=== PATIENT | female | born 1960 | race Caucasian/White ===

== ENCOUNTER 2017-08-11 12:32 | Inpatient (IN) | payer MEDICARE ==
[2017-08-11] MEDS ORDERED: SODIUM CHLORIDE 0.9% 1,000 ML BAG ONE (13:00)
[2017-08-11 13:13] LABS: Glucose,Whole Blood 128 mg/dL (75-99)
[2017-08-11 14:04] LABS: Basophils % (A) 0 %; Eosinophils # (A) 0.2 k/uL (0-0.7); Eosinophils % (A) 2 %; HCT 43.5 % (34.0-46.0); HGB 14.5 gm/dL (11.4-16.0); Lymphocytes # (A) 1.1 k/uL (1.0-4.8); Lymphocytes % (A) 13 %; MCH 31.1 pg (25.0-35.0); MCHC 33.4 g/dL (31.0-37.0); Mean Platelet Volume 7.4; Monocytes # (A) 0.5 k/uL (0-1.0); Monocytes % (A) 6 %; Neutrophils # (A) 6.8 k/uL (1.3-7.7); Neutrophils % (A) 78 %; Platelet Count 267 k/uL (150-450); RBC 4.67 m/uL (3.80-5.40); RDW 12.7 % (11.5-15.5); WBC 8.7 k/uL (3.8-10.6)
[2017-08-11 14:07] LABS: Appearance,Urine Clear (Clear); Bilirubin,Urine Negative (Negative); Blood,Urine Negative (Negative); Color,Urine Yellow; Glucose,Urine (UA) Negative (Negative); Ketones,Urine 2+ (Negative); Leukocyte Esterase,Urine Negative (Negative); Nitrite,Urine Negative (Negative); PH, Urine 5.5 (5.0-8.0); Protein,Urine Trace (Negative); Specific Gravity,Urine 1.015 (1.001-1.035); Urobilinogen,Urine <2.0 mg/dL (<2.0)
[2017-08-11 14:15] LABS: INR 1.1 (<1.2); Partial Thromboplastin Time 22.2 sec (22.0-30.0)
[2017-08-11 14:17] LABS: Lactic Acid, Venous 1.8 mmol/L (0.7-2.0)
[2017-08-11 14:18] LABS: Amphetamine Screen,Urine Not Detected (NotDetected); Barbiturate Screen,Urine Not Detected (NotDetected); Benzodiazepines Screen,Urine Detected (NotDetected); Cocaine Screen,Urine Detected (NotDetected); Methadone Screen, Urine Not Detected (NotDetected); Opiate Screen,Urine Not Detected (NotDetected); Oxycodone Screen, Urine Not Detected (NotDetected); Phencyclidine Screen,Urine Not Detected (NotDetected); Tricyclic Antidepressant,Urine Not Detected (NotDetected); Urn Cannabinoid Scrn Not Detected (NotDetected)
[2017-08-11 14:20] LABS: Acetaminophen <10.0 ug/mL; Albumin 3.8 g/dL (3.5-5.0); Alcohol <10 mg/dL; Amylase 57 U/L (30-110); Anion Gap 14 mmol/L; Carbon Dioxide 24 mmol/L (22-30); Chloride 105 mmol/L (98-107); Glucose 112 mg/dL (74-99); Lipase 44 U/L (23-300); Salicylate <1.0 mg/dL; Sodium 143 mmol/L (137-145); Total Bilirubin 0.9 mg/dL (0.2-1.3); Total Protein 6.2 g/dL (6.3-8.2)
[2017-08-11 14:29] LABS: ALT 31 U/L (9-52); AST 47 U/L (14-36); Alkaline Phosphatase 59 U/L (38-126); Blood Urea Nitrogen 11 mg/dL (7-17); Magnesium 1.9 mg/dL (1.6-2.3); Potassium 4.6 mmol/L (3.5-5.1)
[2017-08-11 14:36] LABS: D-Dimer 2.25 mg/L FEU (<0.60)
[2017-08-11 14:45] LABS: Creatine Kinase 785 U/L (30-135)
[2017-08-11 14:49] LABS: Troponin I <0.012 ng/mL (0.000-0.034)
[2017-08-11 15:00] LABS: Creatine Kinase MB 5.6 ng/mL (0.0-2.4)
--- NOTE | 2017-08-11 15:32 | XR ---
EXAMINATION TYPE: XR chest 2V DATE OF EXAM: 08/11/2017 COMPARISON: Prior chest 06/16/[address] same date HISTORY: Medication reaction TECHNIQUE: Frontal and lateral views of the chest are obtained. FINDINGS: There is no focal air space opacity, pleural effusion, or pneumothorax seen. The cardiac silhouette size is within normal limits. Patchy basilar density is noted. There are overlying cardiac leads. The osseous structures are intact. IMPRESSION: Basilar atelectasis
--- NOTE | 2017-08-11 15:38 | CT ---
EXAMINATION TYPE: CT angio chest DATE OF EXAM: 08/11/2017 3:15 PM COMPARISON: 06/20/2015 HISTORY: Possible over dose, elevated d-dimer CT DLP: 787 mGycm Automated exposure control for dose reduction was used. CONTRAST: CTA scan of the thorax is performed with IV Contrast, patient injected with 100, wasted 16 mL of Isov ue 370, pulmonary embolism protocol. . FINDINGS: LUNGS: There are groundglass changes and subsegmental consolidation bilaterally. This is new from the previous CT scan. No pneumothorax. MEDIASTINUM: The main pulmonary arteries enhance normally. There is suboptimal enhancement is seconda ry and distal branches bilaterally. Assessment of pulmonary embolism in these regions is limited. The heart is enlarged. Aorta of normal caliber. No pathologic adenopathy. OTHER: Postcholecystectomy changes are seen with intrahepatic biliary dilation compatible with previ ous cholecystectomy. Hypertrophic and degenerative change of the spine noted. IMPRESSION: NO CENTRAL PULMONARY EMBOLUS. SECONDARY AND DISTAL BRANCHES ARE LIMITED IN ASSESSMENT DUE TO ARTIFACT AND SUBOPTIMAL ENHANCEMENT. CORRELATE WITH V/Q SCAN CLINICALLY WARRANTED. THERE IS A BILATERAL GROUNDGLASS CHANGES AND SUBSEGMENTAL CONSOLIDATION. CORRELATE FOR INFILTRATE. I NTERSTITIAL PNEUMONITIS OR VENOUS CONGESTION IN THE DIFFERENTIAL DIAGNOSIS. ATYPICAL PNEUMONIA WOULD BE A CONSIDERATION..
--- NOTE | 2017-08-11 22:59 | P.HPIM ---
History of Present Illness H&P Date: 08/11/17 Chief Complaint: Possible overdose Patient is a 56-year-old female with a known history of IBS, short-term memory problems and depression came to ER for possible overdose. Patient is a poor historian otherwise. Currently patient does not know why she is now hospital. She also says that she wanted to come and suicide and she thinks she took more pills. Denied any fever or chills. No complaints of chest pain or shortness of breath. Patient seems very anxious and unable to provide any history at this time. Chest x-ray showed basilar atelectasis D-dimer elevated. CT angiogram of the chest showed there is a bilateral groundglass changes and subsegmental consolidation correlate for infiltrate. Interstitial pneumonitis versus venous congestion in the differential. Atypical pneumonia would be a consideration No central pulmonary embolus. Secondary and distal branches are limited in assessment. UDS positive for cocaine and benzodiazepines. Urine analysis is negative for infection Review of Systems Complete review of systems could not be obtained from the patient Past Medical History Past Medical History: Memory Impairment Additional Past Medical History / Comment(s): IBS pt stated"i have 6-7 loose bms daily for past 15 years", hernia repair, chronic uticaria. short term memory problems, bruises esily, depression. History of Any Multi-Drug Resistant Organisms: None Reported Past Surgical History: Adenoidectomy, Appendectomy, Cholecystectomy, Hysterectomy, Orthopedic Surgery, Tonsillectomy Additional Past Surgical History / Comment(s): left knee ligaments fixed, colonoscopy Past Anesthesia/Blood Transfusion Reactions: Motion Sickness Additional Past Anesthesia/Blood Transfusion Reaction / Comment(s): clausterphobia. 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 Medications and Allergies Home Medications Medication Instructions Recorded Confirmed Type Butalb/Acetaminophen/Caffeine 325 mg PO BID PRN 09/24/13 08/11/17 History [Fioricet 50-325-40 mg Tablet] Lisinopril [Zestril] 20 mg PO DAILY 05/21/15 08/11/17 History Promethazine [Phenergan] 25 mg PO Q6HR PRN 05/21/15 08/11/17 History Venlafaxine HCl ER [Effexor XR] 150 mg PO DAILY 05/21/15 08/11/17 History ALPRAZolam [Xanax] 1 mg PO QID 08/11/17 08/11/17 History Acetaminophen-Codeine 300-30mg 1 tab PO Q6H 08/11/17 08/11/17 History [Tylenol w/codeine #3] Albuterol Inhaler [Ventolin Hfa 1 - 2 puff INHALATION RT-Q6H PRN 08/11/17 History Inhaler] Cyclobenzaprine [Flexeril] 10 mg PO TID 08/11/17 08/11/17 History Dicyclomine [Bentyl] 20 mg PO QID 08/11/17 08/11/17 History Diphenox-Atrop 2.5-0.025 mg 2 tab PO TID 08/11/17 08/11/17 History [Lomotil] EPINEPHrine (Auto Inject) [Epipen] 0.3 mg IM ONCE PRN 08/11/17 08/11/17 History Fluticasone Nasal [place] [Flonase 1 spray EA NOSTRIL DAILY 08/11/17 08/11/17 History Nasal [place]] Allergies Allergy/AdvReac Type Severity Reaction Status Date / Time cefaclor [From [facility]] Allergy Unknown Rash/Hives Verified 06/28/15 18:18 shellfish derived Allergy Unknown Rash/Hives Verified 06/28/15 18:18 Physical Exam Vitals: Vital Signs Temp Pulse Pulse Resp BP BP Pulse Ox 08/11/17 20:00 98.0 F 100 16 128/58 95 08/11/17 18:48 97.9 F 95 18 111/54 96 08/11/17 12:35 99.5 F 109 H 16 90/60 94 L Intake and Output 08/11/17 08/11/17 08/11/17 06:59 14:59 22:59 Other: Voiding Method Bedpan Weight 88.451 kg PHYSICAL EXAMINATION: Patient is lying in the bed comfortably, mild distress, awake alert and oriented. Patient seems very anxious.. HEENT: Normocephalic. Neck is supple. Pupils reactive. Nostrils clear. Oral cavity is moist. Ears reveal no drainage. Neck reveals no JVD, carotid bruits, or thyromegaly. CHEST EXAMINATION: Trachea is central. Symmetrical expansion. Bibasilar diminished air entry. Otherwise Lung dominguez clear to auscultation and percussion. CARDIAC: Normal S1, S2 with no gallops. No murmurs ABDOMEN: Soft. Bowel sounds normal. No organomegaly. No abdominal bruits. Extremities: reveal no edema. No clubbing or cyanosis Neurologically awake, alert, oriented x2 with well-coordinated movements. No focal deficits noted Skin: No rash or skin lesions. Psychiatric: Noncooperative. Could not be assessed completely Musculoskeletal: No joint swelling or deformity. Normal range of motion. Results CBC & Chem 7: 08/11/17 13:00 08/11/17 13:00 Labs: Abnormal Lab Results - Last 24 Hours (Table) 08/11/17 08/11/17 08/11/17 Range/Units 12:52 13:00 13:00 D-Dimer (<0.60) mg/L FEU Glucose 112 H (74-99) mg/dL POC Glucose (mg/dL) 128 H (75-99) mg/dL AST 47 H (14-36) U/L Total Creatine Kinase 785 H (30-135) U/L CK-MB (CK-2) 5.6 H* (0.0-2.4) ng/mL C-Reactive Protein 147.0 H (<10.0) mg/L Total Protein 6.2 L (6.3-8.2) g/dL Urine Protein (Negative) Urine Ketones (Negative) U Benzodiazepines Scrn (NotDetected) Urine Cocaine Screen (NotDetected) 08/11/17 08/11/17 Range/Units 13:00 13:00 D-Dimer 2.25 H (<0.60) mg/L FEU Glucose (74-99) mg/dL POC Glucose (mg/dL) (75-99) mg/dL AST (14-36) U/L Total Creatine Kinase (30-135) U/L CK-MB (CK-2) (0.0-2.4) ng/mL C-Reactive Protein (<10.0) mg/L Total Protein (6.3-8.2) g/dL Urine Protein Trace H (Negative) Urine Ketones 2+ H (Negative) U Benzodiazepines Scrn Detected H (NotDetected) Urine Cocaine Screen Detected H (NotDetected) Thrombosis Risk Factor Assmnt - DVT/VTE Prophylaxis DVT/VTE Prophylaxis: Pharmacologic Prophylaxis ordered - Choose All That Apply Each Factor Represents 1 point: Obesity (BMI >25) Thrombosis Risk Factor Assessment Total Risk Factor Score: 1 Thrombosis Risk Factor Assessment Level: Low Risk Assessment and Plan Assessment: Drug overdose with possible suicide attempt UDS positive for cocaine and benzodiazepines Bibasilar atelectasis. Unlikely pneumonia Elevated CRP Elevated d-dimer. CTA chest negative for any central pulmonary embolus Chronic pain issues. Short-term memory problems IBS Claustrophobia DVT prophylaxis Plan: Patient will be continued on IV fluids and supportive management. Psychiatric be consulted. We will hold narcotic pain medications and follow up closely. Further recommendations based on the clinical course. Prognosis is guarded. Time with Patient: Greater than 30
[2017-08-11] MEDS: SODIUM CHLORIDE 0.9% 1,000 ML IV SCH (23:16)
[2017-08-11] MEDS: HEPARIN SODIUM,PORCINE 5,000 UNIT/ML 1 ML VIAL SQ SCH (23:16)
[2017-08-12] MEDS ORDERED: VANCOMYCIN IV PER PHARMACY 1 EACH MISC MISCELLANE PRN (06:31)
[2017-08-12] MEDS: HEPARIN SODIUM,PORCINE 5,000 UNIT/ML 1 ML VIAL SQ SCH ×3 (09:18→23:52)
[2017-08-12] MEDS: VANCOMYCIN 1,500 MG in SODIUM CHLORIDE 0.9% 250 ML IVPB SCH ×2 (09:20→21:37)
[2017-08-12] MEDS: DICYCLOMINE 20 MG TAB PO SCH (21:35)
[2017-08-12] MEDS: VENLAFAXINE HCL ER 150 MG CAP PO SCH (21:36)
[2017-08-12] MEDS: SODIUM CHLORIDE 0.9% 1,000 ML IV SCH (21:46)
--- NOTE | 2017-08-12 22:51 | P.PN ---
Subjective Progress Note Date: 08/12/17 Principal diagnosis: Drug overdose Patient is a 56-year-old female with a known history of IBS, short-term memory problems and depression came to ER for possible overdose. Patient is a poor historian otherwise. Currently patient does not know why she is now hospital. She also says that she wanted to come and suicide and she thinks she took more pills. Denied any fever or chills. No complaints of chest pain or shortness of breath. Patient seems very anxious and unable to provide any history at this time. Chest x-ray showed basilar atelectasis D-dimer elevated. CT angiogram of the chest showed there is a bilateral groundglass changes and subsegmental consolidation correlate for infiltrate. Interstitial pneumonitis versus venous congestion in the differential. Atypical pneumonia would be a consideration No central pulmonary embolus. Secondary and distal branches are limited in assessment. UDS positive for cocaine and benzodiazepines. Urine analysis is negative for infection 08/12/2017 Patient is more awake and oriented today. Denied any social ideation. Patient wants to start back on her home medications for her IBS. No fever no chills. Psychiatry evaluation is pending. Patient is with sitter at bedside now. No complaints of chest pain or shortness of breath. No nausea vomiting or abdominal pain. Tolerating oral diet. All other review of systems negative except the above Current medications reviewed Objective - Vital Signs Vital signs: Vital Signs Temp 97.7 F 08/12/17 08:00 Pulse 96 08/12/17 16:00 Resp 16 08/12/17 16:00 BP 152/64 08/12/17 16:00 Pulse Ox 95 08/12/17 16:00 Intake & Output 08/12/17 08/12/17 08/13/17 06:59 18:59 06:59 Intake Total 225 Balance 225 Weight 91.5 kg Intake: Intake, IV Titration 225 Amount Sodium Chloride 0.9% 1, 225 000 ml @ 75 mls/hr IV . [id number] [facility] Rx#:[id number] Other: Voiding Method Bedpan Bedpan # Voids 1 - Exam PHYSICAL EXAMINATION: Patient is lying in the bed comfortably, no acute distress, awake alert and oriented.. HEENT: Normocephalic. Neck is supple. Pupils reactive. Nostrils clear. Oral cavity is moist. Ears reveal no drainage. Neck reveals no JVD, carotid bruits, or thyromegaly. CHEST EXAMINATION: Trachea is central. Symmetrical expansion. Lung dominguez clear to auscultation and percussion. CARDIAC: Normal S1, S2 with no gallops. No murmurs ABDOMEN: Soft. Bowel sounds normal. No organomegaly. No abdominal bruits. Extremities: reveal no edema. No clubbing or cyanosis Neurologically awake, alert, oriented x3 with well-coordinated movements. No focal deficits noted Skin: No rash or skin lesions. Psychiatric: Coperative. Nonsuicidal Musculoskeletal: No joint swelling or deformity. Normal range of motion. - Labs CBC & Chem 7: 08/11/17 13:00 08/11/17 13:00 Labs: Microbiology - Last 24 Hours (Table) 08/11/17 13:00 Blood Culture Gram Stain - Preliminary Blood 08/11/17 13:00 Blood Culture - Final Blood Assessment and Plan Assessment: Drug overdose with possible suicide attempt UDS positive for cocaine and benzodiazepines Bibasilar atelectasis. Unlikely pneumonia Elevated CRP Elevated d-dimer. CTA chest negative for any central pulmonary embolus Chronic pain issues. Short-term memory problems IBS Claustrophobia DVT prophylaxis Plan: Patient will be continued on IV fluids and supportive management. Psychiatriy was consulted. We will hold narcotic pain medications and follow up closely. Further recommendations based on the clinical course. Prognosis is guarded.
[2017-08-13] MEDS: SODIUM CHLORIDE 0.9% 1,000 ML IV SCH ×2 (02:52→19:46)
[2017-08-13 06:16] LABS: Basophils % (A) 0 %; Eosinophils # (A) 0.2 k/uL (0-0.7); Eosinophils % (A) 4 %; HCT 35.7 % (34.0-46.0); HGB 12.2 gm/dL (11.4-16.0); Lymphocytes # (A) 1.2 k/uL (1.0-4.8); Lymphocytes % (A) 27 %; MCV 91.1 fL (80.0-100.0); Mean Platelet Volume 6.5; Monocytes # (A) 0.2 k/uL (0-1.0); Monocytes % (A) 5 %; Neutrophils # (A) 2.8 k/uL (1.3-7.7); Neutrophils % (A) 63 %; Platelet Count 234 k/uL (150-450); RBC 3.92 m/uL (3.80-5.40); RDW 12.9 % (11.5-15.5); WBC 4.4 k/uL (3.8-10.6)
[2017-08-13 06:48] LABS: Anion Gap 13 mmol/L; Blood Urea Nitrogen 5 mg/dL (7-17); Calcium 8.1 mg/dL (8.4-10.2); Carbon Dioxide 20 mmol/L (22-30); Chloride 109 mmol/L (98-107); Glucose 73 mg/dL (74-99); Potassium 3.5 mmol/L (3.5-5.1); Sodium 142 mmol/L (137-145)
[2017-08-13] MEDS: HEPARIN SODIUM,PORCINE 5,000 UNIT/ML 1 ML VIAL SQ SCH ×3 (09:10→22:54)
[2017-08-13] MEDS: VENLAFAXINE HCL ER 150 MG CAP PO SCH (09:10)
[2017-08-13] MEDS: DICYCLOMINE 20 MG TAB PO SCH ×4 (09:10→19:41)
[2017-08-13] MEDS: VANCOMYCIN 1,500 MG in SODIUM CHLORIDE 0.9% 250 ML IVPB SCH ×2 (09:13→19:41)
--- NOTE | 2017-08-13 14:31 | P.CN ---
Psychiatric Consult - . Consult date: 08/13/17 Consult:: Reason for psychiatric consult: The patient is a 56-year-old female who is a long history of psychiatric illness. [facility] an intentional overdose of multiple medications. The hospitalist consult to psychiatry to evaluate need for additional psychiatric services. Psychiatric history: I reviewed the medical records and interviewed the patient. She was difficult to interview because she was circumstantial and her answers to questions were tangential. She stated that she definitely overdose on her medications. In a very circumstantial manner she talked about obtaining a prescription for Xanax, insufflating $200 worth of cocaine and taken various other medications at her disposal. She locked herself in her bedroom and did not notify friends or family of her intent or action. Her brother came to her home to take her to a medical appointment. When she did not answer the door she called her son and they were able to break into her room. She remembers their arrival and described their attempts to enter her bedroom. She was unable to explain the reason for overdosing. She talked about her work history, her interpersonal history, her marriage, her multiple doctor visits, her multiple medical problems and her overall poor functioning. The impression from her discussion was that she felt overwhelmed with her multiple medical problems and felt that she was a burden on her family. She expressed feelings of sadness, hopelessness and helplessness. She has thoughts of suicide but denied that which she wishes she were or had thoughts of ending her life. She was very somatically preoccupied and complained of gastrointestinal, respiratory and general somatic symptoms. She has history of psychiatric treatment with multiple psychiatrist in the [place] area and most recently was a private psychiatrist in [facility]. She believes that she has been admitted to [facility] times. According to our medical record she was last admitted in September 2013 following a suicide attempt. She was discharged with a diagnosis of major depressive disorder recurrent and borderline personality disorder. Mental status exam she presented as a slightly disheveled appearing morbidly obese 56-year-old female who is laying comfortably in bed. She made eye contact and appeared to attend to the examination. She was missing her front teeth but otherwise had no prominent physical abnormalities. She had a blunted and distressed facial expression. She cried intermittently during the interview. She was alert and oriented to person, place and time. Showed psychomotor retardation but no abnormal movements. Her speech was spontaneous, circumstantial and tangential. She had no articulation difficulties. Her affect was dysphoric. She denied current suicidal ideation or wishes. She denied homicidal ideation. She expressed depressive cognitions including hopelessness, helplessness and worthlessness. She ruminated about her past social, occupational personal and medical problems. She did not express ideas reference, paranoid ideation or delusions. Her thinking was concrete and associations at times did not appear fully coherent or logical. She denied hallucinations and did not appear to be responding to internal stimuli. Global impression of intellect is average. Impression: She is a 56-year-old woman with multiple medical problems and an extensive psychiatric history. She [facility] following an intentional overdose of benzodiazepines and other drugs. She has a history of suicide attempts requiring inpatient psychiatric treatment. She denied that she had contemplated suicide but description of her actions clearly indicated suicide intent and action. Suicide attempt by overdose of multiple drugs, cocaine use, history of major depressive disorder. Recommendation: Transferred to the psychiatric unit when she is medically stable. 08/13/17 14:19
[2017-08-13] MEDS: LISINOPRIL 20 MG TAB PO SCH (16:20)
[2017-08-13] MEDS ORDERED: Magnesium Replacement Protocol 1 EACH MISC MISCELLANE PRN (16:57)
[2017-08-13] MEDS ORDERED: Potassium Replacement Protocol 1 EACH MISC MISCELLANE PRN (16:57)
--- NOTE | 2017-08-13 17:03 | P.PN ---
Subjective Progress Note Date: 08/13/17 Progress note being dictated for Dr. Colvin. Drug overdose Patient is a 56-year-old female with a known history of IBS, short-term memory problems and depression came to ER for possible overdose. Patient is a poor historian otherwise. Currently patient does not know why she is now hospital. She also says that she wanted to come and suicide and she thinks she took more pills. Denied any fever or chills. No complaints of chest pain or shortness of breath. Patient seems very anxious and unable to provide any history at this time. Chest x-ray showed basilar atelectasis D-dimer elevated. CT angiogram of the chest showed there is a bilateral groundglass changes and subsegmental consolidation correlate for infiltrate. Interstitial pneumonitis versus venous congestion in the differential. Atypical pneumonia would be a consideration No central pulmonary embolus. Secondary and distal branches are limited in assessment. UDS positive for cocaine and benzodiazepines. Urine analysis is negative for infection 08/12/2017 Patient is more awake and oriented today. Denied any social ideation. Patient wants to start back on her home medications for her IBS. No fever no chills. Psychiatry evaluation is pending. Patient is with sitter at bedside now. No complaints of chest pain or shortness of breath. No nausea vomiting or abdominal pain. Tolerating oral diet. All other review of systems negative except the above Current medications reviewed 08/13/17 son at bedside, waiting to talk to social security benefits interviewer. Sitter/suicide precautions maintained. Evaluated by psychiatry with recommendations noted.Denies chest pain, palpitations or increasing shortness of breath. Good diet intake. No nausea vomiting or diarrhea. Objective - Vital Signs Vital signs: Vital Signs Temp 97.2 F L 08/13/17 08:00 Pulse 95 08/13/17 12:00 Resp 16 08/13/17 15:37 BP 166/93 08/13/17 12:00 Pulse Ox 96 08/13/17 08:00 Intake & Output 08/12/17 08/13/17 08/13/17 18:59 06:59 18:59 Intake Total 880 330 Balance 880 330 Weight 93 kg Intake: IV 30 30 Invasive Line 1 30 30 Intake, IV Titration 850 Amount Sodium Chloride 0.9% 1, 600 000 ml @ 75 mls/hr IV . [id number] [facility] Rx#:[id number] Vancomycin 1,500 mg In 250 Sodium Chloride 0.9% 250 ml @ 125 mls/hr IVPB Q12H [facility] Rx#:[id number] Oral 300 Other: Voiding Method Bedpan Toilet Toilet - Exam Patient is lying in the bed comfortably, no acute distress, awake alert and oriented.. HEENT: Normocephalic. Neck is supple. Pupils reactive. Nostrils clear. Oral cavity is moist. Ears reveal no drainage. Neck reveals no JVD, carotid bruits, or thyromegaly. CHEST EXAMINATION: Trachea is central. Symmetrical expansion. Lung dominguez clear to auscultation and percussion. CARDIAC: Normal S1, S2 with no gallops. No murmurs ABDOMEN: Soft. Bowel sounds normal. No organomegaly. No abdominal bruits. Extremities: reveal no edema. No clubbing or cyanosis Neurologically awake, alert, oriented x3 with well-coordinated movements. No focal deficits noted Skin: No rash or skin lesions. Psychiatric: Coperative. Nonsuicidal Musculoskeletal: No joint swelling or deformity. Normal range of motion. - Labs CBC & Chem 7: 08/13/17 05:52 08/13/17 05:52 Labs: Abnormal Lab Results - Last 24 Hours (Table) 08/13/17 Range/Units 05:52 Chloride 109 H (98-107) mmol/L Carbon Dioxide 20 L (22-30) mmol/L BUN 5 L (7-17) mg/dL Creatinine 0.49 L (0.52-1.04) mg/dL Glucose 73 L (74-99) mg/dL Calcium 8.1 L (8.4-10.2) mg/dL Assessment and Plan Assessment: Drug overdose with possible suicide attempt UDS positive for cocaine and benzodiazepines Bibasilar atelectasis. Unlikely pneumonia Elevated CRP Elevated d-dimer. CTA chest negative for any central pulmonary embolus Chronic pain issues. Short-term memory problems IBS Claustrophobia DVT prophylaxis Plan: Continue on current medication regime ,monitoring and symptomatic treatment.maintain suicide precautions, IV fluid hydration. Psychiatriy recently evaluated, with transfer to psychiatry unit once medically stable recommended. Son at bedside, leading to speak with social security benefits interviewer regarding advanced directives, durable power of divorce attorney. Continuing holding narcotic pain medications. Further recommendations to follow The impression and plan of care has been dictated as directed. : I performed a history and examination of this patient, discussed the same with the dictator. I agree with the dictator's note ,documented as a scribe. Any additional findings or plans will be noted.
[2017-08-14] MEDS: SODIUM CHLORIDE 0.9% 1,000 ML IV SCH (04:23)
[2017-08-14 06:04] LABS: Basophils % (A) 0 %; Eosinophils # (A) 0.1 k/uL (0-0.7); Eosinophils % (A) 2 %; Lymphocytes # (A) 1.1 k/uL (1.0-4.8); Lymphocytes % (A) 22 %; MCH 30.6 pg (25.0-35.0); MCHC 34.3 g/dL (31.0-37.0); MCV 89.1 fL (80.0-100.0); Mean Platelet Volume 6.6; Monocytes # (A) 0.4 k/uL (0-1.0); Monocytes % (A) 9 %; Neutrophils # (A) 3.1 k/uL (1.3-7.7); Neutrophils % (A) 65 %; Platelet Count 263 k/uL (150-450); RBC 4.26 m/uL (3.80-5.40); RDW 12.5 % (11.5-15.5); WBC 4.8 k/uL (3.8-10.6)
[2017-08-14 06:16] LABS: Anion Gap 13 mmol/L; Blood Urea Nitrogen 2 mg/dL (7-17); Calcium 8.9 mg/dL (8.4-10.2); Carbon Dioxide 21 mmol/L (22-30); Chloride 109 mmol/L (98-107); Glucose 93 mg/dL (74-99); Magnesium 1.9 mg/dL (1.6-2.3); Potassium 3.7 mmol/L (3.5-5.1); Sodium 143 mmol/L (137-145)
[2017-08-14] MEDS ORDERED: VANCOMYCIN TROUGH DUE 1 EACH MISC MISCELLANE ONE (07:00)
[2017-08-14] MEDS: VENLAFAXINE HCL ER 150 MG CAP PO SCH (09:26)
[2017-08-14] MEDS: DICYCLOMINE 20 MG TAB PO SCH ×2 (09:26→12:37)
[2017-08-14] MEDS: LISINOPRIL 20 MG TAB PO SCH (09:26)
[2017-08-14] MEDS: HEPARIN SODIUM,PORCINE 5,000 UNIT/ML 1 ML VIAL SQ SCH (09:26)
[2017-08-14] MEDS: VANCOMYCIN 1,500 MG in SODIUM CHLORIDE 0.9% 250 ML IVPB SCH (12:37)
[2017-08-14 12:42] VITALS: TEMP 98
--- NOTE | 2017-08-14 13:04 | P.DS ---
Providers Date of admission: 08/11/17 16:30 Expected date of discharge: 08/14/17 Attending physician: Tommy Staton Consults: 08/12/17 14:39 Consult Physician Stat Consulting Provider: Patrice Martinez Consult Reason/Comments: suicidal idealtion Do you want consulting provider notified?: Yes Placement Type Exists?: Yes Primary care physician: Tommy Stokes Hospital Course: Final Diagnoses: Drug overdose with possible suicide attempt UDS positive for cocaine and benzodiazepines Bibasilar atelectasis. Unlikely pneumonia Elevated CRP Elevated d-dimer. CTA chest negative for any central pulmonary embolus Chronic pain issues. Short-term memory problems IBS [facility]:Drug overdose Patient is a 56-year-old female with a known history of IBS, short-term memory problems and depression came to ER for possible overdose. Patient is a poor historian otherwise. Currently patient does not know why she is now hospital. She also says that she wanted to come and suicide and she thinks she took more pills. Denied any fever or chills. No complaints of chest pain or shortness of breath. Patient seems very anxious and unable to provide any history at this time. Chest x-ray showed basilar atelectasis D-dimer elevated. CT angiogram of the chest showed there is a bilateral groundglass changes and subsegmental consolidation correlate for infiltrate. Interstitial pneumonitis versus venous congestion in the differential. Atypical pneumonia would be a consideration No central pulmonary embolus. Secondary and distal branches are limited in assessment. UDS positive for cocaine and benzodiazepines. Urine analysis is negative for infection Blood culture reporting ALpha Hemolytic Streptococcus/COagulase Negative Staph. Vancomycin has been discontinued.Repeat Blood culture Pending.No antibiotics recommended at discharge as patient has no signs or symtoms of infection, afebrile, normal WBC,UA negative. Suicide precautions maintained.Evaluated by psychiatry with recommendations of patient to be transferred to psychiatry unit. Received gentle IV fluid hydration.Significant clinical improvement.Patient has been medically cleared for discharge to mental health unit, in a stable condition with guarded prognosis. Exam Patient is sitting up in bed, no acute distress, awake alert and oriented.. CHEST EXAMINATION: Trachea is central. Symmetrical expansion. Lung dominguez clear to auscultation and percussion. CARDIAC: Normal S1, S2 with no gallops. No murmurs ABDOMEN: Soft. Bowel sounds normal. No organomegaly. No abdominal bruits. NEURO : No focal deficits noted Psychiatric: Coperative.Suicide precautions maintained The impression and plan of care has been dictated as directed. : I performed a history and examination of this patient, discussed the same with the dictator. I agree with the dictator's note ,documented as a scribe. Any additional findings or plans will be noted. TIme taken:35 min Patient Condition at Discharge: Stable Plan - Discharge Summary Discharge Rx Participant: Yes New Discharge Prescriptions: Continue Lisinopril [Zestril] 20 mg PO DAILY Venlafaxine HCl ER [Effexor XR] 150 mg PO DAILY Albuterol Inhaler [Ventolin Hfa Inhaler] 1 - 2 puff INHALATION RT-Q6H PRN PRN Reason: Shortness Of Breath Fluticasone Nasal [place] [Flonase Nasal [place]] 1 spray EA NOSTRIL DAILY Dicyclomine [Bentyl] 20 mg PO QID Discontinued Butalb/Acetaminophen/Caffeine [Fioricet 50-325-40 mg Tablet] 325 mg PO BID PRN PRN Reason: Migraine Headache Promethazine [Phenergan] 25 mg PO Q6HR PRN PRN Reason: Nausea EPINEPHrine (Auto Inject) [Epipen] 0.3 mg IM ONCE PRN PRN Reason: Anaphylaxis Diphenox-Atrop 2.5-0.025 mg [Lomotil] 2 tab PO TID Cyclobenzaprine [Flexeril] 10 mg PO TID ALPRAZolam [Xanax] 1 mg PO QID Acetaminophen-Codeine 300-30mg [Tylenol w/codeine #3] 1 tab PO Q6H Discharge Medication List Lisinopril [Zestril] 20 mg PO DAILY 05/21/15 [History] Venlafaxine HCl ER [Effexor XR] 150 mg PO DAILY 05/21/15 [History] Albuterol Inhaler [Ventolin Hfa Inhaler] 1 - 2 puff INHALATION RT-Q6H PRN [History] Dicyclomine [Bentyl] 20 mg PO QID 08/11/17 [History] Fluticasone Nasal [place] [Flonase Nasal [place]] 1 spray EA NOSTRIL DAILY 08/11/17 [History] Follow up Appointment(s)/Referral(s): Tommy Stokes MD [Primary Care Provider] - 3 Days (after dc from Psych.) Patrice Martinez MD [STAFF PHYSICIAN] - 08/14/17 Activity/Diet/Wound Care/Special Instructions: cbc,bmp tomorrow repeat BC pending. Discharge Disposition: TRANSFER TO PSYCH HOSP/UNIT
[2017-08-14 17:26] VITALS: BP 167/83; PULSE 98; RESP 17
== END 2017-08-14 17:12 | DRG 918 ==
LOC: EC 12:32 → 6SEL 16:30 → EC 18:10
PROVIDERS: ADMIT Family Medicine; ATTEND Family Medicine
DX: T40.5X2A Poisoning by cocaine, intentional self-harm, initial encounter (principal); T42.4X2A Poisoning by benzodiazepines, intentional self-harm, initial encounter; K58.0 Irritable bowel syndrome with diarrhea; F32.9 Major depressive disorder, single episode, unspecified; R79.1 Abnormal coagulation profile; F40.240 Claustrophobia; G89.29 Other chronic pain; R41.3 Other amnesia; Z90.49 Acquired absence of other specified parts of digestive tract; Z90.710 Acquired absence of both cervix and uterus; Z87.891 Personal history of nicotine dependence; Z79.51 Long term (current) use of inhaled steroids; Z79.899 Other long term (current) drug therapy; Z88.1 Allergy status to other antibiotic agents; Z91.013 Allergy to seafood; Z80.1 Family history of malignant neoplasm of trachea, bronchus and lung
CPT/HCPCS: 36415; 71046; 71275; 80048; 80053; 80202; 80306; 80320; 81003; 82140; 82150; 82550; 82553; 83520; 83605; 83690; 83735; 84484; 85025; 85379; 85610; 85652; 85730; 86140; 87040; 93005; 96360; 99285

== ENCOUNTER 2017-08-14 16:22 | Inpatient (IN) | payer MEDICARE ==
[2017-08-14 18:11] VITALS: RESP 20; BMI 34.2
[2017-08-14] MEDS ORDERED: MAG HYDROX/AL HYDROX/SIMETH 30 ML CUP PO PRN (18:28)
[2017-08-14] MEDS ORDERED: ACETAMINOPHEN TAB 325 MG TAB PO PRN (18:28)
[2017-08-14] MEDS ORDERED: MAGNESIUM HYDROXIDE 2,400 MG/10 ML CUP PO PRN (18:28)
[2017-08-14] MEDS ORDERED: ALBUTEROL INHALER 60 PUFF/8 GM INHALER INHALATION PRN (18:30)
[2017-08-14] MEDS ORDERED: LORazepam 2 MG/ML INJ IM ONE (20:35)
--- NOTE | 2017-08-14 21:33 | CT ---
EXAMINATION TYPE: CT brain [facility] DATE OF EXAM: 08/14/2017 COMPARISON: CT brain 02/08/2012 HISTORY: Fall. CT DLP: 1357.1 mGycm Automated exposure control for dose reduction was used. TECHNIQUE: CT scan of the head and cervical spine are performed without contrast. FINDINGS: Ventricles and sulci appear normal for age. There is no mass effect nor midline shift. Th ere is no sign of intracranial hemorrhage. There is right-sided periorbital soft tissue swelling. The calvarium is intact. Cervical vertebra have fairly normal alignment. There is mild narrowing of the C5-6 disc space. There is no compression fracture. Facet joints appear normal. The skull base appears intact. IMPRESSION: Right periorbital soft tissue swelling. No intracranial abnormality. Minor degenerative disc changes in the cervical spine. No fracture.
[2017-08-14] MEDS ORDERED: DICYCLOMINE 20 MG TAB PO SCH (22:00)
[2017-08-14 22:44] VITALS: BP 174/79; PULSE 88
[2017-08-15] MEDS ORDERED: VENLAFAXINE HCL ER 150 MG CAP PO SCH (09:00)
[2017-08-15] MEDS ORDERED: LISINOPRIL 20 MG TAB PO SCH (09:00)
[2017-08-15] MEDS ORDERED: FLUTICASONE 50MCG/SPRAY NASAL 16GM EA NOSTRIL SCH (09:00)
== END 2017-08-14 21:04 | disposition short-term general hospital (02) | DRG 881 ==
LOC: 3MHU 17:05
PROVIDERS: ADMIT Psychiatry & Neurology Psychiatry; ATTEND Psychiatry & Neurology Psychiatry
DX: F32.9 Major depressive disorder, single episode, unspecified (principal); Z91.5 Personal history of self-harm; E66.01 Morbid (severe) obesity due to excess calories; Z68.34 Body mass index [BMI] 34.0-34.9, adult
CPT/HCPCS: 70450; 72125

== ENCOUNTER 2017-08-14 21:10 | Inpatient (IN) | payer MEDICARE ==
[2017-08-14 22:46] VITALS: BMI 34.3
[2017-08-14] MEDS ORDERED: ALBUTEROL NEBULIZED 2.5 MG/3 ML INHALATION PRN (23:36)
[2017-08-14 23:57] LABS: Basophils % (A) 0 %; Eosinophils % (A) 0 %; HGB 14.6 gm/dL (11.4-16.0); Lymphocytes # (A) 0.7 k/uL (1.0-4.8); Lymphocytes % (A) 7 %; MCH 30.6 pg (25.0-35.0); Mean Platelet Volume 6.5; Monocytes # (A) 0.6 k/uL (0-1.0); Monocytes % (A) 6 %; Neutrophils # (A) 9.4 k/uL (1.3-7.7); Neutrophils % (A) 86 %; Platelet Count 298 k/uL (150-450); RBC 4.77 m/uL (3.80-5.40); RDW 12.5 % (11.5-15.5); WBC 10.9 k/uL (3.8-10.6)
[2017-08-15 00:08] LABS: Anion Gap 16 mmol/L; Blood Urea Nitrogen 3 mg/dL (7-17); Calcium 9.5 mg/dL (8.4-10.2); Carbon Dioxide 18 mmol/L (22-30); Chloride 103 mmol/L (98-107); Glucose 122 mg/dL (74-99); Potassium 3.8 mmol/L (3.5-5.1); Sodium 137 mmol/L (137-145)
[2017-08-15] MEDS: HYDROcodone/APAP 5-325MG 1 EACH TAB PO PRN ×4 (00:54→19:56)
[2017-08-15] MEDS: ONDANSETRON 4 MG/2 ML VIAL IVP PRN ×4 (00:54→19:56)
[2017-08-15] MEDS: SODIUM CHLORIDE 0.9% 1,000 ML IV SCH ×2 (00:56→13:43)
[2017-08-15] MEDS: LISINOPRIL 20 MG TAB PO SCH (08:11)
[2017-08-15] MEDS: DICYCLOMINE 20 MG TAB PO SCH ×3 (13:38→21:57)
--- NOTE | 2017-08-15 15:37 | P.HPIM ---
History of Present Illness H&P Date: 08/15/17 Chief Complaint: Status post fall Patient is a 56-year-old female with a known history of IBS, short-term memory problems and depression came to ER for possible overdose on 08/11/2017 initially. Patient is a poor historian otherwise. She also says that she wanted to come and suicide and she thinks she took more pills. Denied any fever or chills. No complaints of chest pain or shortness of breath. Initial workup below was essentially negative. Chest x-ray showed basilar atelectasis D-dimer elevated. CT angiogram of the chest showed there is a bilateral groundglass changes and subsegmental consolidation correlate for infiltrate. Interstitial pneumonitis versus venous congestion in the differential. Atypical pneumonia would be a consideration No central pulmonary embolus. Secondary and distal branches are limited in assessment. UDS positive for cocaine and benzodiazepines. Urine analysis is negative for infection Patient was continued to monitor in the telemetry unit and psychiatric has seen the patient. Patient did improve clinically and was cleared to be transferred to inpatient psychiatric unit as per recommendations. Up on reaching the psychiatric unit., Patient became more anxious and felt like an anxiety attack as per patient and fell down. Patient says that she had some shaking movement as well. Patient woke up of her she had CT of head and neck. Denied any weakness, bladder or bowel incontinence. CT head showed soft tissue swelling. Patient had right eyelid swelling and redness and also injection of the eyes. Denied any pain with movement of eyes. otherwise patient is not able to open her right eye completely due to swelling. No fever no chills currently. Neurology was consulted for further evaluation. Currently patient is more awake and alert and oriented. Able to provide history. Review of Systems Constitutional: Patient denies any fever or chills . No generalized weakness or weight loss. Abdomen: Patient denied nausea vomiting and diarrhea and abdominal pain. Cardiovascular: Patient denies any chest pain or short of breath no palpitations. Respiratory: patient denied any cough is from production. No shortness of breath Neurologic: Patient denied any numbness or tingling headache. Musculoskeletal: Patient denies any complaints of joint swelling or deformity. Patient does have right eyebrow/lids swelling and redness Skin: Negative Psychiatric: Negative Endocrine: No heat or cold intolerance. No recent weight gain. Genitourinary: No dysuria or hematuria. All other 14 point ROS negative except the above Past Medical History Past Medical History: Memory Impairment Additional Past Medical History / Comment(s): IBS pt stated"i have 6-7 loose bms daily for past 15 years", hernia repair, chronic uticaria. short term memory problems, bruises easily, depression. History of Any Multi-Drug Resistant Organisms: None Reported Past Surgical History: Adenoidectomy, Appendectomy, Cholecystectomy, Hysterectomy, Orthopedic Surgery, Tonsillectomy Additional Past Surgical History / Comment(s): left knee ligaments fixed, colonoscopy Past Anesthesia/Blood Transfusion Reactions: Motion Sickness Additional Past Anesthesia/Blood Transfusion Reaction / Comment(s): clausterphobia. past blood transfusion-no reaction Past Psychological History: Anxiety, Depression, Panic Disorder Smoking Status: Current every day smoker Past Alcohol Use History: Occasional Additional Past Alcohol Use History / Comment(s): started smoking at age 14 smokes 1/2 ppd; started smioking a full pack 3 years ago Past Drug Use History: Cocaine Additional Drug Use History / Comment(s): pt stated no past drug use when younger but a month ago started to use cocaine occ. last used few days ago. 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 Medications and Allergies Home Medications Medication Instructions Recorded Confirmed Type Lisinopril [Zestril] 20 mg PO DAILY 05/21/15 08/14/17 History Venlafaxine HCl ER [Effexor XR] 150 mg PO DAILY 05/21/15 08/14/17 History Albuterol Inhaler [Ventolin Hfa 1 - 2 puff INHALATION RT-Q6H PRN 08/11/17 History Inhaler] Dicyclomine [Bentyl] 20 mg PO QID 08/11/17 08/14/17 History Fluticasone Nasal [place] [Flonase 1 spray EA NOSTRIL DAILY 08/11/17 08/14/17 History Nasal [place]] Allergies Allergy/AdvReac Type Severity Reaction Status Date / Time cefaclor [From Ceclor] Allergy Unknown Rash/Hives Verified 08/14/17 19:16 shellfish derived Allergy Unknown Rash/Hives Verified 08/14/17 19:16 latex Allergy Rash/Hives Verified 08/14/17 19:16 Physical Exam Vitals: Vital Signs Temp Pulse Resp BP BP Pulse Ox 08/15/17 08:00 99.0 F 94 18 146/83 99 08/15/17 04:00 98 F 93 16 158/93 96 08/15/17 00:00 97.6 F 96 16 136/65 100 Intake and Output 08/14/17 08/15/17 08/15/17 22:59 06:59 14:59 Intake Total 118 Balance 118 Intake: Oral 118 Other: # Voids 2 1 Weight 90.718 kg 90 kg PHYSICAL EXAMINATION: Patient is lying in the bed comfortably, no acute distress, awake alert and oriented.. HEENT: Normocephalic. Neck is supple. Pupils reactive. Nostrils clear. Oral cavity is moist. Ears reveal no drainage. Right eyelid is swollen and black eye with conjunctival injection. tender to palpation. Neck reveals no JVD, carotid bruits, or thyromegaly. CHEST EXAMINATION: Trachea is central. Symmetrical expansion. Lung dominguez clear to auscultation and percussion. CARDIAC: Normal S1, S2 with no gallops. No murmurs ABDOMEN: Soft. Bowel sounds normal. No organomegaly. No abdominal bruits. Extremities: reveal no edema. No clubbing or cyanosis Neurologically awake, alert, oriented x3 with well-coordinated movements. No focal deficits noted Skin: No rash or skin lesions. Psychiatric: Coperative. Denied any suicidal ideation currently. Musculoskeletal: No joint swelling or deformity. Normal range of motion. Results CBC & Chem 7: 08/14/17 23:51 08/14/17 23:51 Labs: Abnormal Lab Results - Last 24 Hours (Table) 08/14/17 08/14/17 Range/Units 23:51 23:51 WBC 10.9 H (3.8-10.6) k/uL Neutrophils # 9.4 H (1.3-7.7) k/uL Lymphocytes # 0.7 L (1.0-4.8) k/uL Carbon Dioxide 18 L (22-30) mmol/L BUN 3 L (7-17) mg/dL Creatinine 0.40 L (0.52-1.04) mg/dL Glucose 122 H (74-99) mg/dL Thrombosis Risk Factor Assmnt - DVT/VTE Prophylaxis DVT/VTE Prophylaxis: Pharmacologic Prophylaxis ordered - Choose All That Apply Any of the Below Risk Factors Present?: Yes Each Factor Represents 1 point: Age 41-60 years, Obesity (BMI >25) Thrombosis Risk Factor Assessment Total Risk Factor Score: 2 Thrombosis Risk Factor Assessment Level: Low Risk Assessment and Plan Assessment: Status post fall and right black eye with conjunctival injection. Suspected anxiety attack versus possibility of seizures cannot be excluded. Acute Drug overdose with suicide attempt on admission UDS positive for cocaine and benzodiazepines Bibasilar atelectasis. Unlikely pneumonia Elevated CRP Elevated d-dimer. CTA chest negative for any central pulmonary embolus Chronic pain issues. Short-term memory problems IBS Claustrophobia DVT prophylaxis Plan: Continue on current medication regime ,monitoring and symptomatic treatment.maintain suicide precautions and fall precautions, IV fluid hydration. CT head and CT neck was done. CT neck showed mild degenerative disc disease. Patient is currently awake alert oriented 3 and will be continued on pain management with [place] 5. Will follow closely. Neurology was consulted. Ordered EEG and further recommendations based on the clinical course. Prognosis is guarded. Social work has seen the patient for guardianship/DURABLE POWER OF CUSTOMER SOLUTIONS ARCHITECT. Continued with sitter at bedside. Time with Patient: Greater than 30
[2017-08-16] MEDS: SODIUM CHLORIDE 0.9% 1,000 ML IV SCH ×2 (04:20→16:00)
[2017-08-16] MEDS: FLUTICASONE 50MCG/SPRAY NASAL 16GM EA NOSTRIL SCH (08:36)
[2017-08-16] MEDS: LISINOPRIL 20 MG TAB PO SCH (08:36)
[2017-08-16] MEDS: VENLAFAXINE HCL ER 150 MG CAP PO SCH (08:36)
[2017-08-16] MEDS: DICYCLOMINE 20 MG TAB PO SCH ×4 (08:36→22:51)
[2017-08-16] MEDS: HYDROcodone/APAP 5-325MG 1 EACH TAB PO PRN ×3 (09:38→22:51)
--- NOTE | 2017-08-16 14:54 | P.CONS ---
History of Present Illness - Reason for Consult Consult date: 08/16/17 Possible seizure - Chief Complaint Syncopal episode - History of Present Illness Is a 56-year-old female being evaluated by the neurology service for possible seizure activity. She came to the [facility] emergency room with an overdose on 08/11/2017. She says she took heroin and some pills. Her most recent UDS was positive for cocaine and benzodiazepines. She was admitted to psychiatric unit and was improving clinically when she started to become anxious and thought she was having an anxiety attack and subsequently fell. She sustained a contusion to the right face. CT of the head showed only soft tissue swelling. There was no seizure activity reported. There was no sphincter incontinence. She says she has no history of seizure disorder but has migraines with [place]. Since this episode she has had no witnessed seizure activity, and she denies any seizure activity or loss of consciousness since. At this time my exam she is resting comfortably in bed in no acute distress with the sitter. Obvious bruising to the right face. An EEG has been ordered. Review of Systems All systems: negative Constitutional: Reports as per HPI Past Medical History Past Medical History: Memory Impairment Additional Past Medical History / Comment(s): IBS pt stated"i have 6-7 loose bms daily for past 15 years", hernia repair, chronic uticaria. short term memory problems, bruises easily, depression. History of Any Multi-Drug Resistant Organisms: None Reported Past Surgical History: Adenoidectomy, Appendectomy, Cholecystectomy, Hysterectomy, Orthopedic Surgery, Tonsillectomy Additional Past Surgical History / Comment(s): left knee ligaments fixed, colonoscopy Past Anesthesia/Blood Transfusion Reactions: Motion Sickness Additional Past Anesthesia/Blood Transfusion Reaction / Comm: clausterphobia. past blood transfusion-no reaction Past Psychological History: Anxiety, Depression, Panic Disorder Smoking Status: Current every day smoker Past Alcohol Use History: Occasional Additional Past Alcohol Use History / Comment(s): started smoking at age 14 smokes 1/2 ppd; started smioking a full pack 3 years ago Past Drug Use History: Cocaine Additional Drug Use History / Comment(s): pt stated no past drug use when younger but a month ago started to use cocaine occ. last used few days ago. 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 Medications and Allergies Home Medications Medication Instructions Recorded Confirmed Type Lisinopril [Zestril] 20 mg PO DAILY 05/21/15 08/14/17 History Venlafaxine HCl ER [Effexor XR] 150 mg PO DAILY 05/21/15 08/14/17 History Albuterol Inhaler [Ventolin Hfa 1 - 2 puff INHALATION RT-Q6H PRN 08/11/17 History Inhaler] Dicyclomine [Bentyl] 20 mg PO QID 08/11/17 08/14/17 History Fluticasone Nasal [place] [Flonase 1 spray EA NOSTRIL DAILY 08/11/17 08/14/17 History Nasal [place]] Allergies Allergy/AdvReac Type Severity Reaction Status Date / Time cefaclor [From [facility]] Allergy Unknown Rash/Hives Verified 08/14/17 19:16 shellfish derived Allergy Unknown Rash/Hives Verified 08/14/17 19:16 latex Allergy Rash/Hives Verified 08/14/17 19:16 Physical Exam Vitals: Vital Signs Temp Pulse Resp BP BP Pulse Ox 08/16/17 12:10 98 F 88 18 144/81 94 L 08/16/17 08:30 98.7 F 94 18 145/70 95 08/16/17 03:58 98.1 F 99 16 110/51 95 08/16/17 00:00 98.2 F 83 16 163/70 98 08/15/17 20:00 97.7 F 84 16 179/79 96 08/15/17 15:50 99.7 F H 100 18 149/78 96 Intake and Output 08/15/17 08/16/17 08/16/17 22:59 06:59 14:59 Intake Total 240 Balance 240 Intake: Oral 240 Other: # Voids 1 1 2 Weight 88.5 kg - Constitutional General appearance: cooperative, no acute distress - EENT Eyes: no abnormal pupil, EOMI, PERRLA, no ptosis ENT: hearing grossly normal - Neck Neck: normal ROM, no rigidity - Respiratory Respiratory: negative: prolonged expiration, prolonged inspiration - Cardiovascular Rhythm: regular - Gastrointestinal General gastrointestinal: no distended - Neurologic The patient is alert awake and oriented 3. Speech and language are normal. There is no facial asymmetry. Strength is 5 out of 5 in bilateral upper and lower extremities. There is no sensory deficit. No tremors or seizures are seen. Cranial nerves II through XII are intact globally. She has contusion and ecchymosis to the right side of her face. She had some right subconjunctival hemorrhage. Her vision is intact. Results CBC & Chem 7: 08/14/17 23:51 08/14/17 23:51 Assessment and Plan (1) Syncope and collapse Current Visit: Yes Status: Acute Code(s): R55 - SYNCOPE AND COLLAPSE SNOMED Code(s): 303140302 (2) Overdose Current Visit: No Status: Acute Code(s): T50.901A - POISONING BY UNSP DRUG/ MEDS/BIOL SUBST, ACCIDENTAL, INIT SNOMED Code(s): 08602729 (3) Suicidal ideation Current Visit: No Status: Acute Code(s): R45.851 - SUICIDAL IDEATIONS SNOMED Code(s): 1761390 (4) Cocaine use disorder Current Visit: Yes Status: Chronic Code(s): F14.10 - COCAINE ABUSE, UNCOMPLICATED SNOMED Code(s): 684711362 Plan: This patient with a long history of psychiatric problems has had a possible syncopal episode without witnessed seizure. She has no focal neurological symptoms and has not had no seizure activity witnessed. An EEG has been ordered. Continue the rest your workup. We'll make recommendations based on the above study. Be on that no further neurological workup is needed. I have performed a history and physical on the above patient. I have reviewed the above note, and agree.
--- NOTE | 2017-08-16 23:10 | P.PN ---
Subjective Progress Note Date: 08/16/17 Principal diagnosis: Syncope Patient is a 56-year-old female with a known history of IBS, short-term memory problems and depression came to ER for possible overdose on 08/11/2017 initially. Patient is a poor historian otherwise. She also says that she wanted to come and suicide and she thinks she took more pills. Denied any fever or chills. No complaints of chest pain or shortness of breath. Initial workup below was essentially negative. Chest x-ray showed basilar atelectasis D-dimer elevated. CT angiogram of the chest showed there is a bilateral groundglass changes and subsegmental consolidation correlate for infiltrate. Interstitial pneumonitis versus venous congestion in the differential. Atypical pneumonia would be a consideration No central pulmonary embolus. Secondary and distal branches are limited in assessment. UDS positive for cocaine and benzodiazepines. Urine analysis is negative for infection Patient was continued to monitor in the telemetry unit and psychiatric has seen the patient. Patient did improve clinically and was cleared to be transferred to inpatient psychiatric unit as per recommendations. Up on reaching the psychiatric unit., Patient became more anxious and felt like an anxiety attack as per patient and fell down. Patient says that she had some shaking movement as well. Patient woke up of her she had CT of head and neck. Denied any weakness, bladder or bowel incontinence. CT head showed soft tissue swelling. Patient had right eyelid swelling and redness and also injection of the eyes. Denied any pain with movement of eyes. otherwise patient is not able to open her right eye completely due to swelling. No fever no chills currently. Neurology was consulted for further evaluation. Currently patient is more awake and alert and oriented. Able to provide history. 08/16/2017 Patient denied any headache or dizziness. No chest pain or shortness of breath. Right eye swelling is improving. Patient was seen by neurology. EEG is pending. Otherwise patient is hemodynamically stable. No acute overnight issues. Continued with sitter. All other review of systems negative except the above Current medications reviewed Objective - Vital Signs Vital signs: Vital Signs Temp 98.7 F 08/16/17 08:30 Pulse 94 08/16/17 08:30 Resp 18 08/16/17 08:30 BP 145/70 08/16/17 08:30 Pulse Ox 95 08/16/17 08:30 Intake & Output 08/15/17 08/16/17 08/16/17 18:59 06:59 18:59 Intake Total 1436 240 Balance 1436 240 Weight 88.5 kg Intake: Intake, IV Titration 600 Amount Sodium Chloride 0.9% 1, 600 000 ml @ 75 mls/hr IV . [id number] JENNIFER Rx#:[id number] Oral 836 240 Other: # Voids 1 2 - Exam PHYSICAL EXAMINATION: Patient is lying in the bed comfortably, no acute distress, awake alert and oriented.. HEENT: Normocephalic. Neck is supple. Pupils reactive. Nostrils clear. Oral cavity is moist. Ears reveal no drainage. Right eyelid is swollen and black eye with conjunctival injection. tender to palpation. Neck reveals no JVD, carotid bruits, or thyromegaly. CHEST EXAMINATION: Trachea is central. Symmetrical expansion. Lung dominguez clear to auscultation and percussion. CARDIAC: Normal S1, S2 with no gallops. No murmurs ABDOMEN: Soft. Bowel sounds normal. No organomegaly. No abdominal bruits. Extremities: reveal no edema. No clubbing or cyanosis Neurologically awake, alert, oriented x3 with well-coordinated movements. No focal deficits noted Skin: No rash or skin lesions. Psychiatric: Coperative. Denied any suicidal ideation currently. Musculoskeletal: No joint swelling or deformity. Normal range of motion. - Labs CBC & Chem 7: 08/14/17 23:51 08/14/17 23:51 Assessment and Plan Assessment: Syncope and collapse with right black eye with conjunctival injection. Swelling is improving now. Suspected anxiety attack versus possibility of seizures cannot be excluded. Acute Drug overdose with suicide attempt on admission UDS positive for cocaine and benzodiazepines Bibasilar atelectasis. Unlikely pneumonia Elevated CRP Elevated d-dimer. CTA chest negative for any central pulmonary embolus Chronic pain issues. Short-term memory problems IBS Claustrophobia DVT prophylaxis Plan: Continue on current medication regime ,monitoring and symptomatic treatment.maintain suicide precautions and fall precautions, IV fluid hydration. CT head and CT neck was done. CT neck showed mild degenerative disc disease. Patient is currently awake alert oriented 3 and will be continued on pain management with [place] 5. Will follow closely. Neurology was consulted. Ordered EEG and further recommendations based on the clinical course. Prognosis is guarded. 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 Continued with sitter at bedside. Time with Patient: Greater than 30
[2017-08-17] MEDS: HYDROcodone/APAP 5-325MG 1 EACH TAB PO PRN ×3 (03:52→22:21)
[2017-08-17] MEDS: SODIUM CHLORIDE 0.9% 1,000 ML IV SCH ×2 (05:55→16:00)
[2017-08-17] MEDS: FLUTICASONE 50MCG/SPRAY NASAL 16GM EA NOSTRIL SCH (08:59)
[2017-08-17] MEDS: LISINOPRIL 20 MG TAB PO SCH (09:00)
[2017-08-17] MEDS: VENLAFAXINE HCL ER 150 MG CAP PO SCH (09:00)
[2017-08-17] MEDS: DICYCLOMINE 20 MG TAB PO SCH ×4 (09:00→22:26)
[2017-08-17] MEDS: ONDANSETRON 4 MG/2 ML VIAL IVP PRN ×3 (09:04→22:21)
--- NOTE | 2017-08-17 14:50 | P.PN ---
Subjective Progress Note Date: 08/17/17 Progress note being dictated for Dr. Colvin Syncope Patient is a 56-year-old female with a known history of IBS, short-term memory problems and depression came to ER for possible overdose on 08/11/2017 initially. Patient is a poor historian otherwise. She also says that she wanted to come and suicide and she thinks she took more pills. Denied any fever or chills. No complaints of chest pain or shortness of breath. Initial workup below was essentially negative. Chest x-ray showed basilar atelectasis D-dimer elevated. CT angiogram of the chest showed there is a bilateral groundglass changes and subsegmental consolidation correlate for infiltrate. Interstitial pneumonitis versus venous congestion in the differential. Atypical pneumonia would be a consideration No central pulmonary embolus. Secondary and distal branches are limited in assessment. UDS positive for cocaine and benzodiazepines. Urine analysis is negative for infection Patient was continued to monitor in the telemetry unit and psychiatric has seen the patient. Patient did improve clinically and was cleared to be transferred to inpatient psychiatric unit as per recommendations. Up on reaching the psychiatric unit., Patient became more anxious and felt like an anxiety attack as per patient and fell down. Patient says that she had some shaking movement as well. Patient woke up of her she had CT of head and neck. Denied any weakness, bladder or bowel incontinence. CT head showed soft tissue swelling. Patient had right eyelid swelling and redness and also injection of the eyes. Denied any pain with movement of eyes. otherwise patient is not able to open her right eye completely due to swelling. No fever no chills currently. Neurology was consulted for further evaluation. Currently patient is more awake and alert and oriented. Able to provide history. 08/16/2017 Patient denied any headache or dizziness. No chest pain or shortness of breath. Right eye swelling is improving. Patient was seen by neurology. EEG is pending. Otherwise patient is hemodynamically stable. No acute overnight issues. Continued with sitter. All other review of systems negative except the above Current medications reviewed 08/17/2017 no overnight events. Seizure precautions maintained with no further seizure activity reported. Scheduled for EEG this morning. Sitter at bedside. Objective - Vital Signs Vital signs: Vital Signs Temp 98.7 F 08/17/17 08:00 Pulse 85 08/17/17 08:00 Resp 18 08/17/17 08:00 BP 147/80 08/17/17 08:00 Pulse Ox 97 08/17/17 08:00 Intake & Output 08/16/17 08/17/17 08/17/17 18:59 06:59 18:59 Intake Total 1417 150 240 Output Total 800 Balance 1417 150 -560 Weight 89.7 kg Intake: Intake, IV Titration 150 Amount Sodium Chloride 0.9% 1, 150 000 ml @ 75 mls/hr IV . [id number] [facility] Rx#:[id number] Oral 1417 240 Output: Urine 800 Other: Voiding Method Toilet Toilet # Voids 2 - Exam Patient is lying in the bed comfortably, no acute distress, awake alert and oriented.. HEENT: Normocephalic. Neck is supple. Pupils reactive. Nostrils clear. Oral cavity is moist. Ears reveal no drainage. Right eyelid is swollen and black eye with conjunctival injection. tender to palpation. Neck reveals no JVD, carotid bruits, or thyromegaly. CHEST EXAMINATION: Trachea is central. Symmetrical expansion. Lung dominguez clear to auscultation and percussion. CARDIAC: Normal S1, S2 with no gallops. No murmurs ABDOMEN: Soft. Bowel sounds normal. No organomegaly. No abdominal bruits. Extremities: reveal no edema. No clubbing or cyanosis Neurologically awake, alert, oriented x3 with well-coordinated movements. No focal deficits noted Skin: No rash or skin lesions. Psychiatric: Coperative. Denied any suicidal ideation currently. Musculoskeletal: No joint swelling or deformity. Normal range of motion. - Labs CBC & Chem 7: 08/14/17 23:51 08/14/17 23:51 Assessment and Plan Assessment: Syncope and collapse with right black eye with conjunctival injection. Swelling improving Suspected anxiety attack versus possibility of seizures cannot be excluded. Acute Drug overdose with suicide attempt on admission UDS positive for cocaine and benzodiazepines Bibasilar atelectasis. Unlikely pneumonia Elevated CRP Elevated d-dimer. CTA chest negative for any central pulmonary embolus Chronic pain issues. Short-term memory problems IBS Claustrophobia DVT prophylaxis Plan: Continue on current medication regime ,monitoring and symptomatic treatment.maintain suicide precautions/sitter and fall precautions, IV fluid hydration. Pain management with [place] 5. Discharge to psychiatry unit once cleared by Neurology. The impression and plan of care has been dictated as directed. : I performed a history and examination of this patient, discussed the same with the dictator. I agree with the dictator's note ,documented as a scribe. Any additional findings or plans will be noted.
--- NOTE | 2017-08-17 16:03 | P.PN ---
Subjective Progress Note Date: 08/17/17 Principal diagnosis: Syncopal episode This 56-year-old female being evaluated by the neurology service for possible seizure. Recall that her admission was for overdose. While in the psychiatric unit she had an episode of a fall. We are not sure that there was any loss of consciousness. There was no witnessed seizure activity. There was no sphincter incontinence. There was no significant postictal state. Since my last exam have been no reported seizure activity. An EEG has been performed. At the time of my exam she is sitting up comfortably in her bed in no acute distress except for obvious recovering facial trauma. Objective - Vital Signs Vital signs: Vital Signs Temp 98.7 F 08/17/17 12:00 Pulse 99 08/17/17 12:00 Resp 18 08/17/17 12:00 BP 152/83 08/17/17 12:00 Pulse Ox 93 L 08/17/17 12:00 Intake & Output 08/16/17 08/17/17 08/17/17 18:59 06:59 18:59 Intake Total 1417 150 462 Output Total 800 Balance 1417 150 -338 Weight 89.7 kg Intake: Intake, IV Titration 150 Amount Sodium Chloride 0.9% 1, 150 000 ml @ 75 mls/hr IV . [id number] [facility] Rx#:[id number] Oral 1417 462 Output: Urine 800 Other: Voiding Method Toilet Toilet # Voids 2 - Constitutional General appearance: Present: average body habitus, cooperative, no acute distress - EENT Eyes: Present: PERRLA. Absent: abnormal pupil, ptosis ENT: Present: hearing grossly normal - Neck Neck: Present: normal ROM. Absent: rigidity - Respiratory Respiratory: negative: prolonged expiration, prolonged inspiration - Cardiovascular Rhythm: regular - Gastrointestinal General gastrointestinal: Absent: distended - Neurologic Neurologic Comment(s): She is awake alert and oriented 3. Speech and language are normal. There is no facial asymmetry. Strength is 5 out of 5 bilateral upper lower extremities. Seizure-like activities are seen. She has contusions with ecchymosis on the right side of the face. Right subconjunctival hemorrhage is seen. No visual deficits. - Labs CBC & Chem 7: 08/14/17 23:51 08/14/17 23:51 Assessment and Plan (1) Syncope and collapse Current Visit: Yes Status: Acute Code(s): R55 - SYNCOPE AND COLLAPSE SNOMED Code(s): 008435121 (2) Overdose Current Visit: No Status: Acute Code(s): T50.901A - POISONING BY UNSP DRUG/ MEDS/BIOL SUBST, ACCIDENTAL, INIT SNOMED Code(s): 13443302 (3) Suicidal ideation Current Visit: No Status: Acute Code(s): R45.851 - SUICIDAL IDEATIONS SNOMED Code(s): 6028537 (4) Cocaine use disorder Current Visit: Yes Status: Chronic Code(s): F14.10 - COCAINE ABUSE, UNCOMPLICATED SNOMED Code(s): 620004905 Plan: This patient with a long history of psychiatric problems has had a possible syncopal episode without witnessed seizure. She has no focal neurological symptoms and has not had no seizure activity witnessed. An EEG has been ordered. Continue the rest your workup. Barring any unforeseen abnormalities on her EEG she would be cleared from a neurological standpoint I have performed a history and physical on the above patient. I have reviewed the above note, and agree.
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
[2017-08-18] MEDS: HYDROcodone/APAP 5-325MG 1 EACH TAB PO PRN ×2 (08:04→15:53)
[2017-08-18] MEDS: ONDANSETRON 4 MG/2 ML VIAL IVP PRN (08:04)
[2017-08-18] MEDS: VENLAFAXINE HCL ER 150 MG CAP PO SCH (08:20)
[2017-08-18] MEDS: DICYCLOMINE 20 MG TAB PO SCH ×2 (08:21→14:26)
[2017-08-18] MEDS: LISINOPRIL 20 MG TAB PO SCH (08:21)
[2017-08-18] MEDS: FLUTICASONE 50MCG/SPRAY NASAL 16GM EA NOSTRIL SCH (08:24)
[2017-08-18 09:20] LABS: Basophils % (A) 0 %; Eosinophils # (A) 0.1 k/uL (0-0.7); Eosinophils % (A) 1 %; HCT 38.9 % (34.0-46.0); HGB 13.5 gm/dL (11.4-16.0); Lymphocytes % (A) 15 %; MCH 31.3 pg (25.0-35.0); MCHC 34.8 g/dL (31.0-37.0); Mean Platelet Volume 6.8; Monocytes # (A) 0.4 k/uL (0-1.0); Monocytes % (A) 6 %; Neutrophils # (A) 4.8 k/uL (1.3-7.7); Neutrophils % (A) 75 %; Platelet Count 308 k/uL (150-450); RBC 4.32 m/uL (3.80-5.40); RDW 12.6 % (11.5-15.5); WBC 6.5 k/uL (3.8-10.6)
[2017-08-18 09:37] LABS: Anion Gap 10 mmol/L; Blood Urea Nitrogen 2 mg/dL (7-17); Calcium 8.7 mg/dL (8.4-10.2); Carbon Dioxide 28 mmol/L (22-30); Chloride 103 mmol/L (98-107); Glucose 164 mg/dL (74-99); Potassium 3.1 mmol/L (3.5-5.1); Sodium 141 mmol/L (137-145)
--- NOTE | 2017-08-18 14:34 | P.DS ---
Providers Date of admission: 08/14/17 21:10 Expected date of discharge: 08/18/17 Attending physician: Jaxson Colvin Consults: 08/14/17 23:31 Consult Physician Routine Consulting Provider: Amado Garcia Consult Reason/Comments: Seizure activity Do you want consulting provider notified?: Yes, Notify in am Placement Type Exists?: Yes 08/17/17 03:25 Consult Physician Routine Consulting Provider: Adelaida Dove Consult Reason/Comments: Intentional Overdose Do you want consulting provider notified?: Yes, Notify in am Primary care physician: Stated None Dr. Stokes Hospital Course: Final Diagnoses: Syncope and collapse with right black eye with conjunctival injection. Swelling improving Suspected anxiety attack versus possibility of seizures cannot be excluded. EEG results pending. Acute Drug overdose with suicide attempt on admission UDS positive for cocaine and benzodiazepines Bibasilar atelectasis. Unlikely pneumonia Elevated CRP Elevated d-dimer. CTA chest negative for any central pulmonary embolus Chronic pain issues. Short-term memory problems IBS Claustrophobia DVT prophylaxis Hypokalemia Hospital course: Patient is a 56-year-old female with a known history of IBS, short-term memory problems and depression came to ER for possible overdose on 08/11/2017 initially. Patient is a poor historian otherwise. She also says that she wanted to come and suicide and she thinks she took more pills. Denied any fever or chills. No complaints of chest pain or shortness of breath. Initial workup below was essentially negative. Chest x-ray showed basilar atelectasis D-dimer elevated. CT angiogram of the chest showed there is a bilateral groundglass changes and subsegmental consolidation correlate for infiltrate. Interstitial pneumonitis versus venous congestion in the differential. Atypical pneumonia would be a consideration No central pulmonary embolus. Secondary and distal branches are limited in assessment. UDS positive for cocaine and benzodiazepines. Urine analysis is negative for infection Patient was continued to monitor in the telemetry unit and psychiatric has seen the patient. Patient did improve clinically and was cleared to be transferred to inpatient psychiatric unit as per recommendations. Up on reaching the psychiatric unit., Patient became more anxious and felt like an anxiety attack as per patient and fell down. Patient says that she had some shaking movement as well. Patient woke up of her she had CT of head and neck. Denied any weakness, bladder or bowel incontinence. CT head showed soft tissue swelling. Patient had right eyelid swelling and redness and also injection of the eyes. Denied any pain with movement of eyes. otherwise patient is not able to open her right eye completely due to swelling. No fever no chills currently. Neurology was consulted for further evaluation. Currently patient is more awake and alert and oriented. Able to provide history. Evaluated by neurology, EEG completed with results pending. Right eye swelling improving. Evaluated by psychiatry with recommendations of discharge to psychiatry unit. Cleared by all consults for discharge. Significant clinical improvement. Patient is being discharged to mental health unit in a stable condition with guarded prognosis. Exam GENERAL:Patient is lying in the bed comfortably, no acute distress, awake alert and oriented.. HEENT: Normocephalic. Neck is supple. Pupils reactive. Nostrils clear. Oral cavity is moist. Ears reveal no drainage. Right eyelid is swollen and black eye with conjunctival injection. tender to palpation. Neck reveals no JVD, carotid bruits, or thyromegaly. CHEST EXAMINATION: Trachea is central. Symmetrical expansion. Lung dominguez clear to auscultation and percussion. CARDIAC: Normal S1, S2 with no gallops. No murmurs ABDOMEN: Soft. Bowel sounds normal. No organomegaly. No abdominal bruits. Neurologically awake, alert, oriented x3 with well-coordinated movements. No focal deficits noted The impression and plan of care has been dictated as directed. : I performed a history and examination of this patient, discussed the same with the dictator. I agree with the dictator's note ,documented as a scribe. Any additional findings or plans will be noted. Time taken: 35 minutes Patient Condition at Discharge: Stable Plan - Discharge Summary Discharge Rx Participant: No New Discharge Prescriptions: New HYDROcodone/APAP 5-325MG [[place] 5-325] 1 each PO Q6HR PRN tab PRN Reason: Pain Potassium Chloride ER [K-Dur 20] 40 meq PO Q2HR #2 tab.er.prt Continue Lisinopril [Zestril] 20 mg PO DAILY Venlafaxine HCl ER [Effexor XR] 150 mg PO DAILY Fluticasone Nasal [place] [Flonase Nasal [place]] 1 spray EA NOSTRIL DAILY Dicyclomine [Bentyl] 20 mg PO QID Changed Albuterol Inhaler [Ventolin Hfa Inhaler] 2 puff INHALATION QID PRN #0 PRN Reason: Shortness Of Breath Discharge Medication List Lisinopril [Zestril] 20 mg PO DAILY 05/21/15 [History] Venlafaxine HCl ER [Effexor XR] 150 mg PO DAILY 05/21/15 [History] Dicyclomine [Bentyl] 20 mg PO QID 08/11/17 [History] Fluticasone Nasal [place] [Flonase Nasal [place]] 1 spray EA NOSTRIL DAILY 08/11/17 [History] Albuterol Inhaler [Ventolin Hfa Inhaler] 2 puff INHALATION QID PRN #0 08/18/17 [ Rx] HYDROcodone/APAP 5-325MG [[place] 5-325] 1 each PO Q6HR PRN tab 08/18/17 [Rx] Potassium Chloride ER [K-Dur 20] 40 meq PO Q2HR #2 tab.er.prt 08/18/17 [Rx] Follow up Appointment(s)/Referral(s): Tommy Stokes MD [STAFF PHYSICIAN] - 3 Days Patient Instructions/Handouts: Depression (DC), Epilepsy (DC) Activity/Diet/Wound Care/Special Instructions: NO smoking, cessation information provided. Activity as tolerated. Take meds as prescribed. No illegal drug use. Discharge Disposition: TRANSFER TO PSYCH HOSP/UNIT
[2017-08-18 14:51] VITALS: BP 144/81; PULSE 85; RESP 16; TEMP 98.1
[2017-08-18] MEDS: POTASSIUM CHLORIDE ER 20 MEQ TAB.ER PO SCH ×2 (14:57→15:53)
[2017-08-18] MEDS ORDERED: POTASSIUM CHLORIDE ER 20 MEQ TAB.ER PO SCH (16:00)
[2017-08-18 21:03] LABS: Hemoglobin A1C 4.5 % (4.0-6.0)
== END 2017-08-18 16:24 | DRG 312 ==
LOC: 6SEL 21:10 → 4MS4W 08-17 21:11
PROVIDERS: ADMIT Internal Medicine; ATTEND Internal Medicine
DX: R55 Syncope and collapse (principal); F33.1 Major depressive disorder, recurrent, moderate; J98.11 Atelectasis; R56.9 Unspecified convulsions; S00.11XA Contusion of right eyelid and periocular area, initial encounter; F41.0 Panic disorder [episodic paroxysmal anxiety]; E87.6 Hypokalemia; F41.1 Generalized anxiety disorder; F40.240 Claustrophobia; M50.30 Other cervical disc degeneration, unspecified cervical region; G89.29 Other chronic pain; I10 Essential (primary) hypertension; G43.109 Migraine with aura, not intractable, without status migrainosus; F14.10 Cocaine abuse, uncomplicated; K58.9 Irritable bowel syndrome, unspecified; F17.210 Nicotine dependence, cigarettes, uncomplicated; Z71.6 Tobacco abuse counseling; Z79.51 Long term (current) use of inhaled steroids; Z79.899 Other long term (current) drug therapy; Z91.5 Personal history of self-harm; Z90.710 Acquired absence of both cervix and uterus; Z90.49 Acquired absence of other specified parts of digestive tract; Z88.1 Allergy status to other antibiotic agents; Z91.040 Latex allergy status; Z91.013 Allergy to seafood; Z80.1 Family history of malignant neoplasm of trachea, bronchus and lung; Z81.2 Family history of tobacco abuse and dependence; W19.XXXA Unspecified fall, initial encounter
CPT/HCPCS: 80048; 83036; 83735; 85025; 95819

== ENCOUNTER 2017-08-18 13:45 | Inpatient (IN) | payer MEDICARE ==
[2017-08-18] MEDS ORDERED: MAGNESIUM HYDROXIDE 2,400 MG/10 ML CUP PO PRN (14:21)
[2017-08-18] MEDS ORDERED: MAG HYDROX/AL HYDROX/SIMETH 30 ML CUP PO PRN (14:21)
[2017-08-18] MEDS ORDERED: ACETAMINOPHEN TAB 325 MG TAB PO PRN (14:21)
[2017-08-18] MEDS ORDERED: ALBUTEROL INHALER 60 PUFF/8 GM INHALER INHALATION PRN (14:22)
[2017-08-18] MEDS: DICYCLOMINE 20 MG TAB PO SCH ×2 (19:03→21:10)
[2017-08-18] MEDS: HYDROcodone/APAP 5-325MG 1 EACH TAB PO PRN (19:07)
[2017-08-18 22:19] LABS: Cholesterol 151 mg/dL (<200); HDL Cholesterol 40 mg/dL (40-60); LDL Cholesterol,Calculated 82 mg/dL (0-99); Triglycerides 145 mg/dL (<150)
[2017-08-19] MEDS: FLUTICASONE 50MCG/SPRAY NASAL 16GM EA NOSTRIL SCH (08:21)
[2017-08-19] MEDS: LISINOPRIL 20 MG TAB PO SCH (08:22)
[2017-08-19] MEDS: VENLAFAXINE HCL ER 150 MG CAP PO SCH (08:22)
[2017-08-19] MEDS: HYDROcodone/APAP 5-325MG 1 EACH TAB PO PRN (08:22)
[2017-08-19] MEDS: DICYCLOMINE 20 MG TAB PO SCH ×4 (08:22→20:55)
[2017-08-19] MEDS: FLUoxetine HCL 10 MG CAP PO SCH (09:22)
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
[2017-08-19] MEDS: HYDROcodone/APAP 5-325MG 1 EACH TAB PO SCH ×2 (15:32→20:55)
--- NOTE | 2017-08-20 00:16 | P.MDCNMH ---
History of Present Illness H&P Date: 08/20/17 Chief Complaint: Suicidal ideation Patient is a 56-year-old female with a known history of IBS, short-term memory problems and depression came to ER for possible overdose on 08/11/2017 initially. She also says that she wanted to come and suicide and she thinks she took more pills. Denied any fever or chills. No complaints of chest pain or shortness of breath. Initial workup below was essentially negative. Chest x-ray showed basilar atelectasis D-dimer elevated. CT angiogram of the chest showed there is a bilateral groundglass changes and subsegmental consolidation correlate for infiltrate. Interstitial pneumonitis versus venous congestion in the differential. Atypical pneumonia would be a consideration No central pulmonary embolus. Secondary and distal branches are limited in assessment. UDS positive for cocaine and benzodiazepines. Urine analysis is negative for infection Patient was continued to monitor in the telemetry unit and psychiatric has seen the patient. Patient did improve clinically and was cleared to be transferred to inpatient psychiatric unit as per recommendations. Up on reaching the psychiatric unit., Patient became more anxious and felt like an anxiety attack as per patient and fell down. Patient says that she had some shaking movement as well. Patient woke up of her she had CT of head and neck. Denied any weakness, bladder or bowel incontinence. CT head showed soft tissue swelling. Patient had right eyelid swelling and redness and also injection of the eyes. Denied any pain with movement of eyes. No fever no chills currently. Neurology was consulted for further evaluation. Currently patient is more awake and alert and oriented. Patient was seen by neurology. EEG was done but results are pending at this time. Right eye swelling improving. Evaluated by psychiatry with recommendations of discharge to psychiatry unit. Currently patient is in the psychiatric unit.. Denied any complaints of right eye pain. No headache or dizziness or tiredness. No chest shortness breath. Patient says that she does have some floaters sometimes in the right eye. Otherwise no complaints of pain with movement. No fever no chills. Review of Systems Constitutional: Patient denies any fever or chills . No generalized weakness or weight loss. Abdomen: Patient denied nausea vomiting and diarrhea and abdominal pain. Cardiovascular: Patient denies any chest pain or short of breath no palpitations. Respiratory: patient denied any cough is from production. No shortness of breath Neurologic: Patient denied any numbness or tingling headache. Musculoskeletal: Patient denies any complaints of joint swelling or deformity. Skin: Negative Psychiatric: Negative Endocrine: No heat or cold intolerance. No recent weight gain. Genitourinary: No dysuria or hematuria. All other 14 point ROS negative except the above Past Medical History Past Medical History: Memory Impairment Additional Past Medical History / Comment(s): IBS pt stated"i have 6-7 loose bms daily for past 15 years", hernia repair, chronic uticaria. short term memory problems, bruises easily, depression.fall(has mulitple bruises) History of Any Multi-Drug Resistant Organisms: None Reported Past Surgical History: Adenoidectomy, Appendectomy, Cholecystectomy, Hysterectomy, Orthopedic Surgery, Tonsillectomy Additional Past Surgical History / Comment(s): left knee ligaments fixed, colonoscopy Past Anesthesia/Blood Transfusion Reactions: Motion Sickness Additional Past Anesthesia/Blood Transfusion Reaction / Comment(s): clausterphobia. past blood transfusion-no reaction Past Psychological History: Anxiety, Depression, Panic Disorder Smoking Status: Current every day smoker Past Alcohol Use History: Occasional Additional Past Alcohol Use History / Comment(s): started smoking at age 14 smokes 1/2 ppd; started smioking a full pack 3 years ago Past Drug Use History: Cocaine Additional Drug Use History / Comment(s): pt stated no past drug use when younger but a month ago started to use cocaine occ. last used few days ago. 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 Medications and Allergies Home Medications Medication Instructions Recorded Confirmed Type Lisinopril [Zestril] 20 mg PO DAILY 05/21/15 08/18/17 History Venlafaxine HCl ER [Effexor XR] 150 mg PO DAILY 05/21/15 08/18/17 History Dicyclomine [Bentyl] 20 mg PO QID 08/11/17 08/18/17 History Fluticasone Nasal [place] [Flonase 1 spray EA NOSTRIL DAILY 08/11/17 08/18/17 History Nasal [place]] Albuterol Inhaler [Ventolin Hfa 2 puff INHALATION QID PRN #0 08/18/17 08/18/17 Rx Inhaler] HYDROcodone/APAP 5-325MG [[place] 1 each PO Q6HR PRN tab 08/18/17 08/18/17 Rx 5-325] Potassium Chloride ER [K-Dur 20] 40 meq PO Q2HR #2 tab.er.prt 08/18/17 Rx Allergies Allergy/AdvReac Type Severity Reaction Status Date / Time cefaclor [From [facility]] Allergy Unknown Rash/Hives Verified 08/14/17 19:16 shellfish derived Allergy Unknown Rash/Hives Verified 08/14/17 19:16 latex Allergy Rash/Hives Verified 08/14/17 19:16 Physical Exam Vitals: Vital Signs Temp Pulse Pulse Resp BP 08/19/17 20:55 95 159/67 08/19/17 08:36 107 H 20 148/81 08/19/17 06:37 98.6 F 107 H 18 178/94 PHYSICAL EXAMINATION: Patient is lying in the bed comfortably, no acute distress, awake alert and oriented.. HEENT: Normocephalic. Neck is supple. Pupils reactive. Nostrils clear. Oral cavity is moist. Ears reveal no drainage. Right eye with conjunctival injection and minimal swelling with hematoma around the orbit. Neck reveals no JVD, carotid bruits, or thyromegaly. CHEST EXAMINATION: Trachea is central. Symmetrical expansion. Lung dominguez clear to auscultation and percussion. CARDIAC: Normal S1, S2 with no gallops. No murmurs ABDOMEN: Soft. Bowel sounds normal. No organomegaly. No abdominal bruits. Extremities: reveal no edema. No clubbing or cyanosis Neurologically awake, alert, oriented x3 with well-coordinated movements. No focal deficits noted Skin: No rash or skin lesions. Psychiatric: Coperative. Denied any suicidal ideation Musculoskeletal: No joint swelling or deformity. Normal range of motion. Cranial Nerve Examination - Cranial Nerves Cranial Nerve I- Olfactory: Intact Cranial Nerve II- Optic: Intact Cranial Nerve III- Oculomotor: Intact Cranial Nerve IV- Trochlear: Intact Cranial Nerve V- Trigeminal: Intact Cranial Nerve - Abducens: Intact Cranial Nerve VII- Facial: Intact Cranial Nerve VIII- Auditory: Intact Cranial Nerve IX- Glossopharyngeal: Intact Cranial Nerve X- Vagus: Intact Cranial Nerve XI- Accessory: Intact Cranial Nerve XII- Hypoglossal: Intact Assessment and Plan Assessment: Major depression with suicidal ideation. Currently being managed by psychiatric and the unit. Syncope and collapse with right black eye with conjunctival injection. Swelling and redness improving. Will follow up EEG results. Acute Drug overdose with suicide attempt on initial admission UDS positive for cocaine and benzodiazepines Bibasilar atelectasis. Elevated CRP Elevated d-dimer. CTA chest negative for any central pulmonary embolus Chronic pain issues. Short-term memory problems IBS Claustrophobia DVT prophylaxis. Patient is ambulating well. Hypokalemia. Replaced Plan: Patient will be continued on dicyclomine and Lomotil when necessary for IBS symptoms. Continue with current psychiatric management. Continue with lisinopril 20 mg daily and can add Norvasc 5 mg daily. Blood pressure is not well controlled. Pain management with Tylenol. will try to avoid narcotic pain medications. Patient was recommended to follow with ophthalmology as an outpatient. Otherwise we'll continue the current management and further recommendations based on the clinical course. Thank you for your consult Time with Patient: Greater than 30
[2017-08-20] MEDS: HYDROcodone/APAP 5-325MG 1 EACH TAB PO SCH (08:22)
[2017-08-20] MEDS: DICYCLOMINE 20 MG TAB PO SCH ×4 (08:23→20:51)
[2017-08-20] MEDS: VENLAFAXINE HCL ER 150 MG CAP PO SCH (08:23)
[2017-08-20] MEDS: FLUoxetine HCL 10 MG CAP PO SCH (08:23)
[2017-08-20] MEDS: LISINOPRIL 20 MG TAB PO SCH (08:23)
[2017-08-20] MEDS: FLUTICASONE 50MCG/SPRAY NASAL 16GM EA NOSTRIL SCH (08:57)
--- NOTE | 2017-08-20 12:49 | P.PN ---
Progress Note - Text Progress Note Date: 08/20/17 Interval History: Patient is a 56-year-old female who was seen today. Patient reported that she had some pain around her right eye last night and it did keep her from sleeping through the night without getting up. She states that this morning it is doing much better. She reports that she's not had any symptoms of irritable bowel and states that she's not had any panic attacks and is not feeling especially anxious. She reports that she is tolerating the Prozac well and has no complaints of side effects. Patient reports that she's been attending groups and activities and finds them helpful. She states that the ice that she's been using on her right eye has been beneficial. Mental Status: Appearance/Attitude: Patient is dressed in a hospital gown, there is a ecchymosis around her right eye, she makes good eye contact and is cooperative Behavior: Patient does not display any psychomotor agitation or retardation Speech/Language: Patient's speech is spontaneous and normal volume and rhythm and she is coherent. Thought Process: Patient is goal-directed there is no evidence of loose association or flight of ideas. Thought Content: Patient denies any auditory or visual hallucinations and no delusions or paranoid ideation were elicited. Patient states that her appetite is good and that she slept 6 hours last night but it was restless sleep because she had some pain and discomfort in her right eye. Patient states that she has not had any panic attacks and is not feeling especially anxious on the unit. She states that she is not having any side effects from the beginning of the Prozac. Suicidal/Homicidal Ideation: Patient denies any current suicidal or homicidal ideation Sensorium/Cognition: Patient is alert and oriented to person, place, and time and her recent and remote memory are grossly intact Mood/Affect: Patient's mood remains slightly depressed and her affect is appropriate Insight/Judgment: Patient's insight and judgment are fair Assessment: Patient reports that she has not had any symptoms of anxiety or panic attacks while on the unit, she states that she did have some discomfort last night and her right eye that did keep her from sleeping through the night. She states that her appetite is good. She reports that she is not having any suicidal ideation. Patient states that she is comfortable with the idea of not returning to the benzodiazepines. Patient has been attending groups and activities. She reports no side effects from the start of Prozac. Plan: Patient continue on Prozac 10 mg in the morning and her Effexor will be decreased to 75 mg of extended release tomorrow morning. We will continue to titrate her Effexor and eventually discontinue and titrate the Prozac to 20 mg. Patient and I discussed using the [place] less frequently and she will be taking it on a every 8 hours when necessary basis. Patient continues to require hospitalization to further stabilize her mood.
[2017-08-20] MEDS: HYDROcodone/APAP 5-325MG 1 EACH TAB PO PRN (20:04)
[2017-08-21] MEDS: DICYCLOMINE 20 MG TAB PO SCH ×4 (07:46→21:33)
[2017-08-21] MEDS: LISINOPRIL 20 MG TAB PO SCH (09:20)
[2017-08-21] MEDS: VENLAFAXINE HCL ER 75 MG CAP PO SCH (09:20)
[2017-08-21] MEDS: HYDROcodone/APAP 5-325MG 1 EACH TAB PO PRN ×2 (09:20→23:39)
[2017-08-21] MEDS: FLUoxetine HCL 10 MG CAP PO SCH (09:20)
[2017-08-21] MEDS: FLUTICASONE 50MCG/SPRAY NASAL 16GM EA NOSTRIL SCH (09:26)
--- NOTE | 2017-08-21 14:32 | P.PN ---
Progress Note - Text Progress Note Date: 08/21/17 Interval History: Patient is a 56-year-old female who was seen today and she reports that she continues to improve. Patient reports that she slept for 7 hours last night but still has some pain and discomfort from the injury to her right I am side effects. Patient states that she has not had any panic attacks and has not had any OCD symptoms. She states that she's not feeling depressed and has had no suicidal thoughts. She states that she tried to use the Nazlini only twice yesterday to control the pain. Patient states that her sleep was still restless due to the pain from the injury. Patient reports no side effects from the change in her medications. She reports her thinking is clearer off the benzodiazepines. Mental Status: Appearance/Attitude: Patient is dressed in a hospital gown, is a large ecchymosis around the right I am down the right side of the face she makes good eye contact and is cooperative. Behavior: She does not exhibit any psychomotor agitation or retardation Speech/Language: Patient's speech is spontaneous of normal volume and rhythm and she is coherent. Thought Process: patient is goal-directed there is no evidence of loose association or flight of ideas Thought Content: Patient denies any auditory or visual hallucinations and no delusions or paranoid ideation were elicited. Patient states that she slept for about 7 hours last night but it was restless due to the pain from her injury. She states that her thinking is much clearer and she has not had any panic attacks and has not had any OCD symptoms. Suicidal/Homicidal Ideation: Patient denies any current suicidal or homicidal ideation Sensorium/Cognition: Patient is alert and oriented to person, place, and time and recent and remote memory are grossly intact Mood/Affect: Patient's mood is pleasant and her affect is appropriate Insight/Judgment: Patient's insight and judgment are fair Assessment: Patient reports no side effects from the taper of her Effexor in the beginning of Prozac and states that her thinking is much clearer off the benzodiazepines. She reports no anxiety or OCD symptoms and states her depression is improving and has no further suicidal ideation. Patient states that her sleep remains disrupted due to the pain from the injury. Patient states that she tried using Nazlini only twice yesterday with fair relief. Patient states that she is feeling better on the change in her medication. Patient has been attending groups and activities. Plan: Patient will continue on Effexor 75 mg extended release and on Thursday morning will decrease to 37.5 mg and then discontinue. Patient's Prozac is a 10 mg and will be increased to 20 mg on Thursday morning to target her anxiety, OCD and depression. Patient was also placed on melatonin 3 mg at bedtime to assist with her sleep. Patient and I discussed good sleep hygiene as well as the use of relaxation techniques especially deep breathing and the patient was encouraged to practice this. Patient continues to require hospitalization to further titrate her medications and stabilize her mood.
[2017-08-21] MEDS: MELATONIN 3 MG TABLET PO SCH (21:33)
[2017-08-22] MEDS: DICYCLOMINE 20 MG TAB PO SCH ×4 (08:32→20:58)
[2017-08-22] MEDS: LISINOPRIL 20 MG TAB PO SCH (08:32)
[2017-08-22] MEDS: FLUTICASONE 50MCG/SPRAY NASAL 16GM EA NOSTRIL SCH (08:32)
[2017-08-22] MEDS: FLUoxetine HCL 10 MG CAP PO SCH (08:32)
[2017-08-22] MEDS: VENLAFAXINE HCL ER 75 MG CAP PO SCH (08:32)
--- NOTE | 2017-08-22 14:38 | P.PN ---
Progress Note - Text Progress Note Date: 08/22/17 Interval history: Patient reports that her mood is doing better. She seems to be doing well with the medication transition from Effexor to Prozac. She does not voice any adverse psychotropic medication side effects. Mental status exam: She is alert and cooperative with the interview. Speech is fluent, not rapid or pressured. Thought processes are organized. Her mood is improved. She denies any thoughts of harm to self or others. No evidence of psychosis or agitation. Plan: Patient will be maintained on current psychotropic medication regimen. She is in the process of tapering off of Effexor and has been started on Prozac. To monitor for any medication side effects. We'll continue to cover this patient through the weekend.
[2017-08-22] MEDS: HYDROcodone/APAP 5-325MG 1 EACH TAB PO PRN (17:03)
[2017-08-22] MEDS: MELATONIN 3 MG TABLET PO SCH (20:58)
[2017-08-23] MEDS: DICYCLOMINE 20 MG TAB PO SCH ×4 (08:43→21:30)
[2017-08-23] MEDS: LISINOPRIL 20 MG TAB PO SCH (08:44)
[2017-08-23] MEDS: FLUoxetine HCL 20 MG CAP PO SCH (08:44)
[2017-08-23] MEDS ORDERED: VENLAFAXINE HCL ER 37.5 MG CAP PO SCH (09:00)
[2017-08-23] MEDS: FLUTICASONE 50MCG/SPRAY NASAL 16GM EA NOSTRIL SCH (11:40)
--- NOTE | 2017-08-23 16:58 | P.PN ---
Progress Note - Text Progress Note Date: 08/23/17 Interval history: Patient reports that her mood is happy. She does not voice any adverse psychotropic medication side effects. She seen in cross coverage today. She talks about discharge planning for Thursday. She is not feeling any significant anxiety. Mental status exam: She is alert and cooperative. Her speech is fluent, not rapid or pressured. Thought processes organized. Her mood she describes as happy. She does not voice any thoughts of harm to self or others. There is no evidence of psychosis or agitation. Plan: Patient will be maintained on current psychotropic medication regimen. We 'll continue to monitor for any medication side effects. She reports improved status.
[2017-08-23] MEDS: HYDROcodone/APAP 5-325MG 1 EACH TAB PO PRN (17:09)
[2017-08-23] MEDS ORDERED: diphenhydrAMINE 25 MG CAP PO STA (21:22)
[2017-08-23] MEDS: MELATONIN 3 MG TABLET PO SCH (21:30)
[2017-08-24] MEDS: DICYCLOMINE 20 MG TAB PO SCH ×4 (07:54→21:16)
[2017-08-24] MEDS: LISINOPRIL 20 MG TAB PO SCH (08:32)
[2017-08-24] MEDS: FLUTICASONE 50MCG/SPRAY NASAL 16GM EA NOSTRIL SCH (08:32)
[2017-08-24] MEDS: FLUoxetine HCL 20 MG CAP PO SCH (08:32)
[2017-08-24] MEDS ORDERED: DICYCLOMINE 20 MG TAB PO SCH (12:00)
[2017-08-24] MEDS: HYDROcodone/APAP 5-325MG 1 EACH TAB PO PRN ×2 (13:54→21:18)
[2017-08-24] MEDS: diphenhydrAMINE 25 MG CAP PO PRN (13:55)
--- NOTE | 2017-08-24 14:22 | P.PN ---
Progress Note - Text Progress Note Date: 08/24/17 Interval History: Patient is a 56-year-old female who was seen today and she reports that she continues to improve. She states that she was sleeping better over the weekend and that her thinking is much clearer off the benzodiazepines. She reports that she has not had any OCD symptoms and states that she has not been feeling anxious and has not had any panic attacks. She reports that her mood is improved and she is not having any suicidal ideation. Patient states that the melatonin has been beneficial and she slept for 7 hours last night. Patient has been attending groups and activities and states that her son who visited feels that she is doing much better. Mental Status: Appearance/Attitude: Patient is dressed in a hospital gown, continues to have a resolving ecchymosis around her right eye, she makes good eye contact and is cooperative Behavior: Patient does not exhibit any psychomotor agitation or retardation Speech/Language: Patient's speech is spontaneous of normal volume and rhythm and she is coherent Thought Process: Patient is goal-directed and there is no evidence of loose association or flight of ideas Thought Content: Patient denies any auditory or visual hallucinations no delusions or paranoid ideation or elicited. Patient states that she's not had any OCD symptoms and reports that she has not had any panic attacks. She states that her sleep has improved and she feels rested and her appetite is good. Patient states that she is no longer feeling hopeless and feels that her thinking has improved Suicidal/Homicidal Ideation: Patient denies any current suicidal or homicidal ideation Sensorium/Cognition: Patient is alert and oriented to person, place, and time and her recent and remote memory are grossly intact. Patient states that her thinking is much clearer off the benzodiazepines. Mood/Affect: Patient's mood is pleasant and her affect is appropriate Insight/Judgment: Patient's insight and judgment are intact Assessment: Patient reports that she is improving and no panic attacks, no complaints of anxiety and OCD symptoms. She states her sleep has improved and she is not having any suicidal ideation. Patient reports that she is not having any side effects from the Prozac and states that the melatonin did help with her sleep. Patient is attending groups and activities and finds that they have been helpful. Patient reports that her thinking is much clearer off the benzodiazepines. Plan: Patient continue on Prozac 20 mg of melatonin 3 mg at bedtime. Patient uses [place] only once a day over the weekend and was encouraged to discontinue this prior to her discharge. Patient received Effexor yesterday and her last dose and today is on Prozac only for the first time. Patient continues to show improvement and is no longer reporting feeling suicidal, no complaints of depression or anxiety. Patient and I discussed discharge tomorrow and she was agreeable with this plan. Patient was encouraged to try not using [place] today and only using Tylenol for her pain.
[2017-08-24] MEDS: MELATONIN 3 MG TABLET PO SCH (21:16)
[2017-08-25 06:42] VITALS: RESP 18; TEMP 98.1
[2017-08-25] MEDS: DICYCLOMINE 20 MG TAB PO SCH ×2 (06:42→12:10)
[2017-08-25] MEDS: diphenhydrAMINE 25 MG CAP PO PRN (06:43)
[2017-08-25] MEDS: FLUTICASONE 50MCG/SPRAY NASAL 16GM EA NOSTRIL SCH (08:48)
[2017-08-25] MEDS: HYDROcodone/APAP 5-325MG 1 EACH TAB PO PRN (08:49)
[2017-08-25] MEDS: LISINOPRIL 20 MG TAB PO SCH (08:50)
[2017-08-25] MEDS: FLUoxetine HCL 20 MG CAP PO SCH (08:50)
[2017-08-25 10:00] VITALS: BP 107/55; PULSE 107
--- NOTE | 2017-08-25 11:54 | P.DS ---
Providers Date of admission: 08/18/17 16:29 Expected date of discharge: 08/25/17 Attending physician: Adelaida Dove MD Consults: 08/18/17 14:21 Consult Physician Routine Consulting Provider: Dilcia Colvin Consult Reason/Comments: Follow up H & P Do you want consulting provider notified?: Yes Primary care physician: Stated None Hospital Course: Discharge Diagnosis: Major depressive disorder, recurrent, moderate severity; anxiety disorder not otherwise specified Reason for Admission: Patient is a 56-year-old female who was admitted to the medical floor after taking an overdose transferred to the psychiatric unit had a fall and was transferred back to the medical floor and now returns to the psychiatric unit. Patient states that she took an overdose of alcohol and cocaine as well as Xanax and other medications because she had become increasingly depressed after her primary care physician had sent her a letter stating that her urine drug screen showed that she was using cocaine. Patient states that she had not been sleeping at home had been feeling increased increasingly anxious and depressed. Patient states that her sleep has been a lifelong issue. Patient states that she had been in treatment with a Dr. Morris and was taking Effexor extended release 187.5 mg a day as well as using Xanax 1 mg 4 times a day. Patient had been on Ativan 1 mg 4 times a day but it lost her prescription down the toilet and he replaced it with Xanax. Patient reports that she does not feel the Effexor has been beneficial for her depression and she has been on the medication for the last 12 years. She reports she was first treated 12 years ago for an episode of depression when she was having an episode of irritable bowel as well as having fractured her leg. She states at that time she became increasingly depressed and has had 3-4 suicide attempts in the past all with overdoses the last one being 4 years prior to this current one at the time of her divorce. She is been hospitalized after each of those suicide attempts. She states that in the past she did overuse pain medications. Patient states that 6 years ago she also received electroconvulsive therapy here with little effect on her complaints of depression and anxiety. Patient also endorses a history of obsessive- compulsive symptoms of making lists counting and states that it is not been disruptive to her activities of daily living. Patient reports no recent panic attacks and states that her overdose attempt was precipitated by the letter from the PCP. She states that her son came to her house to check on her because she had not been answering the phone and he hadn't heard from her for several days. She states that this was their arrangement. Patient does not endorse any manic symptoms or psychotic symptoms. Mental status on Admission: Appearance/Attitude: Patient is dressed in a hospital gown, is a large ecchymosis around her right eye from her fall, makes good eye contact and is cooperative Behavior: Patient does not exhibit any psychomotor agitation or retardation Speech/Language: Patient's speech is spontaneous of normal volume and rhythm and she is coherent Thought Process: Patient is goal-directed there is no evidence of loose association or flight of ideas Thought Content: Patient denies any auditory or visual hallucinations no delusions or paranoid ideation or elicited. Patient states that she has not been sleeping well, has been feeling anxious and was becoming depressed due to being told that she was using cocaine. Suicidal/Homicidal Ideation: Patient reports no current suicidal or homicidal ideation Sensorium/Cognition: Patient is alert and oriented to person, place, and time and her recent and remote memory are grossly intact however patient had some difficulty organizing her thoughts but she states that this is improved since her admission Mood/Affect: Patient's mood remains depressed and anxious and her affect is appropriate Insight/Judgment: Patient's insight and judgment are fair Hospital Course: Patient was admitted on a voluntary basis, placed on routine observation in group and activity therapy were ordered. Patient was also followed by the medical equipment repair technician, a TSH and a lipid panel were obtained. Patient was transferred from the medical floor back to the psychiatric unit for continued treatment of her depression. Patient and I had a long discussion regarding her prior use of benzodiazepines to target her anxiety as well as the fact that her only antidepressant treatment for the last 12 years is been Effexor. Patient and I discussed not restarting the benzodiazepines. We also discussed a trial of a different antidepressant and she was tapered off of her Effexor and begun on Prozac taper to a total dose of 20 mg. Patient also reported difficulty sleeping and was begun on melatonin 3 mg at bedtime. Patient reported that her thinking had improved and was much clearer off the benzodiazepines, she continued to have some discomfort from her face where she had fallen and was continued on [place] on a when necessary basis. Patient was encouraged to try Tylenol and was using [place] only once a day and Tylenol for the pain. Patient reported that her depression had improved, she was not having any anxiety symptoms and denied having any OCD symptoms. Patient states that she was no longer having any suicidal thoughts and her mood had stabilized. She thought that her thinking had improved greatly off the benzodiazepines. Patient was attending groups and activities and had been finding them quite helpful. Patient reported that her IBS is under control, she continued on her blood pressure medication lisinopril. Patient and I discussed discharge plans and she was agreeable that she was ready for discharge , she was encouraged to avoid restarting any benzodiazepine or opiate pain medication on discharge. Allergies cefaclor [From Ceclor] Allergy (Unknown, Verified 08/14/17 19:16) Rash/Hives shellfish derived Allergy (Unknown, Verified 08/14/17 19:16) Rash/Hives latex Allergy (Verified 08/14/17 19:16) Rash/Hives Laboratory Last Values Triglycerides 145 mg/dL (<150) 08/18/17 08:28 Cholesterol 151 mg/dL (<200) 08/18/17 08:28 LDL Cholesterol, Calc 82 mg/dL (0-99) 08/18/17 08:28 HDL Cholesterol 40 mg/dL (40-60) 08/18/17 08:28 TSH 0.944 mIU/L (0.465-4.680) 08/18/17 08:28 Discharge Mental Status: Appearance/Attitude: Patient was casually dressed, made good eye contact and was cooperative Behavior: Patient did not exhibit any psychomotor agitation or retardation Speech/Language: Speech was spontaneous of normal volume and rhythm and she was coherent Thought Process: Was goal-directed there is no evidence of loose association or flight of ideas Thought Content: Patient denied any auditory or visual hallucinations and there is no evidence of any delusions or paranoid ideation. She reported that her thinking was much clearer she denied that she had had any anxiety symptoms and stated that her sleep had improved and her appetite was good. Patient stated she was no longer feeling hopeless or helpless Suicidal/Homicidal Ideation: She reported no current suicidal or homicidal ideation Sensorium/Cognition: Patient was alert and oriented to person, place, time and her recent and remote memory were grossly intact and the patient thought her thinking was much clearer. Mood/Affect: Patient's mood was euthymic and her affect was appropriate Insight/Judgment: Patient's insight and judgment were intact Risk Assessment: Patient's risk for self harm is low should patient avoid the use of benzodiazepines, opiate pain medication Discharge Plan: Patient will return home to live on her own, she will continue on Prozac 20 mg in the morning and melatonin 3 mg at bedtime as well as her Bentyl, Flonase nasal spray, lisinopril and will follow-up with her primary care physician in several weeks. Patient will be given prescriptions for the above medications. Patient will also follow-up at [facility] and was encouraged to be compliant with medication and her follow-up appointments. Patient and I had a long discussion about not restarting any of the benzodiazepines or opiate pain medication and also getting rid of prescriptions at home for these medications. Patient Condition at Discharge: Stable Plan - Discharge Summary Discharge Rx Participant: No New Discharge Prescriptions: New Acetaminophen Tab [Tylenol] 650 mg PO Q4HR PRN tab PRN Reason: Pain/Discomfort diphenhydrAMINE [Benadryl] 25 mg PO TID PRN cap PRN Reason: Itching FLUoxetine HCL [PROzac] 20 mg PO DAILY #14 cap Melatonin 3 mg PO HS #28 tablet Continue Albuterol Inhaler [Ventolin Hfa Inhaler] 2 puff INHALATION QID PRN #1 puff PRN Reason: Shortness Of Breath Dicyclomine [Bentyl] 20 mg PO QID #112 tab Fluticasone Nasal [place] [Flonase Nasal [place]] 1 spray EA NOSTRIL DAILY #1 spr Lisinopril [Zestril] 20 mg PO DAILY #28 tab Discontinued Venlafaxine HCl ER [Effexor XR] 150 mg PO DAILY HYDROcodone/APAP 5-325MG [[place] 5-325] 1 each PO Q6HR PRN tab PRN Reason: Pain Potassium Chloride ER [K-Dur 20] 40 meq PO Q2HR #2 tab.er.prt Discharge Medication List Acetaminophen Tab [Tylenol] 650 mg PO Q4HR PRN tab 08/25/17 [Rx] Albuterol Inhaler [Ventolin Hfa Inhaler] 2 puff INHALATION QID PRN #1 puff 08/25 [Rx] Dicyclomine [Bentyl] 20 mg PO QID #112 tab 08/25/17 [Rx] FLUoxetine HCL [PROzac] 20 mg PO DAILY #14 cap 08/25/17 [Rx] Fluticasone Nasal [place] [Flonase Nasal [place]] 1 spray EA NOSTRIL DAILY #1 spr [Rx] Lisinopril [Zestril] 20 mg PO DAILY #28 tab 08/25/17 [Rx] Melatonin 3 mg PO HS #28 tablet 08/25/17 [Rx] diphenhydrAMINE [Benadryl] 25 mg PO TID PRN cap 08/25/17 [Rx] Follow up Appointment(s)/Referral(s): [facility] [Outside] - 09/02/17 10:30 am (w/ Grisel Henao) Activity/Diet/Wound Care/Special Instructions: Follow up with an opthamology upon discharge. Discharge Disposition: HOME SELF-CARE
== END 2017-08-25 12:30 | disposition home or self-care (01) | DRG 885 ==
LOC: 3MHU 16:29
PROVIDERS: ADMIT Psychiatry & Neurology Psychiatry; ATTEND Psychiatry & Neurology Psychiatry
DX: F33.1 Major depressive disorder, recurrent, moderate (principal); F14.90 Cocaine use, unspecified, uncomplicated; F41.9 Anxiety disorder, unspecified; F42.9 Obsessive-compulsive disorder, unspecified; I10 Essential (primary) hypertension; K58.9 Irritable bowel syndrome, unspecified; S00.11XA Contusion of right eyelid and periocular area, initial encounter; W19.XXXA Unspecified fall, initial encounter; Z81.8 Family history of other mental and behavioral disorders; Z91.5 Personal history of self-harm; Z88.1 Allergy status to other antibiotic agents; Z91.040 Latex allergy status; Z91.013 Allergy to seafood; Z90.49 Acquired absence of other specified parts of digestive tract
CPT/HCPCS: 80061; 84443

== ENCOUNTER 2019-08-10 05:16 | Inpatient (IN) | payer MEDICARE ==
[2019-08-10] MEDS ORDERED: SODIUM CHLORIDE 0.9% 1,000 ML IV STA (05:21)
[2019-08-10] MEDS ORDERED: LORazepam 2 MG/ML INJ IV STA (05:21)
[2019-08-10] MEDS ORDERED: ONDANSETRON 4 MG/2 ML VIAL IVP STA (05:21)
[2019-08-10] MEDS ORDERED: PANTOPRAZOLE 40 MG/10 ML VIAL IVP STA (05:21)
[2019-08-10] MEDS ORDERED: HYDROmorphone 1 MG/ML 1 ML SYRINGE IVP STA ×3 (05:21→08:34)
--- NOTE | 2019-08-10 05:28 | ED ---
Nausea/Vomiting/Diarrhea HPI - General Stated complaint: Abdominal pain Time Seen by Provider: 08/10/19 05:21 Source: RN notes reviewed, old records reviewed Limitations: no limitations - History of Present Illness Initial comments: This is a 58-year-old female DF for evaluation patient has severe abdominal pain. Patient has history of abdominal surgeries, coming with persistent nausea vomiting no fevers gallbladder is been removed. No recent travel history or sick contacts currently. No modifying factors for symptoms at home progressively worsening left-sided and progressively worsening over sent MD complaint: nausea, vomiting, abdominal pain -: hour(s) Description of Vomiting: food contents Description of Diarrhea: other (None) Associated Abdominal Pain: Yes Location: diffuse Severity: moderate Severity scale (1-10): 5 Quality: cramping, aching Consistency: intermittent, colicky Improves with: none Worsens with: none Context: history of abdominal surgery Associated Symptoms: loss of appetite, nausea/vomiting - Related Data Home Medications Medication Instructions Recorded Confirmed Albuterol Sulfate [Albuterol 2 puff INHALATION RT-Q4H PRN 08/10/19 08/20/19 Sulfate Hfa] Diphenoxylate HCl/Atropine 1 tab PO DAILY 08/10/19 08/20/19 [Lomotil 2.5-0.025 mg Tablet] EPINEPHrine (Auto Inject) [Epipen] 0.3 mg IM ONCE PRN 08/10/19 08/20/19 Promethazine [Phenergan] 25 mg PO TID 08/10/19 08/20/19 Acetaminophen-Codeine 300-30mg 1 tab PO Q6H PRN 08/20/19 08/20/19 [Tylenol w/codeine #3] Dicyclomine [Bentyl] 20 mg PO BID 08/20/19 08/20/19 Diphenoxylate HCl/Atropine 1 tab PO HS PRN 08/20/19 08/20/19 [Lomotil 2.5-0.025 mg Tablet] Fluticasone Nasal [place] [Flonase 2 spray EA NOSTRIL DAILY 08/20/19 08/20/19 Nasal [place]] Levofloxacin [Levaquin] 500 mg PO DAILY 08/20/19 08/20/19 Lisinopril [Zestril] 10 mg PO HS 08/20/19 08/20/19 Metoprolol Tartrate [Lopressor] 12.5 mg PO BID 08/20/19 08/20/19 Previous Rx's Medication Instructions Recorded FLUoxetine HCL [PROzac] 20 mg PO DAILY #14 cap 08/25/17 Atorvastatin [Lipitor] 10 mg PO HS 30 Days #30 tab 08/16/19 HYDROcodone/APAP 7.5-325MG [Geff 1 tab PO Q6HR PRN 3 Days #12 tab 08/16/19 7.5-325] Ondansetron Odt [Zofran Odt] 4 mg PO Q8HR PRN #12 tab 08/16/19 Pantoprazole Sodium [Protonix] 40 mg PO DAILY 30 Days #30 08/16/19 tablet. Allergies Allergy/AdvReac Type Severity Reaction Status Date / Time cefaclor [From Ceclor] Allergy Unknown Rash/Hives Verified 08/20/19 17:05 shellfish derived Allergy Unknown Rash/Hives Verified 08/20/19 17:05 amoxicillin [From Augmentin] AdvReac Nausea & Verified 08/20/19 17:05 Vomiting & Diarrhea clavulanic acid AdvReac Nausea & Verified 08/20/19 17:05 [From Augmentin] Vomiting & Diarrhea COMPAZINE IV AdvReac ANXIETY Uncoded 08/20/19 14:17 Review of Systems ROS Statement: Those systems with pertinent positive or pertinent negative responses have been documented in the HPI. ROS Other: All systems not noted in ROS Statement are negative. Past Medical History Past Medical History: Memory Impairment Additional Past Medical History / Comment(s): IBS pt stated"i have 6-7 loose bms daily for past 15 years", hernia repair, chronic uticaria. short term memory problems, bruises easily, depression.fall(has mulitple bruises) History of Any Multi-Drug Resistant Organisms: None Reported Past Surgical History: Adenoidectomy, Appendectomy, Cholecystectomy, Hysterectomy, Orthopedic Surgery, Tonsillectomy Additional Past Surgical History / Comment(s): left knee ligaments fixed, colonoscopy Past Anesthesia/Blood Transfusion Reactions: Motion Sickness Additional Past Anesthesia/Blood Transfusion Reaction / Comment(s): clausterphobia. 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 Absent: scleral icterus, conjunctival injection, periorbital swelling ENT exam: Present: normal exam, mucous membranes moist Neck exam: Present: normal inspection. Absent: tenderness, meningismus, lymphadenopathy Respiratory exam: Present: normal lung sounds bilaterally. Absent: respiratory distress, wheezes, rales, rhonchi, stridor Cardiovascular Exam: Present: regular rate, normal rhythm, tachycardia, normal heart sounds. Absent: systolic murmur, diastolic murmur, rubs, gallop, clicks GI/Abdominal exam: Present: distended, tenderness, normal bowel sounds. Absent: guarding, rebound, rigid Extremities exam: Present: normal inspection, full ROM, normal capillary refill. Absent: tenderness, pedal edema, joint swelling, calf tenderness Back exam: Present: normal inspection Neurological exam: Present: alert, oriented X3, CN II-XII intact Psychiatric exam: Present: normal affect, normal mood Skin exam: Present: warm, dry, intact, normal color. Absent: rash Course Vital Signs 08/10/19 08/10/19 08/10/19 05:17 05:30 06:00 Temperature 98.4 F Pulse Rate 112 H 101 H 98 Respiratory 20 18 18 Rate Blood Pressure 174/111 180/97 179/89 O2 Sat by Pulse 95 96 96 Oximetry 08/10/19 08/10/19 08/10/19 06:55 07:26 13:26 Temperature 98.0 F Pulse Rate 105 H 105 H 96 Respiratory 18 18 18 Rate Blood Pressure 119/77 144/71 123/70 O2 Sat by Pulse 95 93 L 93 L Oximetry - Reevaluation(s) Reevaluation #1: Medical records reviewed Patient is improved symptoms and pain management Patient informed of results, questions answered Medical Decision Making - Medical Decision Making 58 female severe abdominal pain patient has severe abdominal pain ileus and bowel obstruction. Will admit for surgical evaluation management - Lab Data Result diagrams: 08/13/19 07:51 08/16/19 07:38 Lab Results 08/10/19 08/10/19 08/10/19 Range/Units 05:32 05:32 05:32 WBC 11.9 H (3.8-10.6) k/uL RBC 5.37 (3.80-5.40) m/uL Hgb 16.9 H (11.4-16.0) gm/dL Hct 48.2 H (34.0-46.0) % MCV 89.9 (80.0-100.0) fL MCH 31.4 (25.0-35.0) pg MCHC 35.0 (31.0-37.0) g/dL RDW 12.1 (11.5-15.5) % Plt Count 328 (150-450) k/uL Neutrophils % 72 % Lymphocytes % 21 % Monocytes % 4 % Eosinophils % 2 % Basophils % 0 % Neutrophils # 8.6 H (1.3-7.7) k/uL Lymphocytes # 2.5 (1.0-4.8) k/uL Monocytes # 0.5 (0-1.0) k/uL Eosinophils # 0.2 (0-0.7) k/uL Basophils # 0.0 (0-0.2) k/uL PT 10.1 (9.0-12.0) sec INR 1.0 (<1.2) APTT 22.5 (22.0-30.0) sec Sodium 137 (137-145) mmol/L Potassium 3.4 L (3.5-5.1) mmol/L Chloride 104 (98-107) mmol/L Carbon Dioxide 21 L (22-30) mmol/L Anion Gap 12 mmol/L BUN 7 (7-17) mg/dL Creatinine 0.66 (0.52-1.04) mg/dL Est GFR (CKD-EPI)AfAm >90 (>60 ml/min/1.73 sqM) Est GFR (CKD-EPI)NonAf >90 (>60 ml/min/1.73 sqM) Glucose 206 H (74-99) mg/dL Plasma Lactic Acid Adan (0.7-2.0) mmol/L Calcium 10.3 H (8.4-10.2) mg/dL Phosphorus 3.8 (2.5-4.5) mg/dL Magnesium 1.9 (1.6-2.3) mg/dL Total Bilirubin 0.9 (0.2-1.3) mg/dL AST 23 (14-36) U/L ALT 25 (4-34) U/L Alkaline Phosphatase 95 (38-126) U/L Troponin I (0.000-0.034) ng/mL Total Protein 7.4 (6.3-8.2) g/dL Albumin 4.4 (3.5-5.0) g/dL 08/10/19 08/10/19 Range/Units 05:32 05:32 WBC (3.8-10.6) k/uL RBC (3.80-5.40) m/uL Hgb (11.4-16.0) gm/dL Hct (34.0-46.0) % MCV (80.0-100.0) fL MCH (25.0-35.0) pg MCHC (31.0-37.0) g/dL RDW (11.5-15.5) % Plt Count (150-450) k/uL Neutrophils % % Lymphocytes % % Monocytes % % Eosinophils % % Basophils % % Neutrophils # (1.3-7.7) k/uL Lymphocytes # (1.0-4.8) k/uL Monocytes # (0-1.0) k/uL Eosinophils # (0-0.7) k/uL Basophils # (0-0.2) k/uL PT (9.0-12.0) sec INR (<1.2) APTT (22.0-30.0) sec Sodium (137-145) mmol/L Potassium (3.5-5.1) mmol/L Chloride (98-107) mmol/L Carbon Dioxide (22-30) mmol/L Anion Gap mmol/L BUN (7-17) mg/dL Creatinine (0.52-1.04) mg/dL Est GFR (CKD-EPI)AfAm (>60 ml/min/1.73 sqM) Est GFR (CKD-EPI)NonAf (>60 ml/min/1.73 sqM) Glucose (74-99) mg/dL Plasma Lactic Acid Adan 1.7 (0.7-2.0) mmol/L Calcium (8.4-10.2) mg/dL Phosphorus (2.5-4.5) mg/dL Magnesium (1.6-2.3) mg/dL Total Bilirubin (0.2-1.3) mg/dL AST (14-36) U/L ALT (4-34) U/L Alkaline Phosphatase (38-126) U/L Troponin I <0.012 (0.000-0.034) ng/mL Total Protein (6.3-8.2) g/dL Albumin (3.5-5.0) g/dL - EKG Data -: EKG Interpreted by Me (EKG is sinus rhythm 9I NE 132 is a 2 QTC 462) - Radiology Data Radiology results: report reviewed (CT of pelvis positive or small bowel obstruction), image reviewed Disposition Clinical Impression: Abdominal pain, Small bowel obstruction Disposition: ADMITTED IP TO THIS [facility] Condition: Good Is patient prescribed a controlled substance at d/c from ED?: No
[2019-08-10 05:41] LABS: Basophils % (A) 0 %; Eosinophils # (A) 0.2 k/uL (0-0.7); Eosinophils % (A) 2 %; HCT 48.2 % (34.0-46.0); HGB 16.9 gm/dL (11.4-16.0); Lymphocytes # (A) 2.5 k/uL (1.0-4.8); Lymphocytes % (A) 21 %; MCH 31.4 pg (25.0-35.0); MCV 89.9 fL (80.0-100.0); Mean Platelet Volume 7.3; Monocytes # (A) 0.5 k/uL (0-1.0); Monocytes % (A) 4 %; Neutrophils # (A) 8.6 k/uL (1.3-7.7); Neutrophils % (A) 72 %; Platelet Count 328 k/uL (150-450); RBC 5.37 m/uL (3.80-5.40); RDW 12.1 % (11.5-15.5); WBC 11.9 k/uL (3.8-10.6)
[2019-08-10 05:51] LABS: ALT 25 U/L (4-34); AST 23 U/L (14-36); African American GFR (CKD) >90 (>60 ml/min/1.73 sqM); Albumin 4.4 g/dL (3.5-5.0); Alkaline Phosphatase 95 U/L (38-126); Anion Gap 12 mmol/L; Blood Urea Nitrogen 7 mg/dL (7-17); Calcium 10.3 mg/dL (8.4-10.2); Carbon Dioxide 21 mmol/L (22-30); Chloride 104 mmol/L (98-107); Glucose 206 mg/dL (74-99); Magnesium 1.9 mg/dL (1.6-2.3); Non-African American GFR(CKD) >90 (>60 ml/min/1.73 sqM); Phosphorus 3.8 mg/dL (2.5-4.5); Potassium 3.4 mmol/L (3.5-5.1); Sodium 137 mmol/L (137-145); Total Bilirubin 0.9 mg/dL (0.2-1.3); Total Protein 7.4 g/dL (6.3-8.2)
[2019-08-10 05:57] LABS: Partial Thromboplastin Time 22.5 sec (22.0-30.0); Prothrombin Time 10.1 sec (9.0-12.0)
[2019-08-10] MEDS ORDERED: SODIUM CHLORIDE 0.9% 1,000 ML IV ONE (07:08)
--- NOTE | 2019-08-10 07:28 | CT ---
EXAM: CT Abdomen and Pelvis With Intravenous Contrast CLINICAL HISTORY: ITS.REASON CT Reason: pain TECHNIQUE: Axial computed tomography images of the abdomen and pelvis with intravenous contrast. CTDI is 41.4 mGy and DLP is 1754 mGy-cm. This CT exam was performed using one or more of the following dose reduction techniques: automated exposure control, adjustment of the mA and/or kV according to patient size, and/or use of iterative reconstruction technique. Delayed imaging was performed. Coronal and sagittal reformatted images were created and reviewed. COMPARISON: CT Abdomen and Pelvis dated 01/02/15 and ultrasound dated 06/28/15 FINDINGS: Lung bases: Unremarkable. No mass. No consolidation. ABDOMEN: Liver: See below. No mass. Gallbladder and bile ducts: Cholecystectomy. There is once again intrahepatic and extra hepatic biliary ductal dilatation. Common bile duct measures up to 16.3 mm, not significant changed. Pancreas: Fatty replacement of the pancreas. No ductal dilation. Spleen: Splenic granuloma. Adrenals: Unremarkable. No mass. Kidneys and ureters: Unremarkable. No solid mass. No hydronephrosis. Stomach and bowel: There is dilatation of small bowel loops with a transition point in the pelvis suggestive small bowel obstruction. At the transition point, there is small bowel thickening and a more distal focal sharp turn. A 11.9 mm spiculated mesenteric nodule is seen adjacent to the transition point, question malignancy such as carcinoid. This previously measured 8 mm. Scattered colonic diverticula without diverticulitis. PELVIS: Appendix: Appendix not well visualized. Bladder: Unremarkable. No mass. Reproductive: The uterus is absent. ABDOMEN and PELVIS: Intraperitoneal space: Unremarkable. No free air. No significant fluid collection. Bones/joints: Degenerative changes of the spine. No acute fracture. No dislocation. Soft tissues: Multiple ventral fat-containing hernias. Vasculature: Unremarkable. No abdominal aortic aneurysm. Lymph nodes: Unremarkable. No enlarged lymph nodes. IMPRESSION: 1. There is dilatation of small bowel loops with a transition point in the pelvis suggestive small bowel obstruction. At the transition point, there is small bowel thickening and a more distal focal sharp turn. A 11. 9 mm spiculated mesenteric nodule is seen adjacent to the transition point, question malignancy such as carcinoid. This previously measured 8 mm. 2. Cholecystectomy. There is once again intrahepatic and extra hepatic biliary ductal dilatation. Common bile duct measures up to 16.3 mm, not significant changed. 3. Multiple ventral fat-containing hernias. 4. Scattered colonic diverticula without diverticulitis.
[2019-08-10] MEDS: ONDANSETRON 4 MG/2 ML VIAL IVP PRN ×3 (08:16→21:10)
[2019-08-10] MEDS ORDERED: HYDROmorphone 0.5 MG/0.5 ML SYRINGE IVP STA (08:30)
--- NOTE | 2019-08-10 09:32 | P.GSCN ---
History of Present Illness Consult date: 08/10/19 Reason for Consult: Small bowel obstruction History of present illness: This a 58-year-old female admitted to the hospital with complaints of small obstruction. Patient has dilated small bowel with a transition point she has some complaints of nausea vomiting abdominal pain Past Medical History Past Medical History: Memory Impairment Additional Past Medical History / Comment(s): IBS pt stated"i have 6-7 loose bms daily for past 15 years", hernia repair, chronic uticaria. short term memory problems, bruises easily, depression.fall(has mulitple bruises) History of Any Multi-Drug Resistant Organisms: None Reported Past Surgical History: Adenoidectomy, Appendectomy, Cholecystectomy, Hysterectomy, Orthopedic Surgery, Tonsillectomy Additional Past Surgical History / Comment(s): left knee ligaments fixed, colonoscopy Past Anesthesia/Blood Transfusion Reactions: Motion Sickness Additional Past Anesthesia/Blood Transfusion Reaction / Comm: clausterphobia. 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 Medications and Allergies Home Medications Medication Instructions Recorded Confirmed Type FLUoxetine HCL [PROzac] 20 mg PO DAILY #14 cap 08/25/17 08/10/19 Rx Fluticasone Nasal [place] [Flonase 1 spray EA NOSTRIL DAILY #1 spr 08/25/17 08/10/19 Rx Nasal [place]] Lisinopril [Zestril] 20 mg PO DAILY #28 tab 08/25/17 08/10/19 Rx Albuterol Sulfate [Albuterol 2 puff PO Q4H PRN 08/10/19 08/10/19 History Sulfate Hfa] Dicyclomine [Bentyl] 20 mg PO QID 08/10/19 08/10/19 History Diphenoxylate HCl/Atropine 1 tab PO Q4H PRN 08/10/19 08/10/19 History [Lomotil 2.5-0.025 mg Tablet] EPINEPHrine (Auto Inject) [Epipen] 0.3 mg IM ONCE PRN 08/10/19 08/10/19 History Promethazine [Phenergan] 25 mg PO TID 08/10/19 08/10/19 History Allergies Allergy/AdvReac Type Severity Reaction Status Date / Time cefaclor [From [facility]] Allergy Unknown Rash/Hives Verified 08/10/19 07:49 shellfish derived Allergy Unknown Rash/Hives Verified 08/10/19 07:49 latex Allergy Rash/Hives Verified 08/10/19 07:49 tramadol AdvReac stomach Verified 08/10/19 07:49 pain COMPAZINE IV AdvReac ANXIETY Uncoded 08/10/19 07:54 Surgical - Exam Vital Signs Temp Pulse Resp BP Pulse Ox 98.4 F 112 H 20 174/111 95 08/10/19 05:17 08/10/19 05:17 08/10/19 05:17 08/10/19 05:17 08/10/19 05:17 - General well developed, no distress - Eyes PERRL - ENT normal pinna - Neck no masses - Respiratory normal expansion - Cardiovascular Rhythm: regular - Abdomen Mild tenderness. Mild distention Abdomen: soft Results - Labs 08/10/19 05:32 08/10/19 05:32 Abnormal Lab Results - Last 24 Hours (Table) 08/10/19 08/10/19 Range/Units 05:32 05:32 WBC 11.9 H (3.8-10.6) k/uL Hgb 16.9 H (11.4-16.0) gm/dL Hct 48.2 H (34.0-46.0) % Neutrophils # 8.6 H (1.3-7.7) k/uL Potassium 3.4 L (3.5-5.1) mmol/L Carbon Dioxide 21 L (22-30) mmol/L Glucose 206 H (74-99) mg/dL Calcium 10.3 H (8.4-10.2) mg/dL Diabetes panel 08/10/19 Range/Units 05:32 Sodium 137 (137-145) mmol/L Potassium 3.4 L (3.5-5.1) mmol/L Chloride 104 (98-107) mmol/L Carbon Dioxide 21 L (22-30) mmol/L BUN 7 (7-17) mg/dL Creatinine 0.66 (0.52-1.04) mg/dL Glucose 206 H (74-99) mg/dL Calcium 10.3 H (8.4-10.2) mg/dL AST 23 (14-36) U/L ALT 25 (4-34) U/L Alkaline Phosphatase 95 (38-126) U/L Total Protein 7.4 (6.3-8.2) g/dL Albumin 4.4 (3.5-5.0) g/dL Calcium panel 08/10/19 Range/Units 05:32 Calcium 10.3 H (8.4-10.2) mg/dL Phosphorus 3.8 (2.5-4.5) mg/dL Albumin 4.4 (3.5-5.0) g/dL Pituitary panel 08/10/19 Range/Units 05:32 Sodium 137 (137-145) mmol/L Potassium 3.4 L (3.5-5.1) mmol/L Chloride 104 (98-107) mmol/L Carbon Dioxide 21 L (22-30) mmol/L BUN 7 (7-17) mg/dL Creatinine 0.66 (0.52-1.04) mg/dL Glucose 206 H (74-99) mg/dL Calcium 10.3 H (8.4-10.2) mg/dL Adrenal panel 08/10/19 Range/Units 05:32 Sodium 137 (137-145) mmol/L Potassium 3.4 L (3.5-5.1) mmol/L Chloride 104 (98-107) mmol/L Carbon Dioxide 21 L (22-30) mmol/L BUN 7 (7-17) mg/dL Creatinine 0.66 (0.52-1.04) mg/dL Glucose 206 H (74-99) mg/dL Calcium 10.3 H (8.4-10.2) mg/dL Total Bilirubin 0.9 (0.2-1.3) mg/dL AST 23 (14-36) U/L ALT 25 (4-34) U/L Alkaline Phosphatase 95 (38-126) U/L Total Protein 7.4 (6.3-8.2) g/dL Albumin 4.4 (3.5-5.0) g/dL Assessment and Plan Plan: Spell obstruction. Patient will remain nothing by mouth with NG tube she may require exploratory laparotomy.
[2019-08-10] MEDS: KETOROLAC 30 MG/ML 1 ML VIAL IVP PRN ×2 (10:48→21:10)
[2019-08-10] MEDS: FLUoxetine HCL 20 MG CAP PO SCH (10:49)
[2019-08-10] MEDS: FLUTICASONE 50MCG/SPRAY NASAL 16GM EA NOSTRIL SCH (11:57)
[2019-08-10] MEDS ORDERED: ALBUTEROL NEBULIZED 2.5 MG/3 ML INHALATION PRN (12:55)
--- NOTE | 2019-08-10 12:57 | P.HPIM ---
History of Present Illness Patient 58-year-old female has multiple complaints including severe abdominal pain diffuse. As better has symptoms of pain are have been going on for about the a week but patient didn't come in because the cocid 19. Patient was having nausea vomiting multiple episodes denied any nausea vomiting yesterday today. Patient was having on and off diarrhea and constipation. Patient had a CT of the abdomen showed dilated small bowel loops with a transition point in the pelvis and the small bowel and there is thickening of the small bowel and has a mesenteric nodule. The multiple ventral hernias as well. Review of Systems REVIEW OF SYSTEMS: CONSTITUTIONAL: No fever, no malaise, no fatigue. HEENT: No recent visual problems or hearing problems. Denied any sore throat. CARDIOVASCULAR: No chest pain, orthopnea, PND, no palpitations, no syncope. PULMONARY: No shortness of breath, no cough, no hemoptysis. GASTROINTESTINAL: As mentioned in HPI NEUROLOGICAL: No headaches, no weakness, no numbness. HEMATOLOGICAL: Denies any bleeding or petechiae. GENITOURINARY: Denies any burning micturition, frequency, or urgency. MUSCULOSKELETAL/RHEUMATOLOGICAL: Denies any joint pain, swelling, or any muscle pain. ENDOCRINE: Denies any polyuria or polydipsia. The rest of the 14-point review of systems is negative. Past Medical History Past Medical History: GERD/Reflux, Memory Impairment, Osteoarthritis (OA), Seizure Disorder Additional Past Medical History / Comment(s): IBS-pt states she has 6-7 loose BM's daily for many years, diverticular disease, benign colon polyps, past stomach ulcer, hemorrhoids, chronic back pain, past migraines, chronic urticaria/hives, past anemia, bronchitis, sinus problems, varicosities, UTI, se izure once in 2018 History of Any Multi-Drug Resistant Organisms: None Reported Past Surgical History: Adenoidectomy, Appendectomy, Cholecystectomy, H ysterectomy, Orthopedic Surgery, Tonsillectomy Additional Past Surgical History / Comment(s): left knee ligaments/meniscus, ORIF R ankle with screws/pins, colonoscopy/benign polypectomy, EGD, R inguinal hernia, partial hysterectomy then another surgery for bilateral salpingo ophorectomy/repair of abdominal muscles with mesh, bilateral cataract removal/lens implants. Past Anesthesia/Blood Transfusion Reactions: Motion Sickness, Postoperative Nausea & Vomiting (PONV) Additional Past Anesthesia/Blood Transfusion Reaction / Comment(s): clausterphobia. 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 Medications and Allergies Home Medications Medication Instructions Recorded Confirmed Type FLUoxetine HCL [PROzac] 20 mg PO DAILY #14 cap 08/25/17 08/10/19 Rx Fluticasone Nasal [place] [Flonase 1 spray EA NOSTRIL DAILY #1 spr 08/25/17 08/10/19 Rx Nasal [place]] Lisinopril [Zestril] 20 mg PO DAILY #28 tab 08/25/17 08/10/19 Rx Albuterol Sulfate [Albuterol 2 puff PO Q4H PRN 08/10/19 08/10/19 History Sulfate Hfa] Dicyclomine [Bentyl] 20 mg PO QID 08/10/19 08/10/19 History Diphenoxylate HCl/Atropine 1 tab PO Q4H PRN 08/10/19 08/10/19 History [Lomotil 2.5-0.025 mg Tablet] EPINEPHrine (Auto Inject) [Epipen] 0.3 mg IM ONCE PRN 08/10/19 08/10/19 History Promethazine [Phenergan] 25 mg PO TID 08/10/19 08/10/19 History Allergies Allergy/AdvReac Type Severity Reaction Status Date / Time cefaclor [From [facility]] Allergy Unknown Rash/Hives Verified 08/10/19 07:49 shellfish derived Allergy Unknown Rash/Hives Verified 08/10/19 07:49 latex Allergy Rash/Hives Verified 08/10/19 07:49 tramadol AdvReac stomach Verified 08/10/19 07:49 pain COMPAZINE IV AdvReac ANXIETY Uncoded 08/10/19 07:54 Physical Exam Vitals: Vital Signs Temp Pulse Resp BP Pulse Ox 08/10/19 07:26 105 H 18 144/71 93 L 08/10/19 06:55 105 H 18 119/77 95 08/10/19 06:00 98 18 179/89 96 08/10/19 05:30 101 H 18 180/97 96 07/01/20 05:17 98.4 F 112 H 20 174/111 95 Intake and Output 08/09/19 08/10/19 08/10/19 22:59 06:59 14:59 Other: Weight 90.718 kg 90.718 kg PHYSICAL EXAMINATION: GENERAL: The patient is alert and oriented x3, not in any acute distress. Well developed, well nourished. HEENT: Pupils are round and equally reacting to light. EOMI. No scleral icterus. No conjunctival pallor. Normocephalic, atraumatic. No pharyngeal erythema. No thyromegaly. CARDIOVASCULAR: S1 and S2 present. No murmurs, rubs, or gallops. PULMONARY: Chest is clear to auscultation, no wheezing or crackles. ABDOMEN: Soft, mild tenderness, nondistended, normoactive bowel sounds. No palpable organomegaly. MUSCULOSKELETAL: No joint swelling or deformity. EXTREMITIES: No cyanosis, clubbing, or pedal edema. NEUROLOGICAL: Gross neurological examination did not reveal any focal deficits. SKIN: No rashes. Results CBC & Chem 7: 08/10/19 05:32 08/10/19 05:32 Labs: Abnormal Lab Results - Last 24 Hours (Table) 08/10/19 08/10/19 Range/Units 05:32 05:32 WBC 11.9 H (3.8-10.6) k/uL Hgb 16.9 H (11.4-16.0) gm/dL Hct 48.2 H (34.0-46.0) % Neutrophils # 8.6 H (1.3-7.7) k/uL Potassium 3.4 L (3.5-5.1) mmol/L Carbon Dioxide 21 L (22-30) mmol/L Glucose 206 H (74-99) mg/dL Calcium 10.3 H (8.4-10.2) mg/dL Thrombosis Risk Factor Assmnt - Choose All That Apply Any of the Below Risk Factors Present?: Yes Each Factor Represents 1 point: Age 41-60 years, Obesity (BMI >25), Varicose veins Other Risk Factors: No Other congenital or acquired thrombophilia - If yes, enter type in comment: No Thrombosis Risk Factor Assessment Total Risk Factor Score: 3 Thrombosis Risk Factor Assessment Level: Moderate Risk Assessment and Plan Plan: Possible small bowel obstruction: Patient is an NG tube no drainage at this time. Patient also also sluggish. Just surgery evaluated the patient and the Aspergillus surgery patient may need laparotomy. Continue with IV fluids -Gastroesophageal reflux disease -Leukocytosis reactive secondary to assessment #1 Seizure disorder -Depression -Hypokalemia secondary to nausea vomiting this will be replaced -Tachycardia secondary to pain -Hypertension:
--- NOTE | 2019-08-10 13:03 | XR ---
EXAMINATION TYPE: XR chest 1V DATE OF EXAM: 08/10/2019 COMPARISON: 08/10/2019 HISTORY: NG tube placement TECHNIQUE: Single frontal view of the chest is obtained. FINDINGS: NG tube is seen extending the left upper quadrant. Likely within the gastric body. Heart s ize normal. No overt failure. Biapical pleural thickening. Subsegmental changes left lung base. IMPRESSION: Left basilar atelectasis favored over pneumonia.
[2019-08-10] MEDS: HYDROmorphone 1 MG/ML 1 ML SYRINGE IVP PRN ×2 (13:26→19:03)
[2019-08-10] MEDS: SODIUM CHLORIDE 0.9% 1,000 ML IV SCH (15:08)
[2019-08-11] MEDS: HYDROmorphone 1 MG/ML 1 ML SYRINGE IVP PRN ×2 (00:34→04:21)
[2019-08-11] MEDS: SODIUM CHLORIDE 0.9% 1,000 ML IV SCH ×3 (00:35→13:16)
[2019-08-11] MEDS: ONDANSETRON 4 MG/2 ML VIAL IVP PRN ×2 (04:21→22:08)
[2019-08-11] MEDS: FLUTICASONE 50MCG/SPRAY NASAL 16GM EA NOSTRIL SCH (07:41)
[2019-08-11] MEDS: PANTOPRAZOLE 40 MG/10 ML VIAL IVP SCH (07:41)
[2019-08-11] MEDS: ENOXAPARIN 40 MG/0.4 ML SYRINGE SQ SCH (07:41)
[2019-08-11] MEDS: FLUoxetine HCL 20 MG CAP PO SCH (07:41)
[2019-08-11] MEDS ORDERED: LACTATED RINGERS 1,000 ML IV ONE ×3 (08:11→10:35)
[2019-08-11 08:14] LABS: African American GFR (CKD) >90 (>60 ml/min/1.73 sqM); Anion Gap 6 mmol/L; Blood Urea Nitrogen 9 mg/dL (7-17); Calcium 8.5 mg/dL (8.4-10.2); Carbon Dioxide 26 mmol/L (22-30); Chloride 109 mmol/L (98-107); Glucose 120 mg/dL (74-99); Non-African American GFR(CKD) >90 (>60 ml/min/1.73 sqM); Potassium 4.1 mmol/L (3.5-5.1); Sodium 141 mmol/L (137-145)
[2019-08-11] MEDS ORDERED: ONDANSETRON 4 MG/2 ML VIAL ONE (08:17)
--- NOTE | 2019-08-11 08:18 | P.PN ---
Progress Note - Text Progress Note Date: 08/11/19 persistent small bowel obstruction with pain. patient to undergo lysis of adhesions today.
[2019-08-11] MEDS ORDERED: MIDAZOLAM 2 MG/2 ML VIAL IV ONE (08:20)
[2019-08-11] MEDS ORDERED: fentaNYL (PF) 50 MCG/ML 2 ML AMP IV ONE (08:28)
[2019-08-11] MEDS ORDERED: ONDANSETRON 4 MG/2 ML VIAL IVP ONE (08:30)
[2019-08-11] MEDS ORDERED: SCOPOLAMINE 1.5MG/72HR PATCH TRANSDERM ONE (08:30)
[2019-08-11] MEDS ORDERED: DEXAMETHASONE SOD PHOSPHATE 10 MG/ML 1 ML VIAL IV ONE (08:30)
[2019-08-11] MEDS ORDERED: ROCURONIUM BROMIDE 10 MG/ML 5 ML VIAL IV ONE (08:54)
[2019-08-11] MEDS ORDERED: SUCCINYLCHOLINE CHLORIDE 100 MG/5 ML SYR IV ONE (08:54)
[2019-08-11] MEDS ORDERED: MIDAZOLAM 2 MG/2 ML VIAL ONE (08:54)
[2019-08-11] MEDS ORDERED: PHENYLEPHRINE-0.9% NACL SYG 1 MG/10 ML SYRINGE ONE (08:54)
[2019-08-11] MEDS ORDERED: fentaNYL (PF) 50 MCG/ML 2 ML AMP ONE (08:54)
[2019-08-11] MEDS ORDERED: HEPARIN SODIUM,PORCINE 5,000 UNIT/ML 1 ML VIAL ONE (08:54)
[2019-08-11] MEDS ORDERED: GLYCOPYRROLATE 0.2 MG/ML 2 ML VIAL ONE (08:54)
[2019-08-11] MEDS ORDERED: PROPOFOL 10 MG/ML 20 ML VIAL IV ONE (08:54)
[2019-08-11] MEDS ORDERED: LIDOCAINE 1% INJ 10MG/ML (20 ML MDV) ONE (08:54)
[2019-08-11] MEDS ORDERED: NEOSTIGMINE 1 MG/ML 10 ML VIAL ONE (08:54)
[2019-08-11] MEDS ORDERED: SODIUM CHLORIDE 0.9% 50 ML with CLINDAMYCIN 600 MG IV ONE ×2 (09:20)
[2019-08-11] MEDS ORDERED: ROPIVACAINE 500 MG, HYDROMORPHONE (PF) 5 MG in SODIUM CHLORIDE 0.9% 150 ML EPIDURAL PRN (09:44)
[2019-08-11] MEDS ORDERED: NALOXONE 0.4 MG/ML 1 ML VIAL IV PRN ×2 (09:44→10:35)
--- NOTE | 2019-08-11 09:48 | P.ANPRN ---
Procedure Note - Anesthesia - Epidural/Spinal Epidural Continuous Time Out Performed: Yes Date of Procedure: 08/11/19 Procedure Start Time: 08:26 Procedure Stop Time: 08:40 Location of Patient: PreOp Indication: Acute Post-Operative Pain Sedation Type: Sedate with meaningful contact maintained Preparation: Sterile Dressing Position: Sitting Catheter Depth at Skin (cm): 13 Catheter: Indwelling Needle Guage: 18 Injectate: Test Dose Lidocaine1.5% w/1:200,000 epi Blood Aspirated: No Pain Paresthesia on Injection Noted: No Events: Uneventful and Well Tolerated
--- NOTE | 2019-08-11 10:35 | P.OP ---
Date of Procedure: 08/11/19 Preoperative Diagnosis: Small bowel obstruction Postoperative Diagnosis: Small bowel obstruction secondary adhesions Incisional hernia Procedure(s) Performed: Exploratory laparotomy Lysis of adhesion Small bowel resection Repair of incisional hernia Anesthesia: CLAIR Surgeon: Erik Romero Estimated Blood Loss (ml): 200 Pathology: other (Small bowel) Condition: stable Disposition: floor Description of Procedure: The patient's placed the operative table in supine position. She received general anesthesia. Her abdomen was prepped and draped usual sterile fashion. The skin was incised through the low midline scar. Oozing blunt and sharp dissection with cautery the fascia was divided in the abdomen was entered. There were adhesions to the anterior abdominal wall these lysed with sharp dissection. The small bowel appeared dilated. The small bowel was traced down to the right pelvis and appeared to be significant adhesions causing small bowel obstruction. At this point approximately 35 minutes operative time used to lyse adhesions. The adhesions were quite dense. There was some bleeding from the adhesion lysis. The small bowel was finally freed from the pelvis and it was decided to perform a limited small bowel resection. The terminal ileum was transected proximal 6 inches from the cecal valve and then the proximal small bowel was transected with a GI stapler. Using insulin device the mesentery the bowel was divided. The specimen sent to pathology. A [id number] functional end-to-end staple anastomosis was created using the ASAD and TA stapler. A 3-0 silk sutures using a crotch stitch. The right pelvis was examined. There is some minimal bleeding which was controlled with a large cautery. No further bleeding was seen. The abdomen was irrigated resolving seen. The fascia was closed with looped #1 PDS suture. During fascial closure of the small bowel to the hernia was repaired. Skin was closed nicho. Patient top she will was sent to recovery room stable condition.
[2019-08-11] MEDS ORDERED: BUPIVACAINE (PF) 0.25% 30 ML VIAL EPIDURAL ONE (11:10)
[2019-08-11 11:19] VITALS: BMI 36.6
[2019-08-11] MEDS ORDERED: PHENYLEPHRINE 10 MG/ML VIAL IV ONE ×2 (11:46)
[2019-08-11] MEDS: PHENYLEPHRINE 10 MG/ML VIAL IV ONE ×2 (11:51→12:10)
--- NOTE | 2019-08-11 12:09 | P.PN ---
Subjective Progress Note Date: 08/11/19 Principal diagnosis: Patient 58-year-old female has multiple complaints including severe abdominal pain diffuse. As better has symptoms of pain are have been going on for about the a week but patient didn't come in because the covid 19. Patient was having nausea vomiting multiple episodes denied any nausea vomiting yesterday today. Patient was having on and off diarrhea and constipation. Patient had a CT of the abdomen showed dilated small bowel loops with a transition point in the pelvis and the small bowel and there is thickening of the small bowel and has a mesenteric nodule. multiple ventral hernias as well. 08/11/2019 Patient is seen and evaluated in follow-up status post exploratory laparotomy with lysis of adhesions, bowel resection, and hernia repair this morning with surgery. Patient was recently admitted with small bowel obstruction and being monitored closely. Patient currently remains nothing by mouth and has an epidural pump for pain management. Blood pressures are running low and will hold antihypertensives at this time and continue to monitor closely. Objective - Vital Signs Vital signs: Vital Signs Temp 98.4 F 08/11/19 10:25 Pulse 73 08/11/19 11:45 Resp 16 08/11/19 11:45 BP 76/42 08/11/19 11:45 Pulse Ox 90 L 08/11/19 11:45 Intake & Output 08/10/19 08/11/19 08/11/19 18:59 06:59 18:59 Intake Total 1200 1254 Output Total 75 450 Balance -75 1200 804 Weight 90.718 kg 90.718 kg Intake: IV 1254 Intake, IV Titration 1200 Amount Sodium Chloride 0.9% 1, 1200 000 ml @ 100 mls/hr IV . Q10H [facility] Rx#:[id number] Oral 0 Output: Gastric Drainage 75 Urine 250 Estimated Blood Loss 200 Other: Voiding Method Toilet # Voids 2 - Exam GENERAL: The patient is alert and oriented x3, lethargic status post surgery. W ell developed, well nourished. HEENT: Pupils are round and equally reacting to light. EOMI. No scleral icterus. No conjunctival pallor. Normocephalic, atraumatic. No pharyngeal erythema. No thyromegaly. CARDIOVASCULAR: S1 and S2 present. No murmurs, rubs, or gallops. PULMONARY: Chest is clear to auscultation, no wheezing or crackles. ABDOMEN: Soft, mild tenderness, nondistended, normoactive bowel sounds. No palpable organomegaly. MUSCULOSKELETAL: No joint swelling or deformity. EXTREMITIES: No cyanosis, clubbing, or pedal edema. NEUROLOGICAL: Gross neurological examination did not reveal any focal deficits. SKIN: No rashes. - Labs CBC & Chem 7: 08/10/19 05:32 08/11/19 07:26 Labs: Abnormal Lab Results - Last 24 Hours (Table) 08/11/19 Range/Units 07:26 Chloride 109 H (98-107) mmol/L Glucose 120 H (74-99) mg/dL Assessment and Plan Assessment: -Possible small bowel obstruction: Surgery following and patient underwent exploratory laparotomy with lysis of adhesions, small bowel resection, and repair of incisional hernia this morning. -Gastroesophageal reflux disease -Leukocytosis reactive secondary to assessment #1 -Seizure disorder -Depression -Hypokalemia secondary to nausea vomiting, improved, current potassium is 4.1 -Tachycardia secondary to pain -Hypertension: Will hold antihypertensives due to postoperative hypotension and monitor vital signs closely. Plan: Continue with current medications, management, and symptomatic treatment. Pain management with an epidural pump and anesthesia and surgery are following closely. Will continue to monitor closely. We'll continue to hold antihypertensives at this time and monitor vitals closely. Further recommendations to follow.
[2019-08-11] MEDS: HEPARIN SODIUM,PORCINE 5,000 UNIT/ML 1 ML VIAL SQ SCH (21:53)
[2019-08-11] MEDS: HYDROmorphone 0.5 MG/0.5 ML SYRINGE IVP PRN (23:05)
[2019-08-12] MEDS: SODIUM CHLORIDE 0.9% 1,000 ML IV SCH ×2 (04:59→16:31)
[2019-08-12] MEDS: PANTOPRAZOLE 40 MG/10 ML VIAL IVP SCH (07:29)
[2019-08-12] MEDS: FLUTICASONE 50MCG/SPRAY NASAL 16GM EA NOSTRIL SCH (07:30)
[2019-08-12] MEDS: ENOXAPARIN 40 MG/0.4 ML SYRINGE SQ SCH (07:30)
[2019-08-12] MEDS: HEPARIN SODIUM,PORCINE 5,000 UNIT/ML 1 ML VIAL SQ SCH (07:30)
[2019-08-12] MEDS: FLUoxetine HCL 20 MG CAP PO SCH (07:30)
[2019-08-12 10:22] LABS: Basophils % (A) 0 %; Eosinophils % (A) 0 %; HCT 31.9 % (34.0-46.0); Lymphocytes # (A) 1.2 k/uL (1.0-4.8); Lymphocytes % (A) 14 %; MCH 30.8 pg (25.0-35.0); MCHC 32.3 g/dL (31.0-37.0); Mean Platelet Volume 7.6; Monocytes # (A) 0.6 k/uL (0-1.0); Monocytes % (A) 7 %; Neutrophils # (A) 6.6 k/uL (1.3-7.7); Neutrophils % (A) 77 %; Platelet Count 194 k/uL (150-450); RBC 3.36 m/uL (3.80-5.40); RDW 12.1 % (11.5-15.5); WBC 8.6 k/uL (3.8-10.6)
[2019-08-12 10:34] LABS: HGB 10.3 gm/dL (11.4-16.0); MCV 95.2 fL (80.0-100.0)
--- NOTE | 2019-08-12 10:37 | P.PN ---
Progress Note - Text Date: [id number]: 07:46 The patient is status post, exploratory laparotomy, postoperative day number 1 The patient has no complaints of nausea vomiting or headache. The patient does not complain of any lower extremity numbness or weakness. VAS 010. The epidural is running at 8 mL per hour. The epidural will be maintained and adjusted as needed.
[2019-08-12 10:39] LABS: ALT 52 U/L (4-34); AST 36 U/L (14-36); African American GFR (CKD) >90 (>60 ml/min/1.73 sqM); Albumin 2.5 g/dL (3.5-5.0); Alkaline Phosphatase 63 U/L (38-126); Anion Gap 6 mmol/L; Blood Urea Nitrogen 12 mg/dL (7-17); Calcium 7.8 mg/dL (8.4-10.2); Carbon Dioxide 22 mmol/L (22-30); Chloride 108 mmol/L (98-107); Glucose 102 mg/dL (74-99); Non-African American GFR(CKD) >90 (>60 ml/min/1.73 sqM); Potassium 3.7 mmol/L (3.5-5.1); Sodium 136 mmol/L (137-145); Total Bilirubin 0.8 mg/dL (0.2-1.3); Total Protein 4.5 g/dL (6.3-8.2)
[2019-08-12] MEDS: ONDANSETRON 4 MG/2 ML VIAL IVP PRN ×2 (10:45→17:15)
--- NOTE | 2019-08-12 11:44 | XR ---
EXAMINATION TYPE: XR chest 1V portable DATE OF EXAM: 08/12/2019 COMPARISON: 08/10/2019 HISTORY: Cough TECHNIQUE: Single frontal view of the chest is obtained. FINDINGS: NG tube noted. Surgical clips right upper quadrant. Bilateral lower lobe subsegmental cons olidation. No overt failure. Biapical pleural thickening. Heart size is normal. IMPRESSION: Bilateral lower lobe atelectasis or infiltrate correlate clinically.
--- NOTE | 2019-08-12 12:51 | P.PN ---
Subjective Progress Note Date: 08/12/19 CHIEF COMPLAINT: Small bowel obstruction HISTORY OF PRESENT ILLNESS: The patient is a 58-year-old female status post lysis of adhesions 08/11/2019 for small bowel obstruction. She is postop day 1. She has many questions regarding her surgery. Separately she complains of hunger. She has not eaten in more than 3+ days. No reports of flatus. No bowel movements. Patient played record conversation with surgeon regarding hernias. ROS: No reports of nausea and vomiting. No bowel movements. PHYSICAL EXAM: VITAL SIGNS: Reviewed. T-max 100.3. CONSTITUTIONAL: Well developed and in no acute distress. EYES: Conjuctivae without sclera icterus. Extraocular movements grossly intact. HEAD, EARS, NOSE, THROAT: Moist buccal mucosa. Head is atraumatic, normocephalic. Hears conversational speech. No nasal drainage. Nasogastric tube bilious NECK: Supple. No thyroidomegaly. RESPIRATORY: Non-labored respirations and equal bilateral excursions. CARDIOVASCULAR: Tachycardic ABDOMEN: Dressings intact. No peritonitis. MUSCULOSKELETAL: No gross deformity of the lower extremities noted. No clubbing. No cyanosis. SKIN: Good skin turgor. Well perfused. NEUROLOGIC: Cranial nerves II through XII grossly intact. No focal or lateralizing signs. PSYCH: Appropriate affect. Alert and oriented to person, place and time. CLINICAL LABS: White blood cell count normal improved from 11,900 2 8600. Hemoglobin down from 16.9-10.3. STUDIES: CT of the abdomen and pelvis independent reviewed demonstrating features consistent with small bowel obstruction including incarcerated incisional fat containing hernia. ASSESSMENT: 1. Small bowel obstruction due to adhesions PLAN: 1. She has prolonged nothing by mouth status recommend starting TPN. 2. IV fluid hydration. 3. Strict nothing by mouth status secondary to recent lysis of adhesions and bowel obstruction 4. Disposition described to patient of at least 7-10 days pending bowel function and nutritional status Objective - Vital Signs Vital signs: Vital Signs Temp 98.1 F 08/12/19 07:00 Pulse 106 H 08/12/19 07:00 Resp 16 08/12/19 07:00 BP 100/67 08/12/19 07:00 Pulse Ox 94 L 08/12/19 07:00 Intake & Output 08/11/19 08/12/19 08/12/19 18:59 06:59 18:59 Intake Total 2354 Output Total 600 1000 Balance 1754 -1000 Weight 90.718 kg 90.718 kg Intake: IV 2354 Output: Gastric Drainage 150 300 Urine 250 700 Estimated Blood Loss 200 Other: Voiding Method Indwelling Catheter Indwelling Catheter - Labs CBC & Chem 7: 08/12/19 09:33 08/12/19 09:33 Labs: Abnormal Lab Results - Last 24 Hours (Table) 08/12/19 08/12/19 08/12/19 Range/Units 09:33 09:33 09:33 RBC 3.36 L (3.80-5.40) m/uL Hgb 10.3 L D (11.4-16.0) gm/dL Hct 31.9 L (34.0-46.0) % Sodium 136 L (137-145) mmol/L Chloride 108 H (98-107) mmol/L Glucose 102 H (74-99) mg/dL Calcium 7.8 L (8.4-10.2) mg/dL ALT 52 H (4-34) U/L Troponin I 0.360 H* (0.000-0.034) ng/mL Total Protein 4.5 L (6.3-8.2) g/dL Albumin 2.5 L (3.5-5.0) g/dL Assessment and Plan (1) Incisional hernia Current Visit: Yes Status: Acute Code(s): K43.2 - INCISIONAL HERNIA WITHOUT OBSTRUCTION OR GANGRENE SNOMED Code(s): 471630533 (2) Abdominal pain Current Visit: Yes Status: Acute Code(s): R10.9 - UNSPECIFIED ABDOMINAL PAIN SNOMED Code(s): 25732086 (3) Small bowel obstruction Current Visit: Yes Status: Acute Code(s): K56.609 - UNSP INTESTNL OBST, UNSP TO PARTIAL VERSUS COMPLETE OBST SNOMED Code(s): 420153190 (4) Morbid obesity due to excess calories Current Visit: Yes Status: Acute Code(s): E66.01 - MORBID (SEVERE) OBESITY DUE TO EXCESS CALORIES SNOMED Code(s): 295652770 (5) Inadequate dietary intake of protein Current Visit: Yes Status: Acute Code(s): E63.9 - NUTRITIONAL DEFICIENCY, UNSPECIFIED SNOMED Code(s): 172163878
--- NOTE | 2019-08-12 13:46 | P.CRDCN ---
History of Present Illness Consult date: 08/12/19 History of present illness: This is a 58-year-old female with history of seizure disorder, intermittent about disease who was admitted to the hospital with abdominal pain and evidence of small bowel obstruction. Patient underwent exploratory laparotomy and lysis of adhesions and hernia repair. Postoperatively, patient apparently developed hypoxia and confusional state last night. Dr. Burton ordered EKG and troponin values this morning. One of the components was elevated at 0.038. Patient did not recall having any chest pain or shortness of breath. No history of previous myocardial infarction. No history of diabetes or hypertension. Patient is quite comfortable at the time of my examination. Her EKG showed sinus rhythm. Patient is going to continue to be monitored. We'll get 2 more troponin values at 6 hour interval. We'll also get an echocardiogram. Further recommendations depend upon the clinical course. Review of Systems As per the chart Past Medical History Past Medical History: GERD/Reflux, Memory Impairment, Osteoarthritis (OA), Seizure Disorder Additional Past Medical History / Comment(s): IBS-pt states she has 6-7 loose BM's daily for many years, diverticular disease, benign colon polyps, past stomach ulcer, hemorrhoids, chronic back pain, past migraines, chronic urticaria/hives, past anemia, bronchitis, sinus problems, varicosities, UTI, seizure once in 2018 History of Any Multi-Drug Resistant Organisms: None Reported Past Surgical History: Adenoidectomy, Appendectomy, Cholecystectomy, Hysterectomy, Orthopedic Surgery, Tonsillectomy Additional Past Surgical History / Comment(s): left knee ligaments/meniscus, ORIF R ankle with screws/pins, colonoscopy/benign polypectomy, EGD, R inguinal hernia, partial hysterectomy then another surgery for bilateral sonya pingoophorectomy/repair of abdominal muscles with mesh, bilateral cataract removal/lens implants. Past Anesthesia/Blood Transfusion Reactions: Motion Sickness, Postoperative N ausea & Vomiting (PONV) Additional Past Anesthesia/Blood Transfusion Reaction / Comment(s): clausterphobia. 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 Medications and Allergies Home Medications Medication Instructions Recorded Confirmed Type FLUoxetine HCL [PROzac] 20 mg PO DAILY #14 cap 08/25/17 08/10/19 Rx Fluticasone Nasal [place] [Flonase 1 spray EA NOSTRIL DAILY #1 spr 08/25/17 08/10/19 Rx Nasal [place]] Lisinopril [Zestril] 20 mg PO DAILY #28 tab 08/25/17 08/10/19 Rx Albuterol Sulfate [Albuterol 2 puff PO Q4H PRN 08/10/19 08/10/19 History Sulfate Hfa] Dicyclomine [Bentyl] 20 mg PO QID 08/10/19 08/10/19 History Diphenoxylate HCl/Atropine 1 tab PO Q4H PRN 08/10/19 08/10/19 History [Lomotil 2.5-0.025 mg Tablet] EPINEPHrine (Auto Inject) [Epipen] 0.3 mg IM ONCE PRN 08/10/19 08/10/19 History Promethazine [Phenergan] 25 mg PO TID 08/10/19 08/10/19 History Allergies Allergy/AdvReac Type Severity Reaction Status Date / Time cefaclor [From [facility]] Allergy Unknown Rash/Hives Verified 08/10/19 07:49 shellfish derived Allergy Unknown Rash/Hives Verified 08/10/19 07:49 latex Allergy Rash/Hives Verified 08/10/19 07:49 tramadol AdvReac stomach Verified 08/10/19 07:49 pain COMPAZINE IV AdvReac ANXIETY Uncoded 08/10/19 07:54 Physical Exam Vitals: Vital Signs Temp Pulse Resp BP Pulse Ox 08/12/19 07:00 98.1 F 106 H 16 100/67 94 L 08/12/19 03:38 98.2 F 112 H 18 111/62 90 L 08/12/19 02:00 100.3 F H 92/47 08/11/19 23:08 100/62 08/11/19 21:56 119/62 08/11/19 20:06 86/48 08/11/19 19:25 99.8 F H 112 H 16 82/50 93 L 08/11/19 17:30 112 H 80/47 90 L 08/11/19 17:15 112 H 185/131 90 L 08/11/19 17:00 114 H 89/47 92 L 08/11/19 16:45 110 H 97/58 91 L 08/11/19 16:30 109 H 97/46 90 L 08/11/19 16:15 109 H 93/63 93 L 08/11/19 16:00 114 H 82/39 92 L 08/11/19 15:45 111 H 96/62 90 L 08/11/19 15:30 103 H 102/63 92 L 08/11/19 15:15 104 H 99/42 94 L 08/11/19 15:00 99.4 F 104 H 17 82/40 92 L 08/11/19 14:30 102 H 78/73 93 L 08/11/19 14:20 100 73/43 93 L 08/11/19 14:15 99 58/41 90 L 08/11/19 14:00 96 72/33 90 L Intake and Output 08/11/19 08/12/19 08/12/19 22:59 06:59 14:59 Output Total 700 300 Balance -700 -300 Output: Gastric Drainage 300 Urine 700 Other: Voiding Method Indwelling Catheter Indwelling Catheter Weight 90.718 kg GENERAL EXAM: Patient is alert and oriented and doesn't appear to be in any acute distress HEENT: Normocephalic. Normal reaction of pupils, equal size, normal range of extraocular motion. No erythema or exudates in the throat. NECK: No masses, no nuchal rigidity. CHEST: No chest wall deformity. LUNGS: Equal air entry with no crackles or wheeze. HEART: S1 and S2 normal with no audible mumurs or gallops. Regular rhythm, femorals equal on both sides.. ABDOMEN: Postsurgical SKIN: No rashes CENTRAL NERVOUS SYSTEM: No focal deficits. EXTREMITIES: No cyanosis, clubbing or edema. Results 08/12/19 09:33 08/12/19 09:33 Cardiac Enzymes 08/12/19 08/12/19 Range/Units 09:33 09:33 AST 36 (14-36) U/L Troponin I 0.360 H* (0.000-0.034) ng/mL CBC 08/12/19 Range/Units 09:33 WBC 8.6 (3.8-10.6) k/uL RBC 3.36 L (3.80-5.40) m/uL Hgb 10.3 L D (11.4-16.0) gm/dL Hct 31.9 L (34.0-46.0) % Plt Count 194 (150-450) k/uL Comprehensive Metabolic Panel 08/12/19 Range/Units 09:33 Sodium 136 L (137-145) mmol/L Potassium 3.7 (3.5-5.1) mmol/L Chloride 108 H (98-107) mmol/L Carbon Dioxide 22 (22-30) mmol/L BUN 12 (7-17) mg/dL Creatinine 0.61 (0.52-1.04) mg/dL Glucose 102 H (74-99) mg/dL Calcium 7.8 L (8.4-10.2) mg/dL AST 36 (14-36) U/L ALT 52 H (4-34) U/L Alkaline Phosphatase 63 (38-126) U/L Total Protein 4.5 L (6.3-8.2) g/dL Albumin 2.5 L (3.5-5.0) g/dL Current Medications Generic Name Dose Route Start Last Admin Trade Name Freq PRN Reason Stop Dose Admin Albuterol Sulfate 2.5 mg 08/10/19 12:55 Ventolin Nebulized INHALATION RT-Q4H PRN Shortness Of Breath Enoxaparin Sodium 40 mg 08/11/19 09:00 08/12/19 07:30 Lovenox SQ 40 mg DAILY [facility]ENN[facility]ER Administration Fluoxetine HCl 20 mg 08/10/19 09:00 08/12/19 07:30 Prozac PO 20 mg DAILY JENN[facility]ER Administration Fluticasone Propionate 1 spray 08/10/19 09:00 08/12/19 07:30 Flonase Nasal [place] EA NOSTRIL Not Given DAILY [facility]ENN[facility]ER Heparin Sodium (Porcine) 5,000 unit 08/11/19 21:00 08/12/19 07:30 Heparin SQ Not Given Q12HR JENN[facility]ER Hydromorphone HCl 1 mg 08/10/19 07:08 08/11/19 04:21 Dilaudid IVP 1 mg Q4HR PRN Administration Pain Hydromorphone HCl 0.5 mg 08/11/19 10:35 08/11/19 23:05 Dilaudid IVP 0.5 mg Q3HR PRN Administration Moderate to Severe Pain Sodium Chloride 1,000 mls @ 100 mls/hr 08/10/19 13:00 08/12/19 04:59 Saline 0.9% IV 100 mls/hr .Q10H JENN[facility]ER Administration Ropivacaine 500 mg/ 250 mls @ 0 mls/hr 08/11/19 09:44 08/11/19 10:51 Hydromorphone HCl 5 mg/ Sodium EPIDURAL 0 mls Chloride .Q0M PRN Administration Pain Control Protocol Per Protocol Ketorolac Tromethamine 15 mg 08/10/19 10:35 08/10/19 21:10 Toradol IVP 08/15/19 10:36 15 mg Q6HR PRN Administration Pain Naloxone HCl 0.2 mg 08/11/19 09:44 Narcan IV Q2M PRN Opioid Reversal Naloxone HCl 0.2 mg 08/11/19 10:35 Narcan IV Q2M PRN Opioid Reversal Ondansetron HCl 4 mg 08/10/19 07:08 08/12/19 10:45 Zofran IVP 4 mg Q6HR PRN Administration Nausea And Vomiting Pantoprazole Sodium 40 mg 08/11/19 09:00 08/12/19 07:29 Protonix IVP 40 mg DAILY JENNIFER Administration Intake and Output 08/11/19 08/12/19 08/12/19 22:59 06:59 14:59 Output Total 700 300 Balance -700 -300 Output: Gastric Drainage 300 Urine 700 Other: Voiding Method Indwelling Catheter Indwelling Catheter Weight 90.718 kg Patient Weight 08/13/19 06:59 Weight 90.718 kg 08/12/19 09:33 08/12/19 09:33 EKG Interpretations (text) Sinus rhythm Assessment and Plan (1) Elevated troponin Current Visit: Yes Status: Acute Code(s): R79.89 - OTHER SPECIFIED ABNORMAL FINDINGS OF BLOOD CHEMISTRY SNOMED Code(s): 794477852 (2) Small bowel obstruction Current Visit: Yes Status: Acute Code(s): K56.609 - UNSP INTESTNL OBST, UNSP TO PARTIAL VERSUS COMPLETE OBST SNOMED Code(s): 156863887 Plan: Patient apparently had an episode of drop in oxygen saturation associated with some confusion last night. No complaints of any chest pain. EKG is normal. Troponin is mildly elevated. We'll going to follow troponin trend and also get an echocardiogram. Patient is critically stable at this time. Chest x-ray is being obtained. Further recommendations depend upon the clinical course
--- NOTE | 2019-08-12 14:03 | ECHOF ---
Referral Reason:elevated troponin MEASUREMENTS -------- HEIGHT: 157.5 cm WEIGHT: 90.7 kg BP: 100/67 RVIDd: 3.4 cm (< 3.3) IVSd: 1.6 cm (0.6 - 1.1) LVIDd: 4.1 cm (3.9 - 5.3) LVPWd: 1.5 cm (0.6 - 1.1) IVSs: 1.6 cm LVIDs: 3.0 cm LVPWs: 1.6 cm LAESV Index (A-L): 34.46 ml/m Ao Diam: 3.1 cm (2.0 - 3.7) AV Cusp: 1.9 cm (1.5 - 2.6) MV EXCURSION: 16.963 mm (> 18.000) MV EF SLOPE: 88 mm/s (70 - 150) EPSS: 0.2 cm MV E Fab: 1.37 m/s MV DecT: 162 ms MV A Fab: 0.92 m/s MV E/A Ratio: 1.50 RAP: 5.00 mmHg RVSP: 33.91 mmHg FINDINGS -------- Sinus rhythm. This was a technically adequate study. The left ventricular size is normal. There is moderate concentric left ventricular hypertrophy. O verall left ventricular systolic function is normal with, an EF between 55 - 60 %. The diastolic fi lling pattern is normal for the age of the patient 18.45. The right ventricle is mildly enlarged. LA is moderately dilated 34-39 ml/m2 The right atrial size is normal. Interatrial and interventricular septum intact. The aortic valve is trileaflet and appears structurally normal. There is no evidence of aortic regu rgitation. There is no evidence of aortic stenosis. Mild mitral regurgitation is present. Mild tricuspid regurgitation present. There is borderline pulmonary hypertension. The right ventr icular systolic pressure, as measured by Doppler, is 33.91mmHg. There is no pulmonic regurgitation present. The aortic root size is normal. IVC Not well visulized. There is no pericardial effusion. CONCLUSIONS -------- 1. Sinus rhythm. 2. This was a technically adequate study. 3. The left ventricular size is normal. 4. There is moderate concentric left ventricular hypertrophy. 5. Overall left ventricular systolic function is normal with, an EF between 55 - 60 %. 6. The diastolic filling pattern is normal for the age of the patient 18.45 7. The right ventricle is mildly enlarged. 8. LA is moderately dilated 34-39 ml/m2 9. The right atrial size is normal. 10. Interatrial and interventricular septum intact. 11. The aortic valve is trileaflet and appears structurally normal. 12. There is no evidence of aortic regurgitation. 13. There is no evidence of aortic stenosis. 14. Mild mitral regurgitation is present. 15. Mild tricuspid regurgitation present. 16. There is borderline pulmonary hypertension. 17. The right ventricular systolic pressure, as measured by Doppler, is 33.91mmHg. 18. There is no pulmonic regurgitation present. 19. The aortic root size is normal. 20. IVC Not well visulized. 21. There is no pericardial effusion. STUDENT LIFE COORDINATOR: Puja Granados RDCS
--- NOTE | 2019-08-12 14:07 | P.PN ---
Subjective Progress Note Date: 08/12/19 Principal diagnosis: Patient 58-year-old female has multiple complaints including severe abdominal pain diffuse. As better has symptoms of pain are have been going on for about the a week but patient didn't come in because the covid 19. Patient was having nausea vomiting multiple episodes denied any nausea vomiting yesterday today. Patient was having on and off diarrhea and constipation. Patient had a CT of the abdomen showed dilated small bowel loops with a transition point in the pelvis and the small bowel and there is thickening of the small bowel and has a mesenteric nodule. multiple ventral hernias as well. 08/11/2019 Patient is seen and evaluated in follow-up status post exploratory laparotomy with lysis of adhesions, bowel resection, and hernia repair this morning with surgery. Patient was recently admitted with small bowel obstruction and being monitored closely. Patient currently remains nothing by mouth and has an epidural pump for pain management. Blood pressures are running low and will hold antihypertensives at this time and continue to monitor closely. 08/12/2019 Patient is seen and evaluated in follow-up postop day #2 status post exploratory laparotomy with lysis of adhesions, bowel resection, and hernia repair. Surgery is closely following. Patient had a brief period of hypoxia after being found by nursing staff with her oxygen not an last night and continued low blood pressures. Patient denies any chest pain or shortness of breath but continues to have moderate to severe abdominal discomfort. Patient has an NG tube and is currently nothing by mouth with continuous drainage noted in the suction canister. Patient does have an epidural pump and states that her pain is being properly managed at this time. Patient is working with physical therapy. Patient instructed to continue using incentive spirometer at least 10 times every hour while awake. Patient may also require PPN as she will remain nothing by mouth at this time. Patient denies passing any gas or having bowel movements at this time. Patient had an EKG and troponin which was elevated at 0.360 and cardiology was consulted. An echo was also ordered and is pending at this time. Patient's hemoglobin was found to be 10.3 today as well with no active bleeding noted. Will monitor vital signs and labs closely. Review of systems: Constitutional: Reports generalized fatigue, no reports of fevers or chills Cardiovascular: No reports of chest pain or palpitations Respiratory: No reports of shortness of breath or cough GI: No reports of nausea, vomiting, or diarrhea : No reports of dysuria or retention Neurovascular: Reports generalized weakness, no reports of numbness Active Medications Albuterol Sulfate (Ventolin Nebulized) 2.5 mg INHALATION RT-Q4H PRN PRN Reason: Shortness Of Breath Enoxaparin Sodium (Lovenox) 40 mg SQ DAILY [facility] Last Admin: 08/12/19 07:30 Dose: 40 mg Documented by: Fluoxetine HCl (Prozac) 20 mg PO DAILY [facility] Last Admin: 08/12/19 07:30 Dose: 20 mg Documented by: Fluticasone Propionate (Flonase Nasal [place]) 1 spray EA NOSTRIL DAILY [facility] Last Admin: 08/12/19 07:30 Dose: Not Given Documented by: Heparin Sodium (Porcine) (Heparin) 5,000 unit SQ Q12HR [facility] Last Admin: 08/12/19 07:30 Dose: Not Given Documented by: Hydromorphone HCl (Dilaudid) 1 mg IVP Q4HR PRN PRN Reason: Pain Last Admin: 08/11/19 04:21 Dose: 1 mg Documented by: Hydromorphone HCl (Dilaudid) 0.5 mg IVP Q3HR PRN PRN Reason: Moderate to Severe Pain Last Admin: 08/11/19 23:05 Dose: 0.5 mg Documented by: Sodium Chloride (Saline 0.9%) 1,000 mls @ 100 mls/hr IV .Q10H [facility] Last Admin: 08/12/19 04:59 Dose: 100 mls/hr Documented by: Ropivacaine 500 mg/Hydromorphone HCl 5 mg/ Sodium Chloride 250 mls @ 0 mls/hr EPIDURAL .Q0M PRN; Protocol PRN Reason: Pain Control Last Admin: 08/11/19 10:51 Dose: 0 mls Documented by: Ketorolac Tromethamine (Toradol) 15 mg IVP Q6HR PRN PRN Reason: Pain Stop: 08/15/19 10:36 Last Admin: 08/10/19 21:10 Dose: 15 mg Documented by: Naloxone HCl (Narcan) 0.2 mg IV Q2M PRN PRN Reason: Opioid Reversal Naloxone HCl (Narcan) 0.2 mg IV Q2M PRN PRN Reason: Opioid Reversal Ondansetron HCl (Zofran) 4 mg IVP Q6HR PRN PRN Reason: Nausea And Vomiting Last Admin: 08/12/19 10:45 Dose: 4 mg Documented by: Pantoprazole Sodium (Protonix) 40 mg IVP DAILY [facility] Last Admin: 08/12/19 07:29 Dose: 40 mg Documented by: Objective - Vital Signs Vital signs: Vital Signs Temp 98.1 F 08/12/19 07:00 Pulse 106 H 08/12/19 07:00 Resp 16 08/12/19 07:00 BP 100/67 08/12/19 07:00 Pulse Ox 94 L 08/12/19 07:00 Intake & Output 08/11/19 08/12/19 08/12/19 18:59 06:59 18:59 Intake Total 2354 Output Total 600 1000 Balance 1754 -1000 Weight 90.718 kg 90.718 kg Intake: IV 2354 Output: Gastric Drainage 150 300 Urine 250 700 Estimated Blood Loss 200 Other: Voiding Method Indwelling Catheter Indwelling Catheter - Exam GENERAL: The patient is alert and oriented x3. Well developed, well nourished. Temp is 98.1F, pulse is 106, respirations are 16, blood pressure is 100/67, oxygen saturation is 94% on 3 L via nasal cannula HEENT: Pupils are round and equally reacting to light. EOMI. No scleral icterus. No conjunctival pallor. Normocephalic, atraumatic. No pharyngeal erythema. No thyromegaly. NG tube noted CARDIOVASCULAR: S1 and S2 present. No murmurs, rubs, or gallops. PULMONARY: Diminished breath sounds bilaterally with no wheezing or crackles. Scattered rhonchi noted on exam ABDOMEN: Soft, mild tenderness, nondistended, sluggish bowel sounds. No palpable organomegaly. MUSCULOSKELETAL: No joint swelling or deformity. EXTREMITIES: No cyanosis, clubbing, or pedal edema. NEUROLOGICAL: Gross neurological examination did not reveal any focal deficits. SKIN: No rashes. - Labs CBC & Chem 7: 08/12/19 09:33 08/12/19 09:33 Labs: Abnormal Lab Results - Last 24 Hours (Table) 08/12/19 08/12/19 08/12/19 Range/Units 09:33 09:33 09:33 RBC 3.36 L (3.80-5.40) m/uL Hgb 10.3 L D (11.4-16.0) gm/dL Hct 31.9 L (34.0-46.0) % Sodium 136 L (137-145) mmol/L Chloride 108 H (98-107) mmol/L Glucose 102 H (74-99) mg/dL Calcium 7.8 L (8.4-10.2) mg/dL ALT 52 H (4-34) U/L Troponin I 0.360 H* (0.000-0.034) ng/mL Total Protein 4.5 L (6.3-8.2) g/dL Albumin 2.5 L (3.5-5.0) g/dL Assessment and Plan Assessment: -Possible small bowel obstruction -Status post exploratory laparotomy with lysis of adhesions, small bowel resection, and repair of incisional hernia -Elevated troponin, 0.360 -Gastroesophageal reflux disease -Leukocytosis reactive secondary to assessment #1 -Seizure disorder -Depression -Hypokalemia secondary to nausea vomiting, improved, current potassium is 3.7 -Tachycardia secondary to pain -Hypertension: Will hold antihypertensives due to postoperative hypotension and monitor vital signs closely. Plan: Continue with current medications, management, and symptomatic treatment. Pain management with an epidural pump and anesthesia and surgery are following closely. Will continue to monitor closely. We'll continue to hold antihypertensives at this time and monitor vitals closely. Patient had an elevated troponin and cardiology was consulted. Echo was ordered and is pending at this time. Due to multiple complex medical issues, prognosis is guarded. Further recommendations to follow.
[2019-08-12 14:59] LABS: Magnesium 1.5 mg/dL (1.6-2.3); Phosphorus 2.7 mg/dL (2.5-4.5)
[2019-08-12] MEDS ORDERED: MVI, ADULT NO.4 WITH VIT K 10 ML, TRACE (CONC-1ML/DOSE) 1 ML in AMINO ACID 4.25%-D10W+L... IV SCH ×3 (16:00)
[2019-08-12] MEDS: POTASSIUM CHLORIDE 10 MEQ in WATER FOR INJECTION 1 100ML.BAG IVPB SCH ×2 (16:33→18:07)
[2019-08-12] MEDS: MAGNESIUM SULFATE-D5W PMX 1 GM in DEXTROSE/WATER 1 100ML.BAG IVPB SCH ×2 (17:45→18:47)
[2019-08-12] MEDS: HYDROmorphone 1 MG/ML 1 ML SYRINGE IVP PRN (21:20)
[2019-08-12] MEDS: FAT EMULSION 20% 250 ML in EMPTY BAG 1 BAG IV SCH (23:06)
[2019-08-12 23:28] LABS: Glucose,Whole Blood 124 mg/dL (75-99)
[2019-08-13] MEDS: SODIUM CHLORIDE 0.9% 1,000 ML IV SCH ×2 (01:16→11:04)
[2019-08-13] MEDS: PIPERACILLIN-TAZOBACTAM 3.375 GM in SODIUM CHLORIDE 0.9% 100 ML IVPB SCH ×4 (01:16→23:31)
[2019-08-13] MEDS: ONDANSETRON 4 MG/2 ML VIAL IVP PRN ×2 (01:58→19:00)
[2019-08-13] MEDS: HYDROmorphone 1 MG/ML 1 ML SYRINGE IVP PRN ×5 (01:58→23:30)
[2019-08-13] MEDS: FLUoxetine HCL 20 MG CAP PO SCH (07:55)
[2019-08-13] MEDS: ENOXAPARIN 40 MG/0.4 ML SYRINGE SQ SCH (07:55)
[2019-08-13] MEDS: PANTOPRAZOLE 40 MG/10 ML VIAL IVP SCH (07:55)
[2019-08-13] MEDS: 1: MVI, ADULT NO.4 WITH VIT K 10 ML, TRACE (CONC-1ML/DOSE) 1 ML in AMINO ACID 4.25%-D10W IV SCH ×3 (08:08)
[2019-08-13] MEDS: FLUTICASONE 50MCG/SPRAY NASAL 16GM EA NOSTRIL SCH (08:09)
[2019-08-13 08:18] LABS: Ionized Calcium 4.9 mg/dL (4.5-5.3)
[2019-08-13 08:20] LABS: Basophils % (A) 0 %; Eosinophils # (A) 0.1 k/uL (0-0.7); Eosinophils % (A) 1 %; HGB 10.5 gm/dL (11.4-16.0); Lymphocytes # (A) 0.8 k/uL (1.0-4.8); Lymphocytes % (A) 8 %; MCH 31.8 pg (25.0-35.0); MCV 93.5 fL (80.0-100.0); Mean Platelet Volume 7.6; Monocytes # (A) 0.4 k/uL (0-1.0); Monocytes % (A) 4 %; Neutrophils # (A) 8.5 k/uL (1.3-7.7); Neutrophils % (A) 85 %; Platelet Count 184 k/uL (150-450); RBC 3.32 m/uL (3.80-5.40); RDW 12.2 % (11.5-15.5); WBC 9.9 k/uL (3.8-10.6)
[2019-08-13 08:28] LABS: African American GFR (CKD) >90 (>60 ml/min/1.73 sqM); Anion Gap 3 mmol/L; Blood Urea Nitrogen 9 mg/dL (7-17); Calcium 7.7 mg/dL (8.4-10.2); Carbon Dioxide 27 mmol/L (22-30); Chloride 105 mmol/L (98-107); Glucose 138 mg/dL (74-99); Non-African American GFR(CKD) >90 (>60 ml/min/1.73 sqM); Phosphorus 1.8 mg/dL (2.5-4.5); Potassium 3.9 mmol/L (3.5-5.1); Sodium 135 mmol/L (137-145)
--- NOTE | 2019-08-13 10:05 | P.PN ---
Subjective Progress Note Date: 08/13/19 Principal diagnosis: SBO s/p hernia repair POD #2 / Elevated Troponin / Hypoxia / Low HGB PROGRESS NOTE Patient observed lying in bed this a.m. status post SBO/hernia repair postop day 2. patient noted to be in mild distress and complains of having her IV damaged this morning. Patient is very tearful. Patient states she feels like she is having a panic attack. Patient states she had extreme abdominal pain times one week with her known IBS. States she did not want to come to the hospital due to COVID 19. This a.m. vital signs are stable, afebrile. Patient did have a hypoxic episode in the nighttime hours and is currently on 3 L of O2 at 93%. Patient has had significant hemoglobin drop from 16.9-10.3. Patient currently has NG tube, is nothing by mouth and receiving nutrition via IV. Patient remains sinus rhythm / sinus tach, heart rate 84. VSS. 93% saturation on 3 L of O2. Afebrile. DX of chest shows atelectasis. Patient has not followed with cardiology in the past. Abdominal incision clean dry and intact, bowel sounds present. Patient also states she can feel her belly rumbling. Troponin level trend 0.360, 0.117. PHYSICAL EXAMINATION: HEENT: Head is atraumatic, normocephalic. Pupils are equal, round. Sclerae anicteric. Conjunctivae are clear. Mucous membranes of the mouth are moist. Neck is supple. There is no jugular venous distention. No carotid bruit is heard. No thyromegaly. LUNGS: Clear to auscultation no wheezes, rales or rhonchi. No chest wall tenderness is noted on palpation or with deep breathing. HEART: Regular rate and rhythm without murmurs, rubs or gallops. S1 and S2 heard. ABDOMEN: Abdominal exam revealed normal bowel sounds. The abdomen was soft, tender with new midline incision, and without masses, organomegaly, or appreciable enlargement of the abdominal aorta. EXTREMITIES: Examination of the extremities revealed easily palpable radial, femoral and pedal pulses. There was no cyanosis, clubbing or edema. No calf tenderness noted. VASCULAR: Radial and dorsalis pedis pulses palpated, no evidence of clubbing. NEUROLOGIC: Patient is awake, alert and oriented x3. Tearful. There were no obvious focal neurologic abnormalities. LAB DATA: WBC 8.6, Hgb 10.3, HCT 31.9. Platelets 194. Potassium 3.7. Sodium 136. Chloride 108. CR 12, BUN 0.61. FINAL IMPRESSION: 1. SBO/hernia repair postop day 2 2. hypoxia, resolved with supplemental O2 3. low hemoglobin, significant drop from 16.9 to 10.3, continue to monitor. 4. troponin elevation, secondary to low hgb/hypoxia episode. Now trending down. 5. Anxiety PLAN: No acute cardiology process. Troponin elevation probably secondary to blood loss / hypoxia. Continue with current medical/medication regime. Will continue to monitor troponin trend. Continue with O2 supplementation and IV nutrition. Encourage ambulation and deep breathing exercises a few times daily. Pt to follow-up with Dr. Tesfaye/Cardiology 3 weeks after discharge for full cardiac work-up. Will continue to follow along. Objective - Vital Signs Vital signs: Vital Signs Temp 98.2 F 08/13/19 07:00 Pulse 93 08/13/19 07:00 Resp 17 08/13/19 07:00 BP 118/68 08/13/19 07:00 Pulse Ox 93 L 08/13/19 07:00 Intake & Output 08/12/19 08/13/19 08/13/19 18:59 06:59 18:59 Output Total 1050 1750 Balance -1050 -1750 Weight 90.718 kg Output: Gastric Drainage 350 Urine 700 1750 Uretheral (Gonzalez) 900 Other: Voiding Method Indwelling Catheter Indwelling Catheter # Voids 1 - Labs CBC & Chem 7: 08/13/19 07:51 08/13/19 07:51 Labs: Abnormal Lab Results - Last 24 Hours (Table) 08/12/19 08/12/19 08/12/19 Range/Units 09:33 09:33 09:33 RBC 3.36 L (3.80-5.40) m/uL Hgb 10.3 L D (11.4-16.0) gm/dL Hct 31.9 L (34.0-46.0) % Neutrophils # (1.3-7.7) k/uL Lymphocytes # (1.0-4.8) k/uL Sodium 136 L (137-145) mmol/L Chloride 108 H (98-107) mmol/L Creatinine (0.52-1.04) mg/dL Glucose 102 H (74-99) mg/dL POC Glucose (mg/dL) (75-99) mg/dL Calcium 7.8 L (8.4-10.2) mg/dL Phosphorus (2.5-4.5) mg/dL Magnesium (1.6-2.3) mg/dL ALT 52 H (4-34) U/L Troponin I 0.360 H* (0.000-0.034) ng/mL Total Protein 4.5 L (6.3-8.2) g/dL Albumin 2.5 L (3.5-5.0) g/dL 08/12/19 08/12/19 08/13/19 Range/Units 09:33 23:26 07:51 RBC 3.32 L (3.80-5.40) m/uL Hgb 10.5 L (11.4-16.0) gm/dL Hct 31.0 L (34.0-46.0) % Neutrophils # 8.5 H (1.3-7.7) k/uL Lymphocytes # 0.8 L (1.0-4.8) k/uL Sodium (137-145) mmol/L Chloride (98-107) mmol/L Creatinine (0.52-1.04) mg/dL Glucose (74-99) mg/dL POC Glucose (mg/dL) 124 H (75-99) mg/dL Calcium (8.4-10.2) mg/dL Phosphorus (2.5-4.5) mg/dL Magnesium 1.5 L (1.6-2.3) mg/dL ALT (4-34) U/L Troponin I (0.000-0.034) ng/mL Total Protein (6.3-8.2) g/dL Albumin (3.5-5.0) g/dL 08/13/19 08/13/19 Range/Units 07:51 07:51 RBC (3.80-5.40) m/uL Hgb (11.4-16.0) gm/dL Hct (34.0-46.0) % Neutrophils # (1.3-7.7) k/uL Lymphocytes # (1.0-4.8) k/uL Sodium 135 L (137-145) mmol/L Chloride (98-107) mmol/L Creatinine 0.43 L (0.52-1.04) mg/dL Glucose 138 H (74-99) mg/dL POC Glucose (mg/dL) (75-99) mg/dL Calcium 7.7 L (8.4-10.2) mg/dL Phosphorus 1.8 L (2.5-4.5) mg/dL Magnesium (1.6-2.3) mg/dL ALT (4-34) U/L Troponin I 0.117 H* (0.000-0.034) ng/mL Total Protein (6.3-8.2) g/dL Albumin (3.5-5.0) g/dL
--- NOTE | 2019-08-13 10:45 | P.PN ---
Subjective Progress Note Date: 08/13/19 CHIEF COMPLAINT: Small bowel obstruction HISTORY OF PRESENT ILLNESS: The patient is a 58-year-old female status post lysis of adhesions 08/11/2019 for small bowel obstruction. She is postop day 2. She reports feeling gas disturbance. No flatus. No bowel months. "I feel I might have a bowel movement today." TPN has been started yesterday due to prolonged nothing by mouth status. Pain is controlled. Yesterday, patient had acute event of elevated troponins. Cardiology following. ROS: No reports of nausea and vomiting. No bowel movements. Nasogastric tube present PHYSICAL EXAM: VITAL SIGNS: Reviewed. T-max 101.9 CONSTITUTIONAL: Well developed and in no acute distress. EYES: Conjuctivae without sclera icterus. Extraocular movements grossly intact. HEAD, EARS, NOSE, THROAT: Moist buccal mucosa. Head is atraumatic, normocephalic. Hears conversational speech. No nasal drainage. Nasogastric tube bilious NECK: Supple. No thyroidomegaly. RESPIRATORY: Non-labored respirations and equal bilateral excursions. CARDIOVASCULAR: Regular rate regular rhythm ABDOMEN: Dressings intact. No peritonitis. Serosanguineous shadowing along the inferior portion of Optifoam dressing. MUSCULOSKELETAL: No gross deformity of the lower extremities noted. No clubbing. No cyanosis. SKIN: Good skin turgor. Well perfused. NEUROLOGIC: Cranial nerves II through XII grossly intact. No focal or lateralizing signs. PSYCH: Appropriate affect. Alert and oriented to person, place and time. CLINICAL LABS: White blood cell count normal at 9.9. Hemoglobin down from 16.9- 10.3, now 10.5. Troponin peaked at 0.360 ECHO: Reviewed with ejection fraction 55% to 60%. No global hypokinesis along the ventricles. Left ventricle within normal size. ASSESSMENT: 1. Small bowel obstruction due to adhesions 2. Elevated troponins PLAN: 1. At this time, patient is wanting her food however nasogastric tube still bilious. 2. Await bowel function with flatus and bowel movements prior to start of diet. 3. Patient has intermittent fevers and currently placed on antibiotics. We'll monitor. Objective - Vital Signs Vital signs: Vital Signs Temp 98.2 F 08/13/19 07:00 Pulse 93 08/13/19 07:00 Resp 17 08/13/19 07:00 BP 118/68 08/13/19 07:00 Pulse Ox 93 L 08/13/19 07:00 Intake & Output 08/12/19 08/13/19 08/13/19 18:59 06:59 18:59 Intake Total 968 Output Total 1050 1750 Balance -1050 -1750 968 Weight 90.718 kg Intake: IV 968 Amino Acid 4.25%-D10w+ 600 Lytes*E* 1,000 ml @ 75 mls/hr IV .BY DURATION JENNIFER Rx#:[id number] Fat Emulsion 20% 250 ml 168 In Empty Bag 1 bag @ 21 mls/hr IV DAILY@1800 [facility] Rx#:[id number] Piperacillin-Tazobactam 3 200 .375 gm In Sodium Chloride 0.9% 100 ml @ 25 mls/hr IVPB Q8HR [facility] Rx# :[id number] Output: Gastric Drainage 350 Urine 700 1750 Uretheral (Gonzalez) 900 Other: Voiding Method Indwelling Catheter Indwelling Catheter Indwelling Catheter # Voids 1 - Labs CBC & Chem 7: 08/13/19 07:51 08/13/19 07:51 Labs: Abnormal Lab Results - Last 24 Hours (Table) 08/12/19 08/12/19 08/12/19 Range/Units 09:33 09:33 09:33 RBC (3.80-5.40) m/uL Hgb (11.4-16.0) gm/dL Hct (34.0-46.0) % Neutrophils # (1.3-7.7) k/uL Lymphocytes # (1.0-4.8) k/uL Sodium 136 L (137-145) mmol/L Chloride 108 H (98-107) mmol/L Creatinine (0.52-1.04) mg/dL Glucose 102 H (74-99) mg/dL POC Glucose (mg/dL) (75-99) mg/dL Calcium 7.8 L (8.4-10.2) mg/dL Phosphorus (2.5-4.5) mg/dL Magnesium 1.5 L (1.6-2.3) mg/dL ALT 52 H (4-34) U/L Troponin I 0.360 H* (0.000-0.034) ng/mL Total Protein 4.5 L (6.3-8.2) g/dL Albumin 2.5 L (3.5-5.0) g/dL 08/12/19 08/13/19 08/13/19 Range/Units 23:26 07:51 07:51 RBC 3.32 L (3.80-5.40) m/uL Hgb 10.5 L (11.4-16.0) gm/dL Hct 31.0 L (34.0-46.0) % Neutrophils # 8.5 H (1.3-7.7) k/uL Lymphocytes # 0.8 L (1.0-4.8) k/uL Sodium 135 L (137-145) mmol/L Chloride (98-107) mmol/L Creatinine 0.43 L (0.52-1.04) mg/dL Glucose 138 H (74-99) mg/dL POC Glucose (mg/dL) 124 H (75-99) mg/dL Calcium 7.7 L (8.4-10.2) mg/dL Phosphorus 1.8 L (2.5-4.5) mg/dL Magnesium (1.6-2.3) mg/dL ALT (4-34) U/L Troponin I (0.000-0.034) ng/mL Total Protein (6.3-8.2) g/dL Albumin (3.5-5.0) g/dL 08/13/19 Range/Units 07:51 RBC (3.80-5.40) m/uL Hgb (11.4-16.0) gm/dL Hct (34.0-46.0) % Neutrophils # (1.3-7.7) k/uL Lymphocytes # (1.0-4.8) k/uL Sodium (137-145) mmol/L Chloride (98-107) mmol/L Creatinine (0.52-1.04) mg/dL Glucose (74-99) mg/dL POC Glucose (mg/dL) (75-99) mg/dL Calcium (8.4-10.2) mg/dL Phosphorus (2.5-4.5) mg/dL Magnesium (1.6-2.3) mg/dL ALT (4-34) U/L Troponin I 0.117 H* (0.000-0.034) ng/mL Total Protein (6.3-8.2) g/dL Albumin (3.5-5.0) g/dL Assessment and Plan (1) Incisional hernia Current Visit: Yes Status: Acute Code(s): K43.2 - INCISIONAL HERNIA WITHOUT OBSTRUCTION OR GANGRENE SNOMED Code(s): 963087171 (2) Abdominal pain Current Visit: Yes Status: Acute Code(s): R10.9 - UNSPECIFIED ABDOMINAL PAIN SNOMED Code(s): 13918259 (3) Small bowel obstruction Current Visit: Yes Status: Acute Code(s): K56.609 - UNSP INTESTNL OBST, UNSP TO PARTIAL VERSUS COMPLETE OBST SNOMED Code(s): 019333261 (4) Morbid obesity due to excess calories Current Visit: Yes Status: Acute Code(s): E66.01 - MORBID (SEVERE) OBESITY DUE TO EXCESS CALORIES SNOMED Code(s): 472882529 (5) Inadequate dietary intake of protein Current Visit: Yes Status: Acute Code(s): E63.9 - NUTRITIONAL DEFICIENCY, UNSPECIFIED SNOMED Code(s): 372331928 (6) Elevated troponin Current Visit: Yes Status: Acute Code(s): R79.89 - OTHER SPECIFIED ABNORMAL FINDINGS OF BLOOD CHEMISTRY SNOMED Code(s): 422359222
[2019-08-13] MEDS: SODIUM PHOSPHATE 10 MMOL in SODIUM CHLORIDE 0.9% 250 ML IVPB SCH ×2 (11:04→12:49)
[2019-08-13 11:31] LABS: Glucose,Whole Blood 173 mg/dL (75-99)
[2019-08-13 16:27] LABS: Glucose,Whole Blood 148 mg/dL (75-99)
[2019-08-13] MEDS: FAT EMULSION 20% 250 ML in EMPTY BAG 1 BAG IV SCH (16:43)
--- NOTE | 2019-08-13 20:51 | PN ---
PROGRESS NOTE DATE OF SERVICE: 08/13/2019 This is a 58-year-old woman who was admitted after small bowel obstruction is being closely monitored at this time. The patient also had an episode of hypotension and troponins are elevated up to 0.360. Cardiology is following the patient closely. A 2D echo with Doppler is showing ejection fraction 50-60 percent and no evidence of any significant valvular lesions or wall motion abnormalities. Patient is being closely monitored. PAST MEDICAL HISTORY: Reviewed. REVIEW OF SYSTEMS: CARDIOVASCULAR: No angina or palpitations. RESPIRATORY: As mentioned earlier. GI: No nausea, vomiting, or diarrhea. : No dysuria or hematuria. NERVOUS: No numbness or weakness. CURRENT MEDICATIONS: 1. Ventolin p.r.n. 2. Xanax 0.5 t.i.d. 3. Lovenox 40 mg subcu daily. 4. Flonase. 5. Dilaudid. 6. Toradol. 7. Narcan. 8. Zofran. 9. Protonix. PHYSICAL EXAM: Patient is alert, oriented x3. Pulse 89, blood pressure 116/70, respiration 18, temperature 98.4, pulse ox 95 percent on 3 L. HEENT: Conjunctivae normal. NECK: No jugular venous distention. CARDIOVASCULAR: S1, S2, muffled. RESPIRATORY: Diminished breath sounds at the bases. A few scattered rhonchi and crackles. ABDOMEN: Soft, nontender. No masses palpable. LEGS: No edema, no swelling. NERVOUS SYSTEM: No focal deficits. LAB STUDIES: WBC 9.2, hemoglobin 10.9 sodium 135, otherwise glucose 178. Troponins are noted. Phosphorous is 1.8. Magnesium ( ). ASSESSMENT: 1. Possible small bowel obstruction status post exploratory laparotomy, lysis of adhesions, small bowel resection, repair of incisional hernia. 2. Transient hypotension postoperatively. 3. Elevated troponin up to 0.360, possible acute [id number]-elevation myocardial infarction. 4. Gastroesophageal reflux disease. 5. Leukocytosis, reactive. 6. Seizure disorder. 7. History of depression. 8. Hypokalemia. 9. History of sinus tachycardia. 10.Hypertension history. 11.Anemia, normocytic anemia of chronic disease. RECOMMENDATIONS AND DISCUSSION: This 58-year-old woman who presented with multiple complex medical issues, we will monitor the patient closely. Continue the current medications, continue symptomatic treatment. Otherwise at this time I would recommend to continue with DVT prophylaxis. We will continue to monitor and once the blood pressure is stabilized, we will add beta blockers and I would also add a small dose of Lipitor. We will check fasting lipid panel also. Further recommendations to follow. Closely follow with Cardiology. MARI / NATALIA: [id number] /
[2019-08-13] MEDS: ATORVASTATIN 10 MG TAB PO SCH (20:54)
[2019-08-14 00:04] LABS: Glucose,Whole Blood 141 mg/dL (75-99)
[2019-08-14] MEDS: HYDROmorphone 1 MG/ML 1 ML SYRINGE IVP PRN ×3 (04:27→21:44)
[2019-08-14 06:14] LABS: Glucose,Whole Blood 163 mg/dL (75-99)
[2019-08-14] MEDS: ONDANSETRON 4 MG/2 ML VIAL IVP PRN (07:19)
[2019-08-14] MEDS: 1: MVI, ADULT NO.4 WITH VIT K 10 ML, TRACE (CONC-1ML/DOSE) 1 ML in AMINO ACID 4.25%-D10W IV SCH ×3 (07:20)
[2019-08-14 08:24] LABS: African American GFR (CKD) >90 (>60 ml/min/1.73 sqM); Anion Gap 3 mmol/L; Blood Urea Nitrogen 8 mg/dL (7-17); Calcium 7.9 mg/dL (8.4-10.2); Carbon Dioxide 29 mmol/L (22-30); Chloride 101 mmol/L (98-107); Cholesterol 146 mg/dL (<200); Glucose 133 mg/dL (74-99); HDL Cholesterol 28 mg/dL (40-60); LDL Cholesterol,Calculated 82 mg/dL (0-99); Non-African American GFR(CKD) >90 (>60 ml/min/1.73 sqM); Phosphorus 2.1 mg/dL (2.5-4.5); Potassium 3.7 mmol/L (3.5-5.1); Sodium 133 mmol/L (137-145); Triglycerides 180 mg/dL (<150)
[2019-08-14] MEDS: PANTOPRAZOLE 40 MG/10 ML VIAL IVP SCH (08:25)
[2019-08-14] MEDS: FLUoxetine HCL 20 MG CAP PO SCH (08:25)
[2019-08-14] MEDS: PIPERACILLIN-TAZOBACTAM 3.375 GM in SODIUM CHLORIDE 0.9% 100 ML IVPB SCH ×2 (08:25→16:34)
[2019-08-14] MEDS: ENOXAPARIN 40 MG/0.4 ML SYRINGE SQ SCH (08:25)
[2019-08-14] MEDS: FLUTICASONE 50MCG/SPRAY NASAL 16GM EA NOSTRIL SCH (08:25)
[2019-08-14 11:53] LABS: Glucose,Whole Blood 170 mg/dL (75-99)
--- NOTE | 2019-08-14 12:00 | P.PN ---
Subjective Progress Note Date: 08/14/19 CHIEF COMPLAINT: Small bowel obstruction HISTORY OF PRESENT ILLNESS: The patient is a 58-year-old female status post lysis of adhesions 08/11/2019 for small bowel obstruction. She is postop day 3. She is passing moderate flatus. Decreased output from nasogastric tube. She feels tired. No chest pain. Less bilious output from NG tube. ROS: No reports of vomiting. No bowel movements. Nasogastric tube present PHYSICAL EXAM: VITAL SIGNS: Reviewed. T-max 101.9 CONSTITUTIONAL: Well developed and in no acute distress. EYES: Conjuctivae without sclera icterus. Extraocular movements grossly intact. HEAD, EARS, NOSE, THROAT: Moist buccal mucosa. Head is atraumatic, normocephalic. Hears conversational speech. No nasal drainage. NECK: Supple. No thyroidomegaly. RESPIRATORY: Non-labored respirations and equal bilateral excursions. CARDIOVASCULAR: Regular rate regular rhythm ABDOMEN: Dressings intact. No peritonitis. . MUSCULOSKELETAL: No gross deformity of the lower extremities noted. No clubbing. No cyanosis. SKIN: Good skin turgor. Well perfused. NEUROLOGIC: Cranial nerves II through XII grossly intact. No focal or lateralizing signs. PSYCH: Appropriate affect. Alert and oriented to person, place and time. CLINICAL LABS: White blood cell count normal from yesterday. ASSESSMENT: 1. Small bowel obstruction due to adhesions 2. Elevated troponins PLAN: 1. Remove sharp catheter as epidural out 2. Remove NG tube 3. Start clears. Objective - Vital Signs Vital signs: Vital Signs Temp 97.8 F 08/14/19 07:00 Pulse 84 08/14/19 07:00 Resp 18 08/14/19 07:00 BP 135/78 08/14/19 07:00 Pulse Ox 96 08/14/19 07:00 Intake & Output 08/13/19 08/14/19 08/14/19 18:59 06:59 18:59 Intake Total 968 450 Output Total 700 Balance 268 450 Weight 90.718 kg Intake: IV 968 450 Amino Acid 4.25%-D10w+ 600 450 Lytes*E* 1,000 ml @ 75 mls/hr IV .BY DURATION JENNIFER Rx#:[id number] Fat Emulsion 20% 250 ml 168 In Empty Bag 1 bag @ 21 mls/hr IV DAILY@1800 JENN[facility] Rx#:[id number] Piperacillin-Tazobactam 3 200 .375 gm In Sodium Chloride 0.9% 100 ml @ 25 mls/hr IVPB Q8HR [facility] Rx# :[id number] Output: Urine 700 Other: Voiding Method Indwelling Catheter Indwelling Catheter Indwelling Catheter # Voids 1 - Labs CBC & Chem 7: 08/13/19 07:51 08/14/19 07:21 Labs: Abnormal Lab Results - Last 24 Hours (Table) 08/13/19 08/14/19 08/14/19 Range/Units 16:26 00:02 06:11 Sodium (137-145) mmol/L Creatinine (0.52-1.04) mg/dL Glucose (74-99) mg/dL POC Glucose (mg/dL) 148 H 141 H 163 H (75-99) mg/dL Calcium (8.4-10.2) mg/dL Phosphorus (2.5-4.5) mg/dL Triglycerides (<150) mg/dL HDL Cholesterol (40-60) mg/dL 08/14/19 08/14/19 Range/Units 07:21 11:51 Sodium 133 L (137-145) mmol/L Creatinine 0.39 L (0.52-1.04) mg/dL Glucose 133 H (74-99) mg/dL POC Glucose (mg/dL) 170 H (75-99) mg/dL Calcium 7.9 L (8.4-10.2) mg/dL Phosphorus 2.1 L (2.5-4.5) mg/dL Triglycerides 180 H (<150) mg/dL HDL Cholesterol 28 L (40-60) mg/dL Microbiology - Last 24 Hours (Table) 08/12/19 21:35 Blood Culture - Preliminary Blood No Growth after 24 hours Assessment and Plan (1) Incisional hernia Current Visit: Yes Status: Acute Code(s): K43.2 - INCISIONAL HERNIA WITHOUT OBSTRUCTION OR GANGRENE SNOMED Code(s): 378033973 (2) Abdominal pain Current Visit: Yes Status: Acute Code(s): R10.9 - UNSPECIFIED ABDOMINAL PAIN SNOMED Code(s): 78788244 (3) Small bowel obstruction Current Visit: Yes Status: Acute Code(s): K56.609 - UNSP INTESTNL OBST, UNSP TO PARTIAL VERSUS COMPLETE OBST SNOMED Code(s): 045012424 (4) Morbid obesity due to excess calories Current Visit: Yes Status: Acute Code(s): E66.01 - MORBID (SEVERE) OBESITY DUE TO EXCESS CALORIES SNOMED Code(s): 246987791 (5) Inadequate dietary intake of protein Current Visit: Yes Status: Acute Code(s): E63.9 - NUTRITIONAL DEFICIENCY, UNSPECIFIED SNOMED Code(s): 075011233 (6) Elevated troponin Current Visit: Yes Status: Acute Code(s): R79.89 - OTHER SPECIFIED ABNORMAL FINDINGS OF BLOOD CHEMISTRY SNOMED Code(s): 323146132
[2019-08-14] MEDS: DEXAMETHASONE SOD PHOSPHATE 4 MG/ML 1 ML VIAL IV SCH ×2 (13:06→17:49)
[2019-08-14] MEDS: HYDROmorphone 0.5 MG/0.5 ML SYRINGE IVP PRN ×2 (13:06→17:48)
[2019-08-14] MEDS ORDERED: POTASSIUM PHOSPHATE 10 MMOL in SODIUM CHLORIDE 0.9% 250 ML IV ONE (14:00)
[2019-08-14] MEDS: FAT EMULSION 20% 250 ML in EMPTY BAG 1 BAG IV SCH (17:48)
[2019-08-14 18:12] LABS: Glucose,Whole Blood 193 mg/dL (75-99)
[2019-08-14] MEDS: ATORVASTATIN 10 MG TAB PO SCH (21:45)
[2019-08-14] MEDS: METOPROLOL TARTRATE 12.5 MG TAB PO SCH (21:45)
[2019-08-14] MEDS: ALPRAZolam 0.25 MG TAB PO PRN (23:36)
[2019-08-15] MEDS: 1: MVI, ADULT NO.4 WITH VIT K 10 ML, TRACE (CONC-1ML/DOSE) 1 ML in AMINO ACID 4.25%-D10W IV SCH ×3 (00:01)
[2019-08-15] MEDS: DEXAMETHASONE SOD PHOSPHATE 4 MG/ML 1 ML VIAL IV SCH ×5 (00:20→23:10)
[2019-08-15] MEDS: PIPERACILLIN-TAZOBACTAM 3.375 GM in SODIUM CHLORIDE 0.9% 100 ML IVPB SCH ×4 (00:21→23:10)
[2019-08-15 00:29] LABS: Glucose,Whole Blood 138 mg/dL (75-99)
--- NOTE | 2019-08-15 00:33 | PN ---
PROGRESS NOTE DATE OF SERVICE: 08/14/2019 This 58-year-old woman who was admitted with small-bowel obstruction also had fluctuation in the blood. The patient also had surgery and elevated troponin indicating possible acute [id number]-elevation myocardial infarction. A 2D echo with Doppler was done. Cardiology following the patient closely as well as Surgery. A 2D echo showed ejection fraction about 55% to 60% and minimal valvular abnormalities. PAST MEDICAL HISTORY: Reviewed. REVIEW OF SYSTEMS: CARDIOVASCULAR SYSTEM: No angina. RESPIRATORY SYSTEM: As mentioned earlier. GI: As mentioned earlier : No dysuria. NERVOUS SYSTEM: No numbness or weakness. CURRENT MEDICATIONS: Current medications are reviewed and include: 1. Ventolin. 2. Xanax. 3. Lipitor. 4. Lovenox. 5. TPN. 6. Dilaudid. 7. Toradol. 8. Narcan. 9. Zofran. 10.Protonix. 11.Amino acids. Doses are reviewed. PHYSICAL EXAMINATION: Patient is alert and oriented x3. Pulse 89, blood pressure 143/80, respirations 17, temperature 98.1, pulse ox 94% on room air. HEENT: Conjunctivae normal. NECK: No jugular venous distention. CARDIOVASCULAR: S1, S2 muffled. RESPIRATORY: Breath sounds diminished at the bases. A few scattered rhonchi. ABDOMEN: Soft, status post surgery. LEGS: No edema. No swelling. NERVOUS SYSTEM: No focal deficits. LABS: Sodium 133, phosphorus 2.1, hemoglobin 10.5. ASSESSMENT: 1. Small-bowel obstruction, status post exploratory laparotomy, lysis of adhesions, small bowel resection and repair of incisional hernia. 2. Transient hypotension postoperatively. 3. Elevated troponin up to 0.360 possible acute alv-JQ-yjxwkjt-elevation myocardial infarction. 4. Gastroesophageal reflux disease. 5. Leukocytosis, reactive. 6. Seizure disorder. 7. History of depression. 8. Hypokalemia. 9. History of sinus tachycardia. 10.Hypertension history. 11.Anemia, normocytic anemia of chronic disease. RECOMMENDATIONS AND DISCUSSION: Recommend to continue current medications, continue symptomatic treatment. I would recommend small dose of beta blockers and continue to monitor, antiplatelet agents and Lipitor once the patient is p.o. DVT prophylaxis. Further recommendations to follow. MMODL / IJN: [id number] / [facility]
[2019-08-15] MEDS: HYDROmorphone 1 MG/ML 1 ML SYRINGE IVP PRN ×5 (02:22→23:10)
[2019-08-15 06:11] LABS: Glucose,Whole Blood 199 mg/dL (75-99)
[2019-08-15] MEDS: HYDROmorphone 0.5 MG/0.5 ML SYRINGE IVP PRN (06:16)
[2019-08-15] MEDS: ENOXAPARIN 40 MG/0.4 ML SYRINGE SQ SCH (08:18)
[2019-08-15] MEDS: PANTOPRAZOLE 40 MG/10 ML VIAL IVP SCH (08:18)
[2019-08-15] MEDS: FLUoxetine HCL 20 MG CAP PO SCH (08:18)
[2019-08-15] MEDS: FLUTICASONE 50MCG/SPRAY NASAL 16GM EA NOSTRIL SCH (08:21)
[2019-08-15] MEDS: METOPROLOL TARTRATE 12.5 MG TAB PO SCH ×2 (08:24→20:29)
[2019-08-15] MEDS: ONDANSETRON 4 MG/2 ML VIAL IVP PRN (08:29)
[2019-08-15 11:17] LABS: African American GFR (CKD) >90 (>60 ml/min/1.73 sqM); Anion Gap 8 mmol/L; Blood Urea Nitrogen 13 mg/dL (7-17); Calcium 8.9 mg/dL (8.4-10.2); Carbon Dioxide 26 mmol/L (22-30); Chloride 101 mmol/L (98-107); Glucose 164 mg/dL (74-99); Magnesium 2.3 mg/dL (1.6-2.3); Non-African American GFR(CKD) >90 (>60 ml/min/1.73 sqM); Phosphorus 2.7 mg/dL (2.5-4.5); Potassium 4.3 mmol/L (3.5-5.1); Sodium 135 mmol/L (137-145)
--- NOTE | 2019-08-15 11:26 | P.PN ---
Progress Note - Text Progress Note Date: 08/15/19 The patient had a bowel movement today. On exam vessels are stable. Abdomen soft. Incision sites clean dry intact. Status post small bowel resection for small bowel obstruction. Patient will have her diet advanced. We discussed with discharge home tomorrow.
[2019-08-15 12:14] LABS: Glucose,Whole Blood 167 mg/dL (75-99)
[2019-08-15] MEDS: ALPRAZolam 0.25 MG TAB PO PRN (15:09)
--- NOTE | 2019-08-15 15:50 | P.PN ---
Subjective Progress Note Date: 08/15/19 Principal diagnosis: This is a 58-year-old female who was recently admitted with small bowel obstruction and underwent surgery and is being closely monitored. Patient also had an elevated troponin indicating possible acute non-ST segment elevation myocardial infarction. Cardiology following. Patient will likely need close monitoring and further workup in the outpatient setting. PT/OT following as patient continues to have gait dysfunction and is weak. Patient is currently maintained on IV antibiotics in the form of Zosyn and will continue at this time. Patient presently on clear liquids and tolerating and will be advanced to full liquids. He should continues on TPN and will wean at this time. Patient is having gas and reports to having a bowel movement with no reports of nausea, vomiting, or diarrhea noted. Patient denies any chest pain, shortness of breath, or palpitations. Patient is afebrile. Case management and social work following for possible ECF rehab placement. Objective - Vital Signs Vital signs: Vital Signs Temp 97.8 F 08/15/19 07:00 Pulse 74 08/15/19 07:00 Resp 18 08/15/19 07:00 BP 115/64 08/15/19 07:00 Pulse Ox 92 L 08/15/19 07:00 Intake & Output 08/14/19 08/15/19 08/15/19 18:59 06:59 18:59 Intake Total 1000 968 Output Total 1050 Balance -1050 1000 968 Weight 90.718 kg Intake: IV 968 Amino Acid 4.25%-D10w+ 600 Lytes*E* 1,000 ml @ 75 mls/hr IV .BY DURATION JENNIFER Rx#:[id number] Fat Emulsion 20% 250 ml 168 In Empty Bag 1 bag @ 21 mls/hr IV DAILY@1800 JENNIFER Rx#:[id number] Piperacillin-Tazobactam 3 200 .375 gm In Sodium Chloride 0.9% 100 ml @ 25 mls/hr IVPB Q8HR JENNIFER Rx# :[id number] Intake, IV Titration 1000 Amount Amino Acid 4.25%-D10w+ 1000 Lytes*E* 1,000 ml @ 75 mls/hr IV .BY DURATION JENNIFER Rx#:[id number] Output: Gastric Drainage 50 Urine 1000 Other: Voiding Method Bedside Commode Bedside Commode # Voids 2 # Bowel Movements 1 - Exam GENERAL: The patient is alert and oriented x3. Well developed, well nourished. Temp is 98.1F, pulse is 106, respirations are 16, blood pressure is 100/67, oxygen saturation is 94% on 3 L via nasal cannula HEENT: Pupils are round and equally reacting to light. EOMI. No scleral icterus. No conjunctival pallor. Normocephalic, atraumatic. No pharyngeal erythema. No thyromegaly. CARDIOVASCULAR: S1 and S2 muffled. No murmurs, rubs, or gallops. PULMONARY: Diminished breath sounds bilaterally with no wheezing or crackles. ABDOMEN: Soft, mild tenderness, nondistended, positive bowel sounds. No palpable organomegaly. MUSCULOSKELETAL: No joint swelling or deformity. EXTREMITIES: No cyanosis, clubbing, or pedal edema. NEUROLOGICAL: Gross neurological examination did not reveal any focal deficits. SKIN: No rashes. - Labs CBC & Chem 7: 08/13/19 07:51 08/15/19 10:17 Labs: Abnormal Lab Results - Last 24 Hours (Table) 08/14/19 08/15/19 08/15/19 Range/Units 18:10 00:27 06:10 Sodium (137-145) mmol/L Creatinine (0.52-1.04) mg/dL Glucose (74-99) mg/dL POC Glucose (mg/dL) 193 H 138 H 199 H (75-99) mg/dL 08/15/19 08/15/19 Range/Units 10:17 12:11 Sodium 135 L (137-145) mmol/L Creatinine 0.40 L (0.52-1.04) mg/dL Glucose 164 H (74-99) mg/dL POC Glucose (mg/dL) 167 H (75-99) mg/dL Microbiology - Last 24 Hours (Table) 08/12/19 21:35 Blood Culture - Preliminary Blood No Growth after 48 hours Assessment and Plan Assessment: -small bowel obstruction, status post exploratory laparotomy, lysis of adhesions, small bowel resection, and repair of incisional hernia -Transient hypotension postoperatively -Elevated troponin, 0.360, possible acute non-ST segment elevation myocardial infarction -Gastroesophageal reflux disease -Leukocytosis reactive -Seizure disorder -History of Depression -Hypokalemia -History of Tachycardia -Hypertension history -Anemia, normocytic anemia of chronic disease Plan: Continue with current medications, management, and symptomatic treatment. Multiple medical consultations following. Will continue to monitor closely. PT/OT following. Due to multiple complex medical issues, prognosis is guarded. Further recommendations to follow. geophysical laboratory supervisor and social work following for possible placement in ECF rehab. Patient to wean off TPN as patient is tolerating diet and being advanced today. Possible discharge in 24-48 hours.
[2019-08-15 17:01] LABS: Glucose,Whole Blood 157 mg/dL (75-99)
[2019-08-15] MEDS: ATORVASTATIN 10 MG TAB PO SCH (20:29)
[2019-08-16 00:48] LABS: Glucose,Whole Blood 137 mg/dL (75-99)
[2019-08-16] MEDS: DEXAMETHASONE SOD PHOSPHATE 4 MG/ML 1 ML VIAL IV SCH ×2 (05:57→11:34)
[2019-08-16 06:38] LABS: Glucose,Whole Blood 128 mg/dL (75-99)
[2019-08-16 07:07] VITALS: RESP 16
[2019-08-16] MEDS: PIPERACILLIN-TAZOBACTAM 3.375 GM in SODIUM CHLORIDE 0.9% 100 ML IVPB SCH (07:38)
[2019-08-16] MEDS: METOPROLOL TARTRATE 12.5 MG TAB PO SCH (07:39)
[2019-08-16] MEDS: ENOXAPARIN 40 MG/0.4 ML SYRINGE SQ SCH (07:39)
[2019-08-16] MEDS: FLUoxetine HCL 20 MG CAP PO SCH (07:39)
[2019-08-16] MEDS: PANTOPRAZOLE 40 MG/10 ML VIAL IVP SCH (07:39)
[2019-08-16] MEDS: ONDANSETRON 4 MG/2 ML VIAL IVP PRN (07:40)
[2019-08-16] MEDS: FLUTICASONE 50MCG/SPRAY NASAL 16GM EA NOSTRIL SCH (07:40)
[2019-08-16] MEDS: HYDROmorphone 1 MG/ML 1 ML SYRINGE IVP PRN (07:40)
[2019-08-16 08:18] LABS: African American GFR (CKD) >90 (>60 ml/min/1.73 sqM); Anion Gap 7 mmol/L; Blood Urea Nitrogen 14 mg/dL (7-17); Calcium 8.9 mg/dL (8.4-10.2); Carbon Dioxide 23 mmol/L (22-30); Chloride 105 mmol/L (98-107); Glucose 139 mg/dL (74-99); Magnesium 2.2 mg/dL (1.6-2.3); Non-African American GFR(CKD) >90 (>60 ml/min/1.73 sqM); Phosphorus 3.5 mg/dL (2.5-4.5); Sodium 135 mmol/L (137-145)
[2019-08-16 08:19] LABS: Potassium 4.7 mmol/L (3.5-5.1)
--- NOTE | 2019-08-16 11:36 | P.DS ---
Providers Date of admission: 08/10/19 07:08 Expected date of discharge: 08/16/19 Attending physician: Verna Burton Consults: 08/10/19 07:08 Consult Physician Routine Consulting Provider: Erik Romero Consult Reason/Comments: pain Do you want consulting provider notified?: Yes 08/12/19 12:15 Consult Physician Urgent Consulting Provider: Dali Robles Consult Reason/Comments: elevated troponin Do you want consulting provider notified?: Yes Primary care physician: Tommy Stokes Hospital Course: This a 4-year-old female was admitted hospital for small bowel obstruction. Patient underwent emergent laparotomy lysis of adhesion and small bowel resection. Patient did well postoperative. Please hospital chart for details. Procedures: Exploratory laparotomy, small bowel resection, lysis of adhesions Patient Condition at Discharge: Good Plan - Discharge Summary Discharge Rx Participant: No New Discharge Prescriptions: No Action FLUoxetine HCL [PROzac] 20 mg PO DAILY #14 cap Fluticasone Nasal [place] [Flonase Nasal [place]] 1 spray EA NOSTRIL DAILY #1 spr Lisinopril [Zestril] 20 mg PO DAILY #28 tab Dicyclomine [Bentyl] 20 mg PO QID Albuterol Sulfate [Albuterol Sulfate Hfa] 2 puff PO Q4H PRN PRN Reason: Shortness Of Breath EPINEPHrine (Auto Inject) [Epipen] 0.3 mg IM ONCE PRN PRN Reason: Anaphylaxis Diphenoxylate HCl/Atropine [Lomotil 2.5-0.025 mg Tablet] 1 tab PO Q4H PRN PRN Reason: BEFORE EATING Promethazine [Phenergan] 25 mg PO TID Discharge Medication List FLUoxetine HCL [PROzac] 20 mg PO DAILY #14 cap 08/25/17 [Rx] Fluticasone Nasal [place] [Flonase Nasal [place]] 1 spray EA NOSTRIL DAILY #1 spr 08/25/17 [Rx] Lisinopril [Zestril] 20 mg PO DAILY #28 tab 08/25/17 [Rx] Albuterol Sulfate [Albuterol Sulfate Hfa] 2 puff PO Q4H PRN 08/10/19 [History] Dicyclomine [Bentyl] 20 mg PO QID 08/10/19 [History] Diphenoxylate HCl/Atropine [Lomotil 2.5-0.025 mg Tablet] 1 tab PO Q4H PRN 08/10/19 [History] EPINEPHrine (Auto Inject) [Epipen] 0.3 mg IM ONCE PRN 08/10/19 [History] Promethazine [Phenergan] 25 mg PO TID 08/10/19 [History] Follow up Appointment(s)/Referral(s): Tommy Stokes MD [Primary Care Provider] - 1-2 days Erik Romero MD [STAFF PHYSICIAN] - 1 Week Patient Instructions/Handouts: *Surgery [facility] - Scopalamine Patch Instructions Discharge Disposition: HOME SELF-CARE
[2019-08-16] MEDS: ALPRAZolam 0.25 MG TAB PO PRN (11:38)
[2019-08-16 11:45] LABS: Glucose,Whole Blood 130 mg/dL (75-99)
[2019-08-16] MEDS: HYDROmorphone 0.5 MG/0.5 ML SYRINGE IVP PRN (13:08)
--- NOTE | 2019-08-16 15:09 | P.DS ---
Providers Date of admission: 08/10/19 07:08 Expected date of discharge: 08/16/19 Attending physician: Verna Burton Consults: 08/10/19 07:08 Consult Physician Routine Consulting Provider: Erik Romero Consult Reason/Comments: pain Do you want consulting provider notified?: Yes 08/12/19 12:15 Consult Physician Urgent Consulting Provider: Dali Robles Consult Reason/Comments: elevated troponin Do you want consulting provider notified?: Yes Primary care physician: Tommy Stokes Hospital Course: Final diagnosis -small bowel obstruction, status post exploratory laparotomy, lysis of adhesions, small bowel resection, and repair of incisional hernia -Transient hypotension postoperatively -Elevated troponin, 0.360, possible acute non-ST segment elevation myocardial infarction -Gastroesophageal reflux disease -Leukocytosis reactive -Seizure disorder -History of Depression -Hypokalemia -History of Tachycardia -Hypertension history -Anemia, normocytic anemia of chronic disease Discharge disposition Patient is being discharged in a stable condition with guarded prognosis to home. Patient will continue with home care. Patient will follow-up with Dr. Stokes upon discharge. Patient will also follow-up with surgery and cardiology in the outpatient setting . Patient will continue on oral antibiotics in the form of Augmentin twice daily for the next 5 days. Total time taken is 35 minutes. History of present illness This is an 58-year-old female who was recently admitted with small bowel obstruction and was being closely monitored. Patient underwent surgery for small bowel obstruction with lysis of adhesions along with resection and was being closely monitored by surgery. Patient will follow-up with surgery in the outpatient setting upon discharge. Patient also had an elevated troponin indicating a possible acute non-ST segment elevation myocardial infarction and was evaluated by cardiology. Patient will follow-up with cardiology in the out patient setting in 2-3 weeks for a complete cardiac workup. Status post surgery patient was having some gait dysfunction and felt quite weak and was evaluated by physical therapy and will be going home with home care in the outpatient setting. Patient will continue on oral antibiotics in the form of Augmentin twice daily for the next 5 days to complete the course. Currently no reports of chest pain, shortness of breath, or palpitations. Patient is afebrile. No reports of nausea or vomiting and patient is tolerating diet. On exam vital signs are stable. Temp is 98.2F, pulse is 81, respirations are 16, blood pressure is 144/83, oxygen saturation is 97 % on room air. Cardio S1, S2 are present. Respiratory system shows clear to auscultation. Abdomen is soft and nontender. Nervous system shows no focal deficits. Please refer to medication reconciliation sheet for a list of medications. Patient Condition at Discharge: Good Plan - Discharge Summary Discharge Rx Participant: No New Discharge Prescriptions: New Amoxic-Pot Clav 875-125Mg [Augmentin 875-125] 1 tab PO BID 5 Days #10 tab Atorvastatin [Lipitor] 10 mg PO HS 30 Days #30 tab Metoprolol Tartrate [Lopressor] 12.5 mg PO BID 30 Days #60 tab HYDROcodone/APAP 7.5-325MG [[place] 7.5-325] 1 tab PO Q6HR PRN 3 Days #12 tab PRN Reason: Pain Pantoprazole Sodium [Protonix] 40 mg PO DAILY 30 Days #30 tablet. ALPRAZolam [Xanax] 0.25 mg PO TID PRN #9 tab PRN Reason: Anxiety Ondansetron Odt [Zofran Odt] 4 mg PO Q8HR PRN #12 tab PRN Reason: Nausea Continue FLUoxetine HCL [PROzac] 20 mg PO DAILY #14 cap Fluticasone Nasal [place] [Flonase Nasal [place]] 1 spray EA NOSTRIL DAILY #1 spr Albuterol Sulfate [Albuterol Sulfate Hfa] 2 puff PO Q4H PRN PRN Reason: Shortness Of Breath EPINEPHrine (Auto Inject) [Epipen] 0.3 mg IM ONCE PRN PRN Reason: Anaphylaxis Diphenoxylate HCl/Atropine [Lomotil 2.5-0.025 mg Tablet] 1 tab PO Q4H PRN PRN Reason: BEFORE EATING Promethazine [Phenergan] 25 mg PO TID Discontinued Lisinopril [Zestril] 20 mg PO DAILY #28 tab Dicyclomine [Bentyl] 20 mg PO QID Discharge Medication List FLUoxetine HCL [PROzac] 20 mg PO DAILY #14 cap 08/25/17 [Rx] Fluticasone Nasal [place] [Flonase Nasal [place]] 1 spray EA NOSTRIL DAILY #1 spr 08/25/17 [Rx] Albuterol Sulfate [Albuterol Sulfate Hfa] 2 puff PO Q4H PRN 08/10/19 [History] Diphenoxylate HCl/Atropine [Lomotil 2.5-0.025 mg Tablet] 1 tab PO Q4H PRN 08/10/19 [History] EPINEPHrine (Auto Inject) [Epipen] 0.3 mg IM ONCE PRN 08/10/19 [History] Promethazine [Phenergan] 25 mg PO TID 08/10/19 [History] ALPRAZolam [Xanax] 0.25 mg PO TID PRN #9 tab 08/16/19 [Rx] Amoxic-Pot Clav 875-125Mg [Augmentin 875-125] 1 tab PO BID 5 Days #10 tab 08/16/19 [Rx] Atorvastatin [Lipitor] 10 mg PO HS 30 Days #30 tab 08/16/19 [Rx] HYDROcodone/APAP 7.5-325MG [[place] 7.5-325] 1 tab PO Q6HR PRN 3 Days #12 tab 08/16/19 [Rx] Metoprolol Tartrate [Lopressor] 12.5 mg PO BID 30 Days #60 tab 08/16/19 [Rx] Ondansetron Odt [Zofran Odt] 4 mg PO Q8HR PRN #12 tab 08/16/19 [Rx] Pantoprazole Sodium [Protonix] 40 mg PO DAILY 30 Days #30 tablet. 08/16/19 [Rx] Follow up Appointment(s)/Referral(s): Tommy Stokes MD [Primary Care Provider] - 08/19/19 2:00 pm Dali Robles MD [STAFF PHYSICIAN] - 3 Weeks (office will call with appointment time) [facility]iting Nurse, [NON-STAFF] - Erik Romero MD [STAFF PHYSICIAN] - 08/23/19 2:30 pm Patient Instructions/Handouts: *Surgery [facility] - Scopalamine Patch Instructions, Bowel Resection (DC) Activity/Diet/Wound Care/Special Instructions: Activity Limited until follow-up Continue current diet and advance slowly Continue antibiotics until finished Follow up with primary care provider upon discharge Follow-up with cardiology in the outpatient setting as discussed in 2-3 weeks for full workup Follow-up with surgery in the outpatient setting [facility] [phone] [facility] [address] Discharge Disposition: HOME SELF-CARE
[2019-08-16 15:57] VITALS: BP 159/81; PULSE 72; TEMP 98.5
--- NOTE | 2019-08-18 01:53 | CDI ---
Documentation Clarification Form Date: 08/18/2019 From: Brenton Francisco Phone: If you have a question about this query, please contact Geraldine Blanco Social Security Benefits Interviewer at [phone] between 8am and 5pm. Admit Date: 08/10/2019 Discharge Date: 08/16/2019 Patient Name: Donita Hubbard Visit Number: [id number] ATTENTION: The Clinical Documentation Specialists (CDI) and [facility] Coding Staff appreciate your assistance in clarifying documentation. Please respond to the clarification below the line at the bottom and electronically sign. The CDI & [facility] Coding staff will review the response and follow-up if needed. Please note: Queries are made part of the Legal Health Record. If you have any questions, please contact the author of this message via ITS. Dear Jaxson Stewart., The final diagnosis of the pathology report states: SMALL BOWEL, SEGMENTAL RESECTION: Well differentiated neuroendocrine tumor (carcinoid tumor), invading the serosa and involving the radial/mesenteric margin.Two of fourteen mesenteric lymph nodes positive for metastasis. Documentation states: small bowel obstruction, status post exploratory laparotomy, lysis of adhesions, small bowel resection, and repair of incisional hernia Patient history/risk factors: Small bowel obstruction, GERD Treatment:Small bowel resection , Repair of incisional hernia In your professional opinion, do you agree with the pathology report specifying Small bowel thickening as NEUROENDOCRINE TUMOR and Two of fourteen mesenteric lymph nodes positive for metastasis.? Yes No Other (please specify) Unable to determine Unable to determine MTDD
--- NOTE | 2019-08-22 21:59 | CDI ---
Documentation Clarification Form Date: 08/23/2019 From: Brenton Francisco Phone: If you have a question about this query, please contact Geraldine Blanco, Mailroom Manager at [phone] between 8am and 5pm. Admit Date: 08/10/2019 Discharge Date: 08/16/2019 Patient Name: Donita Hubbard Visit Number: [id number] ATTENTION: The Clinical Documentation Specialists (CDI) and [facility] Coding Staff appreciate your assistance in clarifying documentation. Please respond to the clarification below the line at the bottom and electronically sign. The CDI & [facility] Coding staff will review the response and follow-up if needed. Please note: Queries are made part of the Legal Health Record. If you have any questions, please contact the author of this message via ITS. Dear Dr Nick Valencia., The final diagnosis of the pathology report states: SMALL BOWEL, SEGMENTAL RESECTION: Well differentiated neuroendocrine tumor (carcinoid tumor), invading the serosa and involving the radial/mesenteric margin.Two of fourteen mesenteric lymph nodes positive for metastasis. Documentation states: small bowel obstruction, status post exploratory laparotomy, lysis of adhesions, small bowel resection, and repair of incisional hernia Patient history/risk factors: Small bowel obstruction, GERD Treatment:Small bowel resection , Repair of incisional hernia In your professional opinion, do you agree with the pathology report specifying Small bowel thickening as NEUROENDOCRINE TUMOR and Two of fourteen mesenteric lymph nodes positive for metastasis.? Yes No Other (please specify) Unable to determine I am not a pathologist. I don't know why you're asking me this? CARMELAD
--- NOTE | 2019-08-29 16:11 | CDI ---
Documentation Clarification Form Date: 08/29/19 From: Brenton Francisco/Reginald Phone: If you have a question about this query, please contact Geraldine Blanco Loss Prevention Consultant at [phone] between 8am and 5pm. Admit Date: 08/10/2019 Discharge Date: 08/16/2019 Patient Name: Donita Hubbard Visit Number: [id number] ATTENTION: The Clinical Documentation Specialists (CDI) and [facility] Coding Staff appreciate your assistance in clarifying documentation. Please respond to the clarification below the line at the bottom and electronically sign. The CDI & [facility] Coding staff will review the response and follow-up if needed. Please note: Queries are made part of the Legal Health Record. If you have any questions, please contact the author of this message via ITS. Dear Dr Nick Valencia., The final diagnosis of the pathology report states: SMALL BOWEL, SEGMENTAL RESECTION: Well differentiated neuroendocrine tumor (carcinoid tumor), invading the serosa and involving the radial/mesenteric margin.Two of fourteen mesenteric lymph nodes positive for metastasis. Your Documentation states: small bowel obstruction, status post exploratory laparotomy, lysis of adhesions, small bowel resection, and repair of incisional hernia Patient history/risk factors: Small bowel obstruction, GERD Treatment:Small bowel resection , Repair of incisional hernia As attending surgeon, coding is required to confirm that you acknowledge the pathology report diagnosis -Small bowel thickening as NEUROENDOCRINE TUMOR and Two of fourteen mesenteric lymph nodes positive for metastasis for accuracy of reporting of patient's final diagnosis. We are not allowed to code diagnoses from the Path Report without confirming them with the Attending Surgeon (when post op dx by surgeon does not include the pathological diagnoses). Do you acknowledge the above pathological diagnosis for this patient? Yes No Other (please specify) Unable to determine Yes MTDD
== END 2019-08-16 16:12 | disposition home or self-care (01) | DRG 826 ==
LOC: EC 05:16 → 4SSUR 07:08
PROVIDERS: ADMIT Hospitalist; ATTEND Hospitalist
PROC: 0DT80ZZ Resection of Small Intestine, Open Approach (ICD-10-PCS; principal; 2019-08-11 08:30)
PROC: 0DN80ZZ Release Small Intestine, Open Approach (ICD-10-PCS; principal; 2019-08-11 08:30)
PROC: 0DJD0ZZ Inspection of Lower Intestinal Tract, Open Approach (ICD-10-PCS; principal; 2019-08-11 08:30)
PROC: 0WQF0ZZ Repair Abdominal Wall, Open Approach (ICD-10-PCS; principal; 2019-08-11 08:30)
DX: C7A.8 Other malignant neuroendocrine tumors (principal); I21.4 Non-ST elevation (NSTEMI) myocardial infarction; K56.50 Intestinal adhesions [bands], unspecified as to partial versus complete obstruction; F32.9 Major depressive disorder, single episode, unspecified; M19.90 Unspecified osteoarthritis, unspecified site; K21.9 Gastro-esophageal reflux disease without esophagitis; Z96.1 Presence of intraocular lens; C79.89 Secondary malignant neoplasm of other specified sites; I10 Essential (primary) hypertension; G40.909 Epilepsy, unspecified, not intractable, without status epilepticus; E87.6 Hypokalemia; R00.0 Tachycardia, unspecified; E66.01 Morbid (severe) obesity due to excess calories; K43.2 Incisional hernia without obstruction or gangrene; D63.8 Anemia in other chronic diseases classified elsewhere; I95.9 Hypotension, unspecified; E63.9 Nutritional deficiency, unspecified; F17.200 Nicotine dependence, unspecified, uncomplicated; Z11.59 Encounter for screening for other viral diseases; Z90.49 Acquired absence of other specified parts of digestive tract; Z90.89 Acquired absence of other organs; Z98.890 Other specified postprocedural states; Z80.1 Family history of malignant neoplasm of trachea, bronchus and lung; Z84.1 Family history of disorders of kidney and ureter; Z79.899 Other long term (current) drug therapy; Z88.1 Allergy status to other antibiotic agents; Z91.040 Latex allergy status; Z91.013 Allergy to seafood; Z87.11 Personal history of peptic ulcer disease; Z90.711 Acquired absence of uterus with remaining cervical stump; Z98.42 Cataract extraction status, left eye; Z98.41 Cataract extraction status, right eye; Z87.19 Personal history of other diseases of the digestive system; Z87.440 Personal history of urinary (tract) infections; Z88.5 Allergy status to narcotic agent; Z88.8 Allergy status to other drugs, medicaments and biological substances; Z68.36 Body mass index [BMI] 36.0-36.9, adult
CPT/HCPCS: 36415; 71045; 74177; 80048; 80053; 80061; 82330; 83605; 83735; 84100; 84478; 84484; 85025; 85610; 85730; 87040; 88309; 88341; 88342; 93005; 93306; 96361; 96374; 96375; 96376; 99285

== ENCOUNTER 2019-08-20 14:11 | Inpatient (IN) | payer MEDICARE ==
[2019-08-20] MEDS ORDERED: SODIUM CHLORIDE 0.9% 500 ML 500 ML IV ONE (14:39)
[2019-08-20] MEDS ORDERED: SODIUM CHLORIDE 0.9% 1,000 ML IV ONE (14:39)
[2019-08-20 15:21] LABS: Basophils % (A) 0 %; Eosinophils # (A) 0.5 k/uL (0-0.7); Eosinophils % (A) 4 %; HCT 38.3 % (34.0-46.0); HGB 12.5 gm/dL (11.4-16.0); Lymphocytes # (A) 1.5 k/uL (1.0-4.8); Lymphocytes % (A) 11 %; MCH 29.5 pg (25.0-35.0); MCHC 32.6 g/dL (31.0-37.0); MCV 90.4 fL (80.0-100.0); Mean Platelet Volume 7.3; Monocytes # (A) 0.7 k/uL (0-1.0); Monocytes % (A) 5 %; Neutrophils % (A) 78 %; RBC 4.23 m/uL (3.80-5.40); RDW 12.2 % (11.5-15.5); WBC 12.9 k/uL (3.8-10.6)
[2019-08-20 15:26] LABS: Platelet Count 421 k/uL (150-450)
[2019-08-20 15:27] LABS: Albumin 3.5 g/dL (3.5-5.0); Total Bilirubin 0.9 mg/dL (0.2-1.3); Total Protein 6.2 g/dL (6.3-8.2)
[2019-08-20 15:30] LABS: Potassium 4.1 mmol/L (3.5-5.1)
[2019-08-20] MEDS: HYDROmorphone 0.5 MG/0.5 ML SYRINGE IVP PRN ×3 (16:14→23:21)
[2019-08-20] MEDS ORDERED: ONDANSETRON 4 MG/2 ML VIAL IVP STA (16:20)
--- NOTE | 2019-08-20 16:27 | CT ---
EXAMINATION TYPE: CT abdomen pelvis w con DATE OF EXAM: 08/20/2019 COMPARISON: 08/10/2019 HISTORY: Incision infection CT DLP: 1588.1 mGycm Automated exposure control for dose reduction was used. CONTRAST: Performed with IV Contrast, patient injected with 100 mL of Isovue 300. Lung bases are clear. There is no pleural effusion. Heart size is fairly normal. There is no pericard ial effusion. There are clips from cholecystectomy. There is dilated common bile duct that measures 1 .7 cm. There is mild ectasia of the intrahepatic bile ducts. The spleen appears normal. There is no p ancreatic mass. Stomach is intact. There is no adrenal mass. Kidneys show satisfactory contrast opacification. There is no hydronephrosi s. There are skin nicho in the midline abdomen. There is complex density with air and fluid within the anterior abdominal wall extending to the umbilicus. This measures 5 x 3 cm in the transverse dime nsion. The length of involvement is overall 20 cm. There is intestinal surgery with clips in the lowe r midline abdomen. I see no sign of free air. There is no bowel obstruction. There is a 7 x 4 cm fluid collection with a few air bubbles in the pelvis on the right side above the urinary bladder and extending up to the cecum consistent with an abscess. There is no adrenal mass. Kidneys show satisfactory contrast opacification. There is no hydronephrosi s. There is no retroperitoneal adenopathy. Delayed images show normal renal excretion. There is no as cites. Bladder distends smoothly. There is no inguinal hernia. The lumbar vertebra have normal alignment. There is no compression fracture. There is narrowing of L5 -S1 disc space. I see no dilated bowel to suggest a bowel obstruction. IMPRESSION: Complex density within the longitudinal anterior abdominal wall consistent with phlegmon and small ab scess. This is a change compared to preoperative exam of 08/10/2019. There is clearing of the dilated s mall bowel and apparent small bowel obstruction compared to old exam. There is a 7 x 4 cm fluid collection inferior to the cecum and in contact with the urinary bladder co nsistent with abscess. There is a few air bubbles. This is a change compared to old exam. There is chronically dilated biliary tree that suggests the possibility of a stricture or partial obs truction of the distal common bile duct. Bile ducts appear increased slightly compared to old exam of 08/11/2017.
[2019-08-20] MEDS ORDERED: PIPERACILLIN-TAZOBACTAM 3.375 GM in SODIUM CHLORIDE 0.9% 100 ML IVPB STA (16:33)
--- NOTE | 2019-08-20 16:34 | ED ---
Wound/Laceration HPI - General Chief Complaint: Wound/Laceration Stated Complaint: Post Op Incision Infection Time Seen by Provider: 08/20/19 14:22 Source: patient Mode of arrival: wheelchair Limitations: no limitations - History of Present Illness Initial Comments: 58-year-old female who had a bowel resection secondary to infection on August 10 presenting to the emergency department for chief complaint of increasing abdominal pain redness and drainage from the surgical site. Patient denies a fever she admits to general malaise denies chills. Patient states that she knows increasing drainage pain and redness at the site of the nicho. Patient states that she was concerned there she was dropping infection present to the emergency department after contacting the on-call number for her surgeon speaking with Dr. Huston who is aware patient is coming to the ER patient has no additional complaints. denies CP, SOB, or leg swelling. - Related Data Home Medications Medication Instructions Recorded Confirmed Albuterol Sulfate [Albuterol 2 puff INHALATION RT-Q4H PRN 08/10/19 08/20/19 Sulfate Hfa] Diphenoxylate HCl/Atropine 1 tab PO DAILY 08/10/19 08/20/19 [Lomotil 2.5-0.025 mg Tablet] EPINEPHrine (Auto Inject) [Epipen] 0.3 mg IM ONCE PRN 08/10/19 08/20/19 Promethazine [Phenergan] 25 mg PO TID 08/10/19 08/20/19 Acetaminophen-Codeine 300-30mg 1 tab PO Q6H PRN 08/20/19 08/20/19 [Tylenol w/codeine #3] Dicyclomine [Bentyl] 20 mg PO BID 08/20/19 08/20/19 Diphenoxylate HCl/Atropine 1 tab PO HS PRN 08/20/19 08/20/19 [Lomotil 2.5-0.025 mg Tablet] Fluticasone Nasal [place] [Flonase 2 spray EA NOSTRIL DAILY 08/20/19 08/20/19 Nasal [place]] Levofloxacin [Levaquin] 500 mg PO DAILY 08/20/19 08/20/19 Lisinopril [Zestril] 10 mg PO HS 08/20/19 08/20/19 Metoprolol Tartrate [Lopressor] 12.5 mg PO BID 08/20/19 08/20/19 Previous Rx's Medication Instructions Recorded FLUoxetine HCL [PROzac] 20 mg PO DAILY #14 cap 08/25/17 Atorvastatin [Lipitor] 10 mg PO HS 30 Days #30 tab 08/16/19 HYDROcodone/APAP 7.5-325MG [[place] 1 tab PO Q6HR PRN 3 Days #12 tab 08/16/19 7.5-325] Ondansetron Odt [Zofran Odt] 4 mg PO Q8HR PRN #12 tab 08/16/19 Pantoprazole Sodium [Protonix] 40 mg PO DAILY 30 Days #30 08/16/19 tablet. Allergies Allergy/AdvReac Type Severity Reaction Status Date / Time cefaclor [From Ceclor] Allergy Unknown Rash/Hives Verified 08/20/19 17:05 shellfish derived Allergy Unknown Rash/Hives Verified 08/20/19 17:05 amoxicillin [From Augmentin] AdvReac Nausea & Verified 08/20/19 17:05 Vomiting & Diarrhea clavulanic acid AdvReac Nausea & Verified 08/20/19 17:05 [From Augmentin] Vomiting & Diarrhea COMPAZINE IV AdvReac ANXIETY Uncoded 08/20/19 14:17 Review of Systems ROS Statement: Those systems with pertinent positive or pertinent negative responses have been documented in the HPI. ROS Other: All systems not noted in ROS Statement are negative. Past Medical History Past Medical History: GERD/Reflux, Memory Impairment, Osteoarthritis (OA), Seiz ure Disorder Additional Past Medical History / Comment(s): IBS-pt states she has 6-7 loose BM's daily for many years, diverticular disease, benign colon polyps, past stomach ulcer, hemorrhoids, chronic back pain, past migraines, chronic urticaria/hives, past anemia, bronchitis, sinus problems, varicosities, UTI, seizure once in 2018 History of Any Multi-Drug Resistant Organisms: None Reported Past Surgical History: Adenoidectomy, Appendectomy, Cholecystectomy, Hysterectomy, Orthopedic Surgery, Tonsillectomy Additional Past Surgical History / Comment(s): left knee ligaments/meniscus, ORIF R ankle with screws/pins, colonoscopy/benign polypectomy, EGD, R inguinal hernia, partial hysterectomy then another surgery for bilateral salpingoophorectomy/repair of abdominal muscles with mesh, bilateral cataract removal/lens implants. Past Anesthesia/Blood Transfusion Reactions: Motion Sickness, Postoperative Nausea & Vomiting (PONV) Additional Past Anesthesia/Blood Transfusion Reaction / Comment(s): clausterphobia. 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 No nystagmus. There is normal conjunctiva bilaterally. No signs of icterus. Ears, nose, mouth and throat: There are moist mucous membranes and no oral lesions. Neck: The neck is supple, there is no tenderness or JVD. Cardiovascular: There is a regular rate and rhythm. No murmur, rub or gallop is appreciated. Respiratory: Lungs are clear to auscultation, respirations are non-labored, breath sounds are equal. No wheezes, stridor, rales, or rhonchi. Gastrointestinal: Soft, non-distended, diffusely tender abdomen, increased tenderness at the surgical site, abdomen without masses or organomegaly noted. There is no rebound or guarding present. Incision 14inches central abdomen, nicho in place-some surrounding redness and drainage, particularly at the inferior aspect of incision. Musculoskeletal: Normal ROM, no tenderness. Strength 5/5. Sensation intact. Radial pulses equal bilaterally 2+. Neurological: A&O x 3. CN II-XII intact grossly, There are no obvious motor or sensory deficits. Coordination appears grossly intact. Speech is normal. Skin: Skin is warm and dry and no rashes or lesions are noted. Psychiatric: Cooperative, appropriate mood & affect, normal judgment. Limitations: no limitations Course Vital Signs 08/20/19 08/20/19 08/20/19 14:12 16:31 17:49 Temperature 98.5 F Pulse Rate 73 87 91 Pulse Rate [ Pulse Oximetery ] Respiratory 18 18 18 Rate Blood Pressure 99/56 122/63 130/70 Blood Pressure [Left Arm] O2 Sat by Pulse 97 98 99 Oximetry 08/20/19 18:05 Temperature 98.9 F Pulse Rate Pulse Rate [ 96 Pulse Oximetery ] Respiratory 16 Rate Blood Pressure Blood Pressure 139/79 [Left Arm] O2 Sat by Pulse 96 Oximetry Medical Decision Making - Medical Decision Making 58yo female presenting for drainage from wound site. Infection on CT both of soft tissues and intraabdominally. Patient started on zosyn. Surgery-Dr. Huston consulted who is covering for [facility]. Patient appears nontoxic. Given IVF, antiemetics and analgesics. Patient will be be admitted for further treatment/patient is agreeable to admission. Dr. Gao spoke wtih Dr. Huston and is agreeable to care plan and admission. - Lab Data Result diagrams: 08/21/19 06:43 08/21/19 06:43 Lab Results 08/20/19 08/20/19 08/20/19 Range/Units 15:04 15:04 15:04 WBC 12.9 H (3.8-10.6) k/uL RBC 4.23 (3.80-5.40) m/uL Hgb 12.5 (11.4-16.0) gm/dL Hct 38.3 (34.0-46.0) % MCV 90.4 (80.0-100.0) fL MCH 29.5 (25.0-35.0) pg MCHC 32.6 (31.0-37.0) g/dL RDW 12.2 (11.5-15.5) % Plt Count 421 D (150-450) k/uL Neutrophils % 78 % Lymphocytes % 11 % Monocytes % 5 % Eosinophils % 4 % Basophils % 0 % Neutrophils # 10.0 H (1.3-7.7) k/uL Lymphocytes # 1.5 (1.0-4.8) k/uL Monocytes # 0.7 (0-1.0) k/uL Eosinophils # 0.5 (0-0.7) k/uL Basophils # 0.0 (0-0.2) k/uL Sodium 136 L (137-145) mmol/L Potassium 4.1 (3.5-5.1) mmol/L Chloride 105 (98-107) mmol/L Carbon Dioxide 21 L (22-30) mmol/L Anion Gap 10 mmol/L BUN 6 L (7-17) mg/dL Creatinine 0.83 (0.52-1.04) mg/dL Est GFR (CKD-EPI)AfAm 89 (>60 ml/min/1.73 sqM) Est GFR (CKD-EPI)NonAf 77 (>60 ml/min/1.73 sqM) Glucose 130 H (74-99) mg/dL Plasma Lactic Acid Adan 1.2 (0.7-2.0) mmol/L Calcium 9.0 (8.4-10.2) mg/dL Total Bilirubin 0.9 (0.2-1.3) mg/dL AST 31 (14-36) U/L ALT 18 (4-34) U/L Alkaline Phosphatase 73 (38-126) U/L Total Protein 6.2 L (6.3-8.2) g/dL Albumin 3.5 (3.5-5.0) g/dL Disposition Clinical Impression: Post-operative infection, Abdominal wall abscess at site of surgical wound, Intra-abdominal abscess Disposition: ADMITTED IP TO THIS [facility] Condition: Stable Is patient prescribed a controlled substance at d/c from ED?: No Time of Disposition: 16:47 Decision to Admit Reason: Admit from EC Decision Date: 08/20/19 Decision Time: 16:47
[2019-08-20] MEDS ORDERED: NALOXONE 0.4 MG/ML 1 ML VIAL IV PRN (16:44)
[2019-08-20] MEDS: SODIUM CHLORIDE 0.9% 1,000 ML IV SCH ×2 (17:40→22:15)
[2019-08-20] MEDS ORDERED: IPRATROPIUM-ALBUTEROL 3 ML NEB INHALATION PRN (19:54)
[2019-08-20] MEDS: METOPROLOL TARTRATE 12.5 MG TAB PO SCH (20:49)
[2019-08-20] MEDS: DICYCLOMINE 20 MG TAB PO SCH (20:49)
[2019-08-20] MEDS: lisinopriL 10 MG TAB PO SCH (20:49)
[2019-08-20] MEDS: ATORVASTATIN 10 MG TAB PO SCH (20:49)
[2019-08-20] MEDS: ONDANSETRON ODT 4 MG TAB PO PRN (23:24)
[2019-08-21] MEDS: PIPERACILLIN-TAZOBACTAM 3.375 GM in SODIUM CHLORIDE 0.9% 100 ML IVPB SCH ×3 (01:52→17:19)
[2019-08-21] MEDS: HYDROmorphone 0.5 MG/0.5 ML SYRINGE IVP PRN ×3 (03:27→12:02)
[2019-08-21] MEDS: SODIUM CHLORIDE 0.9% 1,000 ML IV SCH ×2 (05:30→15:03)
[2019-08-21 07:34] LABS: Basophils % (A) 0 %; Eosinophils # (A) 0.4 k/uL (0-0.7); Eosinophils % (A) 5 %; HGB 10.9 gm/dL (11.4-16.0); Hypochromasia Slight; Lymphocytes # (A) 1.1 k/uL (1.0-4.8); Lymphocytes % (A) 14 %; MCH 30.9 pg (25.0-35.0); MCHC 33.9 g/dL (31.0-37.0); MCV 91.3 fL (80.0-100.0); Mean Platelet Volume 7.2; Monocytes # (A) 0.6 k/uL (0-1.0); Monocytes % (A) 8 %; Neutrophils # (A) 5.7 k/uL (1.3-7.7); Neutrophils % (A) 72 %; Platelet Count 318 k/uL (150-450); RBC 3.51 m/uL (3.80-5.40); RDW 12.1 % (11.5-15.5); WBC 7.9 k/uL (3.8-10.6)
[2019-08-21 07:43] LABS: African American GFR (CKD) >90 (>60 ml/min/1.73 sqM); Anion Gap 5 mmol/L; Blood Urea Nitrogen <2 mg/dL (7-17); Calcium 7.8 mg/dL (8.4-10.2); Carbon Dioxide 27 mmol/L (22-30); Chloride 107 mmol/L (98-107); Glucose 97 mg/dL (74-99); Non-African American GFR(CKD) >90 (>60 ml/min/1.73 sqM); Potassium 3.4 mmol/L (3.5-5.1); Sodium 139 mmol/L (137-145)
[2019-08-21] MEDS: FLUoxetine HCL 20 MG CAP PO SCH (08:34)
[2019-08-21] MEDS: DICYCLOMINE 20 MG TAB PO SCH ×2 (08:34→21:02)
[2019-08-21] MEDS: PANTOPRAZOLE 40 MG TABLET PO SCH (08:34)
[2019-08-21] MEDS: METOPROLOL TARTRATE 12.5 MG TAB PO SCH ×2 (08:34→21:02)
[2019-08-21] MEDS: FLUTICASONE 50MCG/SPRAY NASAL 16GM EA NOSTRIL SCH (08:37)
[2019-08-21] MEDS: ONDANSETRON ODT 4 MG TAB PO PRN (08:40)
[2019-08-21] MEDS ORDERED: HYDROmorphone 1 MG/ML 1 ML SYRINGE IVP STA (08:51)
[2019-08-21] MEDS: KETOROLAC 30 MG/ML 1 ML VIAL IVP SCH ×3 (08:58→21:03)
[2019-08-21] MEDS ORDERED: Potassium Replacement Protocol 1 EACH MISC MISCELLANE PRN (10:09)
--- NOTE | 2019-08-21 10:46 | P.GSHP ---
History of Present Illness H&P Date: 08/21/19 Chief Complaint: Abdominal pain Patient contacted me yesterday by phone. She was complaining of increased redness along her incision. Was having mild increased abdominal pain. Still having frequent loose stools. Described low-grade fevers. In the ER the patient underwent CAT scan abdomen and pelvis. CAT scan showed a fluid collection in the right hemipelvis. Concern for possible abscess. Patient was admitted, placed on broad-spectrum antibiotics, infectious disease was consulted. Overnight the patient had increased pain in the right back region. She says this is new. Still having frequent loose stools. Low-grade fevers. White blood cell count normal today however. - Review of Systems Comment: The patient denies any acute changes in vision or hearing, no dysphagia or odynophagia, no chest pain or shortness of breath, no dysuria or hematuria, no headache, no runny nose, no rectal bleeding or melena, no unexplained weight loss Past Medical History Past Medical History: GERD/Reflux, Memory Impairment, Osteoarthritis (OA), Seizure Disorder Additional Past Medical History / Comment(s): IBS-pt states she has 6-7 loose BM's daily for many years, diverticular disease, benign colon polyps, past stomach ulcer, hemorrhoids, chronic back pain, past migraines, chronic urticaria/hives, past anemia, bronchitis, sinus problems, varicosities, UTI, sei zure once in 2018 History of Any Multi-Drug Resistant Organisms: None Reported Past Surgical History: Adenoidectomy, Appendectomy, Cholecystectomy, Hy sterectomy, Orthopedic Surgery, Tonsillectomy Additional Past Surgical History / Comment(s): left knee ligaments/meniscus, ORIF R ankle with screws/pins, colonoscopy/benign polypectomy, EGD, R inguinal hernia, partial hysterectomy then another surgery for bilateral salpingoo phorectomy/repair of abdominal muscles with mesh, bilateral cataract removal/lens implants. Past Anesthesia/Blood Transfusion Reactions: Motion Sickness, Postoperative Nausea & Vomiting (PONV) Additional Past Anesthesia/Blood Transfusion Reaction / Comment(s): clausterphobia. 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 Medications and Allergies Home Medications Medication Instructions Recorded Confirmed Type FLUoxetine HCL [PROzac] 20 mg PO DAILY #14 cap 08/25/17 08/20/19 Rx Albuterol Sulfate [Albuterol 2 puff INHALATION RT-Q4H PRN 08/10/19 08/20/19 History Sulfate Hfa] Diphenoxylate HCl/Atropine 1 tab PO DAILY 08/10/19 08/20/19 History [Lomotil 2.5-0.025 mg Tablet] EPINEPHrine (Auto Inject) [Epipen] 0.3 mg IM ONCE PRN 08/10/19 08/20/19 History Promethazine [Phenergan] 25 mg PO TID 08/10/19 08/20/19 History Atorvastatin [Lipitor] 10 mg PO HS 30 Days #30 tab 08/16/19 08/20/19 Rx HYDROcodone/APAP 7.5-325MG [[place] 1 tab PO Q6HR PRN 3 Days #12 tab 08/16/19 08/20/19 Rx 7.5-325] Ondansetron Odt [Zofran Odt] 4 mg PO Q8HR PRN #12 tab 08/16/19 08/20/19 Rx Pantoprazole Sodium [Protonix] 40 mg PO DAILY 30 Days #30 08/16/19 08/20/19 Rx tablet. Acetaminophen-Codeine 300-30mg 1 tab PO Q6H PRN 08/20/19 08/20/19 History [Tylenol w/codeine #3] Dicyclomine [Bentyl] 20 mg PO BID 08/20/19 08/20/19 History Diphenoxylate HCl/Atropine 1 tab PO HS PRN 08/20/19 08/20/19 History [Lomotil 2.5-0.025 mg Tablet] Fluticasone Nasal [place] [Flonase 2 spray EA NOSTRIL DAILY 08/20/19 08/20/19 History Nasal [place]] Levofloxacin [Levaquin] 500 mg PO DAILY 08/20/19 08/20/19 History Lisinopril [Zestril] 10 mg PO HS 08/20/19 08/20/19 History Metoprolol Tartrate [Lopressor] 12.5 mg PO BID 08/20/19 08/20/19 History Allergies Allergy/AdvReac Type Severity Reaction Status Date / Time cefaclor [From Ceclor] Allergy Unknown Rash/Hives Verified 08/20/19 17:05 shellfish derived Allergy Unknown Rash/Hives Verified 08/20/19 17:05 amoxicillin [From Augmentin] AdvReac Nausea & Verified 08/20/19 17:05 Vomiting & Diarrhea clavulanic acid AdvReac Nausea & Verified 08/20/19 17:05 [From Augmentin] Vomiting & Diarrhea COMPAZINE IV AdvReac ANXIETY Uncoded 08/20/19 14:17 Surgical - Exam Vital Signs Temp Pulse Resp BP Pulse Ox 98.5 F 73 18 99/56 97 08/20/19 14:12 08/20/19 14:12 08/20/19 14:12 08/20/19 14:12 08/20/19 14:12 Physical exam: General: Well-developed, well-nourished HEENT: Normocephalic, sclerae nonicteric Abdomen: Mild distention, midline incision with small amount of erythema, small amount of serous drainage inferiorly, tenderness right mid abdomen Extremities: No edema Neuro: Alert and oriented Results - Labs 08/21/19 06:43 08/21/19 06:43 Abnormal Lab Results - Last 24 Hours (Table) 08/20/19 08/20/19 08/21/19 Range/Units 15:04 15:04 06:43 WBC 12.9 H (3.8-10.6) k/uL RBC 3.51 L (3.80-5.40) m/uL Hgb 10.9 L (11.4-16.0) gm/dL Hct 32.0 L (34.0-46.0) % Neutrophils # 10.0 H (1.3-7.7) k/uL Sodium 136 L (137-145) mmol/L Potassium (3.5-5.1) mmol/L Carbon Dioxide 21 L (22-30) mmol/L BUN 6 L (7-17) mg/dL Glucose 130 H (74-99) mg/dL Calcium (8.4-10.2) mg/dL Total Protein 6.2 L (6.3-8.2) g/dL 08/21/19 Range/Units 06:43 WBC (3.8-10.6) k/uL RBC (3.80-5.40) m/uL Hgb (11.4-16.0) gm/dL Hct (34.0-46.0) % Neutrophils # (1.3-7.7) k/uL Sodium (137-145) mmol/L Potassium 3.4 L (3.5-5.1) mmol/L Carbon Dioxide (22-30) mmol/L BUN <2 L (7-17) mg/dL Glucose (74-99) mg/dL Calcium 7.8 L (8.4-10.2) mg/dL Total Protein (6.3-8.2) g/dL Microbiology - Last 24 Hours (Table) 08/20/19 15:06 Gram Stain - Preliminary Abdomen Wound Culture - Preliminary Diabetes panel 08/20/19 08/21/19 Range/Units 15:04 06:43 Sodium 136 L 139 (137-145) mmol/L Potassium 4.1 3.4 L (3.5-5.1) mmol/L Chloride 105 107 (98-107) mmol/L Carbon Dioxide 21 L 27 (22-30) mmol/L BUN 6 L <2 L (7-17) mg/dL Creatinine 0.83 0.57 (0.52-1.04) mg/dL Glucose 130 H 97 (74-99) mg/dL Calcium 9.0 7.8 L (8.4-10.2) mg/dL AST 31 (14-36) U/L ALT 18 (4-34) U/L Alkaline Phosphatase 73 (38-126) U/L Total Protein 6.2 L (6.3-8.2) g/dL Albumin 3.5 (3.5-5.0) g/dL Calcium panel 08/20/19 08/21/19 Range/Units 15:04 06:43 Calcium 9.0 7.8 L (8.4-10.2) mg/dL Albumin 3.5 (3.5-5.0) g/dL Pituitary panel 08/20/19 08/21/19 Range/Units 15:04 06:43 Sodium 136 L 139 (137-145) mmol/L Potassium 4.1 3.4 L (3.5-5.1) mmol/L Chloride 105 107 (98-107) mmol/L Carbon Dioxide 21 L 27 (22-30) mmol/L BUN 6 L <2 L (7-17) mg/dL Creatinine 0.83 0.57 (0.52-1.04) mg/dL Glucose 130 H 97 (74-99) mg/dL Calcium 9.0 7.8 L (8.4-10.2) mg/dL Adrenal panel 08/20/19 08/21/19 Range/Units 15:04 06:43 Sodium 136 L 139 (137-145) mmol/L Potassium 4.1 3.4 L (3.5-5.1) mmol/L Chloride 105 107 (98-107) mmol/L Carbon Dioxide 21 L 27 (22-30) mmol/L BUN 6 L <2 L (7-17) mg/dL Creatinine 0.83 0.57 (0.52-1.04) mg/dL Glucose 130 H 97 (74-99) mg/dL Calcium 9.0 7.8 L (8.4-10.2) mg/dL Total Bilirubin 0.9 (0.2-1.3) mg/dL AST 31 (14-36) U/L ALT 18 (4-34) U/L Alkaline Phosphatase 73 (38-126) U/L Total Protein 6.2 L (6.3-8.2) g/dL Albumin 3.5 (3.5-5.0) g/dL Assessment and Plan (1) Post-operative infection Narrative/Plan: CT reviewed. This was not a well-defined collection at this time. Patient with new pain overnight. We'll repeat CT abdomen and pelvis with contrast tomorrow. Possible interventional radiology drainage procedure tomorrow. Continue broad- spectrum antibiotics. Check stool for C. diff. Current Visit: Yes Status: Acute Code(s): T81.40XA - INFECTION FOLLOWING A PROCEDURE, UNSPECIFIED, INIT SNOMED Code(s): 30958144
[2019-08-21] MEDS ORDERED: LORazepam 0.5 MG TAB PO PRN (11:09)
[2019-08-21] MEDS: POTASSIUM CHLORIDE ER 20 MEQ TAB.ER PO SCH ×2 (12:26→14:17)
[2019-08-21] MEDS: HYDROmorphone 1 MG/ML 1 ML SYRINGE IVP PRN ×2 (14:17→17:23)
[2019-08-21] MEDS: metroNIDAZOLE-NS PMX 500 MG in SALINE 1 100ML.BAG IVPB SCH (16:06)
[2019-08-21] MEDS: HEPARIN SODIUM,PORCINE 5,000 UNIT/ML 1 ML VIAL SQ SCH (16:06)
[2019-08-21] MEDS: ATORVASTATIN 10 MG TAB PO SCH (21:02)
[2019-08-21] MEDS: lisinopriL 10 MG TAB PO SCH (21:02)
--- NOTE | 2019-08-21 22:43 | P.CONS ---
History of Present Illness - Reason for Consult Consult date: 08/21/19 Medical Management - Chief Complaint abd. pain - History of Present Illness Patient is a 58-year-old female with a known history of IBS, diverticular disease, multiple abdominal surgeries, chronic back pain and migraine headaches presents to ER with the complaints of increasing abdominal pain, redness and drainage from the surgical site. Patient had recent abdominal surgery on August and was discharged to home with oral antibiotics on August 16, 2019. Patient states that she could not finish her antibiotic course. Presents to ER with increasing drainage from the surgical site and pain and redness at the site of the nicho. Patient was concerned about infection and presents to ER after contacting Dr. Huston. Patient otherwise denied any complaints of chest pain or shortness of breath. No fever no chills. No nausea vomiting. Patient does have chronic diarrhea secondary to IBS. No headache or dizziness or lightheadedness. CT of the abdomen pelvis showed complex density within the longitudinal anterior abdominal wall consistent with phlegmon and small abscess. There is a 7 x 4 cm fluid collection anterior to the sacrum and in contact with the urinary bladder consistent with abscess. There is few air bubbles. There is chronically dilated biliary tree that suggest the possibility of a stricture or partial obstruction of the distal common bile duct. Bile ducts appear increased slightly compared to old exam. Laboratory data showed WBC 12.9, hemoglobin 12.5 and platelets 421 neutrophils 10 Sodium 136, potassium 4.1 and BUN 16 creatinine 0.83 Lactic acid 1.2 COVID negative C. difficile negative. Patient contacted me yesterday by phone. She was complaining of increased redness along her incision. Was having mild increased abdominal pain. Still having frequent loose stools. Described low-grade fevers. In the ER the patient underwent CAT scan abdomen and pelvis. CAT scan showed a fluid collection in the right hemipelvis. Concern for possible abscess. Patient was admitted, placed on broad-spectrum antibiotics, infectious disease was consulted. Overnight the patient had increased pain in the right back region. She says this is new. Still having frequent loose stools. Low-grade fevers. White blood cell count normal today however. - Review of Systems Comment: The patient denies any acute changes in vision or hearing, no dysphagia or odynophagia, no chest pain or shortness of breath, no dysuria or hematuria, no headache, no runny nose, no rectal bleeding or melena, no unexplained weight loss Past Medical History Past Medical History: GERD/Reflux, Memory Impairment, Osteoarthritis (OA), Seizure Disorder Additional Past Medical History / Comment(s): IBS-pt states she has 6-7 loose BM's daily for many years, diverticular disease, benign colon polyps, past stomach ulcer, hemorrhoids, chronic back pain, past migraines, chronic urticaria/hives, past anemia, bronchitis, sinus problems, varicosities, UTI, seizure once in 2018 History of Any Multi-Drug Resistant Organisms: None Reported Past Surgical History: Adenoidectomy, Appendectomy, Cholecystectomy, Hyst erectomy, Orthopedic Surgery, Tonsillectomy Additional Past Surgical History / Comment(s): left knee ligaments/meniscus, ORIF R ankle with screws/pins, colonoscopy/benign polypectomy, EGD, R inguinal hernia, partial hysterectomy then another surgery for bilateral salpingooph orectomy/repair of abdominal muscles with mesh, bilateral cataract removal/lens implants. Past Anesthesia/Blood Transfusion Reactions: Motion Sickness, Postoperative Nausea & Vomiting (PONV) Additional Past Anesthesia/Blood Transfusion Reaction / Comment(s): clausterphobia. past blood transfusion-no reaction Past Psychological History: Anxiety, Depression, Panic Disorder Smoking Status: Current every day smoker 58-year-old female who had a bowel resection secondary to infection on August 10 presenting to the emergency department for chief complaint of increasing abdominal pain redness and drainage from the surgical site. Patient denies a fever she admits to general malaise denies chills. Patient states that she knows increasing drainage pain and redness at the site of the nicho. Patient states that she was concerned there she was dropping infection present to the emergency department after contacting the on-call number for her surgeon speaking with Dr. Huston who is aware patient is coming to the ER patient has no additional complaints. denies CP, SOB, or leg swelling. Review of Systems Constitutional: Patient denies any fever or chills . No generalized weakness or weight loss. Abdomen: Patient denied nausea vomiting . Patient does have abdominal pain and diarrhea. Cardiovascular: Patient denies any chest pain or short of breath no palpitations. Respiratory: patient denied any cough is from production. No shortness of breath Neurologic: Patient denied any numbness or tingling headache. Musculoskeletal: Patient denies any complaints of joint swelling or deformity. Skin: Negative Psychiatric: Negative Endocrine: No heat or cold intolerance. No recent weight gain. Genitourinary: No dysuria or hematuria. All other 14 point ROS negative except the above Past Medical History Past Medical History: GERD/Reflux, Memory Impairment, Osteoarthritis (OA), Seizure Disorder Additional Past Medical History / Comment(s): IBS-pt states she has 6-7 loose BM's daily for many years, diverticular disease, benign colon polyps, past stomach ulcer, hemorrhoids, chronic back pain, past migraines, chronic urticaria/hives, past anemia, bronchitis, sinus problems, varicosities, UTI, seizure once in 2018 History of Any Multi-Drug Resistant Organisms: None Reported Past Surgical History: Adenoidectomy, Appendectomy, Cholecystectomy, Hysterectomy, Orthopedic Surgery, Tonsillectomy Additional Past Surgical History / Comment(s): left knee ligaments/meniscus, ORIF R ankle with screws/pins, colonoscopy/benign polypectomy, EGD, R inguinal hernia, partial hysterectomy then another surgery for bilateral salpingoophorectomy/repair of abdominal muscles with mesh, bilateral cataract removal/lens implants. Past Anesthesia/Blood Transfusion Reactions: Motion Sickness, Postoperative Nausea & Vomiting (PONV) Additional Past Anesthesia/Blood Transfusion Reaction / Comm: clausterphobia. past blood transfusion-no reaction Past Psychological History: Anxiety, Depression, Panic Disorder Additional Psychological History / Comment(s): Pt resides alone. She uses no assistive device. She does not have a car, she uses a taxi. Smoking Status: Former smoker Past Alcohol Use History: Occasional Additional Past Alcohol Use History / Comment(s): started smoking at age 14 smoked 1/2 ppd; started smioking a full pack 3 years ago5 Past Drug Use History: Cocaine Additional Drug Use History / Comment(s): Pt states she used cocaine twice in 2018. 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 Medications and Allergies Home Medications Medication Instructions Recorded Confirmed Type FLUoxetine HCL [PROzac] 20 mg PO DAILY #14 cap 08/25/18 08/20/19 Rx Albuterol Sulfate [Albuterol 2 puff INHALATION RT-Q4H PRN 08/10/19 08/20/19 Hist ory Sulfate Hfa] Diphenoxylate HCl/Atropine 1 tab PO DAILY 08/10/19 08/20/19 History [Lomotil 2.5-0.025 mg Tablet] EPINEPHrine (Auto Inject) [Epipen] 0.3 mg IM ONCE PRN 08/10/19 08/20/19 History Promethazine [Phenergan] 25 mg PO TID 08/10/19 08/20/19 History Atorvastatin [Lipitor] 10 mg PO HS 30 Days #30 tab 08/16/19 08/20/19 Rx HYDROcodone/APAP 7.5-325MG [[place] 1 tab PO Q6HR PRN 3 Days #12 tab 08/16/19 08/20/19 Rx 7.5-325] Ondansetron Odt [Zofran Odt] 4 mg PO Q8HR PRN #12 tab 08/16/19 08/20/19 Rx Pantoprazole Sodium [Protonix] 40 mg PO DAILY 30 Days #30 08/16/19 08/20/19 Rx tablet. Acetaminophen-Codeine 300-30mg 1 tab PO Q6H PRN 08/20/19 08/20/19 History [Tylenol w/codeine #3] Dicyclomine [Bentyl] 20 mg PO BID 08/20/19 08/20/19 History Diphenoxylate HCl/Atropine 1 tab PO HS PRN 08/20/19 08/20/19 History [Lomotil 2.5-0.025 mg Tablet] Fluticasone Nasal [place] [Flonase 2 spray EA NOSTRIL DAILY 08/20/19 08/20/19 History Nasal Strum] Levofloxacin [Levaquin] 500 mg PO DAILY 08/20/19 08/20/19 History Lisinopril [Zestril] 10 mg PO HS 08/20/19 08/20/19 History Metoprolol Tartrate [Lopressor] 12.5 mg PO BID 08/20/19 08/20/19 History Allergies Allergy/AdvReac Type Severity Reaction Status Date / Time cefaclor [From Ceclor] Allergy Unknown Rash/Hives Verified 08/20/19 17:05 shellfish derived Allergy Unknown Rash/Hives Verified 08/20/19 17:05 amoxicillin [From Augmentin] AdvReac Nausea & Verified 08/20/19 17:05 Vomiting & Diarrhea clavulanic acid AdvReac Nausea & Verified 08/20/19 17:05 [From Augmentin] Vomiting & Diarrhea COMPAZINE IV AdvReac ANXIETY Uncoded 08/20/19 14:17 Physical Exam Vitals: Vital Signs Temp Pulse Pulse Resp BP BP Pulse Ox 08/21/19 07:38 99.4 F 90 17 142/70 90 L 08/21/19 00:07 99.6 F 84 18 120/65 95 08/20/19 18:45 97.9 F 85 18 127/56 98 08/20/19 18:05 98.9 F 96 16 139/79 96 08/20/19 17:49 91 18 130/70 99 08/20/19 16:31 87 18 122/63 98 08/20/19 14:12 98.5 F 73 18 99/56 97 Intake and Output 08/20/19 08/21/19 08/21/19 22:59 06:59 14:59 Other: Voiding Method Toilet Weight 83.915 kg PHYSICAL EXAMINATION: Patient is lying in the bed comfortably, no acute distress, awake alert and oriented.. HEENT: Normocephalic. Neck is supple. Pupils reactive. Nostrils clear. Oral cavity is moist. Ears reveal no drainage. Neck reveals no JVD, carotid bruits, or thyromegaly. CHEST EXAMINATION: Trachea is central. Symmetrical expansion. Lung dominguez clear to auscultation and percussion. CARDIAC: Normal S1, S2 with no gallops. No murmurs ABDOMEN: Soft. Redness of the surgical site with mild tenderness. No purulent drainage noted. Bowel sounds normal. No organomegaly. No abdominal bruits. Extremities: reveal no edema. No clubbing or cyanosis Neurologically awake, alert, oriented x3 with well-coordinated movements. No focal deficits noted Skin: No rash or skin lesions. Psychiatric: Coperative. Nonsuicidal Musculoskeletal: No joint swelling or deformity. Normal range of motion. Results CBC & Chem 7: 08/21/19 06:43 08/21/19 06:43 Labs: Abnormal Lab Results - Last 24 Hours (Table) 08/20/19 08/20/19 08/21/19 Range/Units 15:04 15:04 06:43 WBC 12.9 H (3.8-10.6) k/uL RBC 3.51 L (3.80-5.40) m/uL Hgb 10.9 L (11.4-16.0) gm/dL Hct 32.0 L (34.0-46.0) % Neutrophils # 10.0 H (1.3-7.7) k/uL Sodium 136 L (137-145) mmol/L Potassium (3.5-5.1) mmol/L Carbon Dioxide 21 L (22-30) mmol/L BUN 6 L (7-17) mg/dL Glucose 130 H (74-99) mg/dL Calcium (8.4-10.2) mg/dL Total Protein 6.2 L (6.3-8.2) g/dL 08/21/19 Range/Units 06:43 WBC (3.8-10.6) k/uL RBC (3.80-5.40) m/uL Hgb (11.4-16.0) gm/dL Hct (34.0-46.0) % Neutrophils # (1.3-7.7) k/uL Sodium (137-145) mmol/L Potassium 3.4 L (3.5-5.1) mmol/L Carbon Dioxide (22-30) mmol/L BUN <2 L (7-17) mg/dL Glucose (74-99) mg/dL Calcium 7.8 L (8.4-10.2) mg/dL Total Protein (6.3-8.2) g/dL Microbiology - Last 24 Hours (Table) 08/20/19 15:06 Gram Stain - Preliminary Abdomen Wound Culture - Preliminary Assessment and Plan Assessment: Intra-abdominal abscess 7 x 4 cm in size. Right hemipelvis. Postoperative with surgery on 08/11/2019 Chronic diarrhea due to IBS. C. difficile negative. GERD History of diverticular disease History of multiple abdominal surgeries History of migraine headaches Anxiety/depression and panic disorder Ongoing nicotine addiction History of hypertension controlled after losing weight. Morbid obesity with BMI 38.5 DVT prophylaxis Plan: Patient will be continued on antibiotics in the form of Zosyn and metronidazole. Follow-up blood cultures. Continue with home medications and pain management. Patient had acute anxiety attack this morning and Ativan will be ordered as needed x1. Continue to monitor closely. ID was consulted. General surgery is planning for repeat CAT scan tomorrow. Further recommendations based on the clinical course. We will continue to follow with you. Thank you for your consult. Time with Patient: Greater than 30
--- NOTE | 2019-08-22 00:07 | P.CONS ---
History of Present Illness - Reason for Consult Consult date: 08/21/19 Postoperative infection abdominal abscess Requesting physician: Guillermo Huston - Chief Complaint Abdominal pain and drainage x few days - History of Present Illness Patient is 58-year-old female who was recently admitted at [facility] from August 09 to 08/16/2019 patient was admitted with abdominal pain she was diagnosed with a small bowel obstruction the patient is status post laparotomy with lysis of induration repair of incisional hernia and resection of portion of small bowel patient discharged home on 08/16/2019 on oral Augmentin patient now presented back to the hospital yesterday with chief complaints of more abdominal pain swelling and redness and drainage from the upper as well as lower end of the incision the patient describes the pain to be more pigmented aching to sharp, 7-8 out of 10 and no radiation, with associated swelling redness on the incision and drainage but no significant foul-smelling patient did have a fever at home with the symptoms the patient was evaluated by the ER physician on the Famvir patient did have a low-grade fever did have white count 4000 and she did have a CT of abdominal pelvis which shows a collection along the anterior abdominal wall as well as a deep to the cecum with some air bubbles patient has been admitted to the hospital Gen. surgery has evaluated the patient interventional radiology has been consulted for CT-guided drainage of this collection she was started on Zosyn and Flagyl. Infectious disease was consulted for further management of antibiotic therapy Review of Systems Positive point has been mentioned in the HPI rest of the systems are negative Past Medical History Past Medical History: GERD/Reflux, Memory Impairment, Osteoarthritis (OA), Seizure Disorder Additional Past Medical History / Comment(s): IBS-pt states she has 6-7 loose BM's daily for many years, diverticular disease, benign colon polyps, past stomach ulcer, hemorrhoids, chronic back pain, past migraines, chronic urticaria/hives, past anemia, bronchitis, sinus problems, varicosities, UTI, seizure once in 2018 History of Any Multi-Drug Resistant Organisms: None Reported Past Surgical History: Adenoidectomy, Appendectomy, Cholecystectomy, Hysterectomy, Orthopedic Surgery, Tonsillectomy Additional Past Surgical History / Comment(s): left knee ligaments/meniscus, ORIF R ankle with screws/pins, colonoscopy/benign polypectomy, EGD, R inguinal hernia, partial hysterectomy then another surgery for bilateral salpingoophorectomy/repair of abdominal muscles with mesh, bilateral cataract removal/lens implants. Past Anesthesia/Blood Transfusion Reactions: Motion Sickness, Postoperative Nausea & Vomiting (PONV) Additional Past Anesthesia/Blood Transfusion Reaction / Comm: clausterphobia. 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 Medications and Allergies Home Medications Medication Instructions Recorded Confirmed Type FLUoxetine HCL [PROzac] 20 mg PO DAILY #14 cap 08/25/17 08/20/19 Rx Albuterol Sulfate [Albuterol 2 puff INHALATION RT-Q4H PRN 08/10/19 08/20/19 History Sulfate Hfa] Diphenoxylate HCl/Atropine 1 tab PO DAILY 08/10/19 08/20/19 History [Lomotil 2.5-0.025 mg Tablet] EPINEPHrine (Auto Inject) [Epipen] 0.3 mg IM ONCE PRN 08/10/19 08/20/19 History Promethazine [Phenergan] 25 mg PO TID 08/10/19 08/20/19 History Atorvastatin [Lipitor] 10 mg PO HS 30 Days #30 tab 08/16/19 08/20/19 Rx HYDROcodone/APAP 7.5-325MG [[place] 1 tab PO Q6HR PRN 3 Days #12 tab 08/16/19 08/20/19 Rx 7.5-325] Ondansetron Odt [Zofran Odt] 4 mg PO Q8HR PRN #12 tab 08/16/19 08/20/19 Rx Pantoprazole Sodium [Protonix] 40 mg PO DAILY 30 Days #30 08/16/19 08/20/19 Rx tablet. Acetaminophen-Codeine 300-30mg 1 tab PO Q6H PRN 08/20/19 08/20/19 History [Tylenol w/codeine #3] Dicyclomine [Bentyl] 20 mg PO BID 08/20/19 08/20/19 History Diphenoxylate HCl/Atropine 1 tab PO HS PRN 08/20/19 08/20/19 History [Lomotil 2.5-0.025 mg Tablet] Fluticasone Nasal [place] [Flonase 2 spray EA NOSTRIL DAILY 08/20/19 08/20/19 History Nasal [place]] Levofloxacin [Levaquin] 500 mg PO DAILY 08/20/19 08/20/19 History Lisinopril [Zestril] 10 mg PO HS 08/20/19 08/20/19 History Metoprolol Tartrate [Lopressor] 12.5 mg PO BID 08/20/19 08/20/19 History Allergies Allergy/AdvReac Type Severity Reaction Status Date / Time cefaclor [From Ceclor] Allergy Unknown Rash/Hives Verified 08/20/19 17:05 shellfish derived Allergy Unknown Rash/Hives Verified 08/20/19 17:05 amoxicillin [From Augmentin] AdvReac Nausea & Verified 08/20/19 17:05 Vomiting & Diarrhea clavulanic acid AdvReac Nausea & Verified 08/20/19 17:05 [From Augmentin] Vomiting & Diarrhea COMPAZINE IV AdvReac ANXIETY Uncoded 08/20/19 14:17 Physical Exam Vitals: Vital Signs Temp Pulse Pulse Resp BP BP Pulse Ox 08/21/19 14:35 99.6 F 82 18 131/64 96 08/21/19 07:38 99.4 F 90 17 142/70 90 L 08/21/19 00:07 99.6 F 84 18 120/65 95 08/20/19 18:45 97.9 F 85 18 127/56 98 08/20/19 18:05 98.9 F 96 16 139/79 96 08/20/19 17:49 91 18 130/70 99 08/20/19 16:31 87 18 122/63 98 Intake and Output 08/21/19 08/21/19 08/21/19 06:59 14:59 22:59 Other: Voiding Method Toilet # Bowel Movements 3 Weight 95.5 kg GENERAL DESCRIPTION: Middle-aged female lying in bed, no distress. No tachypnea or accessory muscle of respiration use. HEENT: Shows Pallor , no scleral icterus. Oral mucous membrane is dry. No pharyngeal erythema or thrush NECK: Trachea central, no thyromegaly. LUNGS: Unlabored breathing. Clear to auscultation anteriorly. No wheeze or crackle. HEART: S1, S2, regular rate and rhythm. No loud murmur ABDOMEN: Soft, midline incision with minimal drainage at the lower end, minimal surrounding redness no foul-smelling tender to touch EXTREMITIES: No edema of feet. SKIN: No rash, no masses palpable. NEUROLOGICAL: The patient is awake, alert, oriented x3, mood and affect normal. Results CBC & Chem 7: 08/21/19 06:43 08/21/19 06:43 Labs: Abnormal Lab Results - Last 24 Hours (Table) 08/20/19 08/20/19 08/21/19 Range/Units 15:04 15:04 06:43 WBC 12.9 H (3.8-10.6) k/uL RBC 3.51 L (3.80-5.40) m/uL Hgb 10.9 L (11.4-16.0) gm/dL Hct 32.0 L (34.0-46.0) % Neutrophils # 10.0 H (1.3-7.7) k/uL Sodium 136 L (137-145) mmol/L Potassium (3.5-5.1) mmol/L Carbon Dioxide 21 L (22-30) mmol/L BUN 6 L (7-17) mg/dL Glucose 130 H (74-99) mg/dL Calcium (8.4-10.2) mg/dL Total Protein 6.2 L (6.3-8.2) g/dL 08/21/19 Range/Units 06:43 WBC (3.8-10.6) k/uL RBC (3.80-5.40) m/uL Hgb (11.4-16.0) gm/dL Hct (34.0-46.0) % Neutrophils # (1.3-7.7) k/uL Sodium (137-145) mmol/L Potassium 3.4 L (3.5-5.1) mmol/L Carbon Dioxide (22-30) mmol/L BUN <2 L (7-17) mg/dL Glucose (74-99) mg/dL Calcium 7.8 L (8.4-10.2) mg/dL Total Protein (6.3-8.2) g/dL Microbiology - Last 24 Hours (Table) 08/20/19 15:06 Gram Stain - Preliminary Abdomen Wound Culture - Preliminary Assessment and Plan Assessment: 1- patient with recent laparotomy status post lysis of adhesion repair of in cisional hernia and did have a resection of small bowel and anastomosis, the patient is presenting to the hospital with abdominal pain redness from incision and drainage CT has been suspicious for abdominal wall as well as deep Collection concerning for abscess 2- Patient with multiple antibiotic ALLERGIES that would limit the number of antibiotic safe to use, however ALLERGY to Augmentin has been vomiting which is a true ALLERGY and the patient has tolerated Zosyn without any problem (1) Abdominal wall abscess at site of surgical wound Current Visit: Yes Status: Acute Code(s): T81.49XA - INFECTION FOLLOWING A PROCEDURE, OTHER SURGICAL SITE, INIT SNOMED Code(s): 345017442 (2) Intra-abdominal abscess Current Visit: Yes Status: Acute Code(s): K65.1 - PERITONEAL ABSCESS SNOMED Code(s): 81432882 Plan: 1- Zosyn 3.375 g every 8 hours 2-gentle IV fluid 3- await CT-guided drainage and deep culture both aerobic and anaerobic We will follow on clinical condition and cultures to further adjust medication if needed Thank you for this consultation will follow this patient with you Time with Patient: Greater than 30
[2019-08-22] MEDS: HYDROmorphone 1 MG/ML 1 ML SYRINGE IVP PRN ×6 (01:10→23:40)
[2019-08-22] MEDS: HEPARIN SODIUM,PORCINE 5,000 UNIT/ML 1 ML VIAL SQ SCH ×4 (01:10→23:27)
[2019-08-22] MEDS: SODIUM CHLORIDE 0.9% 1,000 ML IV SCH ×4 (01:11→21:22)
[2019-08-22] MEDS: metroNIDAZOLE-NS PMX 500 MG in SALINE 1 100ML.BAG IVPB SCH ×4 (01:11→23:38)
[2019-08-22] MEDS: PIPERACILLIN-TAZOBACTAM 3.375 GM in SODIUM CHLORIDE 0.9% 100 ML IVPB SCH ×3 (02:50→17:17)
[2019-08-22] MEDS: KETOROLAC 30 MG/ML 1 ML VIAL IVP SCH ×4 (02:51→21:20)
[2019-08-22] MEDS: PANTOPRAZOLE 40 MG TABLET PO SCH (08:14)
[2019-08-22] MEDS: ONDANSETRON ODT 4 MG TAB PO PRN (08:14)
[2019-08-22] MEDS: METOPROLOL TARTRATE 12.5 MG TAB PO SCH ×2 (08:15→21:21)
[2019-08-22] MEDS: FLUoxetine HCL 20 MG CAP PO SCH (08:15)
[2019-08-22] MEDS: DICYCLOMINE 20 MG TAB PO SCH ×2 (08:16→21:21)
[2019-08-22] MEDS: FLUTICASONE 50MCG/SPRAY NASAL 16GM EA NOSTRIL SCH (08:23)
[2019-08-22] MEDS: IOPAMIDOL CONTRAST (ORAL USE) VIAL PO PRN ×2 (08:53→10:04)
--- NOTE | 2019-08-22 12:12 | CT ---
EXAMINATION TYPE: CT abdomen pelvis w con DATE OF EXAM: 08/22/2019 COMPARISON: CT 08/20/2019 HISTORY: Follow-up abscess CT DLP: 1771.1 mGycm Automated exposure control for dose reduction was used. TECHNIQUE: Helical acquisition of images from the lung bases through the pelvis have been completed. CONTRAST: Performed with Oral Contrast and with IV Contrast, patient injected with 100 mL of Isovue 300. FINDINGS: Abnormal fluid collection situated at the superior aspect of the urinary bladder and coursi ng towards the right lower quadrant with a small focus of air and well-defined margins extending to t he base of the cecum measures approximately 6.9 x 4.9 x 4.9 cm, similar size to prior exam. Patient's abdominal wound shows at the inferior margin some lucency, may be healing by secondary intention. Sm all amount of air persists along the abdominal wall which may be postoperative. LUNG BASES: No significant abnormality is appreciated. AORTA: No significant abnormality is appreciated. LIVER/GB: No significant interval change is appreciated. PANCREAS: No significant abnormality is seen. SPLEEN: No significant abnormality is seen. ADRENALS: No significant abnormality is seen. KIDNEYS: No significant abnormality is seen. REPRODUCTIVE ORGANS: Not seen BOWEL: Postop changes are seen. There are areas of bowel wall thickening, small amount of fluid atte nuation present along the mesentery in the right lower quadrant. FREE AIR: No Free Air visible. ASCITES: None visible. PELVIC ADENOPATHY: None visualized. RETROPERITONEAL ADENOPATHY: No Retroperitoneal Adenopathy visible. URINARY BLADDER: No significant abnormality is seen. OSSEOUS STRUCTURES: No significant abnormality is seen. IMPRESSION: FINDINGS ARE SIMILAR TO PRIOR EXAM. CORRELATE FOR POSTOPERATIVE FLUID COLLECTION VERSUS ABSCESS.
--- NOTE | 2019-08-22 13:45 | P.PN ---
Progress Note - Text Progress Note Date: 08/22/19 Patient's complaints of incisional pain. She states the lower portion of her incision is hurting. She is scheduled for a computed tomography scan of the abdomen today. On exam vital signs are stable. Abdomen soft. Incision site is clean dry intact. There is some minimal erythema of the lower incision. Patient's lower incision had the nicho removed. There is a small amount of serosanguineous fluid. There is no evidence of any purulent fluid. The wound was packed. Patient's CAT scan shows a fluid collection located in the superior aspect of the urinary bladder coursing towards the right lower quadrant and cecum. The fluid/measures 6.9 x 4.4 0.9 cm. This is unchanged from previous CAT scan. I believe the fluid collection is a hematoma. Patient's white count is normal today. She'll continue IV antibiotics. No surgical intervention is planned at this point.
[2019-08-22] MEDS: ATORVASTATIN 10 MG TAB PO SCH (21:21)
[2019-08-22] MEDS: lisinopriL 10 MG TAB PO SCH (21:21)
--- NOTE | 2019-08-22 22:31 | PN ---
PROGRESS NOTE DATE OF SERVICE: 08/22/2019 REASON FOR FOLLOWUP: Abdominal wall and intraabdominal abscess. INTERVAL HISTORY: The patient is currently afebrile. The patient is breathing comfortably. Denies having any chest pain or shortness of breath or cough. No nausea. No vomiting or any diarrhea. PHYSICAL EXAMINATION: Blood pressure 123/67 with a pulse of 74, temperature 99.2. She is 98% on room air. General description is a middle-aged female lying in bed in no distress. RESPIRATORY SYSTEM: Unlabored breathing. Clear to auscultation anteriorly. HEART: S1, S2. Regular rate and rhythm. ABDOMEN: Soft. No tenderness. LABS: Hemoglobin is 10.9, white count 7.9. Creatinine is 0.57. DIAGNOSTIC IMPRESSION AND PLAN: Patient with abdominal wall and intraabdominal abscess. Plan at this time is to continue Zosyn. Await surgical drainage and deep cultures. Continue with supportive care. MMODL / IJN: [id number] /
--- NOTE | 2019-08-23 00:49 | P.PN ---
Subjective Progress Note Date: 08/22/19 Principal diagnosis: Abdominal Pain Patient is a 58-year-old female with a known history of IBS, diverticular disease, multiple abdominal surgeries, chronic back pain and migraine headaches presents to ER with the complaints of increasing abdominal pain, redness and dr dayanna from the surgical site. Patient had recent abdominal surgery on August 11, 2019 and was discharged to home with oral antibiotics on August 16, 2019. Patient states that she could not finish her antibiotic course. Presents to ER with increasing drainage from the surgical site and pain and redness at the site of the nicho. Patient was concerned about infection and presents to ER after contacting Dr. Huston. Patient otherwise denied any complaints of chest pain or shortness of breath. No fever no chills. No nausea vomiting. Patient does have chronic diarrhea secondary to IBS. No headache or dizziness or lightheadedness. CT of the abdomen pelvis showed complex density within the longitudinal anterior abdominal wall consistent with phlegmon and small abscess. There is a 7 x 4 cm fluid collection anterior to the sacrum and in contact with the urinary bladder consistent with abscess. There is few air bubbles. There is chronically dilated biliary tree that suggest the possibility of a stricture or partial obstruction of the distal common bile duct. Bile ducts appear increased slightly compared to old exam. Laboratory data showed WBC 12.9, hemoglobin 12.5 and platelets 421 neutrophils 10 Sodium 136, potassium 4.1 and BUN 16 creatinine 0.83 Lactic acid 1.2 COVID negative C. difficile negative. 08/22/2019 Patient is still complaining of pain over the incision. Patient has been afebrile. Continued on antibiotic in the form of Zosyn and metronidazole. Patient had repeat CT abdomen pelvis was done today showed findings are similar to prior exam. Correlate for postoperative fluid collection versus abscess. ID and general surgery is on board. Patient denied any complaints of cough or sputum production. No chest pain or shortness of breath. Current medications reviewed. Objective - Vital Signs Vital signs: Vital Signs Temp 98.2 F 08/22/19 07:00 Pulse 75 08/22/19 07:00 Resp 18 08/22/19 07:00 BP 127/85 08/22/19 07:00 Pulse Ox 97 08/22/19 07:00 Intake & Output 08/21/19 08/22/19 08/22/19 18:59 06:59 18:59 Weight 95.5 kg Other: Voiding Method Toilet Toilet # Voids 1 # Bowel Movements 3 1 - Exam PHYSICAL EXAMINATION: Patient is lying in the bed comfortably, no acute distress, awake alert and oriented.. HEENT: Normocephalic. Neck is supple. Pupils reactive. Nostrils clear. Oral cavity is moist. Ears reveal no drainage. Neck reveals no JVD, carotid bruits, or thyromegaly. CHEST EXAMINATION: Trachea is central. Symmetrical expansion. Lung dominguez clear to auscultation and percussion. CARDIAC: Normal S1, S2 with no gallops. No murmurs ABDOMEN: Soft. Redness of the surgical site with mild tenderness. No purulent drainage noted. Bowel sounds normal. No organomegaly. No abdominal bruits. Extremities: reveal no edema. No clubbing or cyanosis Neurologically awake, alert, oriented x3 with well-coordinated movements. No focal deficits noted Skin: No rash or skin lesions. Psychiatric: Coperative. Nonsuicidal Musculoskeletal: No joint swelling or deformity. Normal range of motion. - Labs CBC & Chem 7: 08/21/19 06:43 08/21/19 06:43 Labs: Microbiology - Last 24 Hours (Table) 08/20/19 15:06 Gram Stain - Preliminary Abdomen Wound Culture - Preliminary 08/20/19 15:04 Blood Culture - Preliminary Blood No Growth after 24 hours Assessment and Plan Assessment: Intra-abdominal abscess 7 x 4 cm in size. Right hemipelvis. Postoperative with surgery on 08/11/2019 Chronic diarrhea due to IBS. C. difficile negative. GERD History of diverticular disease History of multiple abdominal surgeries History of migraine headaches Anxiety/depression and panic disorder Ongoing nicotine addiction History of hypertension controlled after losing weight. Morbid obesity with BMI 38.5 DVT prophylaxis Plan: Patient will be continued on antibiotics in the form of Zosyn and metronidazole. Follow-up blood cultures. Continue with home medications and pain management. Patient had acute anxiety attack this morning and Ativan will be ordered as needed x1. Continue to monitor closely. ID was consulted. Repeat CT abdomen pelvis showed no change in fluid status. Most likely hematoma as per general surgery.. Further recommendations based on the clinical course. We will continue to follow with you. Time with Patient: Greater than 30
[2019-08-23] MEDS: PIPERACILLIN-TAZOBACTAM 3.375 GM in SODIUM CHLORIDE 0.9% 100 ML IVPB SCH ×3 (01:50→17:21)
[2019-08-23] MEDS: KETOROLAC 30 MG/ML 1 ML VIAL IVP SCH ×4 (02:14→21:41)
[2019-08-23] MEDS: SODIUM CHLORIDE 0.9% 1,000 ML IV SCH ×3 (05:48→21:50)
[2019-08-23] MEDS: HYDROmorphone 1 MG/ML 1 ML SYRINGE IVP PRN ×4 (07:15→20:21)
[2019-08-23] MEDS: PANTOPRAZOLE 40 MG TABLET PO SCH (07:16)
[2019-08-23] MEDS: FLUoxetine HCL 20 MG CAP PO SCH (07:16)
[2019-08-23] MEDS: DICYCLOMINE 20 MG TAB PO SCH ×2 (07:16→21:41)
[2019-08-23] MEDS: HEPARIN SODIUM,PORCINE 5,000 UNIT/ML 1 ML VIAL SQ SCH ×3 (07:16→23:50)
[2019-08-23] MEDS: METOPROLOL TARTRATE 12.5 MG TAB PO SCH ×2 (07:16→21:42)
[2019-08-23] MEDS: metroNIDAZOLE-NS PMX 500 MG in SALINE 1 100ML.BAG IVPB SCH ×3 (07:17→23:50)
[2019-08-23] MEDS: FLUTICASONE 50MCG/SPRAY NASAL 16GM EA NOSTRIL SCH (07:17)
[2019-08-23] MEDS: ONDANSETRON ODT 4 MG TAB PO PRN ×2 (09:43→21:44)
--- NOTE | 2019-08-23 12:32 | P.PN ---
Progress Note - Text Progress Note Date: 08/23/19 The patient states she feels better today. She describes less crampy pain. On exam vital signs are clear. Abdomen soft. Wound is clean. Patient will continue receive IV antibiotics. She'll be watched closely. I believe that she has a hematoma Not an abscess.
[2019-08-23] MEDS: ATORVASTATIN 10 MG TAB PO SCH (21:41)
[2019-08-23] MEDS: lisinopriL 10 MG TAB PO SCH (21:42)
--- NOTE | 2019-08-23 21:55 | PN ---
PROGRESS NOTE DATE OF SERVICE: 08/23/2019 REASON FOR FOLLOWUP: Abdominal hematoma and a question of abdominal cellulitis. INTERVAL HISTORY: The patient is currently afebrile. The patient is feeling better, breathing comfortably. Her abdominal pain is currently controlled. No chest pain or cough. No diarrhea. PHYSICAL EXAMINATION: Blood pressure is a 122/57 with a pulse of 76, temperature 98.6. She is 97% on room air. General description is a middle-aged female up in the room in no distress. RESPIRATORY SYSTEM: Unlabored breathing. Clear to auscultation anteriorly. HEART: S1, S2. Regular rate and rhythm. ABDOMEN: Soft. No tenderness. LABS: Hemoglobin is 10.9, white count 7.9, BUN of 2, creatinine 0.57. DIAGNOSTIC IMPRESSION AND PLAN: Patient with abdominal pain with concern for possible abdominal or intraabdominal collection and a concern for possible hematoma versus an abscess. Patient with no fever or significant elevated white count; could be more likely a hematoma. Surgery recommended against any surgical drainage. Keep the patient on Zosyn and finish therapy with a short course of oral antibiotic on discharge. Monitor clinical course closely. MMODL / IJN: [id number] /
[2019-08-24] MEDS: KETOROLAC 30 MG/ML 1 ML VIAL IVP SCH ×4 (02:56→20:32)
[2019-08-24] MEDS: HYDROmorphone 1 MG/ML 1 ML SYRINGE IVP PRN ×7 (02:57→23:24)
[2019-08-24] MEDS: PIPERACILLIN-TAZOBACTAM 3.375 GM in SODIUM CHLORIDE 0.9% 100 ML IVPB SCH ×3 (02:57→17:33)
[2019-08-24] MEDS: SODIUM CHLORIDE 0.9% 1,000 ML IV SCH ×3 (06:59→17:26)
[2019-08-24] MEDS: metroNIDAZOLE-NS PMX 500 MG in SALINE 1 100ML.BAG IVPB SCH ×3 (07:43→23:24)
[2019-08-24] MEDS: METOPROLOL TARTRATE 12.5 MG TAB PO SCH ×2 (07:44→20:34)
[2019-08-24] MEDS: DICYCLOMINE 20 MG TAB PO SCH ×2 (07:44→20:32)
[2019-08-24] MEDS: PANTOPRAZOLE 40 MG TABLET PO SCH (07:44)
[2019-08-24] MEDS: FLUoxetine HCL 20 MG CAP PO SCH (07:44)
[2019-08-24] MEDS: FLUTICASONE 50MCG/SPRAY NASAL 16GM EA NOSTRIL SCH (07:45)
[2019-08-24] MEDS: HEPARIN SODIUM,PORCINE 5,000 UNIT/ML 1 ML VIAL SQ SCH ×3 (07:49→23:24)
[2019-08-24] MEDS: ONDANSETRON ODT 4 MG TAB PO PRN (11:48)
--- NOTE | 2019-08-24 13:32 | P.PN ---
Progress Note - Text Progress Note Date: 08/24/19 Patient had some complaints of mild abdominal pain. She is requesting 48. She is hungry. On exam vital signs are still. Abdomen soft. Incision is clean. Wound is clean. Status post small bowel resection with postoperative H peritoneal hematoma. Patient will continue receive IV antibiotics and supportive care.
--- NOTE | 2019-08-24 15:14 | PN ---
PROGRESS NOTE DATE OF SERVICE: 08/24/2019 REASON FOR FOLLOWUP: Intraabdominal hematoma and a question of cellulitis. INTERVAL HISTORY: The patient is currently afebrile. The patient is feeling better, breathing comfortably. Still complaining of significant drainage from the lower part of her incision. No chest pain, shortness of breath or cough or diarrhea. PHYSICAL EXAMINATION: Blood pressure is 118/71 with a pulse of 71, temperature is 95% on room air. General description is a middle-aged female lying in bed in no distress. RESPIRATORY SYSTEM: Unlabored breathing. Clear to auscultation anteriorly. HEART: S1, S2. Regular rate and rhythm. ABDOMEN: Soft. Incision is currently dressed with no drainage on the dressing. LABS: Hemoglobin is 10.9, white count of 7.9. No new labs have been done. Wound culture has been negative. Blood culture has been negative. DIAGNOSTIC IMPRESSION AND PLAN: Patient with dehiscence of an abdominal wound and concern for possible abdominal wall abscess versus hematoma and deep collection. Patient's cultures remain negative. She is covered with Zosyn; to continue and will monitor her clinical course closely, finishing therapy with oral antibiotics. Continue with supportive care. MMODL / IJN: [id number] /
[2019-08-24] MEDS: ATORVASTATIN 10 MG TAB PO SCH (20:32)
[2019-08-24] MEDS: lisinopriL 10 MG TAB PO SCH (20:34)
[2019-08-25] MEDS: PIPERACILLIN-TAZOBACTAM 3.375 GM in SODIUM CHLORIDE 0.9% 100 ML IVPB SCH ×3 (02:27→16:46)
[2019-08-25] MEDS: KETOROLAC 30 MG/ML 1 ML VIAL IVP SCH ×4 (02:28→20:43)
[2019-08-25] MEDS: HYDROmorphone 1 MG/ML 1 ML SYRINGE IVP PRN ×8 (02:28→23:55)
[2019-08-25] MEDS: SODIUM CHLORIDE 0.9% 1,000 ML IV SCH ×3 (02:29→16:46)
[2019-08-25] MEDS: PANTOPRAZOLE 40 MG TABLET PO SCH (08:49)
[2019-08-25] MEDS: metroNIDAZOLE-NS PMX 500 MG in SALINE 1 100ML.BAG IVPB SCH ×3 (08:49→23:55)
[2019-08-25] MEDS: FLUoxetine HCL 20 MG CAP PO SCH (08:49)
[2019-08-25] MEDS: METOPROLOL TARTRATE 12.5 MG TAB PO SCH ×2 (08:49→20:43)
[2019-08-25] MEDS: HEPARIN SODIUM,PORCINE 5,000 UNIT/ML 1 ML VIAL SQ SCH ×3 (08:49→23:56)
[2019-08-25] MEDS: DICYCLOMINE 20 MG TAB PO SCH ×3 (08:49→20:43)
[2019-08-25] MEDS: FLUTICASONE 50MCG/SPRAY NASAL 16GM EA NOSTRIL SCH (08:50)
[2019-08-25] MEDS: ONDANSETRON ODT 4 MG TAB PO PRN (09:01)
[2019-08-25 09:22] LABS: HCT 34.2 % (34.0-46.0); HGB 11.4 gm/dL (11.4-16.0); Hypochromasia Slight; MCH 29.9 pg (25.0-35.0); MCHC 33.2 g/dL (31.0-37.0); MCV 90.2 fL (80.0-100.0); Platelet Count 385 k/uL (150-450); RDW 12.8 % (11.5-15.5); WBC 8.2 k/uL (3.8-10.6)
[2019-08-25 10:17] LABS: African American GFR (CKD) >90 (>60 ml/min/1.73 sqM); Anion Gap 7 mmol/L; Blood Urea Nitrogen <2 mg/dL (7-17); Calcium 8.3 mg/dL (8.4-10.2); Carbon Dioxide 27 mmol/L (22-30); Chloride 106 mmol/L (98-107); Glucose 130 mg/dL (74-99); Non-African American GFR(CKD) >90 (>60 ml/min/1.73 sqM); Potassium 3.2 mmol/L (3.5-5.1); Sodium 140 mmol/L (137-145)
[2019-08-25] MEDS ORDERED: POTASSIUM CHLORIDE 10 MEQ in WATER FOR INJECTION 1 100ML.BAG IVPB SCH (11:00)
--- NOTE | 2019-08-25 11:00 | P.PN ---
Progress Note - Text Progress Note Date: 08/25/19 The patient resting comfortably remainder bed. She has she feels better today. On exam vital signs are stable. Abdomen soft. Wound is clean with healthy granulation tissue within the wound. . Plavix be discontinued. Patient will undergo potassium replacement today her potassium is 3.2. Need to be discharged home the next 24-48 hours
[2019-08-25] MEDS: POTASSIUM CHLORIDE ER 20 MEQ TAB.ER PO SCH ×5 (11:29→20:43)
[2019-08-25] MEDS ORDERED: DIPHENOX-ATROP 2.5-0.025 MG 1 EACH TAB PO PRN (13:34)
[2019-08-25] MEDS: lisinopriL 10 MG TAB PO SCH (20:43)
[2019-08-25] MEDS: ATORVASTATIN 10 MG TAB PO SCH (20:43)
--- NOTE | 2019-08-25 23:29 | PN ---
PROGRESS NOTE DATE OF SERVICE: 08/25/2019 REASON FOR FOLLOWUP: Abdominal wall question of hematoma versus abscess. INTERVAL HISTORY: The patient is currently afebrile. She is breathing comfortably. She has been complaining of multiple loose stools. No chest pain or cough. No worsening abdominal pain. Wants a dose of . PHYSICAL EXAMINATION: Blood pressure 123/76, pulse of 65, temperature 97.6. She is 95% on room air. General description is a middle-aged female lying in bed in no distress. RESPIRATORY SYSTEM: Unlabored breathing. Clear to auscultation anteriorly. HEART: S1, S2. Regular rate and rhythm. ABDOMEN: Soft. No tenderness. LABS: Hemoglobin 11.4, white count 8.2, BUN of 12, creatinine 0.50. Abdominal culture has been negative. Blood culture is negative. DIAGNOSTIC IMPRESSION AND PLAN: Patient with recent abdominal surgery with subsequent admission to hospital with concern for abdominal wall as well as deep collection, possible hematoma. Clinically not behaving as an abscess. The patient developed significant diarrhea and is refusing antibiotics. We will discontinue Zosyn and monitor the patient closely off antibiotic therapy. Continue with supportive care. MMODL / IJN: [id number] /
[2019-08-26] MEDS: HYDROmorphone 1 MG/ML 1 ML SYRINGE IVP PRN ×3 (02:43→09:21)
[2019-08-26] MEDS: KETOROLAC 30 MG/ML 1 ML VIAL IVP SCH ×3 (02:43→09:20)
[2019-08-26] MEDS: ONDANSETRON ODT 4 MG TAB PO PRN (06:04)
[2019-08-26] MEDS: SODIUM CHLORIDE 0.9% 1,000 ML IV SCH ×2 (06:59→22:52)
[2019-08-26 08:28] LABS: African American GFR (CKD) >90 (>60 ml/min/1.73 sqM); Anion Gap 6 mmol/L; Blood Urea Nitrogen <2 mg/dL (7-17); Calcium 7.9 mg/dL (8.4-10.2); Carbon Dioxide 27 mmol/L (22-30); Chloride 106 mmol/L (98-107); Glucose 84 mg/dL (74-99); Non-African American GFR(CKD) >90 (>60 ml/min/1.73 sqM); Potassium 3.2 mmol/L (3.5-5.1); Sodium 139 mmol/L (137-145)
[2019-08-26] MEDS: POTASSIUM CHLORIDE ER 20 MEQ TAB.ER PO SCH ×5 (08:42→23:07)
[2019-08-26] MEDS: METOPROLOL TARTRATE 12.5 MG TAB PO SCH ×3 (08:43→23:06)
[2019-08-26] MEDS: FLUoxetine HCL 20 MG CAP PO SCH ×2 (08:43→09:18)
[2019-08-26] MEDS: DICYCLOMINE 20 MG TAB PO SCH ×4 (08:43→23:07)
[2019-08-26] MEDS: PANTOPRAZOLE 40 MG TABLET PO SCH ×2 (08:43→09:18)
[2019-08-26] MEDS: metroNIDAZOLE-NS PMX 500 MG in SALINE 1 100ML.BAG IVPB SCH ×2 (08:44→09:38)
[2019-08-26] MEDS: FLUTICASONE 50MCG/SPRAY NASAL 16GM EA NOSTRIL SCH (08:44)
[2019-08-26] MEDS: HEPARIN SODIUM,PORCINE 5,000 UNIT/ML 1 ML VIAL SQ SCH ×3 (08:44→17:28)
[2019-08-26] MEDS: HYDROcodone/APAP 5-325MG 1 EACH TAB PO PRN ×3 (09:56→20:15)
--- NOTE | 2019-08-26 10:02 | P.PN ---
Subjective Progress Note Date: 08/23/19 Principal diagnosis: Abdominal Pain Patient is a 58-year-old female with a known history of IBS, diverticular disease, multiple abdominal surgeries, chronic back pain and migraine headaches presents to ER with the complaints of increasing abdominal pain, redness and dr dayanna from the surgical site. Patient had recent abdominal surgery on August 11, 2019 and was discharged to home with oral antibiotics on August 16, 2019. Patient states that she could not finish her antibiotic course. Presents to ER with increasing drainage from the surgical site and pain and redness at the site of the nicho. Patient was concerned about infection and presents to ER after contacting Dr. Huston. Patient otherwise denied any complaints of chest pain or shortness of breath. No fever no chills. No nausea vomiting. Patient does have chronic diarrhea secondary to IBS. No headache or dizziness or lightheadedness. CT of the abdomen pelvis showed complex density within the longitudinal anterior abdominal wall consistent with phlegmon and small abscess. There is a 7 x 4 cm fluid collection anterior to the sacrum and in contact with the urinary bladder consistent with abscess. There is few air bubbles. There is chronically dilated biliary tree that suggest the possibility of a stricture or partial obstruction of the distal common bile duct. Bile ducts appear increased slightly compared to old exam. Laboratory data showed WBC 12.9, hemoglobin 12.5 and platelets 421 neutrophils 10 Sodium 136, potassium 4.1 and BUN 16 creatinine 0.83 Lactic acid 1.2 COVID negative C. difficile negative. 08/22/2019 Patient is still complaining of pain over the incision. Patient has been afebrile. Continued on antibiotic in the form of Zosyn and metronidazole. Patient had repeat CT abdomen pelvis was done today showed findings are similar to prior exam. Correlate for postoperative fluid collection versus abscess. ID and general surgery is on board. Patient denied any complaints of cough or sputum production. No chest pain or shortness of breath. 08/23/2019 Patient is currently sitting the bed still complaining of pain at the incisional site. Patient says that the still having serosanguineous drainage and soaking of the bandages. No fever no chills. Patient is being continued on antibiotics in the form of Zosyn. ID is following. Else's recommends no surgical in tervention at this time. Most likely. Fluid is from hematoma. Patient has been afebrile. No nausea vomiting. Patient is tolerating liquid diet. Current medications reviewed. Objective - Vital Signs Vital signs: Vital Signs Temp 99.1 F 08/23/19 15:00 Pulse 73 08/23/19 15:00 Resp 16 08/23/19 15:00 BP 94/53 08/23/19 15:00 Pulse Ox 95 08/23/19 15:00 Intake & Output 08/23/19 08/23/19 08/24/19 06:59 18:59 06:59 Intake Total 800 Balance 800 Intake: Oral 800 Other: Voiding Method Toilet # Voids 2 3 - Exam PHYSICAL EXAMINATION: Patient is lying in the bed comfortably, no acute distress, awake alert and oriented.. HEENT: Normocephalic. Neck is supple. Pupils reactive. Nostrils clear. Oral cavity is moist. Ears reveal no drainage. Neck reveals no JVD, carotid bruits, or thyromegaly. CHEST EXAMINATION: Trachea is central. Symmetrical expansion. Lung dominguez clear to auscultation and percussion. CARDIAC: Normal S1, S2 with no gallops. No murmurs ABDOMEN: Soft. Redness of the surgical site with mild tenderness. No purulent drainage noted. Bowel sounds normal. No organomegaly. No abdominal bruits. Extremities: reveal no edema. No clubbing or cyanosis Neurologically awake, alert, oriented x3 with well-coordinated movements. No focal deficits noted Skin: No rash or skin lesions. Psychiatric: Coperative. Nonsuicidal Musculoskeletal: No joint swelling or deformity. Normal range of motion. - Labs CBC & Chem 7: 08/25/19 09:10 08/26/19 06:54 Labs: Microbiology - Last 24 Hours (Table) 08/20/19 15:04 Blood Culture - Preliminary Blood No Growth after 72 hours 08/20/19 15:06 Gram Stain - Final Abdomen Wound Culture - Final Assessment and Plan Assessment: Intra-abdominal abscess 7 x 4 cm in size. Right hemipelvis. Postoperative with surgery on 08/11/2019 Chronic diarrhea due to IBS. C. difficile negative. GERD History of diverticular disease History of multiple abdominal surgeries History of migraine headaches Anxiety/depression and panic disorder Ongoing nicotine addiction History of hypertension controlled after losing weight. Morbid obesity with BMI 38.5 DVT prophylaxis Plan: Patient will be continued on antibiotics in the form of Zosyn and metronidazole. Follow-up blood cultures. Continue with home medications and pain management. Patient had acute anxiety attack this morning and Ativan will be ordered as needed x1. Continue to monitor closely. ID was consulted. Repeat CT abdomen pelvis showed no change in fluid status. Most likely hematoma as per general surgery.. Further recommendations based on the clinical course. We will continue to follow with you.
--- NOTE | 2019-08-26 10:03 | P.PN ---
Subjective Progress Note Date: 08/24/19 Principal diagnosis: Abdominal Pain Patient is a 58-year-old female with a known history of IBS, diverticular disease, multiple abdominal surgeries, chronic back pain and migraine headaches presents to ER with the complaints of increasing abdominal pain, redness and dr dayanna from the surgical site. Patient had recent abdominal surgery on August 11, 2019 and was discharged to home with oral antibiotics on August 16, 2019. Patient states that she could not finish her antibiotic course. Presents to ER with increasing drainage from the surgical site and pain and redness at the site of the nicho. Patient was concerned about infection and presents to ER after contacting Dr. Huston. Patient otherwise denied any complaints of chest pain or shortness of breath. No fever no chills. No nausea vomiting. Patient does have chronic diarrhea secondary to IBS. No headache or dizziness or lightheadedness. CT of the abdomen pelvis showed complex density within the longitudinal anterior abdominal wall consistent with phlegmon and small abscess. There is a 7 x 4 cm fluid collection anterior to the sacrum and in contact with the urinary bladder consistent with abscess. There is few air bubbles. There is chronically dilated biliary tree that suggest the possibility of a stricture or partial obstruction of the distal common bile duct. Bile ducts appear increased slightly compared to old exam. Laboratory data showed WBC 12.9, hemoglobin 12.5 and platelets 421 neutrophils 10 Sodium 136, potassium 4.1 and BUN 16 creatinine 0.83 Lactic acid 1.2 COVID negative C. difficile negative. 08/22/2019 Patient is still complaining of pain over the incision. Patient has been afebrile. Continued on antibiotic in the form of Zosyn and metronidazole. Patient had repeat CT abdomen pelvis was done today showed findings are similar to prior exam. Correlate for postoperative fluid collection versus abscess. ID and general surgery is on board. Patient denied any complaints of cough or sputum production. No chest pain or shortness of breath. 08/23/2019 Patient is currently sitting the bed still complaining of pain at the incisional site. Patient says that the still having serosanguineous drainage and soaking of the bandages. No fever no chills. Patient is being continued on antibiotics in the form of Zosyn. ID is following. Else's recommends no surgical in tervention at this time. Most likely. Fluid is from hematoma. Patient has been afebrile. No nausea vomiting. Patient is tolerating liquid diet. 08/24/2019 Patient says that her abdominal pain is better today. No Significant serous drainage from the wound. Patient has been afebrile. Currently being continued on antibiotics. Patient wants to advance diet. No nausea no vomiting. No chest pain or shortness of breath. Current medications reviewed. Objective - Vital Signs Vital signs: Vital Signs Temp 98.9 F 08/24/19 15:00 Pulse 69 08/24/19 15:00 Resp 19 08/24/19 15:00 BP 114/68 08/24/19 15:00 Pulse Ox 96 08/24/19 15:00 Intake & Output 08/23/19 08/24/19 08/24/19 18:59 06:59 18:59 Intake Total 800 800 320 Balance 800 800 320 Intake: Intake, IV Titration 800 Amount Sodium Chloride 0.9% 1, 800 000 ml @ 130 mls/hr IV . [id number] [facility] Rx#:[id number] Oral 800 320 Other: Voiding Method Toilet # Voids 3 1 3 # Bowel Movements 1 - Exam PHYSICAL EXAMINATION: Patient is lying in the bed comfortably, no acute distress, awake alert and oriented.. HEENT: Normocephalic. Neck is supple. Pupils reactive. Nostrils clear. Oral cavity is moist. Ears reveal no drainage. Neck reveals no JVD, carotid bruits, or thyromegaly. CHEST EXAMINATION: Trachea is central. Symmetrical expansion. Lung dominguez clear to auscultation and percussion. CARDIAC: Normal S1, S2 with no gallops. No murmurs ABDOMEN: Soft. Redness of the surgical site with mild tenderness. No purulent drainage noted. Bowel sounds normal. No organomegaly. No abdominal bruits. Extremities: reveal no edema. No clubbing or cyanosis Neurologically awake, alert, oriented x3 with well-coordinated movements. No focal deficits noted Skin: No rash or skin lesions. Psychiatric: Coperative. Nonsuicidal Musculoskeletal: No joint swelling or deformity. Normal range of motion. - Labs CBC & Chem 7: 08/25/19 09:10 08/26/19 06:54 Labs: Microbiology - Last 24 Hours (Table) 08/20/19 15:04 Blood Culture - Preliminary Blood No Growth after 96 hours Assessment and Plan Assessment: Intra-abdominal fluid collection 7 x 4 cm in size. Possible hematoma in the hemipelvis. Postoperative with surgery on 08/11/2019 Chronic diarrhea due to IBS. C. difficile negative. GERD History of diverticular disease History of multiple abdominal surgeries History of migraine headaches Anxiety/depression and panic disorder Ongoing nicotine addiction History of hypertension controlled after losing weight. Morbid obesity with BMI 38.5 DVT prophylaxis Plan: Patient will be continued on antibiotics in the form of Zosyn and metronidazole. Follow-up blood cultures. Continue with home medications and pain management. Continue to monitor closely. ID is following. Repeat CT abdomen pelvis showed no change in fluid status. Most likely hematoma as per general surgery.. Further recommendations based on the clinical course. We will continue to follow with you.
--- NOTE | 2019-08-26 10:07 | P.PN ---
Subjective Progress Note Date: 08/25/19 Principal diagnosis: Abdominal Pain Patient is a 58-year-old female with a known history of IBS, diverticular disease, multiple abdominal surgeries, chronic back pain and migraine headaches presents to ER with the complaints of increasing abdominal pain, redness and dr dayanna from the surgical site. Patient had recent abdominal surgery on August 11, 2019 and was discharged to home with oral antibiotics on August 16, 2019. Patient states that she could not finish her antibiotic course. Presents to ER with increasing drainage from the surgical site and pain and redness at the site of the nicho. Patient was concerned about infection and presents to ER after contacting Dr. Huston. Patient otherwise denied any complaints of chest pain or shortness of breath. No fever no chills. No nausea vomiting. Patient does have chronic diarrhea secondary to IBS. No headache or dizziness or lightheadedness. CT of the abdomen pelvis showed complex density within the longitudinal anterior abdominal wall consistent with phlegmon and small abscess. There is a 7 x 4 cm fluid collection anterior to the sacrum and in contact with the urinary bladder consistent with abscess. There is few air bubbles. There is chronically dilated biliary tree that suggest the possibility of a stricture or partial obstruction of the distal common bile duct. Bile ducts appear increased slightly compared to old exam. Laboratory data showed WBC 12.9, hemoglobin 12.5 and platelets 421 neutrophils 10 Sodium 136, potassium 4.1 and BUN 16 creatinine 0.83 Lactic acid 1.2 COVID negative C. difficile negative. 08/22/2019 Patient is still complaining of pain over the incision. Patient has been afebrile. Continued on antibiotic in the form of Zosyn and metronidazole. Patient had repeat CT abdomen pelvis was done today showed findings are similar to prior exam. Correlate for postoperative fluid collection versus abscess. ID and general surgery is on board. Patient denied any complaints of cough or sputum production. No chest pain or shortness of breath. 08/23/2019 Patient is currently sitting the bed still complaining of pain at the incisional site. Patient says that the still having serosanguineous drainage and soaking of the bandages. No fever no chills. Patient is being continued on antibiotics in the form of Zosyn. ID is following. Else's recommends no surgical in tervention at this time. Most likely. Fluid is from hematoma. Patient has been afebrile. No nausea vomiting. Patient is tolerating liquid diet. 08/24/2019 Patient says that her abdominal pain is better today. No Significant serous drainage from the wound. Patient has been afebrile. Currently being continued on antibiotics. Patient wants to advance diet. No nausea no vomiting. No chest pain or shortness of breath. 08/25/2019 Patient's abdominal pain is much better today. Patient has been afebrile. No leukocytosis. Antibiotics have been discontinued and patient is being monitored without antibiotics. ID is on board. Patient is tolerating full liquid diet. No surgical interest at this time. No chest pain or shortness of breath. Current medications reviewed. Objective - Vital Signs Vital signs: Vital Signs Temp 97.9 F 08/25/19 15:00 Pulse 70 08/25/19 15:00 Resp 16 08/25/19 15:00 BP 100/61 08/25/19 15:00 Pulse Ox 99 08/25/19 15:00 Intake & Output 08/24/19 08/25/19 08/25/19 18:59 06:59 18:59 Intake Total 320 1040 Balance 320 1040 Intake: Intake, IV Titration 1040 Amount Sodium Chloride 0.9% 1, 1040 000 ml @ 100 mls/hr IV . Q10H [facility] Rx#:[id number] Oral 320 Other: Voiding Method Toilet Toilet # Voids 3 1 3 # Bowel Movements 3 - Exam PHYSICAL EXAMINATION: Patient is lying in the bed comfortably, no acute distress, awake alert and oriented.. HEENT: Normocephalic. Neck is supple. Pupils reactive. Nostrils clear. Oral cavity is moist. Ears reveal no drainage. Neck reveals no JVD, carotid bruits, or thyromegaly. CHEST EXAMINATION: Trachea is central. Symmetrical expansion. Lung dominguez clear to auscultation and percussion. CARDIAC: Normal S1, S2 with no gallops. No murmurs ABDOMEN: Soft. mild tenderness at the surgical site. Wound is clean.. No purulent drainage noted. Bowel sounds normal. No organomegaly. No abdominal bruits. Extremities: reveal no edema. No clubbing or cyanosis Neurologically awake, alert, oriented x3 with well-coordinated movements. No focal deficits noted Skin: No rash or skin lesions. Psychiatric: Coperative. Nonsuicidal Musculoskeletal: No joint swelling or deformity. Normal range of motion. - Labs CBC & Chem 7: 08/25/19 09:10 08/26/19 06:54 Labs: Abnormal Lab Results - Last 24 Hours (Table) 08/25/19 Range/Units 09:10 Potassium 3.2 L (3.5-5.1) mmol/L BUN <2 L (7-17) mg/dL Creatinine 0.50 L (0.52-1.04) mg/dL Glucose 130 H (74-99) mg/dL Calcium 8.3 L (8.4-10.2) mg/dL Microbiology - Last 24 Hours (Table) 08/20/19 15:04 Blood Culture - Preliminary Blood No Growth after 96 hours Assessment and Plan Assessment: Intra-abdominal fluid collection 7 x 4 cm in size. Possible hematoma in the hemipelvis. Postoperative with surgery on 08/11/2019 Chronic diarrhea due to IBS. C. difficile negative. GERD History of diverticular disease History of multiple abdominal surgeries History of migraine headaches Anxiety/depression and panic disorder Ongoing nicotine addiction History of hypertension controlled after losing weight. Morbid obesity with BMI 38.5 DVT prophylaxis Plan: Patient was continued on antibiotics in the form of Zosyn and metronidazole. Blood cultures have been negative so far. Patient is being monitored without antibiotics. And bites have been discontinued.. Continue with home medications and pain management. Continue to monitor closely. ID is following. Repeat CT abdomen pelvis showed no change in fluid status. Most likely hematoma as per general surgery.. Further recommendations based on the clinical course. We will continue to follow with you.
[2019-08-26] MEDS: PROMETHAZINE 25 MG TAB PO PRN (10:39)
[2019-08-26 10:54] VITALS: BMI 38.5
[2019-08-26] MEDS ORDERED: Potassium Replacement Protocol 1 EACH MISC MISCELLANE PRN (11:54)
--- NOTE | 2019-08-26 14:06 | P.PN ---
Progress Note - Text Progress Note Date: 08/26/19 Patient feels better she's requesting home. Her potassium is 3.2. On exam vitals are stable. Abdomen soft. Patient will continue receive potassium replacement. We will check her potassium a.m. if it is normal she'll be discharged home.
--- NOTE | 2019-08-26 16:50 | PN ---
PROGRESS NOTE DATE OF SERVICE: 08/26/2019 REASON FOR FOLLOWUP: Abdominal collection, question of hematoma. INTERVAL HISTORY: The patient is currently afebrile. The patient is feeling better, breathing comfortably. The patient has been refusing her Flagyl and she refused Zosyn yesterday. The patient denies having any worsening abdominal pain. Some nausea, no vomiting and no worsening diarrhea. PHYSICAL EXAMINATION: Blood pressure is 132/77 with a pulse of 75, temperature 98.3. She is 94% on room air. General description is a middle-aged female lying in bed in no distress. RESPIRATORY SYSTEM: Unlabored breathing. Clear to auscultation anteriorly. HEART: S1, S2. Regular rate and rhythm. ABDOMEN: Soft. No tenderness. LABS: BUN of 2, creatinine 0.43. Stool for C difficile was negative. DIAGNOSTIC IMPRESSION AND PLAN: Patient presented to hospital with abdominal pain. The CT did show abdominal wall and abdominal collection with concern for possible abscess. Superficial culture came back negative. It was decided not to drain it, as it looks more of a hematoma rather than an abscess. The patient is currently being monitored closely off antibiotic therapy, as she has been refusing most of her antibiotics. MMODL / IJN: [id number] /
[2019-08-26] MEDS: ATORVASTATIN 10 MG TAB PO SCH (23:06)
[2019-08-26] MEDS: lisinopriL 10 MG TAB PO SCH (23:06)
[2019-08-27] MEDS: PROMETHAZINE 25 MG TAB PO PRN (00:37)
[2019-08-27] MEDS: DIPHENOX-ATROP 2.5-0.025 MG 1 EACH TAB PO PRN (00:37)
[2019-08-27] MEDS: HYDROcodone/APAP 5-325MG 1 EACH TAB PO PRN ×6 (00:37→21:32)
[2019-08-27] MEDS: SODIUM CHLORIDE 0.9% 1,000 ML IV SCH ×3 (00:48→20:12)
[2019-08-27] MEDS: HEPARIN SODIUM,PORCINE 5,000 UNIT/ML 1 ML VIAL SQ SCH ×4 (00:48→23:14)
[2019-08-27] MEDS: PANTOPRAZOLE 40 MG TABLET PO SCH (07:20)
[2019-08-27] MEDS: DICYCLOMINE 20 MG TAB PO SCH ×3 (07:20→21:31)
[2019-08-27] MEDS: FLUoxetine HCL 20 MG CAP PO SCH (07:20)
[2019-08-27] MEDS: METOPROLOL TARTRATE 12.5 MG TAB PO SCH ×2 (07:20→21:31)
[2019-08-27] MEDS: POTASSIUM CHLORIDE ER 20 MEQ TAB.ER PO SCH ×4 (07:20→21:31)
[2019-08-27] MEDS ORDERED: Potassium Replacement Protocol 1 EACH MISC MISCELLANE PRN (10:31)
[2019-08-27] MEDS: FLUTICASONE 50MCG/SPRAY NASAL 16GM EA NOSTRIL SCH (10:33)
--- NOTE | 2019-08-27 10:53 | P.PN ---
Progress Note - Text Progress Note Date: 08/27/19 The patient is resting comfortably. She still has complaints of diarrhea. Her potassium 3.2. On exam vital signs are stable. And soft. Patient's discharge be held until her potassium normalizes. She'll Receive oral potassium segmentation today.
[2019-08-27] MEDS: ONDANSETRON ODT 4 MG TAB PO PRN ×2 (12:44→21:31)
[2019-08-27 12:45] LABS: African American GFR (CKD) >90 (>60 ml/min/1.73 sqM); Anion Gap 4 mmol/L; Blood Urea Nitrogen <2 mg/dL (7-17); Calcium 8.8 mg/dL (8.4-10.2); Carbon Dioxide 30 mmol/L (22-30); Chloride 104 mmol/L (98-107); Glucose 105 mg/dL (74-99); Non-African American GFR(CKD) >90 (>60 ml/min/1.73 sqM); Potassium 3.7 mmol/L (3.5-5.1); Sodium 138 mmol/L (137-145)
[2019-08-27] MEDS: lisinopriL 10 MG TAB PO SCH (21:31)
[2019-08-27] MEDS: ATORVASTATIN 10 MG TAB PO SCH (21:31)
[2019-08-28] MEDS: SODIUM CHLORIDE 0.9% 1,000 ML IV SCH ×3 (00:23→22:14)
--- NOTE | 2019-08-28 00:47 | P.PN ---
Subjective Progress Note Date: 08/26/19 Principal diagnosis: Abdominal Pain Patient is a 58-year-old female with a known history of IBS, diverticular disease, multiple abdominal surgeries, chronic back pain and migraine headaches presents to ER with the complaints of increasing abdominal pain, redness and dr dayanna from the surgical site. Patient had recent abdominal surgery on August 11, 2019 and was discharged to home with oral antibiotics on August 16, 2019. Patient states that she could not finish her antibiotic course. Presents to ER with increasing drainage from the surgical site and pain and redness at the site of the nicho. Patient was concerned about infection and presents to ER after contacting Dr. Huston. Patient otherwise denied any complaints of chest pain or shortness of breath. No fever no chills. No nausea vomiting. Patient does have chronic diarrhea secondary to IBS. No headache or dizziness or lightheadedness. CT of the abdomen pelvis showed complex density within the longitudinal anterior abdominal wall consistent with phlegmon and small abscess. There is a 7 x 4 cm fluid collection anterior to the sacrum and in contact with the urinary bladder consistent with abscess. There is few air bubbles. There is chronically dilated biliary tree that suggest the possibility of a stricture or partial obstruction of the distal common bile duct. Bile ducts appear increased slightly compared to old exam. Laboratory data showed WBC 12.9, hemoglobin 12.5 and platelets 421 neutrophils 10 Sodium 136, potassium 4.1 and BUN 16 creatinine 0.83 Lactic acid 1.2 COVID negative C. difficile negative. 08/22/2019 Patient is still complaining of pain over the incision. Patient has been afebrile. Continued on antibiotic in the form of Zosyn and metronidazole. Patient had repeat CT abdomen pelvis was done today showed findings are similar to prior exam. Correlate for postoperative fluid collection versus abscess. ID and general surgery is on board. Patient denied any complaints of cough or sputum production. No chest pain or shortness of breath. 08/23/2019 Patient is currently sitting the bed still complaining of pain at the incisional site. Patient says that the still having serosanguineous drainage and soaking of the bandages. No fever no chills. Patient is being continued on antibiotics in the form of Zosyn. ID is following. Else's recommends no surgical in tervention at this time. Most likely. Fluid is from hematoma. Patient has been afebrile. No nausea vomiting. Patient is tolerating liquid diet. 08/24/2019 Patient says that her abdominal pain is better today. No Significant serous drainage from the wound. Patient has been afebrile. Currently being continued on antibiotics. Patient wants to advance diet. No nausea no vomiting. No chest pain or shortness of breath. 08/25/2019 Patient's abdominal pain is much better today. Patient has been afebrile. No leukocytosis. Antibiotics have been discontinued and patient is being monitored without antibiotics. ID is on board. Patient is tolerating full liquid diet. No surgical interest at this time. No chest pain or shortness of breath. 08/26/2019 Patient states that her abdominal pain is better. Still having diarrhea otherwise. Potassium level is 3.2 which is being replaced. Patient is off antibiotics. Patient has been afebrile. Anticipate discharge in the next 24 to 48 hours with more clinical improvement. Current medications reviewed. Objective - Vital Signs Vital signs: Vital Signs Temp 98.4 F 08/26/19 15:00 Pulse 75 08/26/19 15:00 Resp 18 08/26/19 15:00 BP 109/62 08/26/19 15:00 Pulse Ox 97 08/26/19 15:00 Intake & Output 08/26/19 08/26/19 08/27/19 06:59 18:59 06:59 Intake Total 900 Balance 900 Weight 95.5 kg Intake: Intake, IV Titration 900 Amount Sodium Chloride 0.9% 1, 800 000 ml @ 100 mls/hr IV . Q10H [facility] Rx#:[id number] metroNIDAZOLE-NS PMX 500 100 mg In Saline 1 100ml.bag @ 100 mls/hr IVPB Q8HR [facility] Rx#:[id number] Other: Voiding Method Toilet # Voids 2 3 # Bowel Movements 2 - Exam PHYSICAL EXAMINATION: Patient is lying in the bed comfortably, no acute distress, awake alert and oriented.. HEENT: Normocephalic. Neck is supple. Pupils reactive. Nostrils clear. Oral cavity is moist. Ears reveal no drainage. Neck reveals no JVD, carotid bruits, or thyromegaly. CHEST EXAMINATION: Trachea is central. Symmetrical expansion. Lung dominguez clear to auscultation and percussion. CARDIAC: Normal S1, S2 with no gallops. No murmurs ABDOMEN: Soft. mild tenderness at the surgical site. Wound is clean.. No purulent drainage noted. Bowel sounds normal. No organomegaly. No abdominal bruits. Extremities: reveal no edema. No clubbing or cyanosis Neurologically awake, alert, oriented x3 with well-coordinated movements. No focal deficits noted Skin: No rash or skin lesions. Psychiatric: Coperative. Nonsuicidal Musculoskeletal: No joint swelling or deformity. Normal range of motion. - Labs CBC & Chem 7: 08/25/19 09:10 08/27/19 12:15 Labs: Abnormal Lab Results - Last 24 Hours (Table) 08/26/19 Range/Units 06:54 Potassium 3.2 L (3.5-5.1) mmol/L BUN <2 L (7-17) mg/dL Creatinine 0.43 L (0.52-1.04) mg/dL Calcium 7.9 L (8.4-10.2) mg/dL Microbiology - Last 24 Hours (Table) 08/20/19 15:04 Blood Culture - Final Blood No Growth after 144 hours Assessment and Plan Assessment: Intra-abdominal fluid collection 7 x 4 cm in size. Possible hematoma in the hemipelvis. Postoperative with surgery on 08/11/2019 Hypokalemia Chronic diarrhea due to IBS. C. difficile negative. GERD History of diverticular disease History of multiple abdominal surgeries History of migraine headaches Anxiety/depression and panic disorder Ongoing nicotine addiction History of hypertension controlled after losing weight. Morbid obesity with BMI 38.5 DVT prophylaxis Plan: Patient was continued on antibiotics in the form of Zosyn and metronidazole. Blood cultures have been negative so far. Patient is being monitored without antibiotics. And bites have been discontinued.. Continue with home medications and pain management. Continue to monitor closely. ID is following. Repeat CT abdomen pelvis showed no change in fluid status. Most likely hematoma as per general surgery.. Further recommendations based on the clinical course. We will continue to follow with you. Time with Patient: Greater than 30
--- NOTE | 2019-08-28 00:49 | P.PN ---
Subjective Progress Note Date: 08/27/19 Principal diagnosis: Abdominal Pain Patient is a 58-year-old female with a known history of IBS, diverticular disease, multiple abdominal surgeries, chronic back pain and migraine headaches presents to ER with the complaints of increasing abdominal pain, redness and dr dayanna from the surgical site. Patient had recent abdominal surgery on August 11, 2019 and was discharged to home with oral antibiotics on August 16, 2019. Patient states that she could not finish her antibiotic course. Presents to ER with increasing drainage from the surgical site and pain and redness at the site of the nicho. Patient was concerned about infection and presents to ER after contacting Dr. Huston. Patient otherwise denied any complaints of chest pain or shortness of breath. No fever no chills. No nausea vomiting. Patient does have chronic diarrhea secondary to IBS. No headache or dizziness or lightheadedness. CT of the abdomen pelvis showed complex density within the longitudinal anterior abdominal wall consistent with phlegmon and small abscess. There is a 7 x 4 cm fluid collection anterior to the sacrum and in contact with the urinary bladder consistent with abscess. There is few air bubbles. There is chronically dilated biliary tree that suggest the possibility of a stricture or partial obstruction of the distal common bile duct. Bile ducts appear increased slightly compared to old exam. Laboratory data showed WBC 12.9, hemoglobin 12.5 and platelets 421 neutrophils 10 Sodium 136, potassium 4.1 and BUN 16 creatinine 0.83 Lactic acid 1.2 COVID negative C. difficile negative. 08/22/2019 Patient is still complaining of pain over the incision. Patient has been afebrile. Continued on antibiotic in the form of Zosyn and metronidazole. Patient had repeat CT abdomen pelvis was done today showed findings are similar to prior exam. Correlate for postoperative fluid collection versus abscess. ID and general surgery is on board. Patient denied any complaints of cough or sputum production. No chest pain or shortness of breath. 08/23/2019 Patient is currently sitting the bed still complaining of pain at the incisional site. Patient says that the still having serosanguineous drainage and soaking of the bandages. No fever no chills. Patient is being continued on antibiotics in the form of Zosyn. ID is following. Else's recommends no surgical in tervention at this time. Most likely. Fluid is from hematoma. Patient has been afebrile. No nausea vomiting. Patient is tolerating liquid diet. 08/24/2019 Patient says that her abdominal pain is better today. No Significant serous drainage from the wound. Patient has been afebrile. Currently being continued on antibiotics. Patient wants to advance diet. No nausea no vomiting. No chest pain or shortness of breath. 08/25/2019 Patient's abdominal pain is much better today. Patient has been afebrile. No leukocytosis. Antibiotics have been discontinued and patient is being monitored without antibiotics. ID is on board. Patient is tolerating full liquid diet. No surgical interest at this time. No chest pain or shortness of breath. 08/26/2019 Patient states that her abdominal pain is better. Still having diarrhea otherwise. Potassium level is 3.2 which is being replaced. Patient is off antibiotics. Patient has been afebrile. Anticipate discharge in the next 24 to 48 hours with more clinical improvement. 08/27/2019 Patient is still having diarrhea but with slight improvement. Abdominal pain is better. Patient is off antibiotics. Currently afebrile. Leukocytosis reso lved. Patient is being replaced with potassium chloride due to hypokalemia at 3.2 still. Denied any complaints of chest pain or shortness of breath. No nausea no vomiting. No headache or dizziness or lightheadedness. Current medications reviewed. Objective - Vital Signs Vital signs: Vital Signs Temp 98.3 F 08/27/19 19:35 Pulse 75 08/27/19 19:35 Resp 16 08/27/19 19:35 BP 135/63 08/27/19 19:35 Pulse Ox 97 08/27/19 19:35 Intake & Output 08/27/19 08/27/19 08/28/19 06:59 18:59 06:59 Intake Total 500 Output Total 2 Balance 498 Intake: Oral 500 Output: Urine/Stool Mix 2 Other: Voiding Method Toilet Toilet # Voids 1 3 # Bowel Movements 1 - Exam PHYSICAL EXAMINATION: Patient is lying in the bed comfortably, no acute distress, awake alert and oriented.. HEENT: Normocephalic. Neck is supple. Pupils reactive. Nostrils clear. Oral cavity is moist. Ears reveal no drainage. Neck reveals no JVD, carotid bruits, or thyromegaly. CHEST EXAMINATION: Trachea is central. Symmetrical expansion. Lung dominguez clear to auscultation and percussion. CARDIAC: Normal S1, S2 with no gallops. No murmurs ABDOMEN: Soft. mild tenderness at the surgical site. Wound is clean.. No purulent drainage noted. Bowel sounds normal. No organomegaly. No abdominal bruits. Extremities: reveal no edema. No clubbing or cyanosis Neurologically awake, alert, oriented x3 with well-coordinated movements. No focal deficits noted Skin: No rash or skin lesions. Psychiatric: Coperative. Nonsuicidal Musculoskeletal: No joint swelling or deformity. Normal range of motion. - Labs CBC & Chem 7: 08/25/19 09:10 08/27/19 12:15 Labs: Abnormal Lab Results - Last 24 Hours (Table) 08/27/19 Range/Units 12:15 BUN <2 L (7-17) mg/dL Creatinine 0.49 L (0.52-1.04) mg/dL Glucose 105 H (74-99) mg/dL Assessment and Plan Assessment: Intra-abdominal fluid collection 7 x 4 cm in size. Possible hematoma in the hemipelvis. Postoperative with surgery on 08/11/2019 Hypokalemia Chronic diarrhea due to IBS. C. difficile negative. GERD History of diverticular disease History of multiple abdominal surgeries History of migraine headaches Anxiety/depression and panic disorder Ongoing nicotine addiction History of hypertension controlled after losing weight. Morbid obesity with BMI 38.5 DVT prophylaxis Plan: Patient was continued on antibiotics in the form of Zosyn and metronidazole. Blood cultures have been negative so far. Patient is being monitored without antibiotics. And bites have been discontinued.. Continue with home medications and pain management. Continue to monitor closely. ID is following. Repeat CT abdomen pelvis showed no change in fluid status. Most likely hematoma as per general surgery.. Further recommendations based on the clinical course. We will continue to follow with you. Time with Patient: Greater than 30
[2019-08-28] MEDS: HYDROcodone/APAP 5-325MG 1 EACH TAB PO PRN ×3 (01:21→08:13)
--- NOTE | 2019-08-28 06:32 | PN ---
PROGRESS NOTE DATE OF SERVICE: 08/27/2019 REASON FOR FOLLOWUP: Abdominal hematoma and question of abscess. INTERVAL HISTORY: Patient is currently afebrile. She is breathing comfortably. She did complain of drainage from the incision. No chest pain, shortness of breath or cough or any worsening diarrhea. PHYSICAL EXAMINATION: Blood pressure 135/63 with a pulse of 75, temperature 98.3. She is 97% on room air. General description is a middle-aged female lying in bed in no distress. Respiratory system: Unlabored breathing, clear to auscultation anteriorly. Heart S1, S2. Regular rate and rhythm. The abdominal incision is current with abdominal fluid collection with concern for possible abscess. Today more of a hematoma. Patient with no fever. Culture has been negative. She is currently being monitored closely off antibiotic therapy. Continue supportive care. MMODL / IJN: [id number] /
[2019-08-28] MEDS: ONDANSETRON ODT 4 MG TAB PO PRN (07:56)
[2019-08-28] MEDS: POTASSIUM CHLORIDE ER 20 MEQ TAB.ER PO SCH ×2 (07:57→21:24)
[2019-08-28] MEDS: DICYCLOMINE 20 MG TAB PO SCH ×3 (07:57→21:24)
[2019-08-28] MEDS: FLUoxetine HCL 20 MG CAP PO SCH (07:57)
[2019-08-28] MEDS: DIPHENOX-ATROP 2.5-0.025 MG 1 EACH TAB PO PRN (07:57)
[2019-08-28] MEDS: METOPROLOL TARTRATE 12.5 MG TAB PO SCH ×2 (07:57→21:24)
[2019-08-28] MEDS: FLUTICASONE 50MCG/SPRAY NASAL 16GM EA NOSTRIL SCH (07:58)
[2019-08-28] MEDS: PANTOPRAZOLE 40 MG TABLET PO SCH (07:58)
[2019-08-28] MEDS: HEPARIN SODIUM,PORCINE 5,000 UNIT/ML 1 ML VIAL SQ SCH ×3 (07:58→23:27)
[2019-08-28 10:14] LABS: African American GFR (CKD) >90 (>60 ml/min/1.73 sqM); Anion Gap 7 mmol/L; Blood Urea Nitrogen 3 mg/dL (7-17); Calcium 9.1 mg/dL (8.4-10.2); Carbon Dioxide 27 mmol/L (22-30); Chloride 104 mmol/L (98-107); Glucose 116 mg/dL (74-99); Non-African American GFR(CKD) >90 (>60 ml/min/1.73 sqM); Potassium 4.3 mmol/L (3.5-5.1); Sodium 138 mmol/L (137-145)
[2019-08-28 10:45] LABS: Basophils % (A) 1 %; Eosinophils # (A) 0.4 k/uL (0-0.7); Eosinophils % (A) 5 %; HCT 39.8 % (34.0-46.0); HGB 12.3 gm/dL (11.4-16.0); Hypochromasia Slight; Lymphocytes # (A) 1.5 k/uL (1.0-4.8); Lymphocytes % (A) 19 %; MCH 28.3 pg (25.0-35.0); MCHC 30.9 g/dL (31.0-37.0); MCV 91.8 fL (80.0-100.0); Mean Platelet Volume 7.7; Monocytes # (A) 0.5 k/uL (0-1.0); Monocytes % (A) 6 %; Neutrophils # (A) 5.5 k/uL (1.3-7.7); Neutrophils % (A) 68 %; Platelet Count 378 k/uL (150-450); RBC 4.33 m/uL (3.80-5.40); RDW 13.2 % (11.5-15.5); WBC 8.1 k/uL (3.8-10.6)
--- NOTE | 2019-08-28 11:18 | P.PN ---
Progress Note - Text Progress Note Date: 08/28/19 Patient still has some complaints of crampy abdominal pain. She has had multiple issues with diarrhea. On exam vitals are stable. Abdomen soft. Patient's potassium is 4.3. Patient will trial Lomotil today to help her diarrhea symptoms.
[2019-08-28] MEDS: DIPHENOX-ATROP 2.5-0.025 MG 1 EACH TAB PO SCH ×3 (12:16→21:42)
[2019-08-28] MEDS: LORazepam 0.5 MG TAB PO PRN ×2 (12:16→21:24)
[2019-08-28] MEDS: HYDROcodone/APAP 7.5-325MG 1 EACH TAB PO PRN ×3 (12:16→21:23)
[2019-08-28] MEDS: lisinopriL 10 MG TAB PO SCH (21:24)
[2019-08-28] MEDS: ATORVASTATIN 10 MG TAB PO SCH (21:24)
[2019-08-28] MEDS: CHOLESTYRAMINE (WITH SUGAR) 4 GM PACKET PO SCH (21:42)
--- NOTE | 2019-08-29 00:05 | PN ---
PROGRESS NOTE DATE OF SERVICE: 08/28/2019 REASON FOR FOLLOWUP: 1. Intraabdominal hematoma. 2. Diarrhea. INTERVAL HISTORY: The patient is currently afebrile. The patient has been complaining of significant diarrhea starting last night with multiple episodes of loose stool. No blood or mucus in the stool. No chest pain or shortness of breath or cough. PHYSICAL EXAMINATION: Blood pressure is 136/80 with a pulse of 74, temperature is 98.2. She is 92% on room air. General description is a middle-aged female up in the bed in no distress. RESPIRATORY SYSTEM: Unlabored breathing, clear to auscultation anteriorly. HEART: S1, S2. Regular rate and rhythm. ABDOMEN: Soft, no tenderness. LABS: Hemoglobin is 12.3, white count 8.1. BUN of 3, creatinine 0.57. Abdominal culture has been negative. DIAGNOSTIC IMPRESSION AND PLAN: 1. Patient admitted to the hospital with abdominal pain with abdominal collection. Initial concern for possible abscess though culture has been negative. Patient afebrile. White count normal. She is currently off antibiotic for couple of days now. Will continue to monitor the patient closely off antibiotic therapy. Local care to continue with Aquacel Silver dressing. 2. Diarrhea. Stool for Clostridium difficile was negative. We will add Questran for symptomatic relief. MMODL / IJN: [id number] /
[2019-08-29] MEDS: LORazepam 0.5 MG TAB PO PRN ×3 (01:38→10:13)
[2019-08-29] MEDS: HYDROcodone/APAP 7.5-325MG 1 EACH TAB PO PRN ×3 (01:38→10:13)
[2019-08-29] MEDS: FLUTICASONE 50MCG/SPRAY NASAL 16GM EA NOSTRIL SCH (06:57)
[2019-08-29] MEDS: SODIUM CHLORIDE 0.9% 1,000 ML IV SCH (06:58)
[2019-08-29] MEDS: DICYCLOMINE 20 MG TAB PO SCH (07:50)
[2019-08-29] MEDS: CHOLESTYRAMINE (WITH SUGAR) 4 GM PACKET PO SCH (07:50)
[2019-08-29] MEDS: HEPARIN SODIUM,PORCINE 5,000 UNIT/ML 1 ML VIAL SQ SCH (07:51)
[2019-08-29] MEDS: PANTOPRAZOLE 40 MG TABLET PO SCH (07:51)
[2019-08-29] MEDS: POTASSIUM CHLORIDE ER 20 MEQ TAB.ER PO SCH (07:51)
[2019-08-29] MEDS: METOPROLOL TARTRATE 12.5 MG TAB PO SCH (07:51)
[2019-08-29] MEDS: FLUoxetine HCL 20 MG CAP PO SCH (07:51)
[2019-08-29 08:00] VITALS: BP 119/77; PULSE 83; RESP 19; TEMP 99.4
[2019-08-29] MEDS: DIPHENOX-ATROP 2.5-0.025 MG 1 EACH TAB PO SCH ×2 (08:02→13:11)
--- NOTE | 2019-08-29 12:49 | PN ---
PROGRESS NOTE DATE OF SERVICE: 08/29/2019 REASON FOR FOLLOWUP: 1. Abdominal hematoma and a question of infection. 2. Diarrhea. INTERVAL HISTORY: Patient is currently afebrile. The patient is breathing comfortably/ the patient denies having any chest pain or shortness of breath or cough. Abdominal pain is currently controlled. Slight drainage from it, but no erythema or foul smelling. Diarrhea improved significantly with Questran. PHYSICAL EXAMINATION: Blood pressure 119/77, pulse 83, temperature 99.4. She is 92% on room air. The patient is a middle-aged female up in the room in no distress. Respiratory system: Unlabored breathing, clear to auscultation anteriorly. Heart S1, S2. Regular rate and rhythm. Abdomen with no tenderness. LABS: No new labs have been obtained today. DIAGNOSTIC IMPRESSION AND PLAN: 1. Patient admitted to the hospital with abdominal pain with evidence of abdominal collection, possible hematoma clinically not behaved as an abscess. The patient clinically improved. Not on antibiotic for the last 4 days. Recommend no antibiotic on discharge. 2. Diarrhea clinically responded to the Questran; to continue as needed. Questions and concerns were answered. MMODL / IJN: [id number] /
== END 2019-08-29 13:38 | disposition home health service (06) | DRG 921 ==
LOC: EC 14:11 → 4SSUR 17:24
PROVIDERS: ADMIT Surgery; ATTEND Surgery
DX: K91.870 Postprocedural hematoma of a digestive system organ or structure following a digestive system procedure (principal); K21.9 Gastro-esophageal reflux disease without esophagitis; M19.90 Unspecified osteoarthritis, unspecified site; G40.909 Epilepsy, unspecified, not intractable, without status epilepticus; Z96.1 Presence of intraocular lens; F41.0 Panic disorder [episodic paroxysmal anxiety]; F32.9 Major depressive disorder, single episode, unspecified; E87.6 Hypokalemia; F17.200 Nicotine dependence, unspecified, uncomplicated; I10 Essential (primary) hypertension; Z11.59 Encounter for screening for other viral diseases; K58.0 Irritable bowel syndrome with diarrhea; E66.01 Morbid (severe) obesity due to excess calories; Z79.899 Other long term (current) drug therapy; Z84.1 Family history of disorders of kidney and ureter; Z88.8 Allergy status to other drugs, medicaments and biological substances; Z87.19 Personal history of other diseases of the digestive system; Z87.11 Personal history of peptic ulcer disease; Z90.711 Acquired absence of uterus with remaining cervical stump; Z80.1 Family history of malignant neoplasm of trachea, bronchus and lung; Z87.440 Personal history of urinary (tract) infections; Z90.49 Acquired absence of other specified parts of digestive tract; Z90.89 Acquired absence of other organs; Z98.890 Other specified postprocedural states; Z98.42 Cataract extraction status, left eye; Z98.41 Cataract extraction status, right eye; Z88.1 Allergy status to other antibiotic agents; Z88.0 Allergy status to penicillin; Z91.013 Allergy to seafood; Z68.38 Body mass index [BMI] 38.0-38.9, adult
CPT/HCPCS: 36415; 74177; 80048; 80053; 83605; 85025; 85027; 87040; 87070; 87205; 87324; 96361; 96365; 96375; 99285

== ENCOUNTER → 2020-02-17 | Outpatient (CLI) | payer MEDICARE ==
--- NOTE | 2020-02-17 19:31 | CT ---
EXAMINATION TYPE: CT ChestAbdPelvis w con DATE OF EXAM: 02/17/2020 COMPARISON: 08/22/2019 HISTORY: Follow up for malignant carcinoid tumor of ileum, abdominal pain CT DLP: 1893.7 mGycm Automated exposure control for dose reduction was used. CONTRAST: Performed with IV Contrast, patient injected with 100 mL of Isovue 300. Images were obtained from the thoracic inlet to the floor the pelvis with IV contrast. The lungs are clear of infiltrate. There is no mediastinal adenopathy. There are no hilar masses. Hea rt size is normal. There is no pericardial effusion. Liver and spleen appear intact. There are clips from cholecystectomy. The bile ducts are not dilated. There is no pancreatic mass. Stomach is intact. There is no adrenal mass. Kidneys show satisfactory contrast opacification. There is no hydronephrosi s. Ureters are not dilated. Bladder distends smoothly. There is no inguinal hernia. Delayed images sh ow normal renal excretion. There is broad-based ventral hernia that contains transverse colon and ome ntal fat. There is also small bowel in the hernia. There is no mesenteric edema. There is no ascites or free air. There is no bowel obstruction. Appendi x is not seen. There is no sign of thickened appendix. There is oral contrast in the small bowel and large bowel down to the sigmoid colon. The thoracic and lumbar vertebra appear intact without evidence of compression fracture. There is spu rring of the endplates. Sternum is intact. The bony pelvis is intact. Hip joints are intact. IMPRESSION: There is broad-based ventral hernia that contains bowel which is a change compared to old exam. There is clearing of the postsurgical changes of the anterior abdominal wall compared to old exam. There i s clearing of the 5 cm fluid collection in the pelvis on the right side compared to old exam. No sign of recurrent tumor. There is improvement in the dilated biliary tree compared to old exams.
== END | disposition home or self-care (01) ==
LOC: RADCTMAIN 17:07
PROVIDERS: ATTEND Internal Medicine Hematology & Oncology
DX: C7A.012 Malignant carcinoid tumor of the ileum (principal); K43.9 Ventral hernia without obstruction or gangrene; K83.8 Other specified diseases of biliary tract; Z98.890 Other specified postprocedural states; Z88.0 Allergy status to penicillin; Z91.013 Allergy to seafood; Z88.8 Allergy status to other drugs, medicaments and biological substances
CPT/HCPCS: 71260; 74177; Q9967

== ENCOUNTER 2020-02-23 19:55 | Observation (INO) | payer MEDICARE ==
[2020-02-23] MEDS ORDERED: HYDROmorphone 1 MG/ML 1 ML SYRINGE IVP STA ×2 (21:05→22:37)
[2020-02-23] MEDS ORDERED: ONDANSETRON 4 MG/2 ML VIAL IVP STA (21:05)
--- NOTE | 2020-02-23 21:09 | ED ---
Abdominal Pain HPI - General Chief Complaint: Abdominal Pain Stated Complaint: Abd Pain Time Seen by Provider: 02/23/20 20:52 Source: patient Mode of arrival: ambulatory Limitations: no limitations - History of Present Illness Initial Comments: 59 year-old female patient presents to the emergency department for evaluation of upper abdominal pain and nausea. Patient recently had surgery for bowel obstruction and had a postoperative hernia. She was planned to have surgery later this month. She states that today she ate tomato soup for dinner and immediately started to have severe pain to the area. She states that she has become nauseated. The pain has been constant and persistent. She feels that the hernia is bigger. States she has passed gas since the pain started. Denies any bowel movements. Patient denies any recent rash, fever, chills, cough, shortness of breath, chest pain, back pain, numbness, tingling, dizziness, weakness, hematuria, dysuria, urinary urgency, urinary frequency, headache, visual changes, or any other complaints. - Related Data Home Medications Medication Instructions Recorded Confirmed Albuterol Sulfate [Albuterol 2 puff INHALATION RT-Q4H PRN 08/10/19 02/23/20 Sulfate Hfa] Diphenoxylate HCl/Atropine 1 - 2 tab PO Q4-6H PRN 08/10/19 02/23/20 [Lomotil 2.5-0.025 mg Tablet] EPINEPHrine (Auto Inject) [Epipen] 0.3 mg IM ONCE PRN 08/10/19 02/23/20 Promethazine [Phenergan] 25 mg PO TID PRN 08/10/19 02/23/20 Dicyclomine [Bentyl] 20 mg PO QID 08/20/19 02/23/20 Fluticasone Nasal [place] [Flonase 2 spray EA NOSTRIL DAILY PRN 08/20/19 02/23/20 Nasal [place]] Metoprolol Tartrate [Lopressor] 12.5 mg PO BID 08/20/19 02/23/20 traMADol HCL 50 mg PO Q6H PRN 02/23/20 02/23/20 Previous Rx's Medication Instructions Recorded FLUoxetine HCL [PROzac] 20 mg PO DAILY #14 cap 08/25/17 Atorvastatin [Lipitor] 10 mg PO HS 30 Days #30 tab 08/16/19 Pantoprazole Sodium [Protonix] 40 mg PO DAILY 30 Days #30 08/16/19 tablet. Cholestyramine (with Sugar) 4 gm PO BID 30 Days pack 08/29/19 [Cholestyramine Packet] Allergies Allergy/AdvReac Type Severity Reaction Status Date / Time clindamycin [From Cleocin] Allergy Severe Rash/Hives Verified 02/23/20 21:52 cefaclor [From Ceclor] Allergy Unknown Rash/Hives Verified 02/23/20 20:28 shellfish derived Allergy Unknown Rash/Hives Verified 02/23/20 20:28 amoxicillin [From Augmentin] AdvReac Nausea & Verified 02/23/20 20:28 Vomiting & Diarrhea clavulanic acid AdvReac Nausea & Verified 02/23/20 20:28 [From Augmentin] Vomiting & Diarrhea COMPAZINE IV AdvReac ANXIETY Uncoded 02/23/20 20:28 Review of Systems ROS Statement: Those systems with pertinent positive or pertinent negative responses have been documented in the HPI. ROS Other: All systems not noted in ROS Statement are negative. Past Medical History Past Medical History: GERD/Reflux, Memory Impairment, Osteoarthritis (OA), Seizure Disorder Additional Past Medical History / Comment(s): IBS-pt states she has 6-7 loose BM's daily for many years, diverticular disease, benign colon polyps, past stomach ulcer, hemorrhoids, chronic back pain, past migraines, chronic urticaria/hives, past anemia, bronchitis, sinus problems, varicosities, UTI, seizure once in 2018 History of Any Multi-Drug Resistant Organisms: None Reported Past Surgical History: Adenoidectomy, Appendectomy, Cholecystectomy, Hysterectomy, Orthopedic Surgery, Tonsillectomy Additional Past Surgical History / Comment(s): left knee ligaments/meniscus, ORIF R ankle with screws/pins, colonoscopy/benign polypectomy, EGD, R inguinal hernia, partial hysterectomy then another surgery for bilateral salpingoophorectomy/repair of abdominal muscles with mesh, bilateral cataract removal/lens implants. Past Anesthesia/Blood Transfusion Reactions: Motion Sickness, Postoperative Nausea & Vomiting (PONV) Additional Past Anesthesia/Blood Transfusion Reaction / Comment(s): clausterphobia. 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 Absent: scleral icterus, conjunctival injection, periorbital swelling ENT exam: Present: normal exam, normal oropharynx, mucous membranes moist Respiratory exam: Present: normal lung sounds bilaterally. Absent: respiratory distress, wheezes, rales, rhonchi, stridor Cardiovascular Exam: Present: regular rate, normal rhythm, normal heart sounds. Absent: systolic murmur, diastolic murmur, rubs, gallop, clicks GI/Abdominal exam: Present: distended, tenderness (Upper abdomen), normal bowel sounds, hernia (Large upper adominal hernia, tender and hot to touch.). Absent: soft, guarding, rebound, rigid Neurological exam: Present: alert, oriented X3, CN II-XII intact Psychiatric exam: Present: normal affect, normal mood Skin exam: Present: warm, dry, intact, normal color. Absent: rash Course Vital Signs 02/23/20 02/23/20 20:24 22:22 Temperature 98.4 F Pulse Rate 98 90 Respiratory 18 21 Rate Blood Pressure 145/78 134/65 O2 Sat by Pulse 96 95 Oximetry Medical Decision Making - Medical Decision Making 59-year-old female patient presents to the emergency department today for evaluation of increased abdominal pain. Patient has known hernia to the upper abdomen and is scheduled to have surgery on March [address] Romero. Pain started today suddenly after eating. Physical examination did reveal significant tenderness especially over the area of hernia. Patient was unable to tolerate palpation to the site. Labs reviewed and are unremarkable. CT abdomen and pelvis showed no changes from recent computed tomography scan. Patient continued to have significant pain and discomfort so case was discussed with on-call surgeon Dr. Huston. He agreed to admission for pain management and evaluation by Dr. Romero in the morning. - Lab Data Result diagrams: 02/23/20 21:22 02/23/20 21:22 Lab Results 02/23/20 02/23/20 02/23/20 Range/Units 21:22 21:22 21:22 WBC 9.4 (3.8-10.6) k/uL RBC 5.11 (3.80-5.40) m/uL Hgb 14.8 (11.4-16.0) gm/dL Hct 43.8 (34.0-46.0) % MCV 85.8 (80.0-100.0) fL MCH 29.0 (25.0-35.0) pg MCHC 33.8 (31.0-37.0) g/dL RDW 12.8 (11.5-15.5) % Plt Count 256 (150-450) k/uL MPV 6.9 Neutrophils % 69 % Lymphocytes % 21 % Monocytes % 6 % Eosinophils % 1 % Basophils % 1 % Neutrophils # 6.5 (1.3-7.7) k/uL Lymphocytes # 2.0 (1.0-4.8) k/uL Monocytes # 0.6 (0-1.0) k/uL Eosinophils # 0.1 (0-0.7) k/uL Basophils # 0.1 (0-0.2) k/uL Sodium 138 (137-145) mmol/L Potassium 4.5 (3.5-5.1) mmol/L Chloride 108 H (98-107) mmol/L Carbon Dioxide 23 (22-30) mmol/L Anion Gap 7 mmol/L BUN 18 H (7-17) mg/dL Creatinine 0.86 (0.52-1.04) mg/dL Est GFR (CKD-EPI)AfAm 85 (>60 ml/min/1.73 sqM) Est GFR (CKD-EPI)NonAf 74 (>60 ml/min/1.73 sqM) Glucose 116 H (74-99) mg/dL Plasma Lactic Acid Adan (0.7-2.0) mmol/L Calcium 9.3 (8.4-10.2) mg/dL Total Bilirubin 0.4 (0.2-1.3) mg/dL AST 21 (14-36) U/L ALT 29 (4-34) U/L Alkaline Phosphatase 117 (38-126) U/L Total Protein 7.1 (6.3-8.2) g/dL Albumin 4.2 (3.5-5.0) g/dL Amylase 42 (30-110) U/L Lipase 44 (23-300) U/L Urine Color Yellow Urine Appearance Clear (Clear) Urine pH 5.5 (5.0-8.0) Ur Specific Lane 1.026 (1.001-1.035) Urine Protein Trace H (Negative) Urine Glucose (UA) Negative (Negative) Urine Ketones Negative (Negative) Urine Blood Negative (Negative) Urine Nitrite Negative (Negative) Urine Bilirubin Negative (Negative) Urine Urobilinogen <2.0 (<2.0) mg/dL Ur Leukocyte Esterase Small H (Negative) Urine RBC 1 (0-5) /hpf Urine WBC 4 (0-5) /hpf Ur Squamous Epith Cells 1 (0-4) /hpf Ur Renal Epithelial Cell 3 (0) /hpf Urine Bacteria Rare H (None) /hpf Hyaline Casts 3 H (0-2) /lpf Urine Mucus Rare H (None) /hpf 02/23/20 Range/Units 21:22 WBC (3.8-10.6) k/uL RBC (3.80-5.40) m/uL Hgb (11.4-16.0) gm/dL Hct (34.0-46.0) % MCV (80.0-100.0) fL MCH (25.0-35.0) pg MCHC (31.0-37.0) g/dL RDW (11.5-15.5) % Plt Count (150-450) k/uL MPV Neutrophils % % Lymphocytes % % Monocytes % % Eosinophils % % Basophils % % Neutrophils # (1.3-7.7) k/uL Lymphocytes # (1.0-4.8) k/uL Monocytes # (0-1.0) k/uL Eosinophils # (0-0.7) k/uL Basophils # (0-0.2) k/uL Sodium (137-145) mmol/L Potassium (3.5-5.1) mmol/L Chloride (98-107) mmol/L Carbon Dioxide (22-30) mmol/L Anion Gap mmol/L BUN (7-17) mg/dL Creatinine (0.52-1.04) mg/dL Est GFR (CKD-EPI)AfAm (>60 ml/min/1.73 sqM) Est GFR (CKD-EPI)NonAf (>60 ml/min/1.73 sqM) Glucose (74-99) mg/dL Plasma Lactic Acid Adan 1.2 (0.7-2.0) mmol/L Calcium (8.4-10.2) mg/dL Total Bilirubin (0.2-1.3) mg/dL AST (14-36) U/L ALT (4-34) U/L Alkaline Phosphatase (38-126) U/L Total Protein (6.3-8.2) g/dL Albumin (3.5-5.0) g/dL Amylase (30-110) U/L Lipase (23-300) U/L Urine Color Urine Appearance (Clear) Urine pH (5.0-8.0) Ur Specific Lane (1.001-1.035) Urine Protein (Negative) Urine Glucose (UA) (Negative) Urine Ketones (Negative) Urine Blood (Negative) Urine Nitrite (Negative) Urine Bilirubin (Negative) Urine Urobilinogen (<2.0) mg/dL Ur Leukocyte Esterase (Negative) Urine RBC (0-5) /hpf Urine WBC (0-5) /hpf Ur Squamous Epith Cells (0-4) /hpf Ur Renal Epithelial Cell (0) /hpf Urine Bacteria (None) /hpf Hyaline Casts (0-2) /lpf Urine Mucus (None) /hpf - EKG Data -: EKG Interpreted by Nh EKG Comments: EKG obtained at 2139 shows normal sinus rhythm with a ventricular rate of 86, NC interval 150, QRS duration 82, QT 372, QTc 445. No evidence of ST elevation or depression. - Radiology Data Radiology results: report reviewed, image reviewed CT abdomen and pelvis with contrast was obtained. Report is reviewed in its entirety. Impression by Dr. Beasley shows broad-based periumbilical hernia unchanged. No bowel obstruction. Previous bowel surgery. No sign of recurrent tumor. Mild colonic diverticulosis without diverticulitis. Disposition Clinical Impression: Intractable abdominal pain, Abdominal hernia Disposition: ADMITTED IP TO THIS [facility] Condition: Serious Decision to Admit Reason: Admit from EC Decision Date: 02/23/20 Decision Time: 23:59
[2020-02-23 21:31] LABS: Basophils # (A) 0.1 k/uL (0-0.2); Basophils % (A) 1 %; Eosinophils # (A) 0.1 k/uL (0-0.7); Eosinophils % (A) 1 %; HCT 43.8 % (34.0-46.0); HGB 14.8 gm/dL (11.4-16.0); Lymphocytes % (A) 21 %; MCHC 33.8 g/dL (31.0-37.0); MCV 85.8 fL (80.0-100.0); Mean Platelet Volume 6.9; Monocytes # (A) 0.6 k/uL (0-1.0); Monocytes % (A) 6 %; Neutrophils # (A) 6.5 k/uL (1.3-7.7); Neutrophils % (A) 69 %; Platelet Count 256 k/uL (150-450); RBC 5.11 m/uL (3.80-5.40); RDW 12.8 % (11.5-15.5); WBC 9.4 k/uL (3.8-10.6)
[2020-02-23 21:39] LABS: Potassium 4.5 mmol/L (3.5-5.1)
[2020-02-23 21:40] LABS: Albumin 4.2 g/dL (3.5-5.0); Calcium 9.3 mg/dL (8.4-10.2); Total Bilirubin 0.4 mg/dL (0.2-1.3); Total Protein 7.1 g/dL (6.3-8.2)
[2020-02-23 21:47] LABS: Appearance,Urine Clear (Clear); Bacteria,Urine Rare /hpf; Bilirubin,Urine Negative (Negative); Blood,Urine Negative (Negative); Color,Urine Yellow; Glucose,Urine (UA) Negative (Negative); Hyaline Casts,Urine 3 /lpf (0-2); Ketones,Urine Negative (Negative); Leukocyte Esterase,Urine Small (Negative); Mucus,Urine Rare /hpf; Nitrite,Urine Negative (Negative); PH, Urine 5.5 (5.0-8.0); Protein,Urine Trace (Negative); RBC,Urine 1 /hpf (0-5); Renal Epithelial Cells,Urine 3 /hpf (0); Specific Gravity,Urine 1.026 (1.001-1.035); Squamous Epithelial Cell,Urine 1 /hpf (0-4); Urobilinogen,Urine <2.0 mg/dL (<2.0); WBC,Urine 4 /hpf (0-5)
--- NOTE | 2020-02-23 23:05 | CT ---
EXAMINATION TYPE: CT abdomen pelvis w con DATE OF EXAM: 02/23/2020 COMPARISON: 02/17/2020 HISTORY: Abdominal pain, hernia CT DLP: 1619.6 mGycm Automated exposure control for dose reduction was used. CONTRAST: Performed with IV Contrast, patient injected with 100 mL of Isovue 300. Images obtained from the diaphragm to the floor the pelvis with IV contrast. Lung bases are clear of consolidation. There is no pleural effusion. Heart size is normal. There is n o pericardial effusion. There is mild ectasia of the entire biliary tree. There is common bile duct measuring 1.6 cm. Spleen is intact. There is no pancreatic mass. The stomach is intact. There is no adrenal mass. Kidneys show satisfactory contrast opacification. There is no hydronephrosi s. Ureters are not dilated. Delayed images show normal renal excretion. There is broad-based periumbilical hernia that contains fat and large and small bowel without evidenc e of a bowel obstruction. There are sigmoid multiple diverticula without evidence of diverticulitis. There are multiple surgica l clips of bowel in the mid abdomen that apparently is distal ileum. This bowel is dilated up to 3.5 cm. Unchanged. There is no mesenteric edema. There is no ascites or free air. I do not see evidence f or mechanical bowel obstruction. Lumbar vertebra have normal alignment. There is no compression fracture. Posterior elements are intac t. Facet joints are intact. There is narrowing of L5-S1 disc space with spur formation. Bony pelvis is intact. Hip joints are intact. IMPRESSION: Broad-based periumbilical hernia unchanged. No bowel obstruction. Previous bowel surgery. No sign of recurrent tumor. Mild colonic diverticulosis without diverticulitis.
[2020-02-23] MEDS ORDERED: diphenhydrAMINE 50 MG/ML 1 ML VIAL IVP STA (23:30)
[2020-02-23] MEDS ORDERED: HYDROmorphone 0.5 MG/0.5 ML SYRINGE IVP STA (23:30)
[2020-02-23] MEDS ORDERED: NALOXONE 0.4 MG/ML 1 ML VIAL IV PRN (23:57)
[2020-02-24] MEDS: ONDANSETRON 4 MG/2 ML VIAL IVP PRN ×3 (00:32→19:14)
[2020-02-24] MEDS: SODIUM CHLORIDE 0.9% 1,000 ML IV SCH ×2 (00:33→11:32)
[2020-02-24] MEDS: HYDROmorphone 1 MG/ML 1 ML SYRINGE IVP PRN ×6 (04:51→22:59)
[2020-02-24 07:09] LABS: Basophils # (A) 0.1 k/uL (0-0.2); Basophils % (A) 1 %; Eosinophils % (A) 0 %; HCT 41.3 % (34.0-46.0); HGB 13.4 gm/dL (11.4-16.0); Lymphocytes # (A) 1.4 k/uL (1.0-4.8); Lymphocytes % (A) 20 %; MCH 28.9 pg (25.0-35.0); MCHC 32.5 g/dL (31.0-37.0); MCV 88.8 fL (80.0-100.0); Mean Platelet Volume 6.9; Monocytes # (A) 0.5 k/uL (0-1.0); Monocytes % (A) 7 %; Neutrophils # (A) 4.7 k/uL (1.3-7.7); Neutrophils % (A) 70 %; Platelet Count 177 k/uL (150-450); RBC 4.65 m/uL (3.80-5.40); RDW 12.7 % (11.5-15.5); WBC 6.7 k/uL (3.8-10.6)
[2020-02-24 07:20] LABS: ALT 35 U/L (4-34); AST 50 U/L (14-36); African American GFR (CKD) >90 (>60 ml/min/1.73 sqM); Albumin 3.6 g/dL (3.5-5.0); Alkaline Phosphatase 118 U/L (38-126); Anion Gap 5 mmol/L; Blood Urea Nitrogen 15 mg/dL (7-17); Calcium 8.9 mg/dL (8.4-10.2); Carbon Dioxide 24 mmol/L (22-30); Chloride 109 mmol/L (98-107); Glucose 116 mg/dL (74-99); Non-African American GFR(CKD) 79 (>60 ml/min/1.73 sqM); Potassium 4.4 mmol/L (3.5-5.1); Sodium 138 mmol/L (137-145); Total Bilirubin 0.8 mg/dL (0.2-1.3); Total Protein 6.3 g/dL (6.3-8.2)
--- NOTE | 2020-02-24 13:16 | P.GSHP ---
History of Present Illness H&P Date: 02/24/20 CHIEF COMPLAINT: Abdominal pain HISTORY OF PRESENT ILLNESS: This is a 59-year-old female who has a known history of small bowel obstruction secondary to adhesions who underwent exploratory laparotomy with lysis of adhesions, small bowel resection and repair of incisional hernia on 08/11/[address] galloway. 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 Later in August there were concerns of an abdominal abscess versus hematoma and she was continued treated conservatively. Patient has a known periumbilical hernia. She reports that she is scheduled for this coming Thursday for hernia repair surgery with Dr. galloway. However, last night while she was eating tomato soup she felt the hernia pop and growing in size. She was having severe pain. She came into the ER for further evaluation. Patient reports that she has been nauseated also having a hard small pebble-like stools. She denies any vomiting. She has been passing gas. She had a computed tomography scan of the abdomen and pelvis completed which showed broad-based periumbilical hernia unchanged. No bowel obstruction. Previous bowel surgery. No sign of recurrent tumor. Mild colonic diverticulosis without diverticulitis. Patient denies any fever, chills or sweats. She denies any vomiting. She is urinating without difficulty. PAST MEDICAL HISTORY: See list. PAST SURGICAL HISTORY: See list. MEDICATIONS: See list. ALLERGIES: See list. SOCIAL HISTORY: No illicit drug use. REVIEW OF SYSTEMS: CONSTITUTIONAL: Denies fever or chills. HEENT: Denies blurred vision, vision changes, or eye pain. Denies hemoptysis CARDIOVASCULAR: Denies chest pain or pressure. RESPIRATORY: No shortness of breath. GASTROINTESTINAL: See HPI for pertinent findings HEMATOLOGIC: Denies bleeding disorders. GENITOURINARY: Denies any blood in urine or increased urinary frequency. SKIN: Denies pruitis. Denies rash. PHYSICAL EXAM: VITAL SIGNS: Reviewed GENERAL: Well-developed in no acute distress. HEENT: No sclera icterus. Extraocular movements grossly intact. Moist buccal mucosa. Head is atraumatic, normocephalic. No nasal drainage. ABDOMEN: Soft. Obese. Patient has a large periumbilical hernia that is soft. Upon standing the hernia does protrude out more and becomes harder. NEUROLOGIC: Alert and oriented. Cranial nerves II through XII grossly intact. LABORATORY DATA: WBC 6.7 hemoglobin 13.4 creatinine 0.81 lactic 1.2 AST 50 ALT 35 lipase 44 IMAGING: computed tomography scan of the abdomen and pelvis completed which showed broad- based periumbilical hernia unchanged. No bowel obstruction. Previous bowel surgery. No sign of recurrent tumor. Mild colonic diverticulosis without diverticulitis. ASSESSMENT: 1. Large periumbilical hernia 2. Status post small bowel obstruction secondary to adhesions status post exploratory laparotomy, lysis of adhesions, small bowel resection and repair of incisional hernia in 08/11/2019 PLAN: -Plan to treat conservatively and have patient follow-up with Dr. Galloway at her scheduled appointment next Thursday for hernia repair surgery -Start patient on a full liquid diet -Add Tylenol with codeine for pain control -Anticipate discharge for tomorrow -Medicine consulted for medical management -GI prophylaxis Protonix and DVT prophylaxis subcu heparin Physician Advisor Consultant note has been reviewed by physician. Signing provider agrees with the documented findings, assessment, and plan of care. Past Medical History Past Medical History: GERD/Reflux, Memory Impairment, Osteoarthritis (OA), Seizure Disorder Additional Past Medical History / Comment(s): IBS-pt states she has 6-7 loose BM's daily for many years, diverticular disease, benign colon polyps, past stomach ulcer, hemorrhoids, chronic back pain, past migraines, chronic urticaria/hives, past anemia, bronchitis, sinus problems, varicosities, UTI, seizure once in 2018 History of Any Multi-Drug Resistant Organisms: None Reported Past Surgical History: Adenoidectomy, Appendectomy, Cholecystectomy, Hysterectomy, Orthopedic Surgery, Tonsillectomy Additional Past Surgical History / Comment(s): left knee ligaments/meniscus, ORIF R ankle with screws/pins, colonoscopy/benign polypectomy, EGD, R inguinal hernia, partial hysterectomy then another surgery for bilateral salpingoophorectomy/repair of abdominal muscles with mesh, bilateral cataract removal/lens implants. Past Anesthesia/Blood Transfusion Reactions: Motion Sickness, Postoperative Nausea & Vomiting (PONV) Additional Past Anesthesia/Blood Transfusion Reaction / Comment(s): clausterphobia. 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 Medications and Allergies Home Medications Medication Instructions Recorded Confirmed Type FLUoxetine HCL [PROzac] 20 mg PO DAILY #14 cap 08/25/17 02/23/20 Rx Albuterol Sulfate [Albuterol 2 puff INHALATION RT-Q4H PRN 08/10/19 02/23/20 History Sulfate Hfa] Diphenoxylate HCl/Atropine 1 - 2 tab PO Q4-6H PRN 08/10/19 02/23/20 History [Lomotil 2.5-0.025 mg Tablet] EPINEPHrine (Auto Inject) [Epipen] 0.3 mg IM ONCE PRN 08/10/19 02/23/20 History Promethazine [Phenergan] 25 mg PO TID PRN 08/10/19 02/23/20 History Atorvastatin [Lipitor] 10 mg PO HS 30 Days #30 tab 08/16/19 02/23/20 Rx Pantoprazole Sodium [Protonix] 40 mg PO DAILY 30 Days #30 08/16/19 02/23/20 Rx tablet. Dicyclomine [Bentyl] 20 mg PO QID 08/20/19 02/23/20 History Fluticasone Nasal Christopher [Flonase 2 spray EA NOSTRIL DAILY PRN 08/20/19 02/23/20 History Nasal Christopher] Metoprolol Tartrate [Lopressor] 12.5 mg PO BID 08/20/19 02/23/20 History Cholestyramine (with Sugar) 4 gm PO BID 30 Days pack 08/29/19 02/23/20 Rx [Cholestyramine Packet] traMADol HCL 50 mg PO Q6H PRN 02/23/20 02/23/20 History Allergies Allergy/AdvReac Type Severity Reaction Status Date / Time clindamycin [From Cleocin] Allergy Severe Rash/Hives Verified 02/23/20 21:52 cefaclor [From Ceclor] Allergy Unknown Rash/Hives Verified 02/23/20 20:28 shellfish derived Allergy Unknown Rash/Hives Verified 02/23/20 20:28 amoxicillin [From Augmentin] AdvReac Nausea & Verified 02/23/20 20:28 Vomiting & Diarrhea clavulanic acid AdvReac Nausea & Verified 02/23/20 20:28 [From Augmentin] Vomiting & Diarrhea COMPAZINE IV AdvReac ANXIETY Uncoded 02/23/20 20:28 Surgical - Exam Vital Signs Temp Pulse Resp BP Pulse Ox 98.4 F 98 18 145/78 96 02/23/20 20:24 02/23/20 20:24 02/23/20 20:24 02/23/20 20:24 02/23/20 20:24 Results - Labs 02/24/20 06:56 02/24/20 06:56 Abnormal Lab Results - Last 24 Hours (Table) 02/23/20 02/23/20 02/24/20 Range/Units 21:22 21:22 06:56 Chloride 108 H 109 H (98-107) mmol/L BUN 18 H (7-17) mg/dL Glucose 116 H 116 H (74-99) mg/dL AST 50 H (14-36) U/L ALT 35 H (4-34) U/L Urine Protein Trace H (Negative) Ur Leukocyte Esterase Small H (Negative) Urine Bacteria Rare H (None) /hpf Hyaline Casts 3 H (0-2) /lpf Urine Mucus Rare H (None) /hpf Diabetes panel 02/23/20 02/24/20 Range/Units 21:22 06:56 Sodium 138 138 (137-145) mmol/L Potassium 4.5 4.4 (3.5-5.1) mmol/L Chloride 108 H 109 H (98-107) mmol/L Carbon Dioxide 23 24 (22-30) mmol/L BUN 18 H 15 (7-17) mg/dL Creatinine 0.86 0.81 (0.52-1.04) mg/dL Glucose 116 H 116 H (74-99) mg/dL Calcium 9.3 8.9 (8.4-10.2) mg/dL AST 21 50 H (14-36) U/L ALT 29 35 H (4-34) U/L Alkaline Phosphatase 117 118 (38-126) U/L Total Protein 7.1 6.3 (6.3-8.2) g/dL Albumin 4.2 3.6 (3.5-5.0) g/dL Calcium panel 02/23/20 02/24/20 Range/Units 21:22 06:56 Calcium 9.3 8.9 (8.4-10.2) mg/dL Albumin 4.2 3.6 (3.5-5.0) g/dL Pituitary panel 02/23/20 02/24/20 Range/Units 21:22 06:56 Sodium 138 138 (137-145) mmol/L Potassium 4.5 4.4 (3.5-5.1) mmol/L Chloride 108 H 109 H (98-107) mmol/L Carbon Dioxide 23 24 (22-30) mmol/L BUN 18 H 15 (7-17) mg/dL Creatinine 0.86 0.81 (0.52-1.04) mg/dL Glucose 116 H 116 H (74-99) mg/dL Calcium 9.3 8.9 (8.4-10.2) mg/dL Adrenal panel 02/23/20 02/24/20 Range/Units 21:22 06:56 Sodium 138 138 (137-145) mmol/L Potassium 4.5 4.4 (3.5-5.1) mmol/L Chloride 108 H 109 H (98-107) mmol/L Carbon Dioxide 23 24 (22-30) mmol/L BUN 18 H 15 (7-17) mg/dL Creatinine 0.86 0.81 (0.52-1.04) mg/dL Glucose 116 H 116 H (74-99) mg/dL Calcium 9.3 8.9 (8.4-10.2) mg/dL Total Bilirubin 0.4 0.8 (0.2-1.3) mg/dL AST 21 50 H (14-36) U/L ALT 29 35 H (4-34) U/L Alkaline Phosphatase 117 118 (38-126) U/L Total Protein 7.1 6.3 (6.3-8.2) g/dL Albumin 4.2 3.6 (3.5-5.0) g/dL
[2020-02-24] MEDS: PANTOPRAZOLE 40 MG TABLET PO SCH (13:50)
[2020-02-24] MEDS: DOCUSATE 100 MG CAP PO SCH ×2 (13:51→20:48)
[2020-02-24] MEDS: Acetaminophen-Codeine 300-30mg TAB PO PRN ×2 (14:20→20:50)
[2020-02-24] MEDS ORDERED: ALBUTEROL NEBULIZED 2.5 MG/3 ML INHALATION PRN (14:43)
[2020-02-24] MEDS ORDERED: DIPHENOX-ATROP 2.5-0.025 MG 1 EACH TAB PO PRN (15:03)
[2020-02-24] MEDS: DICYCLOMINE 20 MG TAB PO SCH ×2 (16:15→20:48)
[2020-02-24] MEDS: HEPARIN SODIUM,PORCINE 5,000 UNIT/ML 1 ML VIAL SQ SCH (20:47)
[2020-02-24] MEDS: METOPROLOL TARTRATE 12.5 MG TAB PO SCH (20:48)
[2020-02-24] MEDS: CHOLESTYRAMINE (WITH SUGAR) 4 GM PACKET PO SCH (20:48)
[2020-02-24] MEDS: ATORVASTATIN 10 MG TAB PO SCH (20:48)
--- NOTE | 2020-02-24 21:47 | P.CONS ---
History of Present Illness - Reason for Consult Consult date: 02/24/20 Medical management. - Chief Complaint Periumbilical hernia - History of Present Illness Patient is a 58-year-old female with a known history of IBS, diverticular disease, multiple abdominal surgeries, chronic back pain and migraine headaches presents to ER With the complaints of abdominal pain and nausea. Patient states that she ate tomato soup for dinner and immediately started having severe pain in the mid abdomen around the umbilical area. Patient had postoperative periumbilical hernia. Pain is squeezing type and associate with nausea. No diarrhea. No fever no chills. No cough or sputum production. No dysuria or hematuria. Denies any recent illnesses. Patient had abdominal surgery on August 11, 2019. Patient still feels that hernia is getting bigger especially when she stands up. Patient presents to ER due to worsening symptoms. CT of the abdomen pelvis showed broad based periumbilical hernia unchanged. No bowel obstruction. Previous bowel surgery. No signs of recurrent tumor. Mild colonic diverticulosis without diverticulitis. Laboratory data showed WBC 9.4, hemoglobin 14.8 and platelets 256 Sodium 138, potassium 4.5, BUN 18 and creatinine 0.86 UA negative for infection Patient has been afebrile and saturating at 95% on room air. Review of Systems Constitutional: Patient denies any fever or chills . No generalized weakness or weight loss. Abdomen: Patient does have abdominal pain associate with nausea. No diarrhea. No constipation. Cardiovascular: Patient denies any chest pain or short of breath no palpitations. Respiratory: patient denied any cough or sputum production. No shortness of breath Neurologic: Patient denied any numbness or tingling headache. Musculoskeletal: Patient denies any complaints of joint swelling or deformity. Skin: Negative Psychiatric: Negative Endocrine: No heat or cold intolerance. No recent weight gain. Genitourinary: No dysuria or hematuria. All other 14 point ROS negative except the above Past Medical History Past Medical History: GERD/Reflux, Memory Impairment, Osteoarthritis (OA), Seizure Disorder Additional Past Medical History / Comment(s): IBS-pt states she has 6-7 loose BM's daily for many years, diverticular disease, benign colon polyps, past stomach ulcer, hemorrhoids, chronic back pain, past migraines, chronic urticaria/hives, past anemia, bronchitis, sinus problems, varicosities, UTI, seizure once in 2018 History of Any Multi-Drug Resistant Organisms: None Reported Past Surgical History: Adenoidectomy, Appendectomy, Cholecystectomy, Hysterectomy, Orthopedic Surgery, Tonsillectomy Additional Past Surgical History / Comment(s): left knee ligaments/meniscus, ORIF R ankle with screws/pins, colonoscopy/benign polypectomy, EGD, R inguinal hernia, partial hysterectomy then another surgery for bilateral salpingoophorectomy/repair of abdominal muscles with mesh, bilateral cataract removal/lens implants. Past Anesthesia/Blood Transfusion Reactions: Motion Sickness, Postoperative Nausea & Vomiting (PONV) Additional Past Anesthesia/Blood Transfusion Reaction / Comm: clausterphobia. 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 Medications and Allergies Home Medications Medication Instructions Recorded Confirmed Type FLUoxetine HCL [PROzac] 20 mg PO DAILY #14 cap 08/25/18 02/23/20 Rx Albuterol Sulfate [Albuterol 2 puff INHALATION RT-Q4H PRN 08/10/19 02/23/20 History Sulfate Hfa] Diphenoxylate HCl/Atropine 1 - 2 tab PO Q4-6H PRN 08/10/19 02/23/20 History [Lomotil 2.5-0.025 mg Tablet] EPINEPHrine (Auto Inject) [Epipen] 0.3 mg IM ONCE PRN 08/10/19 02/23/20 History Promethazine [Phenergan] 25 mg PO TID PRN 08/10/19 02/23/20 History Atorvastatin [Lipitor] 10 mg PO HS 30 Days #30 tab 08/16/19 02/23/20 Rx Pantoprazole Sodium [Protonix] 40 mg PO DAILY 30 Days #30 08/16/19 02/23/20 Rx tablet. Dicyclomine [Bentyl] 20 mg PO QID 08/20/19 02/23/20 History Fluticasone Nasal [place] [Flonase 2 spray EA NOSTRIL DAILY PRN 08/20/19 02/23/20 History Nasal [place]on] Metoprolol Tartrate [Lopressor] 12.5 mg PO BID 08/20/19 02/23/20 History Cholestyramine (with Sugar) 4 gm PO BID 30 Days pack 08/29/19 02/23/20 Rx [Cholestyramine Packet] traMADol HCL 50 mg PO Q6H PRN 02/23/20 02/23/20 History Acetaminophen-Codeine 300-30mg 1 tab PO Q4H PRN 3 Days #18 tablet 02/24/20 Rx [Tylenol w/codeine #3] Docusate [Colace] 100 mg PO BID #30 capsule 02/24/20 Rx Allergies Allergy/AdvReac Type Severity Reaction Status Date / Time clindamycin [From Cleocin] Allergy Severe Rash/Hives Verified 02/23/20 21:52 cefaclor [From Ceclor] Allergy Unknown Rash/Hives Verified 02/23/20 20:28 shellfish derived Allergy Unknown Rash/Hives Verified 02/23/20 20:28 amoxicillin [From Augmentin] AdvReac Nausea & Verified 02/23/20 20:28 Vomiting & Diarrhea clavulanic acid AdvReac Nausea & Verified 02/23/20 20:28 [From Augmentin] Vomiting & Diarrhea COMPAZINE IV AdvReac ANXIETY Uncoded 02/23/20 20:28 Physical Exam Vitals: Vital Signs Temp Pulse Pulse Resp BP BP Pulse Ox 02/24/20 12:19 98.2 F 90 16 118/76 97 02/24/20 08:24 97.7 F 87 20 138/80 93 L 02/24/20 01:55 97.9 F 95 18 132/75 94 L 02/23/20 22:22 90 21 134/65 95 02/23/20 20:24 98.4 F 98 18 145/78 96 Intake and Output 02/23/20 02/24/20 02/24/20 22:59 06:59 14:59 Other: Voiding Method Toilet Weight 99.79 kg 98.8 kg PHYSICAL EXAMINATION: Patient is lying in the bed comfortably, no acute distress, awake alert and oriented.. HEENT: Normocephalic. Neck is supple. Pupils reactive. Nostrils clear. Oral cavity is moist. Ears reveal no drainage. Neck reveals no JVD, carotid bruits, or thyromegaly. CHEST EXAMINATION: Trachea is central. Symmetrical expansion. Lung dominguez clear to auscultation and percussion. CARDIAC: Normal S1, S2 with no gallops. No murmurs ABDOMEN: Soft. Periumbilical hernia noted with mild tenderness. No guarding no rigidity.Bowel sounds normal. No organomegaly. No abdominal bruits. Extremities: reveal no edema. No clubbing or cyanosis Neurologically awake, alert, oriented x3 with well-coordinated movements. No focal deficits noted Skin: No rash or skin lesions. Psychiatric: Coperative. Nonsuicidal Musculoskeletal: No joint swelling or deformity. Normal range of motion. Results CBC & Chem 7: 02/24/20 06:56 02/24/20 06:56 Labs: Abnormal Lab Results - Last 24 Hours (Table) 02/23/20 02/23/20 02/24/20 Range/Units 21:22 21:22 06:56 Chloride 108 H 109 H (98-107) mmol/L BUN 18 H (7-17) mg/dL Glucose 116 H 116 H (74-99) mg/dL AST 50 H (14-36) U/L ALT 35 H (4-34) U/L Urine Protein Trace H (Negative) Ur Leukocyte Esterase Small H (Negative) Urine Bacteria Rare H (None) /hpf Hyaline Casts 3 H (0-2) /lpf Urine Mucus Rare H (None) /hpf Assessment and Plan Assessment: Abdominal pain could be due to large periumbilical hernia versus irritable bowel syndrome. No evidence of incarceration noted on the CT. History of small bowel obstruction secondary to adhesions status post exploratory laparotomy, lysis of additions and small bowel resection and repair of incisional hernia on 08/11/2019 Irritable bowel syndrome patient is on Bentyl 4 times daily at home. GERD History of seizure disorder Memory impairment Osteoarthritis Anxiety/depression and panic disorder History of cocaine use DVT prophylaxis with heparin subcu Plan: Patient will be continued on IV hydration and pain management. Liquid diet and symptomatic management for nausea. Continue with home medications include Bentyl and cholestyramine. Will continue to follow closely and further recommendations based on the clinical course.
[2020-02-25] MEDS ORDERED: DEXAMETHASONE SOD PHOSPHATE 10 MG/ML 1 ML VIAL IV STA (00:28)
[2020-02-25] MEDS: HYDROmorphone 1 MG/ML 1 ML SYRINGE IVP PRN ×6 (01:49→20:26)
[2020-02-25] MEDS: Acetaminophen-Codeine 300-30mg TAB PO PRN ×5 (05:27→23:59)
[2020-02-25] MEDS: PANTOPRAZOLE 40 MG TABLET PO SCH (06:39)
[2020-02-25] MEDS: SODIUM CHLORIDE 0.9% 1,000 ML IV SCH (06:39)
[2020-02-25] MEDS: DICYCLOMINE 20 MG TAB PO SCH ×4 (07:50→20:26)
[2020-02-25] MEDS: HEPARIN SODIUM,PORCINE 5,000 UNIT/ML 1 ML VIAL SQ SCH ×2 (07:51→20:26)
[2020-02-25] MEDS: DOCUSATE 100 MG CAP PO SCH ×2 (07:51→20:25)
[2020-02-25] MEDS: FLUoxetine HCL 20 MG CAP PO SCH (07:51)
[2020-02-25] MEDS: CHOLESTYRAMINE (WITH SUGAR) 4 GM PACKET PO SCH ×2 (07:59→20:25)
[2020-02-25] MEDS: METOPROLOL TARTRATE 12.5 MG TAB PO SCH ×2 (08:01→20:25)
--- NOTE | 2020-02-25 12:33 | P.PN ---
Subjective Progress Note Date: 02/25/20 CHIEF COMPLAINT: Abdominal pain HISTORY OF PRESENT ILLNESS: The patient is a 59-year-old female admitted with abdominal pain. Overnight, she had moderate tenderness to 10 pain including severe nausea and vomiting. She was given Decadron. 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 Last night, she had acute onset jose angel-umbilical pain with nausea and vomiting. Per discussion with nursing she is requiring moderate amounts of pain medications including Tylenol 3. ROS: Had nausea and vomiting overnight. No fevers or chills. No shortness of breath. PHYSICAL EXAM: VITAL SIGNS: Reviewed CONSTITUTIONAL: Well developed and in no acute distress. EYES: Conjuctivae without sclera icterus. Extraocular movements grossly intact. HEAD, EARS, NOSE, THROAT: Moist buccal mucosa. Head is atraumatic, normocephalic. Hears conversational speech. No nasal drainage. NECK: Supple. No thyroidomegaly. RESPIRATORY: Non-labored respirations and equal bilateral excursions. CARDIOVASCULAR: Palpable 2+ radial pulses. Regular rate. Regular rhythm. ABDOMEN: Protuberant, assymetric with incarcerated abdominal MUSCULOSKELETAL: No gross deformity of the lower extremities noted. No clubbing. No cyanosis. SKIN: Good skin turgor. Well perfused. NEUROLOGIC: Cranial nerves II through XII grossly intact. No focal or lateralizing signs. PSYCH: Appropriate affect. Alert and oriented to person, place and time. CLINICAL LABS: White blood cell count normal at 6.7. LFTs elevated. STUDIES: CT of the abdomen and pelvis independently reviewed demonstrating a [place] incisional hernia containing small bowel. This is my independent interpretation. ASSESSMENT: 1. Incisional hernia 2. Intractable abdominal pain PLAN: 1. Abdominal binder ordered for comfort 2. Patient still has moderate pain and nausea, not ready for discharge. Objective - Vital Signs Vital signs: Vital Signs Temp 97.8 F 02/25/20 08:00 Pulse 77 02/25/20 08:00 Resp 16 02/25/20 08:00 BP 117/68 02/25/20 08:00 Pulse Ox 96 02/25/20 08:00 Intake & Output 02/24/20 02/25/20 02/25/20 18:59 06:59 18:59 Other: Voiding Method Toilet Toilet # Voids 2 - Labs CBC & Chem 7: 02/24/20 06:56 02/24/20 06:56 Assessment and Plan (1) Abdominal hernia Current Visit: Yes Status: Acute Code(s): K46.9 - UNSPECIFIED ABDOMINAL HERNIA WITHOUT OBSTRUCTION OR GANGRENE SNOMED Code(s): 09491621 (2) Intractable abdominal pain Current Visit: Yes Status: Acute Code(s): R10.9 - UNSPECIFIED ABDOMINAL PAIN SNOMED Code(s): 93430926 (3) Incisional hernia Current Visit: No Status: Acute Code(s): K43.2 - INCISIONAL HERNIA WITHOUT OBSTRUCTION OR GANGRENE SNOMED Code(s): 030244309
[2020-02-25] MEDS: ONDANSETRON 4 MG/2 ML VIAL IVP PRN ×2 (13:06→20:27)
[2020-02-25] MEDS ORDERED: ONDANSETRON 4 MG/2 ML VIAL IVP PRN (13:21)
[2020-02-25] MEDS: ATORVASTATIN 10 MG TAB PO SCH (20:25)
[2020-02-26] MEDS: SODIUM CHLORIDE 0.9% 1,000 ML IV SCH ×2 (00:01→07:12)
[2020-02-26] MEDS: Acetaminophen-Codeine 300-30mg TAB PO PRN ×2 (04:07→08:18)
[2020-02-26] MEDS: HYDROmorphone 1 MG/ML 1 ML SYRINGE IVP PRN ×2 (04:08→09:51)
[2020-02-26 07:58] VITALS: BP 118/73; PULSE 70; RESP 18; TEMP 97.7
[2020-02-26] MEDS: METOPROLOL TARTRATE 12.5 MG TAB PO SCH (08:10)
[2020-02-26] MEDS: CHOLESTYRAMINE (WITH SUGAR) 4 GM PACKET PO SCH (08:10)
[2020-02-26] MEDS: DICYCLOMINE 20 MG TAB PO SCH (08:10)
[2020-02-26] MEDS: FLUoxetine HCL 20 MG CAP PO SCH (08:10)
[2020-02-26] MEDS: PANTOPRAZOLE 40 MG TABLET PO SCH (08:10)
[2020-02-26] MEDS: HEPARIN SODIUM,PORCINE 5,000 UNIT/ML 1 ML VIAL SQ SCH (08:10)
[2020-02-26] MEDS: DOCUSATE 100 MG CAP PO SCH (08:13)
[2020-02-26] MEDS: ONDANSETRON 4 MG/2 ML VIAL IVP PRN (08:24)
--- NOTE | 2020-02-26 10:46 | P.PN ---
Subjective Progress Note Date: 02/25/20 Principal diagnosis: Large abdominal hernia Patient is a 58-year-old female with a known history of IBS, diverticular disease, multiple abdominal surgeries, chronic back pain and migraine headaches presents to ER With the complaints of abdominal pain and nausea. Patient states that she ate tomato soup for dinner and immediately started having severe pain in the mid abdomen around the umbilical area. Patient had postoperative periumbilical hernia. Pain is squeezing type and associate with nausea. No diarrhea. No fever no chills. No cough or sputum production. No dysuria or hematuria. Denies any recent illnesses. Patient had abdominal surgery on August 11, 2019. Patient still feels that hernia is getting bigger especially when she stands up. Patient presents to ER due to worsening symptoms. CT of the abdomen pelvis showed broad based periumbilical hernia unchanged. No bowel obstruction. Previous bowel surgery. No signs of recurrent tumor. Mild colonic diverticulosis without diverticulitis. Laboratory data showed WBC 9.4, hemoglobin 14.8 and platelets 256 Sodium 138, potassium 4.5, BUN 18 and creatinine 0.86 UA negative for infection Patient has been afebrile and saturating at 95% on room air. 02/25/2020 Patient is complaining of abdominal pain and is requesting pain medications. Patient very anxious and emotional. Patient does have nausea but improved compared to yesterday. No episodes of vomiting. No fever no chills. Denied any dysuria or hematuria. No chest pain or shortness of breath. Abdominal binder was ordered due to large periublical hernia. Patient has scheduled surgery on Thursday. Current medications reviewed. Objective - Vital Signs Vital signs: Vital Signs Temp 97.8 F 02/25/20 08:00 Pulse 77 02/25/20 08:00 Resp 16 02/25/20 08:00 BP 117/68 02/25/20 08:00 Pulse Ox 96 02/25/20 08:00 Intake & Output 02/24/20 02/25/20 02/25/20 18:59 06:59 18:59 Other: Voiding Method Toilet Toilet # Voids 2 - Exam PHYSICAL EXAMINATION: Patient is lying in the bed comfortably, no acute distress, awake alert and oriented.. HEENT: Normocephalic. Neck is supple. Pupils reactive. Nostrils clear. Oral cavity is moist. Ears reveal no drainage. Neck reveals no JVD, carotid bruits, or thyromegaly. CHEST EXAMINATION: Trachea is central. Symmetrical expansion. Lung dominguez clear to auscultation and percussion. CARDIAC: Normal S1, S2 with no gallops. No murmurs ABDOMEN: Soft. Periumbilical hernia noted with mild tenderness. No guarding no rigidity.Bowel sounds normal. No organomegaly. No abdominal bruits. Extremities: reveal no edema. No clubbing or cyanosis Neurologically awake, alert, oriented x3 with well-coordinated movements. No focal deficits noted Skin: No rash or skin lesions. Psychiatric: Coperative. Nonsuicidal Musculoskeletal: No joint swelling or deformity. Normal range of motion. - Labs CBC & Chem 7: 02/24/20 06:56 02/24/20 06:56 Assessment and Plan Assessment: Abdominal pain could be due to large periumbilical hernia versus irritable bowel syndrome. No evidence of incarceration noted on the CT. History of small bowel obstruction secondary to adhesions status post exploratory laparotomy, lysis of additions and small bowel resection and repair of incisional hernia on 08/11/2019 Irritable bowel syndrome patient is on Bentyl 4 times daily at home. GERD History of seizure disorder Memory impairment Osteoarthritis Anxiety/depression and panic disorder History of cocaine use DVT prophylaxis with heparin subcu Plan: Patient will be continued on IV hydration and pain management. Abdominal binder was ordered. Liquid diet and symptomatic management for nausea. Continue with home medications include Bentyl and cholestyramine. Will continue to follow closely and further recommendations based on the clinical course. Time with Patient: Greater than 30
--- NOTE | 2020-02-26 11:39 | P.DS ---
Providers Date of admission: 02/24/20 00:20 Expected date of discharge: 02/26/20 Attending physician: Erik Romero Consults: 02/24/20 14:08 Consult Physician Routine Consulting Provider: Deejay Cotto Reason/Comments: medical management (covering for Diana gibbs) Do you want consulting provider notified?: Yes Primary care physician: Tommy Gibbs - Discharge Diagnosis(es) (1) Abdominal hernia Current Visit: Yes Status: Acute (2) Intractable abdominal pain Current Visit: Yes Status: Acute (3) Incisional hernia Current Visit: No Status: Acute (4) BMI 38.0-38.9,adult Current Visit: Yes Status: Acute (5) Morbid obesity due to excess calories Current Visit: No Status: Acute Hospital Course: CHIEF COMPLAINT: Abdominal pain HISTORY OF PRESENT ILLNESS: The patient is a 59-year-old female admitted with abdominal pain. She reports a symptomatic incisional hernia. An abdominal binder was placed and her abdominal pain has improved. No emesis over night. She feels better and expressing to go home. ROS: No fevers or chills. No shortness of breath. No chest pain. PHYSICAL EXAM: VITAL SIGNS: Reviewed CONSTITUTIONAL: Well developed and in no acute distress. EYES: Conjuctivae without sclera icterus. Extraocular movements grossly intact. HEAD, EARS, NOSE, THROAT: Moist buccal mucosa. Head is atraumatic, normocephalic. Hears conversational speech. No nasal drainage. RESPIRATORY: Non-labored respirations and equal bilateral excursions. CARDIOVASCULAR: Palpable 2+ radial pulses. Regular rate. Regular rhythm. ABDOMEN: Abdominal binder present. MUSCULOSKELETAL: No gross deformity of the lower extremities noted. No clubbing. No cyanosis. SKIN: Good skin turgor. Well perfused. NEUROLOGIC: Cranial nerves II through XII grossly intact. No focal or lateralizing signs. PSYCH: Appropriate affect. Alert and oriented to person, place and time. CLINICAL LABS: No new labs. ASSESSMENT: 1. Incisional hernia 2. Intractable abdominal pain, improved PLAN: 1. Patient clinically stable for discharge 2. Wearing abdominal binder for comfort reviewed. 3. Patient advised to notify office for any worsening abdominal pain. Patient Condition at Discharge: Stable Plan - Discharge Summary New Discharge Prescriptions: New Docusate [Colace] 100 mg PO BID #30 capsule Acetaminophen-Codeine 300-30mg [Tylenol w/codeine #3] 1 tab PO Q4H PRN 3 Days #18 tablet PRN Reason: Pain No Action FLUoxetine HCL [PROzac] 20 mg PO DAILY #14 cap Albuterol Sulfate [Albuterol Sulfate Hfa] 2 puff INHALATION RT-Q4H PRN PRN Reason: Shortness Of Breath EPINEPHrine (Auto Inject) [Epipen] 0.3 mg IM ONCE PRN PRN Reason: Anaphylaxis Diphenoxylate HCl/Atropine [Lomotil 2.5-0.025 mg Tablet] 1 - 2 tab PO Q4-6H PRN PRN Reason: IBS Promethazine [Phenergan] 25 mg PO TID PRN PRN Reason: Nausea Atorvastatin [Lipitor] 10 mg PO HS 30 Days #30 tab Pantoprazole Sodium [Protonix] 40 mg PO DAILY 30 Days #30 tablet. Metoprolol Tartrate [Lopressor] 12.5 mg PO BID Fluticasone Nasal [place] [Flonase Nasal [place]] 2 spray EA NOSTRIL DAILY PRN PRN Reason: Allergy Symptoms Dicyclomine [Bentyl] 20 mg PO QID Cholestyramine (with Sugar) [Cholestyramine Packet] 4 gm PO BID 30 Days pack traMADol HCL 50 mg PO Q6H PRN PRN Reason: Pain Discharge Medication List FLUoxetine HCL [PROzac] 20 mg PO DAILY #14 cap 18 [Rx] Albuterol Sulfate [Albuterol Sulfate Hfa] 2 puff INHALATION RT-Q4H PRN 08/10/19 [History] Diphenoxylate HCl/Atropine [Lomotil 2.5-0.025 mg Tablet] 1 - 2 tab PO Q4-6H PRN 08/10/19 [History] EPINEPHrine (Auto Inject) [Epipen] 0.3 mg IM ONCE PRN 08/10/19 [History] Promethazine [Phenergan] 25 mg PO TID PRN 08/10/19 [History] Atorvastatin [Lipitor] 10 mg PO HS 30 Days #30 tab 08/16/19 [Rx] Pantoprazole Sodium [Protonix] 40 mg PO DAILY 30 Days #30 tablet. 08/16/19 [Rx] Dicyclomine [Bentyl] 20 mg PO QID 08/20/19 [History] Fluticasone Nasal [place] [Flonase Nasal [place]] 2 spray EA NOSTRIL DAILY PRN 08/20/19 [History] Metoprolol Tartrate [Lopressor] 12.5 mg PO BID 08/20/19 [History] Cholestyramine (with Sugar) [Cholestyramine Packet] 4 gm PO BID 30 Days pack 08/29/19 [Rx] traMADol HCL 50 mg PO Q6H PRN 02/23/20 [History] Acetaminophen-Codeine 300-30mg [Tylenol w/codeine #3] 1 tab PO Q4H PRN 3 Days #18 tablet 02/24/20 [Rx] Docusate [Colace] 100 mg PO BID #30 capsule 02/24/20 [Rx] Follow up Appointment(s)/Referral(s): Tommy Gibbs MD [Primary Care Provider] - 1-2 days Erik Romero MD [STAFF PHYSICIAN] - 02/28/20 Patient Instructions/Handouts: Abdominal Binder (DC), Incisional Hernia (DC) Activity/Diet/Wound Care/Special Instructions: No lifting over 4 pounds. Wear abdominal binder except for showering. Discharge Disposition: HOME SELF-CARE
--- NOTE | 2020-04-08 13:34 | P.PN ---
Subjective Progress Note Date: 02/26/20 Principal diagnosis: Large abdominal hernia Patient is a 58-year-old female with a known history of IBS, diverticular disease, multiple abdominal surgeries, chronic back pain and migraine headaches presents to ER With the complaints of abdominal pain and nausea. Patient states that she ate tomato soup for dinner and immediately started having severe pain in the mid abdomen around the umbilical area. Patient had postoperative periumbilical hernia. Pain is squeezing type and associate with nausea. No diarrhea. No fever no chills. No cough or sputum production. No dysuria or hematuria. Denies any recent illnesses. Patient had abdominal surgery on August 11, 2019. Patient still feels that hernia is getting bigger especially when she stands up. Patient presents to ER due to worsening symptoms. CT of the abdomen pelvis showed broad based periumbilical hernia unchanged. No bowel obstruction. Previous bowel surgery. No signs of recurrent tumor. Mild colonic diverticulosis without diverticulitis. Laboratory data showed WBC 9.4, hemoglobin 14.8 and platelets 256 Sodium 138, potassium 4.5, BUN 18 and creatinine 0.86 UA negative for infection Patient has been afebrile and saturating at 95% on room air. 02/25/2020 Patient is complaining of abdominal pain and is requesting pain medications. Patient very anxious and emotional. Patient does have nausea but improved compared to yesterday. No episodes of vomiting. No fever no chills. Denied any dysuria or hematuria. No chest pain or shortness of breath. Abdominal binder was ordered due to large periublical hernia. Patient has scheduled surgery on Thursday. \02/26/2020 Patient is currently resting in the bed comfortably. Abdominal pain is much improved. No episodes of vomiting. Nausea is improving. No complaints of chest pain or shortness of breath. Patient is being continued on abdominal binder. Tolerating oral diet and will be advanced. Recommends to follow-up with general surgery as outpatient for scheduled surgery. Otherwise patient wishes to be discharged home today. Discharge medication reconciliation was done. Follow-up with primary care physician in the next 3 to 5 days after discharge. Current medications reviewed. Objective - Vital Signs Vital signs: Vital Signs Temp 97.7 F 02/26/20 07:54 Pulse 70 02/26/20 07:54 Resp 18 02/26/20 07:54 BP 118/73 02/26/20 07:54 Pulse Ox 94 L 02/26/20 07:54 Intake & Output 02/25/20 02/26/20 02/26/20 18:59 06:59 18:59 Intake Total 500 315 Balance 500 315 Intake: Intake, IV Titration 75 Amount Sodium Chloride 0.9% 1, 75 000 ml @ 75 mls/hr IV . [id number] JENNIFER Rx#:[id number] Oral 500 240 Other: Voiding Method Toilet Toilet # Voids 3 1 # Bowel Movements 1 - Exam PHYSICAL EXAMINATION: Patient is lying in the bed comfortably, no acute distress, awake alert and oriented.. HEENT: Normocephalic. Neck is supple. Pupils reactive. Nostrils clear. Oral cavity is moist. Ears reveal no drainage. Neck reveals no JVD, carotid bruits, or thyromegaly. CHEST EXAMINATION: Trachea is central. Symmetrical expansion. Lung dominguez clear to auscultation and percussion. CARDIAC: Normal S1, S2 with no gallops. No murmurs ABDOMEN: Soft. Periumbilical hernia noted with mild tenderness. No guarding no rigidity.Bowel sounds normal. No organomegaly. No abdominal bruits. Extremities: reveal no edema. No clubbing or cyanosis Neurologically awake, alert, oriented x3 with well-coordinated movements. No focal deficits noted Skin: No rash or skin lesions. Psychiatric: Coperative. Nonsuicidal Musculoskeletal: No joint swelling or deformity. Normal range of motion. - Labs CBC & Chem 7: 02/24/20 06:56 02/24/20 06:56 Assessment and Plan Assessment: Abdominal pain could be due to large periumbilical hernia versus irritable bowel syndrome. No evidence of incarceration noted on the CT. History of small bowel obstruction secondary to adhesions status post exploratory laparotomy, lysis of additions and small bowel resection and repair of incisional hernia on 08/11/2019 Irritable bowel syndrome patient is on Bentyl 4 times daily at home. GERD History of seizure disorder Memory impairment Osteoarthritis Anxiety/depression and panic disorder History of cocaine use DVT prophylaxis with heparin subcu Plan: Patient will be continued on IV hydration and pain management. Abdominal binder was ordered. Liquid diet and symptomatic management for nausea. Continue with home medications include Bentyl and cholestyramine. Patient is being discharged home today. Improved symptomatically.. Time with Patient: Greater than 30
== END 2020-02-26 13:24 | disposition home or self-care (01) ==
LOC: EC 19:55 → 6PED 02-24 00:20
PROVIDERS: ADMIT Surgery; ATTEND Surgery
DX: K43.2 Incisional hernia without obstruction or gangrene (principal); K21.9 Gastro-esophageal reflux disease without esophagitis; R41.3 Other amnesia; M19.90 Unspecified osteoarthritis, unspecified site; Z79.891 Long term (current) use of opiate analgesic; K58.9 Irritable bowel syndrome, unspecified; K57.30 Diverticulosis of large intestine without perforation or abscess without bleeding; Z86.010 Personal history of colon polyps; Z87.11 Personal history of peptic ulcer disease; G89.29 Other chronic pain; M54.9 Dorsalgia, unspecified; E66.01 Morbid (severe) obesity due to excess calories; Z68.38 Body mass index [BMI] 38.0-38.9, adult; G43.919 Migraine, unspecified, intractable, without status migrainosus; L50.8 Other urticaria; Z86.2 Personal history of diseases of the blood and blood-forming organs and certain disorders involving the immune mechanism; Z87.09 Personal history of other diseases of the respiratory system; Z87.440 Personal history of urinary (tract) infections; Z87.898 Personal history of other specified conditions; I83.90 Asymptomatic varicose veins of unspecified lower extremity; F40.240 Claustrophobia; F41.9 Anxiety disorder, unspecified; F32.9 Major depressive disorder, single episode, unspecified; F41.0 Panic disorder [episodic paroxysmal anxiety]; Z90.49 Acquired absence of other specified parts of digestive tract; Z90.710 Acquired absence of both cervix and uterus; Z98.42 Cataract extraction status, left eye; Z98.41 Cataract extraction status, right eye; Z96.1 Presence of intraocular lens; Z98.890 Other specified postprocedural states; Z90.722 Acquired absence of ovaries, bilateral; Z84.1 Family history of disorders of kidney and ureter; Z80.1 Family history of malignant neoplasm of trachea, bronchus and lung; Z85.068 Personal history of other malignant neoplasm of small intestine; Z79.899 Other long term (current) drug therapy; Z88.8 Allergy status to other drugs, medicaments and biological substances; Z88.1 Allergy status to other antibiotic agents; Z88.0 Allergy status to penicillin; Z91.013 Allergy to seafood
CPT/HCPCS: 96361 ×2; 96372 ×3; 96375 ×3; 96376 ×5; 96374; 99285; 36415; 93005; 80053 ×2; 82150; 83605; 83690; 85025 ×2; 81001; 74177; G0378 ×3; J1200; J1644 ×3; J1100; J2405 ×4; J1170 ×5; Q9967

== ENCOUNTER 2020-02-29 06:55 | Inpatient (IN) | payer MEDICARE ==
[2020-02-27 12:12] VITALS: BMI 38.5
[~2020-02-29 06:55] MED LIST: ACETAMINOPHEN TAB 500 MG TAB PO PRN; DEXAMETHASONE SOD PHOSPHATE 4 MG/ML 1 ML VIAL IV ONE; HEPARIN SODIUM,PORCINE 5,000 UNIT/ML 1 ML VIAL SQ PRN; LIDOCAINE 1% (10MG/ML) FOR IV START INTRADERMA PRN; ONDANSETRON 4 MG/2 ML VIAL IVP ONE; VANCOMYCIN 1,500 MG in SODIUM CHLORIDE 0.9% 250 ML IVPB PRN
[2020-02-29] MEDS: LACTATED RINGERS 1,000 ML IV SCH (07:35)
[2020-02-29] MEDS ORDERED: SCOPOLAMINE 1.5MG/72HR PATCH TRANSDERM ONE (07:52)
[2020-02-29] MEDS ORDERED: MIDAZOLAM 2 MG/2 ML VIAL IV ONE (07:54)
[2020-02-29] MEDS ORDERED: KETAMINE 10 MG/ML 20 ML VIAL ONE (08:13)
[2020-02-29] MEDS ORDERED: PROPOFOL 10 MG/ML 20 ML VIAL IV ONE (08:13)
[2020-02-29] MEDS ORDERED: HYDROmorphone (PF) 1 MG/ML ONE (08:13)
[2020-02-29] MEDS ORDERED: ROCURONIUM 10 MG/ML (10 ML VIAL) IV ONE (08:13)
[2020-02-29] MEDS ORDERED: NEOSTIGMINE 1 MG/ML 10 ML VIAL ONE (08:13)
[2020-02-29] MEDS ORDERED: MIDAZOLAM 2 MG/2 ML VIAL ONE (08:13)
[2020-02-29] MEDS ORDERED: SUCCINYLCHOLINE CHLORIDE 100 MG/5 ML SYR IV ONE (08:13)
[2020-02-29] MEDS ORDERED: LIDOCAINE 1% INJ 10MG/ML (20 ML MDV) ONE (08:13)
[2020-02-29] MEDS ORDERED: fentaNYL (PF) 50 MCG/ML 2 ML AMP ONE (08:13)
[2020-02-29] MEDS ORDERED: GLYCOPYRROLATE 0.2 MG/ML 2 ML VIAL ONE (08:13)
[2020-02-29] MEDS ORDERED: LIDOCAINE 1%-EPI 1:100,000 20 ML VIAL SQ ONE (08:51)
[2020-02-29] MEDS ORDERED: LACTATED RINGERS 1,000 ML IV ONE ×2 (09:41→09:53)
[2020-02-29] MEDS ORDERED: NALOXONE 0.4 MG/ML 1 ML VIAL IV PRN (09:53)
[2020-02-29] MEDS ORDERED: HYDROmorphone 0.5 MG/0.5 ML SYRINGE IVP PRN (09:53)
[2020-02-29] MEDS ORDERED: traMADol 50 MG TAB PO PRN (09:53)
[2020-02-29] MEDS ORDERED: diphenhydrAMINE 50 MG/ML 1 ML VIAL IVP ONE (10:10)
[2020-02-29] MEDS: HYDROmorphone 1 MG/ML 1 ML SYRINGE IVP ONE ×2 (10:11→10:28)
[2020-02-29] MEDS: MIDAZOLAM 2 MG/2 ML VIAL IVP ONE ×3 (10:44→12:01)
[2020-02-29] MEDS: fentaNYL (PF) 50 MCG/ML 2 ML AMP IVP ONE ×3 (10:45→12:01)
--- NOTE | 2020-02-29 10:52 | P.GSHP ---
History of Present Illness H&P Date: 02/29/20 Chief Complaint: Incisional hernia This 59-year-old female presents today for laparoscopic repair of incisional hernia. Patient developed a large incisional hernia along her midline laparotomy scar. Past Medical History Past Medical History: GERD/Reflux, Hyperlipidemia, Hypertension, Memory Impairment, Osteoarthritis (OA), Seizure Disorder Additional Past Medical History / Comment(s): IBS-pt states she has 6-7 loose BM's daily for many years, diverticular disease, benign colon polyps, past stomach ulcer, hemorrhoids, chronic back pain, past migraines, chronic urticaria/hives, past anemia, bronchitis, sinus problems, varicosities, UTI, seizure once in 2018, recent adm. for abd. pain-d/c 02-26-20, states had rectal prolapse this am, was able to push back in, did discuss w/Dr. Romero this am per pt. History of Any Multi-Drug Resistant Organisms: None Reported Past Surgical History: Adenoidectomy, Appendectomy, Cholecystectomy, Hysterectomy, Orthopedic Surgery, Tonsillectomy Additional Past Surgical History / Comment(s): left knee ligaments/meniscus, ORIF R ankle with screws/pins, colonoscopy/benign polypectomy, EGD, R inguinal hernia, partial hysterectomy then another surgery for bilateral salpingo ophorectomy/repair of abdominal muscles with mesh, bilateral cataract removal/lens implants. Past Anesthesia/Blood Transfusion Reactions: Motion Sickness, Postoperative Nausea & Vomiting (PONV) Additional Past Anesthesia/Blood Transfusion Reaction / Comment(s): claust rophobia. 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 Medications and Allergies Home Medications Medication Instructions Recorded Confirmed Type FLUoxetine HCL [PROzac] 20 mg PO DAILY #14 cap 08/25/17 02/29/20 Rx Albuterol Sulfate [Albuterol 2 puff INHALATION RT-Q4H PRN 08/10/19 02/29/20 History Sulfate Hfa] Diphenoxylate HCl/Atropine 1 - 2 tab PO Q4-6H PRN 08/10/19 02/29/20 History [Lomotil 2.5-0.025 mg Tablet] EPINEPHrine (Auto Inject) [Epipen] 0.3 mg IM ONCE PRN 08/10/19 02/29/20 History Promethazine [Phenergan] 25 mg PO TID PRN 08/10/19 02/29/20 History Atorvastatin [Lipitor] 10 mg PO HS 30 Days #30 tab 08/16/19 02/29/20 Rx Pantoprazole Sodium [Protonix] 40 mg PO DAILY 30 Days #30 08/16/19 02/29/20 Rx tablet. Dicyclomine [Bentyl] 20 mg PO QID 08/20/19 02/29/20 History Fluticasone Nasal [place] [Flonase 2 spray EA NOSTRIL DAILY PRN 08/20/19 02/29/20 History Nasal [place]] Metoprolol Tartrate [Lopressor] 12.5 mg PO BID 08/20/19 02/29/20 History Cholestyramine (with Sugar) 4 gm PO BID 30 Days pack 08/29/19 02/29/20 Rx [Cholestyramine Packet] traMADol HCL 50 mg PO Q6H PRN 02/23/20 02/29/20 History Acetaminophen-Codeine 300-30mg 1 tab PO Q4H PRN 3 Days #18 tablet 02/24/20 02/29/20 Rx [Tylenol w/codeine #3] Allergies Allergy/AdvReac Type Severity Reaction Status Date / Time clindamycin [From Cleocin] Allergy Severe Rash/Hives Verified 02/29/20 07:21 cefaclor [From Ceclor] Allergy Unknown Rash/Hives Verified 02/29/20 07:21 shellfish derived Allergy Unknown Rash/Hives Verified 02/29/20 07:21 amoxicillin [From Augmentin] AdvReac Nausea & Verified 02/29/20 07:21 Vomiting & Diarrhea clavulanic acid AdvReac Nausea & Verified 02/29/20 07:21 [From Augmentin] Vomiting & Diarrhea COMPAZINE IV AdvReac ANXIETY Uncoded 02/29/20 07:21 Surgical - Exam Vital Signs Temp Pulse Resp BP Pulse Ox 97.9 F 81 18 130/62 95 02/29/20 07:19 02/29/20 07:19 02/29/20 07:19 02/29/20 07:19 02/29/20 07:19 - General well developed, well nourished, no distress - Eyes PERRL - ENT normal pinna - Neck no masses - Respiratory normal expansion - Cardiovascular Rhythm: regular - Abdomen Abdomen: soft, non tender Hernia: incisional (10 cm incisional hernia) Assessment and Plan Assessment: Incisional hernia. We'll perform laparoscopic robotic system repair.
--- NOTE | 2020-02-29 11:03 | P.OP ---
Date of Procedure: 02/29/20 Preoperative Diagnosis: Incisional hernia Postoperative Diagnosis: Incisional hernia Extensive Adhesions Procedure(s) Performed: Diagnostic laparoscopy Lysis of extensive adhesions Open repair of incisional hernia with mesh Partial omentectomy Anesthesia: CLAIR Surgeon: Erik Romero Pathology: other (Omentum) Condition: stable Disposition: PACU Description of Procedure: Patient's placed on the operative table in supine position. She received general anesthesia. Her abdomen was prepped and draped usual sterile fashion. A 5 mm trochars placed under vision in the left upper quadrant. The abdomen was insufflated. After adequate insufflation the laparoscope placed back the peritoneal cavity. There were extensive adhesions noted along the anterior abdominal wall. This point decided to perform an open repair. The trochars withdrawn. The skin was incised along the previous midline scar. Then using cautery the subcutaneous tissues were divided off the hernia sac hernia sac was opened. There was incarcerated omentum and bowel within the hernia sac. Portions the omentum appeared to be nonviable. This was transected with the Enseal device and sent to pathology. The small bowel which was stuck in the hernia sac was then lysed using sharp dissection. There were extensive adhesio ns only. Cavity. These were lysed with sharp dissection. Prostate 40 minutes of operative time used to lyse adhesions. The fascia was then repaired using 3- 0 Ethibond suture. #16 was then placed on top of the repair and secured to the fascia. Prolene mesh the patient top apparent secured the secure strand tacker. A MASON drains placed through separate stab incision and brought out through the left upper quadrant. Valentín's fascia was opened Vicryl. Skin was closed with nicho. Patient top she will was sent to recovery room in stable condition.
[2020-02-29] MEDS: KETOROLAC 15 MG/ML 1 ML VIAL IVP SCH ×2 (14:33→18:08)
[2020-02-29] MEDS ORDERED: ALBUTEROL HFA INHALER INHALATION PRN (16:10)
[2020-02-29] MEDS ORDERED: FLUTICASONE 50MCG/SPRAY NASAL 16GM EA NOSTRIL PRN (16:10)
[2020-02-29] MEDS: Acetaminophen-Codeine 300-30mg TAB PO PRN ×2 (16:37→20:39)
[2020-02-29] MEDS: ONDANSETRON 4 MG/2 ML VIAL IVP PRN (18:15)
[2020-02-29] MEDS: METOPROLOL TARTRATE 12.5 MG TAB PO SCH (20:35)
[2020-02-29] MEDS: ATORVASTATIN 10 MG TAB PO SCH (20:36)
[2020-02-29] MEDS: HYDROmorphone 1 MG/ML 1 ML SYRINGE IVP PRN (21:47)
[2020-02-29 21:51] LABS: Basophils % (A) 0 %; Eosinophils # (A) 0.1 k/uL (0-0.7); Eosinophils % (A) 1 %; HGB 12.1 gm/dL (11.4-16.0); Lymphocytes % (A) 11 %; MCH 29.1 pg (25.0-35.0); MCHC 33.5 g/dL (31.0-37.0); MCV 86.7 fL (80.0-100.0); Mean Platelet Volume 7.2; Monocytes # (A) 0.4 k/uL (0-1.0); Monocytes % (A) 5 %; Neutrophils # (A) 7.2 k/uL (1.3-7.7); Neutrophils % (A) 83 %; Platelet Count 193 k/uL (150-450); RBC 4.15 m/uL (3.80-5.40); RDW 13.1 % (11.5-15.5); WBC 8.7 k/uL (3.8-10.6)
--- NOTE | 2020-02-29 22:10 | P.CON ---
Consult Note - . Consult date: 02/29/20 Assessment/Plan:: Consultation for medical management for postsurgical for open repair of incisional hernia with mesh, lysis of extensive adhesions, and partial omentectomy Assessment Incisional hernia with obstruction GERD/reflux Hyperlipidemia Hypertension Memory impairment Osteoarthritis Seizure disorder Plan Continue home medications Continue to monitor diagnostic labs Continue to monitor vital signs Continue medical management
[2020-03-01] MEDS: KETOROLAC 15 MG/ML 1 ML VIAL IVP SCH ×4 (00:04→17:33)
[2020-03-01] MEDS: HYDROmorphone 1 MG/ML 1 ML SYRINGE IVP PRN ×6 (00:40→20:06)
[2020-03-01 06:24] LABS: Basophils % (A) 0 %; Eosinophils % (A) 0 %; Lymphocytes # (A) 1.6 k/uL (1.0-4.8); Lymphocytes % (A) 20 %; MCH 29.2 pg (25.0-35.0); MCHC 33.3 g/dL (31.0-37.0); MCV 87.5 fL (80.0-100.0); Mean Platelet Volume 7.2; Monocytes # (A) 0.5 k/uL (0-1.0); Monocytes % (A) 6 %; Neutrophils # (A) 5.8 k/uL (1.3-7.7); Neutrophils % (A) 72 %; Platelet Count 186 k/uL (150-450); RBC 4.11 m/uL (3.80-5.40); WBC 8.1 k/uL (3.8-10.6)
[2020-03-01] MEDS: LACTATED RINGERS 1,000 ML IV SCH (06:39)
[2020-03-01 07:19] LABS: ALT 18 U/L (4-34); AST 21 U/L (14-36); African American GFR (CKD) >90 (>60 ml/min/1.73 sqM); Albumin 3.1 g/dL (3.5-5.0); Albumin/Globulin Ratio 1.3; Alkaline Phosphatase 86 U/L (38-126); Anion Gap 4 mmol/L; Blood Urea Nitrogen 8 mg/dL (7-17); Calcium 8.5 mg/dL (8.4-10.2); Carbon Dioxide 27 mmol/L (22-30); Chloride 107 mmol/L (98-107); Globulin 2.3 g/dL; Glucose 99 mg/dL (74-99); Magnesium 1.9 mg/dL (1.6-2.3); Non-African American GFR(CKD) >90 (>60 ml/min/1.73 sqM); Potassium 3.8 mmol/L (3.5-5.1); Sodium 138 mmol/L (137-145); Total Bilirubin 0.6 mg/dL (0.2-1.3); Total Protein 5.4 g/dL (6.3-8.2)
[2020-03-01] MEDS: METOPROLOL TARTRATE 12.5 MG TAB PO SCH ×2 (07:46→20:05)
[2020-03-01] MEDS: ENOXAPARIN 40 MG/0.4 ML SYRINGE SQ SCH (07:46)
[2020-03-01] MEDS: FLUoxetine HCL 20 MG CAP PO SCH (07:47)
[2020-03-01] MEDS: PANTOPRAZOLE 40 MG TABLET PO SCH (07:47)
[2020-03-01] MEDS: Acetaminophen-Codeine 300-30mg TAB PO PRN (07:58)
[2020-03-01] MEDS: ONDANSETRON 4 MG/2 ML VIAL IVP PRN (09:07)
--- NOTE | 2020-03-01 14:17 | P.PN ---
Subjective Progress Note Date: 03/01/20 CHIEF COMPLAINT: Incisional hernia HISTORY OF PRESENT ILLNESS: Patient is postop day #1 status post diagnostic laparoscopy, lysis of extensive adhesions, open repair of incisional hernia with mesh and partial omentectomy for incisional hernia and extensive adhesions. Patient had been complaining of some nausea and decreased appetite. She reports that her abdominal pain is controlled. She is passing gas. No bowel movement. Afebrile. WBC 8.1 PHYSICAL EXAM: VITAL SIGNS: Reviewed. GENERAL: Well-developed in no acute distress. HEENT: No sclera icterus. Extraocular movements grossly intact. Moist buccal mucosa. Head is atraumatic, normocephalic. ABDOMEN: Soft. Nondistended. Dressing clean dry and intact. MASON drain with sanguinous fluid. She has abdominal binder NEUROLOGIC: Alert and oriented. Cranial nerves II through XII grossly intact. ASSESSMENT: 1. Status post diagnostic laparoscopy, lysis of extensive adhesions, open repair of incisional hernia with mesh and partial omentectomy for incisional hernia and extensive adhesions PLAN: -Hep-Lock IV -Advance diet to full liquids -Continue pain medication as needed -Order incentive spirometer -Encourage patient to ambulate -Anticipate discharge possibly tomorrow Physician Payroll Accounting Manager note has been reviewed by physician. Signing provider agrees with the documented findings, assessment, and plan of care. Objective - Vital Signs Vital signs: Vital Signs Temp 98.6 F 03/01/20 13:01 Pulse 73 03/01/20 13:01 Resp 18 03/01/20 13:01 BP 110/67 03/01/20 13:01 Pulse Ox 92 L 03/01/20 13:01 Intake & Output 02/29/20 03/01/20 03/01/20 18:59 06:59 18:59 Intake Total 1950 Output Total 25 65 Balance 1925 -65 Weight 97.1 kg Intake: IV 1950 Output: Drainage 65 Abdomen 65 Estimated Blood Loss 25 Other: Voiding Method Bedpan Bedpan # Voids 2 3 - Labs CBC & Chem 7: 03/01/20 05:30 03/01/20 05:30 Labs: Abnormal Lab Results - Last 24 Hours (Table) 03/01/20 Range/Units 05:30 Total Protein 5.4 L (6.3-8.2) g/dL Albumin 3.1 L (3.5-5.0) g/dL
--- NOTE | 2020-03-01 16:17 | P.PN ---
Subjective Progress Note Date: 03/01/20 Principal diagnosis: Postsurgical open repair of incisional hernia with mesh, lYSIS of extensive adhesions, and partial OMENTECTOMY Evaluated patient this a.m., patient resting comfortably in bed, patient complaint of intermittent abdominal pain postsurgical patient receiving analgesics therapy for moderate to severe pain. Post surgical site well approximated no signs and symptoms of infection patient hemodynamically stable reviewed labs and medications. Continue medical consultation for medical management for postsurgical procedure. Objective - Vital Signs Vital signs: Vital Signs Temp 98.7 F 03/01/20 15:20 Pulse 74 03/01/20 15:20 Resp 20 03/01/20 15:20 BP 114/66 03/01/20 15:20 Pulse Ox 93 L 03/01/20 15:20 Intake & Output 02/29/20 03/01/20 03/01/20 18:59 06:59 18:59 Intake Total 1950 Output Total 25 90 Balance 1925 - Weight 97.1 kg Intake: IV 1950 Output: Drainage 90 Abdomen 90 Estimated Blood Loss 25 Other: Voiding Method Bedpan Bedpan # Voids 2 3 - Constitutional General appearance: Present: morbidly obese - EENT Eyes: Present: EOMI, PERRLA ENT: Present: normal oropharynx Ears: bilateral: normal - Neck Carotids: bilateral: upstroke normal Thyroid: bilateral: normal size - Respiratory Respiratory: bilateral: CTA - Cardiovascular Heart sounds: normal: S1, S2 - Peripheral pulses dorsalis pedis Peripheral Pulses: bilateral: Normal radial pulse Peripheral Pulses: bilateral: Normal - Gastrointestinal General gastrointestinal: Present: decreased bowel sounds, tenderness Localized gastrointestinal: tender: diffuse - Genitourinary Female genitourinary: prolapse - Integumentary Integumentary: Present: normal turgor - Neurologic Neurologic: Present: CNII-XII intact - Musculoskeletal Musculoskeletal: Present: generalized weakness - Psychiatric Psychiatric: Present: A&O x's 3, appropriate affect, intact judgment & insight - Allied health notes Allied health notes reviewed: nursing - Labs CBC & Chem 7: 03/01/20 05:30 03/01/20 05:30 Labs: Abnormal Lab Results - Last 24 Hours (Table) 03/01/20 Range/Units 05:30 Total Protein 5.4 L (6.3-8.2) g/dL Albumin 3.1 L (3.5-5.0) g/dL Assessment and Plan Assessment: Incisional hernia with Obstruction [place] repair of incisional hernia with mesh, lysis of extensive adhesions, and partial omentectomy-surgical team to continue management Gerd hyperlipidemia hypertension memory impairment osteoarthritis seizure disorder Plan: Continue home medications continue to admire diagnostic labs continue to monitor vital signs continue medical management of postsurgical patient Time with Patient: Greater than 30
[2020-03-01 20:05] LABS: ALT 14 U/L (4-34); AST 20 U/L (14-36); African American GFR (CKD) >90 (>60 ml/min/1.73 sqM); Albumin 2.9 g/dL (3.5-5.0); Albumin/Globulin Ratio 1.2; Alkaline Phosphatase 80 U/L (38-126); Anion Gap 3 mmol/L; Blood Urea Nitrogen 8 mg/dL (7-17); Carbon Dioxide 28 mmol/L (22-30); Chloride 106 mmol/L (98-107); Globulin 2.4 g/dL; Glucose 96 mg/dL (74-99); Non-African American GFR(CKD) >90 (>60 ml/min/1.73 sqM); Potassium 3.7 mmol/L (3.5-5.1); Sodium 137 mmol/L (137-145); Total Bilirubin 0.6 mg/dL (0.2-1.3); Total Protein 5.3 g/dL (6.3-8.2)
[2020-03-01] MEDS: ATORVASTATIN 10 MG TAB PO SCH (20:05)
[2020-03-02] MEDS: DICYCLOMINE 20 MG TAB PO PRN ×2 (01:02→09:28)
[2020-03-02] MEDS: HYDROmorphone 1 MG/ML 1 ML SYRINGE IVP PRN (01:14)
[2020-03-02] MEDS: KETOROLAC 15 MG/ML 1 ML VIAL IVP SCH ×2 (01:16→06:04)
[2020-03-02] MEDS: LACTATED RINGERS 1,000 ML IV SCH (06:34)
[2020-03-02 07:09] VITALS: RESP 18
[2020-03-02] MEDS ORDERED: HYDROcodone/APAP 7.5-325MG 1 EACH TAB PO PRN (08:42)
--- NOTE | 2020-03-02 08:51 | P.PN ---
Subjective Progress Note Date: 03/02/20 Principal diagnosis: Postsurgical open repair of incisional hernia with mesh, lYSIS of extensive adhesions, and partial OMENTECTOMY Evaluated patient this a.m., patient resting comfortably in bed, patient complaint of intermittent abdominal pain postsurgical patient receiving analgesics therapy for mild to moderate. Post surgical site well approximated no signs and symptoms of infection patient hemodynamically stable reviewed labs and medications. Continue medical consultation for medical management for postsurgical procedure. Objective - Vital Signs Vital signs: Vital Signs Temp 98 F 03/02/20 07:07 Pulse 76 03/02/20 07:50 Resp 18 03/02/20 07:50 BP 125/65 03/02/20 07:07 Pulse Ox 91 L 03/02/20 07:07 Intake & Output 03/01/20 03/02/20 03/02/20 18:59 06:59 18:59 Output Total 90 Balance -90 Output: Drainage 90 Abdomen 90 Other: Voiding Method Bedpan # Voids 3 3 - Constitutional General appearance: Present: cooperative - EENT Eyes: Present: EOMI, PERRLA Ears: bilateral: normal - Neck Neck: Present: normal ROM Carotids: bilateral: upstroke normal Thyroid: bilateral: normal size - Respiratory Respiratory: bilateral: CTA - Cardiovascular Rhythm: regular Heart sounds: normal: S1, S2 - Peripheral pulses dorsalis pedis Peripheral Pulses: bilateral: Normal radial pulse Peripheral Pulses: bilateral: Normal - Gastrointestinal Gastrointestinal Comment(s): Postsurgical abdomen well approximated no signs of infection General gastrointestinal: Present: absent bowel sounds, soft - Integumentary Integumentary: Present: pale - Neurologic Neurologic: Present: CNII-XII intact - Musculoskeletal Musculoskeletal: Present: gait normal - Psychiatric Psychiatric: Present: A&O x's 3 - Allied health notes Allied health notes reviewed: nursing - Labs CBC & Chem 7: 03/01/20 05:30 03/01/20 19:28 Labs: Abnormal Lab Results - Last 24 Hours (Table) 03/01/20 Range/Units 19:28 Calcium 8.0 L (8.4-10.2) mg/dL Total Protein 5.3 L (6.3-8.2) g/dL Albumin 2.9 L (3.5-5.0) g/dL - Imaging and Cardiology Chest x-ray: pending Abdominal x-ray: pending Assessment and Plan Assessment: Incisional hernia with Obstruction [place] repair of incisional hernia with mesh, lysis of extensive adhesions, and partial omentectomy-surgical team to continue management Gerd hyperlipidemia hypertension memory impairment osteoarthritis seizure disorder Plan: Continue home medications continue to monitor diagnostic labs continue to monitor vital signs continue medical management of postsurgical patient Discontinue IV analgesics, by mouth analgesics for pain intensity From medical standpoint okay for discharge awaiting surgical clearance for discharge Time with Patient: Greater than 30
[2020-03-02] MEDS: METOPROLOL TARTRATE 12.5 MG TAB PO SCH (09:15)
[2020-03-02] MEDS: FLUoxetine HCL 20 MG CAP PO SCH (09:15)
[2020-03-02] MEDS: ENOXAPARIN 40 MG/0.4 ML SYRINGE SQ SCH (09:16)
[2020-03-02] MEDS: PANTOPRAZOLE 40 MG TABLET PO SCH (09:19)
[2020-03-02] MEDS: ONDANSETRON 4 MG/2 ML VIAL IVP PRN (09:24)
--- NOTE | 2020-03-02 10:09 | XR ---
EXAMINATION TYPE: XR abdomen acute w cxr DATE OF EXAM: 03/02/2020 COMPARISON: Acute abdomen with chest x-ray HISTORY: Postop bowel resection, history surgery TECHNIQUE: Supine, upright, and frontal chest views of the abdomen are obtained. FINDINGS: Patchy basilar density is present. Safety pin is present in the left upper quadrant, surgi fani clips in the right upper quadrant. There is an indwelling drain. There are overlying nicho. There is no evidence for pneumoperitoneum. The bowel gas pattern is unremarkable as there is air throughout nondilated small and large bowel. Air-fluid levels are present without bowel distention. No mass effects are seen. No unusual calcifications. IMPRESSION: Findings may represent an ileus, follow-up as indicated. There may be basilar atelectasis, correlate to exclude pneumonia.
[2020-03-02 11:06] LABS: Basophils % (A) 1 %; Eosinophils # (A) 0.2 k/uL (0-0.7); Eosinophils % (A) 3 %; HCT 37.7 % (34.0-46.0); HGB 12.4 gm/dL (11.4-16.0); Lymphocytes # (A) 1.5 k/uL (1.0-4.8); Lymphocytes % (A) 22 %; MCH 28.7 pg (25.0-35.0); Mean Platelet Volume 7.7; Monocytes # (A) 0.5 k/uL (0-1.0); Monocytes % (A) 8 %; Neutrophils # (A) 4.4 k/uL (1.3-7.7); Neutrophils % (A) 65 %; Platelet Count 184 k/uL (150-450); RBC 4.33 m/uL (3.80-5.40); RDW 12.9 % (11.5-15.5); WBC 6.8 k/uL (3.8-10.6)
[2020-03-02 12:11] VITALS: BP 133/77; PULSE 70; TEMP 98.5
--- NOTE | 2020-03-02 13:14 | P.DS ---
Providers Date of admission: 02/29/20 09:53 Expected date of discharge: 03/02/20 Attending physician: Erik Romero Consults: 02/29/20 09:53 Consult Physician Routine Consulting Provider: Tommy Stokes Consult Reason/Comments: Medical management Do you want consulting provider notified?: Yes Primary care physician: Tommy Stokes Hospital Course: Discharge diagnosis 1. Status post diagnostic laparoscopy, lysis of extensive adhesions, open repair of incisional hernia with mesh and partial omentectomy for incisional hernia and extensive adhesions 2. Atelectasis Hospital course his 59-year-old female presents for laparoscopic repair of incisional hernia. Patient developed a large incisional hernia along her midline laparotomy scar. Patient is status post diagnostic laparoscopy, lysis of extensive adhesions, open repair of incisional hernia with mesh and partial omentectomy for incisional hernia and extensive adhesions. Patient tolerated surgery well. She reports her pain controlled. She is tolerating diet. She is passing flatus. She is ambulating. She is currently afebrile. Patient did have a mild low- grade temp of 100.3 last night likely related to atelectasis. Patient is stable for discharge. Please refer to chart for any further details. Physician [id number] Software Engineer note has been reviewed by physician. Signing provider agrees with the documented findings, assessment, and plan of care. Patient Condition at Discharge: Stable Plan - Discharge Summary Discharge Rx Participant: Yes New Discharge Prescriptions: New HYDROcodone/APAP 7.5-325MG [[place] 7.5-325] 1 tab PO Q6HR PRN 3 Days #12 tab PRN Reason: Pain Continue FLUoxetine HCL [PROzac] 20 mg PO DAILY #14 cap Albuterol Sulfate [Albuterol Sulfate Hfa] 2 puff INHALATION RT-Q4H PRN PRN Reason: Shortness Of Breath EPINEPHrine (Auto Inject) [Epipen] 0.3 mg IM ONCE PRN PRN Reason: Anaphylaxis Diphenoxylate HCl/Atropine [Lomotil 2.5-0.025 mg Tablet] 1 - 2 tab PO Q4-6H PRN PRN Reason: IBS Promethazine [Phenergan] 25 mg PO TID PRN PRN Reason: Nausea Atorvastatin [Lipitor] 10 mg PO HS 30 Days #30 tab Pantoprazole Sodium [Protonix] 40 mg PO DAILY 30 Days #30 tablet. Metoprolol Tartrate [Lopressor] 12.5 mg PO BID Fluticasone Nasal [place] [Flonase Nasal [place]] 2 spray EA NOSTRIL DAILY PRN PRN Reason: Allergy Symptoms Dicyclomine [Bentyl] 20 mg PO QID Discontinued Cholestyramine (with Sugar) [Cholestyramine Packet] 4 gm PO BID 30 Days pack traMADol HCL 50 mg PO Q6H PRN PRN Reason: Pain Acetaminophen-Codeine 300-30mg [Tylenol w/codeine #3] 1 tab PO Q4H PRN 3 Days #18 tablet PRN Reason: Pain Discharge Medication List FLUoxetine HCL [PROzac] 20 mg PO DAILY #14 cap 08/25/17 [Rx] Albuterol Sulfate [Albuterol Sulfate Hfa] 2 puff INHALATION RT-Q4H PRN 08/10/19 [History] Diphenoxylate HCl/Atropine [Lomotil 2.5-0.025 mg Tablet] 1 - 2 tab PO Q4-6H PRN 08/10/19 [History] EPINEPHrine (Auto Inject) [Epipen] 0.3 mg IM ONCE PRN 08/10/19 [History] Promethazine [Phenergan] 25 mg PO TID PRN 08/10/19 [History] Atorvastatin [Lipitor] 10 mg PO HS 30 Days #30 tab 08/16/19 [Rx] Pantoprazole Sodium [Protonix] 40 mg PO DAILY 30 Days #30 tablet. 08/16/19 [Rx] Dicyclomine [Bentyl] 20 mg PO QID 08/20/19 [History] Fluticasone Nasal [place] [Flonase Nasal [place]] 2 spray EA NOSTRIL DAILY PRN 08/20/19 [History] Metoprolol Tartrate [Lopressor] 12.5 mg PO BID 08/20/19 [History] HYDROcodone/APAP 7.5-325MG [[place] 7.5-325] 1 tab PO Q6HR PRN 3 Days #12 tab 03/02/20 [Rx] Follow up Appointment(s)/Referral(s): Erik Romero MD [STAFF PHYSICIAN] - 03/06/20 1:15 pm Activity/Diet/Wound Care/Special Instructions: No driving while taking [place] No lifting over 10 pounds You may shower. No soaking or tub baths for 2 weeks Very light activity until you are reevaluated at your follow up appointment with your surgeon Keep a log of MAS[place] drain output and bring with you to your follow-up appointment Milk/strip drains 2-3 times a day Discharge Disposition: HOME SELF-CARE
== END 2020-03-02 15:31 | disposition home or self-care (01) | DRG 354 ==
LOC: OR 06:55 → 4SSUR 09:38 → OR 09:53
PROVIDERS: ADMIT Surgery; ATTEND Surgery
PROC: 0DBU0ZZ Excision of Omentum, Open Approach (ICD-10-PCS; principal; 2020-02-29 08:30)
PROC: 0DJW4ZZ Inspection of Peritoneum, Percutaneous Endoscopic Approach (ICD-10-PCS; principal; 2020-02-29 08:30)
PROC: 0WUF0JZ Supplement Abdominal Wall with Synthetic Substitute, Open Approach (ICD-10-PCS; principal; 2020-02-29 08:30)
DX: K43.0 Incisional hernia with obstruction, without gangrene (principal); J98.11 Atelectasis; G40.909 Epilepsy, unspecified, not intractable, without status epilepticus; F17.200 Nicotine dependence, unspecified, uncomplicated; K21.9 Gastro-esophageal reflux disease without esophagitis; I10 Essential (primary) hypertension; K66.0 Peritoneal adhesions (postprocedural) (postinfection); M19.90 Unspecified osteoarthritis, unspecified site; E78.5 Hyperlipidemia, unspecified; Z96.1 Presence of intraocular lens; Z79.899 Other long term (current) drug therapy; Z90.711 Acquired absence of uterus with remaining cervical stump; Z87.19 Personal history of other diseases of the digestive system; Z87.11 Personal history of peptic ulcer disease; Z80.1 Family history of malignant neoplasm of trachea, bronchus and lung; Z90.49 Acquired absence of other specified parts of digestive tract; Z98.890 Other specified postprocedural states; Z98.42 Cataract extraction status, left eye; Z98.41 Cataract extraction status, right eye; Z87.440 Personal history of urinary (tract) infections; Z84.1 Family history of disorders of kidney and ureter; Z88.8 Allergy status to other drugs, medicaments and biological substances; Z88.1 Allergy status to other antibiotic agents; Z88.0 Allergy status to penicillin; Z91.013 Allergy to seafood
CPT/HCPCS: 74022; 80053; 83735; 85025; 88305

== ENCOUNTER 2020-11-06 16:38 | Emergency (ER) | payer MEDICARE ==
[2020-11-06 16:44] VITALS: TEMP 97.6
[2020-11-06] MEDS ORDERED: HYDROmorphone 0.5 MG/0.5 ML SYRINGE IVP STA ×3 (17:02→20:34)
[2020-11-06] MEDS ORDERED: SODIUM CHLORIDE 0.9% 1,000 ML IV STA (17:02)
[2020-11-06] MEDS ORDERED: ONDANSETRON 4 MG/2 ML VIAL IVP STA (17:02)
[2020-11-06] MEDS ORDERED: KETOROLAC 15 MG/ML 1 ML VIAL IVP STA (17:02)
--- NOTE | 2020-11-06 17:07 | ED ---
General Adult HPI - General Chief complaint: Chest Pain Stated complaint: chest pain/KRYSTYNA/abd pain Time Seen by Provider: 11/06/20 16:45 Source: patient, RN notes reviewed, old records reviewed Mode of arrival: ambulatory Limitations: no limitations - History of Present Illness Initial comments: This is a 60-year-old female presents emergency department stating that she has abdominal pain and chest pain. Patient states this past medical history of abd ominal surgery years ago and then had a ventral hernia which was repaired. Patient states today after she ate lunch she started having severe left-sided abdominal pain and heaviness on her chest. Patient states she was also somewhat short of breath. Patient states she has had no recent fever chills. Patient states she is extremely nauseous but has had no vomiting. Patient denies any diarrhea. Patient denies any back pain. Patient denies any dysuria hematuria urinary frequency. She states currently the abdominal pain is much worse in the chest pain but both still exist. - Related Data Home Medications Medication Instructions Recorded Confirmed Albuterol Sulfate [Albuterol 2 puff INHALATION RT-Q4H PRN 08/10/19 11/06/20 Sulfate Hfa] Diphenoxylate HCl/Atropine 1 - 2 tab PO Q4-6H PRN 08/10/19 11/06/20 [Lomotil 2.5-0.025 mg Tablet] Promethazine [Phenergan] 25 mg PO TID PRN 08/10/19 11/06/20 Dicyclomine [Bentyl] 20 mg PO QID 08/20/19 11/06/20 Fluticasone Nasal [place] [Flonase 2 spray EA NOSTRIL DAILY PRN 08/20/19 11/06/20 Nasal [place]] Metoprolol Tartrate [Lopressor] 12.5 mg PO BID 08/20/19 11/06/20 Cholestyramine (with Sugar) 4 gm PO BID 11/06/20 11/06/20 [Cholestyramine Packet] traMADol HCL [Ultram] 50 mg PO QID PRN 11/06/20 11/06/20 Previous Rx's Medication Instructions Recorded FLUoxetine HCL [PROzac] 20 mg PO DAILY #14 cap 08/25/17 Atorvastatin [Lipitor] 10 mg PO HS 30 Days #30 tab 08/16/19 Pantoprazole Sodium [Protonix] 40 mg PO DAILY 30 Days #30 08/16/19 tablet. Allergies Allergy/AdvReac Type Severity Reaction Status Date / Time clindamycin [From Cleocin] Allergy Severe Rash/Hives Verified 11/06/20 17:49 cefaclor [From Ceclor] Allergy Unknown Rash/Hives Verified 11/06/20 17:49 shellfish derived Allergy Unknown Rash/Hives Verified 11/06/20 17:49 amoxicillin [From Augmentin] AdvReac Nausea & Verified 11/06/20 17:49 Vomiting & Diarrhea clavulanic acid AdvReac Nausea & Verified 11/06/20 17:49 [From Augmentin] Vomiting & Diarrhea COMPAZINE IV AdvReac ANXIETY Uncoded 11/06/20 17:49 Review of Systems ROS Statement: Those systems with pertinent positive or pertinent negative responses have been documented in the HPI. ROS Other: All systems not noted in ROS Statement are negative. Past Medical History Past Medical History: GERD/Reflux, Hyperlipidemia, Hypertension, Memory Impairment, Osteoarthritis (OA), Seizure Disorder Additional Past Medical History / Comment(s): IBS-pt states she has 6-7 loose BM's daily for many years, diverticular disease, benign colon polyps, past stomach ulcer, hemorrhoids, chronic back pain, past migraines, chronic urticaria/hives, past anemia, bronchitis, sinus problems, varicosities, UTI, seizure once in 2018, recent adm. for abd. pain-d/c 02-26-20, states had rectal prolapse this am, was able to push back in, did discuss w/Dr. Romero this am per pt. History of Any Multi-Drug Resistant Organisms: None Reported Past Surgical History: Adenoidectomy, Appendectomy, Section, Cholecystectomy, Hysterectomy, Orthopedic Surgery, Tonsillectomy Additional Past Surgical History / Comment(s): left knee ligaments/meniscus, ORIF R ankle with screws/pins, colonoscopy/benign polypectomy, EGD, R inguinal hernia, partial hysterectomy then another surgery for bilateral salpingo ophorectomy/repair of abdominal muscles with mesh, bilateral cataract removal/lens implants. Past Anesthesia/Blood Transfusion Reactions: Motion Sickness, Postoperative Nausea & Vomiting (PONV) Additional Past Anesthesia/Blood Transfusion Reaction / Comment(s): claustrophobia. 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 Patient is nontoxic and well- hydrated and is in moderate distress. ENT: Neck is soft and supple. No significant lymphadenopathy is noted. Oropharynx is clear. Moist mucous membranes. Neck has full range of motion without eliciting any pain. EYES: The sclera were anicteric and conjunctiva were pink and moist. Extraocular movements were intact and pupils were equal round and reactive to light. Eyelids were unremarkable. PULMONARY: Unlabored respirations. Good breath sounds bilaterally. No audible rales rhonchi or wheezing was noted. CARDIOVASCULAR: There is a regular rate and rhythm without any murmurs gallops or rubs. ABDOMEN: Patient had significant left-sided abdominal pain. She also had mild right flank pain on palpation. SKIN: Skin is clear with no lesions or rashes and otherwise unremarkable. NEUROLOGIC: Patient is alert and oriented x3. Cranial nerves II through XII are grossly intact. Motor and sensory are also intact. Normal speech, volume and content. Symmetrical smile. MUSCULOSKELETAL: Normal extremities with adequate strength and full range of motion. LYMPHATICS: No significant lymphadenopathy is noted PSYCHIATRIC: Normal psychiatric evaluation. Limitations: no limitations Course Vital Signs 11/06/20 11/06/20 11/06/20 16:42 18:17 19:57 Temperature 97.6 F Pulse Rate 97 93 87 Respiratory 20 18 18 Rate Blood Pressure 158/95 116/84 O2 Sat by Pulse 97 94 L 94 L Oximetry Medical Decision Making - Medical Decision Making EKG shows normal sinus rhythm at 85 bpm FL interval is on a 42 QRS is 78 QT interval 366 QTC is 435. EKG shows no ST segment elevation or depression. CT showed no acute abnormality. I will back into the room and the patient was still having quite a bit of pain in the left side of her abdomen. Patient initially agreed to stay and I was going to consult Dr. Romero but after a little bit she called me back in the room and decided to sign out AMA and states she had an appointment with Dr. Romero on . - Lab Data Result diagrams: 11/06/20 17:08 11/06/20 17:08 Lab Results 11/06/20 11/06/20 11/06/20 Range/Units 17:08 17:08 17:08 WBC 7.7 (3.8-10.6) k/uL RBC 5.51 H (3.80-5.40) m/uL Hgb 15.5 (11.4-16.0) gm/dL Hct 47.3 H (34.0-46.0) % MCV 85.8 (80.0-100.0) fL MCH 28.2 (25.0-35.0) pg MCHC 32.8 (31.0-37.0) g/dL RDW 13.1 (11.5-15.5) % Plt Count 249 (150-450) k/uL MPV 7.2 Neutrophils % 60 % Lymphocytes % 32 % Monocytes % 5 % Eosinophils % 1 % Basophils % 1 % Neutrophils # 4.6 (1.3-7.7) k/uL Lymphocytes # 2.5 (1.0-4.8) k/uL Monocytes # 0.4 (0-1.0) k/uL Eosinophils # 0.1 (0-0.7) k/uL Basophils # 0.1 (0-0.2) k/uL PT (9.0-12.0) sec INR (<1.2) APTT (22.0-30.0) sec Sodium 142 (137-145) mmol/L Potassium 4.3 (3.5-5.1) mmol/L Chloride 109 H (98-107) mmol/L Carbon Dioxide 22 (22-30) mmol/L Anion Gap 11 mmol/L BUN 8 (7-17) mg/dL Creatinine 0.84 (0.52-1.04) mg/dL Est GFR (CKD-EPI)AfAm 86 (>60 ml/min/1.73 sqM) Est GFR (CKD-EPI)NonAf 75 (>60 ml/min/1.73 sqM) Glucose 142 H (74-99) mg/dL Plasma Lactic Acid Adan (0.7-2.0) mmol/L Calcium 9.8 (8.4-10.2) mg/dL Total Bilirubin 0.8 (0.2-1.3) mg/dL AST 29 (14-36) U/L ALT 26 (4-34) U/L Alkaline Phosphatase 131 H (38-126) U/L Troponin I (0.000-0.034) ng/mL Total Protein 7.5 (6.3-8.2) g/dL Albumin 4.5 (3.5-5.0) g/dL Amylase 52 (30-110) U/L Lipase 58 (23-300) U/L Urine Color Yellow Urine Appearance Clear (Clear) Urine pH 5.5 (5.0-8.0) Ur Specific [place] 1.017 (1.001-1.035) Urine Protein Trace H (Negative) Urine Glucose (UA) Negative (Negative) Urine Ketones Negative (Negative) Urine Blood Negative (Negative) Urine Nitrite Negative (Negative) Urine Bilirubin Negative (Negative) Urine Urobilinogen <2.0 (<2.0) mg/dL Ur Leukocyte Esterase Trace H (Negative) Urine RBC 1 (0-5) /hpf Urine WBC 3 (0-5) /hpf Ur Squamous Epith Cells 1 (0-4) /hpf Hyaline Casts 33 H (0-2) /lpf Urine Mucus Few H (None) /hpf 11/06/20 11/06/20 11/06/20 Range/Units 17:08 17:08 17:08 WBC (3.8-10.6) k/uL RBC (3.80-5.40) m/uL Hgb (11.4-16.0) gm/dL Hct (34.0-46.0) % MCV (80.0-100.0) fL MCH (25.0-35.0) pg MCHC (31.0-37.0) g/dL RDW (11.5-15.5) % Plt Count (150-450) k/uL MPV Neutrophils % % Lymphocytes % % Monocytes % % Eosinophils % % Basophils % % Neutrophils # (1.3-7.7) k/uL Lymphocytes # (1.0-4.8) k/uL Monocytes # (0-1.0) k/uL Eosinophils # (0-0.7) k/uL Basophils # (0-0.2) k/uL PT 10.1 (9.0-12.0) sec INR 0.9 (<1.2) APTT 22.0 (22.0-30.0) sec Sodium (137-145) mmol/L Potassium (3.5-5.1) mmol/L Chloride (98-107) mmol/L Carbon Dioxide (22-30) mmol/L Anion Gap mmol/L BUN (7-17) mg/dL Creatinine (0.52-1.04) mg/dL Est GFR (CKD-EPI)AfAm (>60 ml/min/1.73 sqM) Est GFR (CKD-EPI)NonAf (>60 ml/min/1.73 sqM) Glucose (74-99) mg/dL Plasma Lactic Acid Adan 1.4 (0.7-2.0) mmol/L Calcium (8.4-10.2) mg/dL Total Bilirubin (0.2-1.3) mg/dL AST (14-36) U/L ALT (4-34) U/L Alkaline Phosphatase (38-126) U/L Troponin I <0.012 (0.000-0.034) ng/mL Total Protein (6.3-8.2) g/dL Albumin (3.5-5.0) g/dL Amylase (30-110) U/L Lipase (23-300) U/L Urine Color Urine Appearance (Clear) Urine pH (5.0-8.0) Ur Specific [place] (1.001-1.035) Urine Protein (Negative) Urine Glucose (UA) (Negative) Urine Ketones (Negative) Urine Blood (Negative) Urine Nitrite (Negative) Urine Bilirubin (Negative) Urine Urobilinogen (<2.0) mg/dL Ur Leukocyte Esterase (Negative) Urine RBC (0-5) /hpf Urine WBC (0-5) /hpf Ur Squamous Epith Cells (0-4) /hpf Hyaline Casts (0-2) /lpf Urine Mucus (None) /hpf Disposition Clinical Impression: Abdominal pain Disposition: Left Against Medical Advice Referrals: Tommy Stokes MD [Primary Care Provider] - 1-2 days Time of Disposition: 20:33
[2020-11-06 17:17] LABS: Basophils # (A) 0.1 k/uL (0-0.2); Basophils % (A) 1 %; Eosinophils # (A) 0.1 k/uL (0-0.7); Eosinophils % (A) 1 %; HCT 47.3 % (34.0-46.0); HGB 15.5 gm/dL (11.4-16.0); Lymphocytes # (A) 2.5 k/uL (1.0-4.8); Lymphocytes % (A) 32 %; MCH 28.2 pg (25.0-35.0); MCHC 32.8 g/dL (31.0-37.0); MCV 85.8 fL (80.0-100.0); Mean Platelet Volume 7.2; Monocytes # (A) 0.4 k/uL (0-1.0); Monocytes % (A) 5 %; Neutrophils # (A) 4.6 k/uL (1.3-7.7); Neutrophils % (A) 60 %; Platelet Count 249 k/uL (150-450); RBC 5.51 m/uL (3.80-5.40); RDW 13.1 % (11.5-15.5); WBC 7.7 k/uL (3.8-10.6)
[2020-11-06 17:27] LABS: Albumin 4.5 g/dL (3.5-5.0); Calcium 9.8 mg/dL (8.4-10.2); Potassium 4.3 mmol/L (3.5-5.1); Total Bilirubin 0.8 mg/dL (0.2-1.3); Total Protein 7.5 g/dL (6.3-8.2)
[2020-11-06 17:32] LABS: INR 0.9 (<1.2); Prothrombin Time 10.1 sec (9.0-12.0)
--- NOTE | 2020-11-06 17:39 | XR ---
EXAMINATION TYPE: XR chest 2V DATE OF EXAM: 11/06/2020 COMPARISON: 03/02/2020 HISTORY: Postop TECHNIQUE: 2 views FINDINGS: There is no heart failure nor confluent pneumonic infiltrate. Costophrenic angles are clear . There are no hilar masses. Bony thorax is intact. IMPRESSION: No active cardiopulmonary disease. Normal heart. No change.
[2020-11-06 18:18] VITALS: RESP 18
[2020-11-06 18:27] LABS: Appearance,Urine Clear (Clear); Bilirubin,Urine Negative (Negative); Blood,Urine Negative (Negative); Color,Urine Yellow; Glucose,Urine (UA) Negative (Negative); Hyaline Casts,Urine 33 /lpf (0-2); Ketones,Urine Negative (Negative); Leukocyte Esterase,Urine Trace (Negative); Mucus,Urine Few /hpf; Nitrite,Urine Negative (Negative); PH, Urine 5.5 (5.0-8.0); Protein,Urine Trace (Negative); RBC,Urine 1 /hpf (0-5); Specific Gravity,Urine 1.017 (1.001-1.035); Squamous Epithelial Cell,Urine 1 /hpf (0-4); Urobilinogen,Urine <2.0 mg/dL (<2.0); WBC,Urine 3 /hpf (0-5)
--- NOTE | 2020-11-06 20:12 | CT ---
EXAMINATION TYPE: CT abdomen pelvis wo con DATE OF EXAM: 11/06/2020 COMPARISON: 02/23/2020 HISTORY: Generalized pain with prior history of obstruction CT DLP: 1078.4 mGycm Automated exposure control for dose reduction was used. Lung bases are clear. There is no pleural effusion. Heart size is normal. There is no pericardial eff usion. Liver is intact. The bile ducts are not dilated. There are clips from cholecystectomy. Spleen is inta ct. There is no evidence of pancreatic mass. There is pancreatic atrophy. Stomach is intact. There is no adrenal mass. Kidneys have normal size and contour. There is no hydronephrosis. Ureters a re not dilated. There is no retroperitoneal adenopathy. Bladder distends smoothly. There is no inguinal hernia. There is no free fluid in the pelvis. There is no mesenteric edema. There is no ascites or free air. There is no bowel obstruction. There i s previous bowel surgery. Appendix is not seen. There is no sign of thickened appendix. There is some fat stranding in the subcutaneous tissues over the lower anterior abdomen which could be scar tissue or hematoma. The lumbar vertebra have normal alignment. Posterior elements are intact. There is narrowing at L5-S1 disc space. Facet joints are intact. Bony pelvis is intact. Hip joints are intact. IMPRESSION: There is reduction of the abdominal ventral hernia compared to old exam. There is some residual hemat torey or scar tissue measuring 4.5 x 2 cm over the anterior lower abdomen in the subcutaneous fat. Previous bowel surgery. No acute abnormality within the abdomen pelvis.
[2020-11-06] MEDS ORDERED: LORazepam 2 MG/ML INJ IV STA (20:34)
[2020-11-06 21:08] VITALS: BP 120/54; PULSE 95
== END 2020-11-06 21:08 | disposition left against medical advice (07) ==
LOC: EC 16:38
DX: R10.9 Unspecified abdominal pain (principal); I10 Essential (primary) hypertension; K21.9 Gastro-esophageal reflux disease without esophagitis; E78.5 Hyperlipidemia, unspecified; M19.90 Unspecified osteoarthritis, unspecified site; F41.9 Anxiety disorder, unspecified; F32.9 Major depressive disorder, single episode, unspecified; Z88.1 Allergy status to other antibiotic agents; F12.90 Cannabis use, unspecified, uncomplicated; Z86.010 Personal history of colon polyps; Z87.440 Personal history of urinary (tract) infections; Z90.49 Acquired absence of other specified parts of digestive tract; Z90.89 Acquired absence of other organs; Z90.710 Acquired absence of both cervix and uterus; Z87.891 Personal history of nicotine dependence
CPT/HCPCS: 99285; 96374; 96375 ×2; 96376; 96361; 36415; 93005; 80053; 82150; 83605; 83690; 84484; 85025; 85610; 85730; 81001; 71046; 74176; J2405; J1885; J1170

== ENCOUNTER 2021-12-17 15:36 | Observation (INO) | payer MEDICARE ==
[2021-12-17] MEDS ORDERED: ONDANSETRON 4 MG/2 ML VIAL IVP STA ×2 (17:16→19:13)
[2021-12-17] MEDS ORDERED: MORPHINE SULFATE 4 MG/ML SYRINGE IV STA (17:16)
[2021-12-17] MEDS ORDERED: SODIUM CHLORIDE 0.9% 1,000 ML IV STA (17:18)
[2021-12-17] MEDS ORDERED: FAMOTIDINE 20 MG/2 ML VIAL IV STA (17:18)
[2021-12-17] MEDS ORDERED: diphenhydrAMINE 50 MG/ML 1 ML VIAL IVP STA (17:18)
[2021-12-17] MEDS ORDERED: methylPREDNISolone SOD SUCCI 125 MG/2 ML VIAL IV STA (17:18)
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
[2021-12-17 18:00] LABS: Basophils % (A) 1 %; Eosinophils # (A) 0.1 k/uL (0-0.7); Eosinophils % (A) 1 %; HCT 40.2 % (34.0-46.0); HGB 13.8 gm/dL (11.4-16.0); Lymphocytes # (A) 1.4 k/uL (1.0-4.8); Lymphocytes % (A) 18 %; MCH 30.4 pg (25.0-35.0); MCHC 34.4 g/dL (31.0-37.0); MCV 88.1 fL (80.0-100.0); Mean Platelet Volume 7.2; Monocytes # (A) 0.3 k/uL (0-1.0); Monocytes % (A) 4 %; Neutrophils # (A) 6.1 k/uL (1.3-7.7); Neutrophils % (A) 75 %; Platelet Count 237 k/uL (150-450); RBC 4.56 m/uL (3.80-5.40); RDW 12.1 % (11.5-15.5); WBC 8.1 k/uL (3.8-10.6)
[2021-12-17 18:06] LABS: INR 0.9 (<1.2); Partial Thromboplastin Time 22.4 sec (22.0-30.0); Prothrombin Time 9.7 sec (9.0-12.0)
[2021-12-17 18:13] LABS: Appearance,Urine Cloudy (Clear); Bacteria,Urine Occasional /hpf; Bilirubin,Urine Negative (Negative); Blood,Urine Negative (Negative); Color,Urine Yellow; Glucose,Urine (UA) Negative (Negative); Hyaline Casts,Urine 3 /lpf (0-2); Ketones,Urine Negative (Negative); Leukocyte Esterase,Urine Small (Negative); Mucus,Urine Occasional /hpf; Nitrite,Urine Negative (Negative); Protein,Urine Negative (Negative); RBC,Urine 1 /hpf (0-5); Squamous Epithelial Cell,Urine 1 /hpf (0-4); Urobilinogen,Urine <2.0 mg/dL (<2.0); WBC,Urine 4 /hpf (0-5)
[2021-12-17 18:18] LABS: African American GFR (CKD) >90 (>60 ml/min/1.73 sqM); Albumin 4.1 g/dL (3.5-5.0); Amylase 51 U/L (30-110); Anion Gap 7 mmol/L; Carbon Dioxide 24 mmol/L (22-30); Chloride 109 mmol/L (98-107); Glucose 120 mg/dL (74-99); Non-African American GFR(CKD) >90 (>60 ml/min/1.73 sqM); Potassium 4.3 mmol/L (3.5-5.1); Sodium 140 mmol/L (137-145); Total Protein 6.5 g/dL (6.3-8.2)
[2021-12-17 18:19] LABS: ALT 39 U/L (4-34); AST 30 U/L (14-36); Alkaline Phosphatase 119 U/L (38-126); Blood Urea Nitrogen 10 mg/dL (7-17); Calcium 8.6 mg/dL (8.4-10.2); Lipase 37 U/L (23-300); Total Bilirubin 0.4 mg/dL (0.2-1.3)
--- NOTE | 2021-12-17 18:34 | CT ---
EXAMINATION TYPE: CT abdomen pelvis w con DATE OF EXAM: 12/17/2021 COMPARISON: 11/06/2020 HISTORY: Abdominal pain CT DLP: mGycm Automated exposure control for dose reduction was used. CONTRAST: The contrast was Isovue 100 mL IV. The lung bases are clear. No pleural effusion. Heart size is normal. No pericardial effusion. Liver spleen stomach and pancreas appear intact. There are clips from cholecystectomy. The bile duct are not dilated. There is no adrenal mass. Kidneys show normal size and contour. No hydronephrosis. Ureters are not di lated. No retroperitoneal adenopathy. Delayed images show normal renal excretion. The bladder distends smoothly. No inguinal hernia. No santa e fluid in the pelvis. No pelvic mass. There is hysterectomy. There is previous bowel surgery in the lower mid abdomen. Appendix not seen. No sign of thickened appendix. There is some fat stranding and fluid along the subcutaneous fat of the lower anterior abdomen in the midline and towards the left side. There is no mesenteric edema. No ascites or free air. No sign of a bowel obstruction. The lumbar vert ebrae have normal alignment. No compression fracture. Bony pelvis is intact. The hip joints are intac t. IMPRESSION: Previous small bowel surgery in the lower abdomen. No bowel obstruction. There is some fat stranding and subcutaneous soft tissue density in the lower anterior abdomen which is increased compared to the old exam. There is 9 x 3 cm area of subcutaneous density left of midline that could be acute hematoma and appears new compared to old exam.
--- NOTE | 2021-12-17 18:37 | XR ---
EXAMINATION TYPE: XR knee 4V RT DATE OF EXAM: 12/17/2021 COMPARISON: 09/28/2013 HISTORY: Pain. Trauma TECHNIQUE: 4 views FINDINGS: There is mild spurring of the femoral and tibial condyles. I see no fracture nor dislocatio n. There is no evidence of any significant knee joint effusion. IMPRESSION: There is some mild osteoarthritic changes. No fracture seen. There is increased spur form ation compared to old exam.
[2021-12-17] MEDS ORDERED: MORPHINE SULFATE 4 MG/ML SYRINGE IVP STA (19:13)
[2021-12-17] MEDS ORDERED: HYDROmorphone 0.5 MG/0.5 ML SYRINGE IVP PRN (19:57)
[2021-12-17] MEDS ORDERED: ONDANSETRON 4 MG/2 ML VIAL IVP PRN (19:57)
[2021-12-17] MEDS ORDERED: ACETAMINOPHEN TAB 325 MG TAB PO PRN (19:57)
[2021-12-17] MEDS ORDERED: NALOXONE 0.4 MG/ML 1 ML VIAL IV PRN (19:57)
[2021-12-17] MEDS: HYDROmorphone 1 MG/ML 1 ML SYRINGE IVP PRN (21:04)
[2021-12-17] MEDS: SODIUM CHLORIDE 0.9% 1,000 ML IV SCH (21:05)
[2021-12-17] MEDS ORDERED: ALBUTEROL NEBULIZED 2.5 MG/3 ML INHALATION PRN (22:24)
[2021-12-17] MEDS ORDERED: traMADol 50 MG TAB PO PRN (22:24)
[2021-12-17] MEDS ORDERED: ATORVASTATIN 10 MG TAB PO SCH (22:30)
[2021-12-17] MEDS ORDERED: ALPRAZolam 0.5 MG TAB PO STA (22:38)
[2021-12-17] MEDS: PROMETHAZINE 25 MG TAB PO SCH (22:56)
[2021-12-17] MEDS: DICYCLOMINE 20 MG TAB PO SCH (22:56)
[2021-12-18] MEDS: HYDROmorphone 1 MG/ML 1 ML SYRINGE IVP PRN ×4 (00:21→09:58)
[2021-12-18] MEDS: DIPHENOX-ATROP 2.5-0.025 MG 1 EACH TAB PO PRN ×2 (00:26→10:39)
[2021-12-18] MEDS: DICYCLOMINE 20 MG TAB PO SCH ×3 (05:57→16:58)
[2021-12-18] MEDS ORDERED: FLUoxetine HCL 20 MG CAP PO SCH (09:00)
[2021-12-18] MEDS ORDERED: PANTOPRAZOLE 40 MG/10 ML VIAL IV SCH (09:00)
[2021-12-18] MEDS ORDERED: CHOLESTYRAMINE (WITH SUGAR) 4 GM PACKET PO SCH (09:00)
[2021-12-18] MEDS ORDERED: HYDROcodone/APAP 5-325MG 1 EACH TAB PO PRN (09:20)
[2021-12-18] MEDS: PROMETHAZINE 25 MG TAB PO SCH (10:39)
[2021-12-18 11:30] LABS: Basophils # (A) 0.01 X 10*3/uL (0.00-0.10); Basophils % (A) 0.1 %; Eosinophils # (A) 0 X 10*3/uL (0.04-0.35); Eosinophils % (A) 0 %; HGB 12.5 g/dL (12.0-15.0); Immature Grans, Automated 0.4 %; Lymphocytes # (A) 0.76 X 10*3/uL (0.90-5.00); Lymphocytes % (A) 9.1 %; MCH 29.3 pg (27.0-32.0); MCHC 32.1 g/dL (32.0-37.0); MCV 91.3 fL (80.0-97.0); Mean Platelet Volume 9.7 fL (9.5-12.2); Monocytes # (A) 0.09 X 10*3/uL (0.20-1.00); Monocytes % (A) 1.1 %; NRBC Per 100 WBC 0 /100 WBCS (0.0-0.0); Neutrophils # (A) 7.45 X 10*3/uL (1.80-7.70); Neutrophils % (A) 89.3 %; Platelet Count 211 X 10*3/uL (140-440); RBC 4.27 X 10*6/uL (4.10-5.20); RDW 12.1 % (11.5-14.5); WBC 8.34 X 10*3/uL (4.50-10.00)
[2021-12-18] MEDS: SODIUM CHLORIDE 0.9% 1,000 ML IV SCH (12:02)
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
[2021-12-18 13:30] LABS: ALT 32 U/L (4-34); African American GFR (CKD) >90 (>60 ml/min/1.73 sqM); Albumin 3.5 g/dL (3.5-5.0); Albumin/Globulin Ratio 1.6; Anion Gap 3 mmol/L; Blood Urea Nitrogen 10 mg/dL (7-17); Calcium 8.1 mg/dL (8.4-10.2); Carbon Dioxide 27 mmol/L (22-30); Chloride 108 mmol/L (98-107); Globulin 2.2 g/dL; Glucose 130 mg/dL (74-99); Non-African American GFR(CKD) >90 (>60 ml/min/1.73 sqM); Sodium 138 mmol/L (137-145); Total Bilirubin 0.7 mg/dL (0.2-1.3); Total Protein 5.7 g/dL (6.3-8.2)
[2021-12-18 13:31] LABS: AST 32 U/L (14-36); Alkaline Phosphatase 80 U/L (38-126); Potassium 4.7 mmol/L (3.5-5.1)
[2021-12-18 15:55] VITALS: BP 144/74; PULSE 75; RESP 18; TEMP 98
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
== END 2021-12-18 18:43 | disposition home or self-care (01) ==
LOC: EC 15:36 → 6NMEDSUR 19:58
PROVIDERS: ADMIT Surgery; ATTEND Surgery
DX: S30.1XXA Contusion of abdominal wall, initial encounter (principal); S80.12XA Contusion of left lower leg, initial encounter; S80.11XA Contusion of right lower leg, initial encounter; V28.01XA Electric (assisted) bicycle driver injured in noncollision transport accident in nontraffic accident, initial encounter; R42 Dizziness and giddiness; K21.9 Gastro-esophageal reflux disease without esophagitis; E78.5 Hyperlipidemia, unspecified; I10 Essential (primary) hypertension; M19.90 Unspecified osteoarthritis, unspecified site; G89.29 Other chronic pain; M54.9 Dorsalgia, unspecified; G43.909 Migraine, unspecified, not intractable, without status migrainosus; F32.A Depression, unspecified; F41.0 Panic disorder [episodic paroxysmal anxiety]; Z87.891 Personal history of nicotine dependence; Z79.899 Other long term (current) drug therapy; Z88.0 Allergy status to penicillin; Z88.1 Allergy status to other antibiotic agents
CPT/HCPCS: 96375 ×3; 96376 ×2; 96374; 99285; 36415; 93005; 80053 ×2; 82150; 83690; 85025 ×2; 85610; 85730; 81001; 73564; 74177; G0378 ×2; J2270; J1200; J2930; J2405; J1170 ×2; C9113; Q9967

== ENCOUNTER → 2022-06-25 | Outpatient (CLI) | payer MEDICARE ==
--- NOTE | 2022-06-25 10:20 | CT ---
EXAMINATION TYPE: CT ChestAbdPelvis w con CT DLP: 1988.90 mGycm, Automated exposure control for dose reduction was used. DATE OF EXAM: 06/25/2022 9:31 AM COMPARISON: CT abdomen pelvis most recent 12/17/2021, CT chest abdomen pelvis 02/17/2020. 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 Oral contrast was administered. Two-dimensional coronal an d sagittal reconstructions were obtained. Findings: CHEST: LUNGS/ PLEURA: The lung parenchyma appears unremarkable. No suspicious pulmonary nodule or mass. AIRWAY: Patent and unremarkable.. HEART: Size within normal limits. No pericardial effusion. MEDIASTINUM: No evidence of adenopathy. VASCULATURE: No aortic aneurysm. MUSCULOSKELETAL: No acute osseous abnormalities. No aggressive osseous lesion. Mild degenerative disc disease. SOFT TISSUES/LYMPH NODES: Unremarkable. LOWER NECK: No significant findings. ABDOMEN: ABDOMEN LIVER: Unremarkable GALLBLADDER AND BILE DUCTS: The gallbladder is nondistended with no gross abnormality. No biliary nely juan manuel dilatation. PANCREAS: Fatty infiltration. SPLEEN: Unremarkable. ADRENAL GLANDS: Unremarkable. KIDNEYS AND URETERS: No evidence of hydronephrosis or renal calculus. The kidneys enhance symmetrical ly without suspicious focal lesion. Contrast is demonstrated within both collecting systems on the de layed phase. PELVIS BLADDER: Unremarkable REPRODUCTIVE: Unremarkable. ABDOMEN & PELVIS STOMACH AND BOWEL: Stomach and duodenum are unremarkable. Previous bowel surgery in the midabdomen re demonstrated. No focal wall thickening to suggest local recurrence. Enteric contrast reaches the sigm oid colon. No evidence of bowel obstruction. Appendix is not visualized consistent reported history o f appendectomy. PERITONEUM: No evidence of pneumoperitoneum or free fluid. VASCULATURE: No evidence of aortic aneurysm. MUSCULOSKELETAL: No acute osseous abnormalities. No aggressive osseous lesion. Mild degenerative disc disease. LYMPH NODES: No gross evidence for lymphadenopathy. SOFT TISSUE/ABDOMINAL WALL: Similar scarring along the anterior, middle wall site of previous surgery . IMPRESSION: 1. No evidence for metastatic disease or recurrence within the chest, abdomen or pelvis. 2. Postsurgical changes redemonstrated.
== END | disposition home or self-care (01) ==
LOC: RADCTMAIN 07:42
PROVIDERS: ATTEND Internal Medicine Hematology & Oncology
DX: C7A.012 Malignant carcinoid tumor of the ileum (principal); I10 Essential (primary) hypertension; E78.00 Pure hypercholesterolemia, unspecified; K58.9 Irritable bowel syndrome, unspecified
CPT/HCPCS: 71260; 74177; Q9967

== ENCOUNTER → 2023-08-20 | Outpatient (CLI) | payer MEDICARE ==
--- NOTE | 2023-08-20 12:22 | CT ---
EXAMINATION TYPE: CT ChestAbdPelvis w con DATE OF EXAM: 08/20/2023 COMPARISON: 06/25/2022 HISTORY: f/u colon ca CT DLP: 1481.8 mGycm Automated exposure control for dose reduction was used. CONTRAST: CT scan of the chest, abdomen and pelvis is performed with Oral Contrast and with IV Contrast, patien t injected with 100 mL of Isovue 300. FINDINGS: CT chest: There is no suspicious lung mass or nodule. There is no abnormal airspace/consolidative density or abnormal interstitial density. There is no pleural effusion, pleural thickening or pneumothorax. The great vessels and chest are normal there is no mediastinal, hilar or axillary adenopathy. No focal osseous lesions are seen. CT abdomen and pelvis: There is surgical absence of the gallbladder. There is mild intra and extra hepatic biliary ductal di latation likely on the basis of cholecystectomy. There is no focal mass or organomegaly involving the liver, pancreas, spleen or adrenal glands.. Ther e is mild pancreatic atrophy. There is no solid renal mass or hydronephrosis. There is no retroperitoneal adenopathy or hemorrhage in the caliber of the abdominal aorta is normal. The bowel loops are normal in caliber and there is no dilatation or obstruction. No inflammatory rod ges identified in the bowel wall and mesentery. There is no free intracranial air or fluid. There is no pelvic mass or adenopathy. There is no free fluid within the pelvis. No focal osseous lesions are seen. Soft tissue the abdomen and pelvis are normal. IMPRESSION: No evidence of recurrent or metastatic disease within the chest, abdomen or pelvis.
== END | disposition home or self-care (01) ==
LOC: RADCTMAIN 10:01
PROVIDERS: ATTEND Internal Medicine Hematology & Oncology
DX: C7A.012 Malignant carcinoid tumor of the ileum (principal); E78.00 Pure hypercholesterolemia, unspecified; C18.9 Malignant neoplasm of colon, unspecified; K58.9 Irritable bowel syndrome, unspecified; I10 Essential (primary) hypertension; Z90.49 Acquired absence of other specified parts of digestive tract
CPT/HCPCS: 71260; 74177; Q9967

== ENCOUNTER 2023-10-01 08:47 | Day surgery (SDC) | payer MEDICARE ==
[2023-10-01] MEDS ORDERED: LACTATED RINGERS 1,000 ML BAG ONE (10:00)
[2023-10-01] MEDS ORDERED: LIDOCAINE 1% INJ 10MG/ML (20 ML MDV) ONE (10:14)
[2023-10-01] MEDS ORDERED: PROPOFOL 10 MG/ML 20 ML VIAL IV ONE (10:14)
[2023-10-01] MEDS ORDERED: ONDANSETRON 4 MG/2 ML VIAL ONE (10:14)
[2023-10-01] MEDS ORDERED: MIDAZOLAM 2 MG/2 ML VIAL ONE (10:14)
== END 2023-10-01 12:15 ==
LOC: ORWHC2ENDO 08:47
PROVIDERS: ATTEND Surgery Plastic and Reconstructive Surgery
DX: K29.50 Unspecified chronic gastritis without bleeding (principal); K21.00 Gastro-esophageal reflux disease with esophagitis, without bleeding; B37.81 Candidal esophagitis; K44.9 Diaphragmatic hernia without obstruction or gangrene; K52.9 Noninfective gastroenteritis and colitis, unspecified; D3A.8 Other benign neuroendocrine tumors; K57.30 Diverticulosis of large intestine without perforation or abscess without bleeding; G40.909 Epilepsy, unspecified, not intractable, without status epilepticus; Z79.899 Other long term (current) drug therapy; Z90.49 Acquired absence of other specified parts of digestive tract; Z88.8 Allergy status to other drugs, medicaments and biological substances; Z88.1 Allergy status to other antibiotic agents
CPT/HCPCS: 43239; 45380; 88305

== ENCOUNTER → 2024-06-28 | Outpatient (CLI) | payer MEDICARE ==
[2024-06-28 17:56] LABS: Basophils # (A) 0.03 X 10*3/uL (0.00-0.10); Basophils % (A) 0.4 %; Eosinophils # (A) 0.03 X 10*3/uL (0.04-0.35); Eosinophils % (A) 0.4 %; HCT 42.5 % (37.2-46.3); HGB 14.4 g/dL (12.0-15.0); Lymphocytes # (A) 1.67 X 10*3/uL (0.90-5.00); Lymphocytes % (A) 24.3 %; MCH 30.2 pg (27.0-32.0); MCHC 33.9 g/dL (32.0-37.0); MCV 89.1 FL (80.0-97.0); Mean Platelet Volume 10.2 FL (9.5-12.2); Monocytes # (A) 0.53 X 10*3/uL (0.20-1.00); Monocytes % (A) 7.7 %; NRBC Per 100 WBC 0 X 10*3/uL (0.00-0.01); Neutrophils # (A) 4.59 X 10*3/uL (1.80-7.70); Neutrophils % (A) 67.1 %; Platelet Count 214 X 10*3/uL (140-440); RBC 4.77 X 10*6/uL (4.10-5.20); RDW 11.9 % (11.5-14.5); WBC 6.86 X 10*3/uL (4.50-10.00)
[2024-06-28 18:21] LABS: ALT 27 U/L (8-44); AST 23 U/L (13-35); Albumin 4.3 g/dL (3.8-4.9); Albumin/Globulin Ratio 2.39 Ratio (1.60-3.17); Alkaline Phosphatase 56 U/L (41-126); BUN/Creat Ratio 14.56 Ratio (12.00-20.00); Blood Urea Nitrogen 13.1 mg/dL (9.0-27.0); Calcium 9.4 mg/dL (8.7-10.3); Carbon Dioxide 23.7 mmol/L (21.6-31.8); Chloride 104 mmol/L (96-109); Chol/HDL Ratio 3.21 Ratio; Globulin 1.8 g/dL (1.6-3.3); Glucose 108 mg/dL (70-110); LDL Cholesterol,Calculated 114.5 mg/dL (0.0-131.0); Potassium 3.8 mmol/L (3.5-5.5); Sodium 140 mmol/L (135-145); Total Bilirubin 0.8 mg/dL (0.3-1.2); Total Protein 6.1 g/dL (6.2-8.2)
== END | disposition home or self-care (01) ==
LOC: LABWHC1 12:50
PROVIDERS: ATTEND Family Medicine
DX: C7A.012 Malignant carcinoid tumor of the ileum (principal); E78.5 Hyperlipidemia, unspecified
CPT/HCPCS: 36415; 80053; 80061; 83036; 84260; 84443; 85025; 86316